=== PATIENT | female | born 1945 | race Caucasian/White ===

== ENCOUNTER 2017-08-12 14:13 | Inpatient (IN) | payer MEDICARE, SELFPAY ==
[2017-08-12] VITALS (8 sets, daily range): BP systolic 81–139; BP diastolic 50–89; PULSE 67–95; RESP 14–20; TEMP 36.8; O2SAT 97–99; BMI 22.6; BMI 21.6; BMI 21.7
--- NOTE | 2017-08-12 15:51 | RAD_ITS ---
STUDY: X-RAY - LUMBAR SPINE REASON FOR EXAM: Female, 71 years old. fell 3 days ago, pain in lower back and hips TECHNIQUE: 3 view(s) of the lumbar spine were obtained. COMPARISON: None FINDINGS: Normal lumbar lordosis. There is no substantial scoliosis. There is a normal alignment of the vertebrae. Bone demineralization is noted. There appears concavity associated with the superior endplates of L2 and L3 likely on the basis of osteoporotic central compression. No defined acute fracture however identified. Minimal marginal osteophytes are noted. There appears lower lumbar facet arthropathy. Normal disc space heights. There is no demonstrated fracture. Surgical clips are present in the right upper quadrant presumably from prior cholecystectomy. There appear anastomotic radha in the region of the gastroesophageal junction. RAD/Lumbar Spine 2 or 3 Views IMPRESSION: Osteoporosis. Suspect osteoporotic concavities of the L2 and L3 vertebral bodies. No acute defined fracture identified. Electronically Signed: Amanda José MD at 16:50 EDT , Service support ,
--- NOTE | 2017-08-12 15:52 | RAD_ITS ---
STUDY: X-RAY - LEFT SHOULDER REASON FOR EXAM: Female, 71 years old. fell 3 days ago, shoulder pain TECHNIQUE: 3 view(s) of the shoulder. COMPARISON: Prior comparison studies are not available for review at this time. FINDINGS: Bony demineralization is noted. There is a right shoulder arthroplasty with humeral diaphyseal component and humeral head component. There is radiolucency in the region of the glenoid as well as sclerosis. There is no sign of dislocation. There does appear heterotopic bone locally in this region. There is no evidence of scapular clavicular or subjacent rib fracture. The soft tissue structures are unremarkable. Normal visualized pulmonary apex. RAD/Shoulder min 2 Views IMPRESSION: Left shoulder arthroplasty. No acute abnormality identified. Electronically Signed: Amanda José MD at 16:47 EDT , Service support ,
--- NOTE | 2017-08-12 15:52 | RAD_ITS ---
STUDY: X-RAY - PELVIS REASON FOR EXAM: Female, 71 years old. fell 3 days ago, hip pain TECHNIQUE: One view of the pelvis was obtained. COMPARISON: None. FINDINGS: There is a non-specific bowel gas pattern. Normal visualized soft tissue structures. There is diffuse demineralization of the osseous structures. Normal bilateral iliac wings, sacroiliac joints and visualized sacrum. Normal visualized bilateral superior and inferior pubic rami. Normal pubic symphysis. Normal ischial tuberosities. Normal visualized right femoral head. Normal right acetabulum. Normal right hip joint. Normal visualized left femoral head. Normal left acetabulum. Normal left hip joint. RAD/Pelvis 1 or 2 Views IMPRESSION: No acute abnormality. Bony demineralization. Electronically Signed: Amanda José MD at 16:51 EDT , Service support ,
--- NOTE | 2017-08-12 17:07 | RAD_ITS ---
STUDY: X-RAY - SACRUM/COCCYX REASON FOR EXAM: Female, 71 years old. fall 3 days ago, pain in tail bone TECHNIQUE: 3 view(s) of the sacrum and coccyx were obtained. COMPARISON: None. FINDINGS: Normal bilateral sacroiliac joints. On the lateral view there appears that there is disruption of the anterior cortex of the proximal sacrum suggesting a subtle fracture in this area. I question the presence of fracture associated with the left sacrum superiorly on the other views. Normal sacrococcygeal junction with a normal angulation. Normal coccygeal segments. The presacral soft tissue structures are unremarkable. RAD/Sacrum-Coccyx min 2 Views IMPRESSION: No evidence of a coccygeal fracture. On the lateral view there appears that there is disruption of the anterior cortex of the proximal sacrum suggesting a subtle fracture in this area. I question the presence of fracture associated with the left sacrum superiorly on the other views. Electronically Signed: Amanda José MD at 18:26 EDT , Service support ,
--- NOTE | 2017-08-12 17:08 | ED.VISSUMM ---
- ER Visit Summary Date of Service: 08/12/17 Chief Complaint: Fall History of Present Illness: The patient is a 71 F who lives in [place] and sees Dr. Ruiz. She reports that she fell approximately July 23 when she was climbing on a couch and lost her balance. She reports that she has low back pain that is sharp and 10 out of 10 severity. She has bilateral hip pain that is 10 out of 10 severity. Left shoulder pain that is 6 out of 10 severity. All of these pains are worsened by movement or the active sitting down. They are unrelieved by Tylenol. Patient denies any blow to the head or loss of consciousness. She is not on any blood thinners. No neck or head pain. Patient reports that she has been nauseated, but has not vomited. She relates this to when the pain is severe. She reports she been having diarrhea 1-2 times a day for the past month. No blood in her stools or black tarry stools. She complains of generalized weakness. Physical Examination: Vitals: Stable. Afebrile. Neck: No vertebral tenderness. Full ROM without difficulty. Cleared by NEXUS criteria. Back: Mild tenderness palpation is diffuse over the lumbar spine. Moderate tenderness palpation over her coccyx.. General: A&O x 3. NAD. Cardiovascular exam: Regular rate and rhythm. 2 out of 6 systolic murmur. Respiratory exam: Chest nontender. No crepitus. Clear to auscultation bilaterally. No wheezes or stridor. Abdominal exam: Soft, nontender, nondistended, normal bowel sounds. No pain in RUQ or LUQ specifically. No peritoneal signs. Extremity: Mild tenderness palpation over her greater trochanters bilaterally. She has no pain with internal/external rotation of her hips. Mild tenderness palpation over her left shoulder. Good range of motion without any difficulty. Test Results: LS spine x-ray show osteoporosis, but no acute disease. Pelvis x-ray shows no acute disease. Left shoulder x-ray shows her to be status post replacement. The hardware is intact. There is no acute disease. Coccyx x-ray raises a question of a sacral fracture that is only seen on the lateral view. CBC is marked for platelets of 747, segmented neutrophils 81, and lymphocytes 13. Chem-7 marked potassium 2.3, chloride 108, calcium 8.0. EKG is sinus at 74 with T-wave inversions in leads V2 to V6 and low T waves throughout. Her QTC is 477. There is no edema EKG for comparison. Emergency Department Course and Treatment: Patient had an IV placed. She was given morphine and Zofran IV. She is resting comfortably. Patient was given K-Dur p.o. Treatment Plan: Patient is visiting from [place] and does not have a local primary care physician. She is already on potassium at home. I do not think that she is going to be able to replete her potassium and have this checked in a safe manner at home. She will will be discussed the hospitalist and admitted for further evaluation and treatment. Disposition: Admitted in improved condition. Impression: 1. Hypokalemia. 2. Low back pain. This note was generated with [employer] dictation software. It may contain incorrect words, spelling, and punctuation that were not noted in review of the chart prior to signing ED Disposition - Plan for ED Patient: Chief Complaint: Fall Referrals: [facility] Doctor,Out of [Primary Care Provider] -
--- NOTE | 2017-08-12 17:11 | ED.DCSUM_ITS ---
- ER Visit Summary Date of Service: 08/12/17 Chief Complaint: Fall History of Present Illness: The patient is a 71 F who lives in [place] and sees Dr. Ruiz. She reports that she fell approximately July 23 when she was climbing on a couch and lost her balance. She reports that she has low back pain that is sharp and 10 out of 10 severity. She has bilateral hip pain that is 10 out of 10 severity. Left shoulder pain that is 6 out of 10 severity. All of these pains are worsened by movement or the active sitting down. They are unrelieved by Tylenol. Patient denies any blow to the head or loss of consciousness. She is not on any blood thinners. No neck or head pain. Patient reports that she has been nauseated, but has not vomited. She relates this to when the pain is severe. She reports she been having diarrhea 1-2 times a day for the past month. No blood in her stools or black tarry stools. She complains of generalized weakness. Physical Examination: Vitals: Stable. Afebrile. Neck: No vertebral tenderness. Full ROM without difficulty. Cleared by NEXUS criteria. Back: Mild tenderness palpation is diffuse over the lumbar spine. Moderate tenderness palpation over her coccyx.. General: A&O x 3. NAD. Cardiovascular exam: Regular rate and rhythm. 2 out of 6 systolic murmur. Respiratory exam: Chest nontender. No crepitus. Clear to auscultation bilaterally. No wheezes or stridor. Abdominal exam: Soft, nontender, nondistended, normal bowel sounds. No pain in RUQ or LUQ specifically. No peritoneal signs. Extremity: Mild tenderness palpation over her greater trochanters bilaterally. She has no pain with internal/external rotation of her hips. Mild tenderness palpation over her left shoulder. Good range of motion without any difficulty. Test Results: LS spine x-ray show osteoporosis, but no acute disease. Pelvis x- ray shows no acute disease. Left shoulder x-ray shows her to be status post replacement. The hardware is intact. There is no acute disease. Coccyx x-ray raises a question of a sacral fracture that is only seen on the lateral view. CBC is marked for platelets of 747, segmented neutrophils 81, and lymphocytes 13. Chem-7 marked potassium 2.3, chloride 108, calcium 8.0. EKG is sinus at 74 with T-wave inversions in leads V2 to V6 and low T waves throughout. Her QTC is 477. There is no edema EKG for comparison. Emergency Department Course and Treatment: Patient had an IV placed. She was given morphine and Zofran IV. She is resting comfortably. Patient was given K- Dur p.o. Treatment Plan: Patient is visiting from [place] and does not have a local primary care physician. She is already on potassium at home. I do not think that she is going to be able to replete her potassium and have this checked in a safe manner at home. She will will be discussed the hospitalist and admitted for further evaluation and treatment. Disposition: Admitted in improved condition. Impression: 1. Hypokalemia. 2. Low back pain. This note was generated with [employer] dictation software. It may contain incorrect words, spelling, and punctuation that were not noted in review of the chart prior to signing ED Disposition - Plan for ED Patient: Chief Complaint: Fall Referrals: [facility] Doctor,Out of [Primary Care Provider] -
[2017-08-12 17:25] LABS: Absolute Lymphocyte Count 1.12 X10^3/ul (0.83-4.51); Absolute Neutrophil Count 7.3 X10^3/uL (2.0-7.7); Basophil# 0.02 X10^3/uL; Basophil% 0.2 % (0-1); Hematocrit 38.5 % (37-47); Hemoglobin 13.3 g/dl (12.0-15.0); Lymphocyte # 1.12 X10^3/ul (4.0); Lymphocyte % 12.5 % (19-41); Mean Corp Hgb Conc 34.5 g/gl (32-36); Mean Corpuscular Hgb 31.5 pg (27.0-32.0); Mean Corpuscular Volume 91.2 fL (81-99); Mean Platelet Vol. 9.8 fl (6.2-12.0); Monocyte% 5.6 % (0-10); Neutrophil # 7.29 X10^3/uL (2.7-7.7); Neutrophil % 81.4 % (47-70); Platelet Count 747 K/mm3 (150-450); RBC Distribution Width CV 17.5 % (11.6-14.6); RBC Distribution Width SD 53.4 fl (35.1-43.9); Red Blood Count 4.22 M/mm3 (4.2-5.4)
[2017-08-12 17:28] LABS: POSITIVE COUNT NO; POSITIVE DIFFERENTIAL NO; POSITIVE MORPHOLOGY NO
[2017-08-12] MEDS: Morphine 4 MG/ML Syringe IV (17:44)
[2017-08-12] MEDS: Ondansetron 4 MG/2 ML Vial IV (17:44)
[2017-08-12 17:49] LABS: Anion Gap 10 (5-15); BUN 18 mg/dL (7-18); Chloride 108 mmol/L (98-107); Creatinine, Serum 0.62 mg/dL (0.55-1.02); EST Glomerular Filtration Rate 100 mL/min (>60); Est Glom Filt Rate - Afr Amer 121 mL/min (>60); Estimated Creatinine Clearance 37.81 ml/min; Glucose 103 mg/dL (74-106); Potassium 2.3 mmol/L (3.5-5.1); Sodium Level 144 mmol/L (136-145)
--- NOTE | 2017-08-12 19:32 | EKG12_ITS ---
Test Reason : LOW POTASSIUM Blood Pressure : / mmHG Vent. Rate : 074 BPM Atrial Rate : 074 BPM P-R Int : 156 ms QRS Dur : 076 ms QT Int : 430 ms P-R-T Axes : 036 -17 187 degrees QTc Int : 477 ms Normal sinus rhythm ST & T wave abnormality, consider inferior ischemia ST & T wave abnormality, consider anterolateral ischemia Prolonged QT Abnormal ECG Confirmed by ALICE BELTRAN, NORMA ([id number]), digital editor MELVA ESPINOZA ([id number]) on 08/16/2017 2:56:43 PM Referred By: SOPHIA Confirmed By:NORMA JENKINS MD
--- NOTE | 2017-08-12 21:54 | PCM.HP.STD ---
Problem List (1) Hypokalemia Status: Acute (2) Falls Status: Acute (3) Epilepsy Status: Chronic (4) Bilateral leg edema Status: Chronic (5) Hypotension Status: Resolved (6) Thrombocytosis Status: Acute (7) Hypocalcemia Status: Acute (8) Sacral fracture Status: Acute (9) Hypothyroid Status: Chronic History of Present Illness Date of Admission: 08/12/17 Chief Complaint: Pain at coccyx after fall. The patient is a 71 year old F with a significant history of epilepsy, right shoulder pain status post surgery about 19 years ago who presented to the ED because of pain at her coccyx- sacral area after a fall 3 weeks ago. The patient states that she was standing on her sofa and trying to reposition a picture on the wall and she fell. She denies any syncope, nausea and vomiting, heart racing or seizure activity associated with a fall. The patient fell in her house at [place] where she lives. After the fall, she went to a hospital in [place]. She reports that x-ray at that time showed no abnormality at that time and she was not given any medication. She reports taking Tylenol which she thinks does not help but only upset her stomach. On her medication list is Tylenol with codeine. She is currently visiting her sister at [place]. She rates the pain at the coccyx sacral area as 9 out of 10. The pain is constant and it is throbbing. This pain prevents her from sleeping. At the ED her potassium was found to be 2.3 and she had T-wave inversions in leads of V1 to V6. Because of hypokalemia with EKG changes patient was admitted. [] Past Medical History Past Medical History (Chronic Problems): Chronic Problems Epilepsy (Chronic) Bilateral leg edema (Chronic) Hypothyroid (Chronic) Allergies No Known Allergies Allergy (Verified 08/12/17 14:15) Home Medications: Ambulatory Orders Medication Instructions Recorded Acetaminophen/Codeine #3 1 tablet PO Q4H PRN PRN 08/12/17 [Tylenol#3] Carvedilol [Coreg] 3.125 mg PO BID 08/12/17 Celecoxib [Celebrex] 200 mg PO DAILY 08/12/17 Donepezil HCl [Aricept] 10 mg PO QHS 08/12/17 Ergocalciferol [Vitamin D] 50,000 unit PO Q7D 08/12/17 Esomeprazole Magnesium [Nexium] 40 mg PO DAILY 08/12/17 Furosemide [Lasix] 20 mg PO DAILY 08/12/17 Levothyroxine [Synthroid] 75 mcg PO DAILY 08/12/17 Potassium Chloride [Klor-Con M20] 20 meq PO BID 08/12/17 Ropinirole HCl [Requip] 0.5 mg PO TID 08/12/17 Venlafaxine HCl [Venlafaxine HCl 75 mg PO DAILY 08/12/17 ER] Surgical History: - - L Shoulder surgery. Lives: With Family Smoking Status: Never smoker Tobacco Use: Non-smoker Alcohol: None Drugs: None - *Family History Maternal History Items: Heart Disease Paternal History Items: No pertinent history Sibling History Items: Cancer Review of Systems Constitutional: Denies: Chills, Fever, Weight Change HEENT: Reports: Difficulty Hearing - Uses bilateral hearing aids. At the time of assessment she had a hearing aid only in her left ears. Cardiovascular: Denies: Chest Pain, Palpitations Gastrointestinal: Denies: Abdominal Pain, Nausea, Vomiting Genitourinary: Denies: Dysuria Musculoskeletal: Reports: Shoulder Pain - Left - That she rates as 6 out of 10 and can go up to 9 out of 10 with activity. Poor gait requiring walker and assistance from family. Skin: Denies: Rash, Wounds Neurological: Reports: - Psychiatric: Denies: Anxiety, Depression, Homicidal Ideations, Suicidal Ideations Hematologic/ Lymphatic: Denies: Easy Bruising, Easy Bleeding VTE Information - Inpt Only VTE Present on Admission: No VTE Mechan Device Prophylaxis: None VTE Pharm Prophylaxis ordered?: Yes Patient Problems: Active and Suspected Problems Hypokalemia (Acute) Falls (Acute) Thrombocytosis (Acute) Hypocalcemia (Acute) Sacral fracture (Acute) - Physical Exam General: Alert, Oriented x3, Cooperative HEENT: Atraumatic, PERRLA, EOMI, Normocephalic Neck: Supple, No JVD, Negative Carotid Bruits Lungs: Diminished Cardiovascular: Regular rate, No murmurs Abdomen: Bowel Sounds Present, Soft, Non Tender Skin: No breakdown, - - A quarter size bruise on left lower ponce (reports sustained from falling.) Healed wound (report surgical) at Left shoulder. Musculoskeletal: Tenderness - Coccyx-sacral region Reduced range of motion of bilateral lower extremities. Strength of bilateral lower extremities intact. Strength of left shoulder 4/5. Strength of right shoulder 5/5. Equal handgrip bilateral, Neurological: - - Hard of hearing. Psych/Mental Status: Normal Affect, Appropriate Vital Signs Temp Pulse Resp BP Pulse Ox 98.3 F 82 14 120/76 97 08/12/17 14:13 08/12/17 20:29 08/12/17 20:29 08/12/17 20:29 08/12/17 20:29 Oxygen Delivery Method Room Air Weight: 54.431 kg Body Mass Index (BMI) 22.6 Laboratory Tests Past 24 Hrs 08/12/17 08/12/17 17:20 17:20 WBC 9.0 RBC 4.22 Hgb 13.3 Hct 38.5 MCV 91.2 MCH 31.5 MCHC 34.5 RDW 17.5 H RDW Differential 53.4 H Plt Count 747 H MPV 9.8 Immature Gran % (Auto) 0.300 Neut % (Auto) 81.4 H Lymph % (Auto) 12.5 L Dukes % (Auto) 5.6 Eos % (Auto) 0.0 Baso % (Auto) 0.2 Absolute Neuts (auto) 7.3 Absolute Lymphs (auto) 1.12 Total Counted Not Reportable Sodium 144 Potassium 2.3 L* Chloride 108 H Carbon Dioxide 26.0 Anion Gap 10 BUN 18 Creatinine 0.62 Estim Creat Clear Calc 37.81 Est GFR (MDRD) Af Amer 121 Est GFR (MDRD) Non-Af 100 BUN/Creatinine Ratio 29.0 H Glucose 103 Calcium 8.0 L Assessment/Plan All Active Problems Hypokalemia (Acute) Falls (Acute) Hypotension (Resolved) Thrombocytosis (Acute) Hypocalcemia (Acute) Sacral fracture (Acute) This is a 71 year old lady with a significant history of epilepsy who is visiting from [place] who reported to the ED because of pain in her coccyx- sacral area after a fall and was found to have severe hypokalemia with EKG abnormalities. 1. Severe Hypokalemia At Presentation patient's potassium was 2.3. Patient with EKG abnormalities of T-wave inversions and some QT prolongation. The patient is on potassium 20meq bid at home. And she is on Lasix 20mg daily . She reports that last time that she took her medications was a day before admission. Hypokalemia could be due to use of Lasix At Emergency department patient received 40 mEq of potassium. We will replenish with a further potassium chloride 40 mEq p.o. and 40 mEq IV. Will check magnesium. We will check urine potassium Sacral fracture Patient has pain in his sacral area. Radiographic evidence of a disruption of anterior cortex of the proximal sacrum suggesting a sacral fracture Morphine as needed, oxycodone as needed and schedule Tylenol ordered. We will continue home dose of celecoxib. Falls We will check orthostatic blood pressure. The patient on on telemetry monitoring to check for arrhythmia. We will check vitamin D level and Vitamin B12 Continue on home vitamin D. Physical therapy and occupational therapy consultation. Case management to help with disposition upon discharge. Dehydration BUN/creatinine is more than 20. There is no previous records to track progression. With her severe hypotension upon admission probably patient is dehydrated. She reports chronic bilateral leg edema but at the time of admission she did not have any edema and this could be due to dehydration. Further her potassium is high normal at 144. Will continue IV hydration for additional NSS 1L. Hypotension Resolved at the Emergency after fluid boluses We will hold home Coreg We will continue on a gentle hydration 50 mL/hr for 1L Thrombocytosis No old records to track progression Differential diagnoses include dehydration. We will repeat CBC in a.m. Hypocalcemia Her calcium on admission was 8.0. Will check CMP for albumin level to check a corrected calcium. Epilepsy The patient reported that her last seizure was about a year ago. There is no epileptic medication on a profile Patient will need close monitoring because of previous seizures. Patient to follow up with her primary care physician or neurologist after discharge. Hypothyroidism Continue home Synthroid. History of bilateral leg edema Patient denies any history of heart failure. She reports that she takes Lasix for bilateral leg edema suggesting a possible history of venous stasis. Home Lasix on hold at this time since she has no bilateral leg edema at this point and she looks dehydrated. DVT prophylaxis subcutaneous heparin. Code Visit Inpatient E&M: 55503 Init Hosp L2
[2017-08-12 23:01] LABS: Magnesium 2.1 mg/dL (1.6-2.6)
[2017-08-12] MEDS: 0.9% Normal Saline 1,000 ML 50 ML IV (23:26)
--- NOTE | 2017-08-12 23:59 | NURSING ---
Pt states has a home medication list in her purse but her sister took her purse when she left. Asked pt if she could have her sister bring it in sometime tomorrow.
[2017-08-13] VITALS (12 sets, daily range): BP systolic 103–145; BP diastolic 63–94; PULSE 69–98; RESP 16–18; TEMP 36.6–36.7; O2SAT 96–99
[2017-08-13] MEDS: Acetaminophen 500 MG Tablet PO ×4 (00:06→22:17)
[2017-08-13] MEDS: Heparin Injection (Vial) 5,000 UNIT/ML VIAL 5000 UNIT SC ×3 (00:07→22:15)
[2017-08-13] MEDS: Pramipexole Di-HCl 0.25 MG Tablet PO ×4 (00:07→22:15)
[2017-08-13] MEDS: Donepezil HCl 10 MG Tablet PO ×2 (00:08→22:15)
[2017-08-13] MEDS: 0.9% NaCl Peripheral Flush Adult/Peds IV ×3 (00:13→22:19)
[2017-08-13] MEDS: oxyCODONE 5 MG Tablet PO ×4 (01:59→22:22)
--- NOTE | 2017-08-13 05:55 | EKG12_ITS ---
Test Reason : AM EKG Blood Pressure : / mmHG Vent. Rate : 068 BPM Atrial Rate : 068 BPM P-R Int : 162 ms QRS Dur : 076 ms QT Int : 454 ms P-R-T Axes : 063 -12 -05 degrees QTc Int : 482 ms Normal sinus rhythm ST & T wave abnormality, consider anterior ischemia Abnormal ECG No previous ECGs available Confirmed by ALICE BELTRAN, NORMA ([id number]), scientific publications editor MELVA ESPINOZA ([id number] on 08/24/2017 3:03:02 PM Referred By: JUAN Confirmed By:NORMA JENKINS MD
[2017-08-13] MEDS: Levothyroxine 75 MCG Tablet PO (06:08)
[2017-08-13 06:31] LABS: Absolute Lymphocyte Count 1.47 X10^3/ul (0.83-4.51); Absolute Neutrophil Count 4.2 X10^3/uL (2.0-7.7); Basophil# 0.02 X10^3/uL; Basophil% 0.3 % (0-1); Hematocrit 30.5 % (37-47); Hemoglobin 10.3 g/dl (12.0-15.0); Lymphocyte # 1.47 X10^3/ul (4.0); Lymphocyte % 23.4 % (19-41); Mean Corp Hgb Conc 33.8 g/gl (32-36); Mean Corpuscular Hgb 31.6 pg (27.0-32.0); Mean Corpuscular Volume 93.6 fL (81-99); Mean Platelet Vol. 10.3 fl (6.2-12.0); Monocyte# 0.53 X10^3/uL; Monocyte% 8.4 % (0-10); Neutrophil # 4.23 X10^3/uL (2.7-7.7); Neutrophil % 67.3 % (47-70); Platelet Count 638 K/mm3 (150-450); RBC Distribution Width CV 17.4 % (11.6-14.6); RBC Distribution Width SD 54.2 fl (35.1-43.9); Red Blood Count 3.26 M/mm3 (4.2-5.4); White Blood Count 6.3 K/mm3 (4.4-11.0)
[2017-08-13 06:34] LABS: POSITIVE COUNT NO; POSITIVE DIFFERENTIAL NO; POSITIVE MORPHOLOGY NO
[2017-08-13 06:49] LABS: ALB/GLOB Ratio 0.8 RATIO (0.9-2.4); AST(SGOT) 169 U/L (15-37); Alanine Aminotransfer ALT/SGPT 294 U/L (13-56); Albumin, Serum 2.1 g/dL (3.2-5.0); Alkaline Phosphatase 295 U/L (45-117); Anion Gap 9 (5-15); BUN 14 mg/dL (7-18); BUN/Creat Ratio 36.4 RATIO (10-20); Calcium,Total 7.2 mg/dL (8.5-10.1); Chloride 114 mmol/L (98-107); Creatinine, Serum 0.38 mg/dL (0.55-1.02); EST Glomerular Filtration Rate 174 mL/min (>60); Est Glom Filt Rate - Afr Amer 210 mL/min (>60); Estimated Creatinine Clearance 39.63 ml/min; Globulin 2.7 g/dL (2.2-4.2); Glucose 80 mg/dL (74-106); Potassium 2.9 mmol/L (3.5-5.1); Protein, Total 4.8 g/dL (6.4-8.2); Sodium Level 145 mmol/L (136-145)
[2017-08-13] MEDS: Calcium (Elemental) 500 MG Tablet PO (08:59)
[2017-08-13] MEDS: Pantoprazole Sodium 40 MG Tablet PO (10:11)
[2017-08-13] MEDS: Venlafaxine XR 75 MG Capsule PO (10:11)
[2017-08-13] MEDS: Celecoxib 200 MG Capsule PO (10:11)
--- NOTE | 2017-08-13 11:01 | PCM.PN.HOSP ---
Patient Problems: Active and Suspected Problems Hypokalemia (Acute) Falls (Acute) Thrombocytosis (Acute) Hypocalcemia (Acute) Sacral fracture (Acute) Subjective: Unable to elicit subjective information because patient's hearing aids had run out of battery life. Her sister was going to bring her a new battery. Vitals/I&O's: Vital Signs Temp Pulse Resp BP Pulse Ox 98.1 F 85 18 119/63 97 08/13/17 09:08 08/13/17 09:08 08/13/17 09:08 08/13/17 09:08 08/13/17 09:08 Oxygen Delivery Method Room Air Weight: 53.7 kg Body Mass Index (BMI) 21.6 Orthostatic Vital Signs Start: 08/13/17 01:44 Freq: q24h Status: Active Protocol: Activity Type Activity Date Activity User E-Sign Co-Sign Detail Recorded Client Recorded Date Recorded By Document 08/13/17 01:44 KJA [id number] 08/13/17 01:52 KJA 08/13/17 01:44 Orthostatic Vitals Standing -Blood Pressure (90/60-120/80) 116/82 H -Extremity Use Right Arm -Pulse Rate (60-100) 98 Sitting -Blood Pressure (90/60-120/80) 145/94 H -Extremity Use Right Arm -Pulse Rate (60-100) 80 Lying -Blood Pressure (90/60-120/80) 128/77 H -Extremity Use Right Arm -Pulse Rate (60-100) 76 Intake and Output for Last 24 Hours 08/11/17 08/12/17 08/13/17 23:59 23:59 23:59 Intake Total 1116 / 1116 Output Total 250 / 250 Balance 866 / 866 General: Alert, Oriented x3, Cooperative HEENT: Atraumatic, PERRLA, EOMI, Normocephalic Neck: Supple, No JVD, Negative Carotid Bruits Lungs: Clear to auscultation, Normal air movement Cardiovascular: Regular rate, No murmurs Abdomen: Bowel Sounds Present, Soft, Non Tender Extremities: Tenderness - Sacral area Skin: - - Bruise at lower left ponce Neurological: - - Hard of hearing Psych/Mental Status: Normal Affect Laboratory Results 08/13/17 05:33: WBC 6.3, RBC 3.26 L, Hgb 10.3 L, Hct 30.5 L, MCV 93.6, MCH 31.6, MCHC 33.8, RDW 17.4 H, RDW Differential 54.2 H, Plt Count 638 H, MPV 10.3, Immature Gran % (Auto) 0.600, Neut % (Auto) 67.3, Lymph % (Auto) 23.4, Lares % (Auto) 8.4, Eos % (Auto) 0.0, Baso % (Auto) 0.3, Absolute Neuts (auto) 4.2, Absolute Lymphs (auto) 1.47, Total Counted Not Reportable 08/13/17 05:33: Sodium 145, Potassium 2.9 L, Chloride 114 H, Carbon Dioxide 22.0, Anion Gap 9, BUN 14, Creatinine 0.38 L, Estim Creat Clear Calc 39.63, Est GFR (MDRD) Af Amer 210, Est GFR (MDRD) Non-Af 174, BUN/Creatinine Ratio 36.4 H, Glucose 80, Calcium 7.2 L, Total Bilirubin 0.90, AST 169 H, ALT 294 H, Alkaline Phosphatase 295 H, Total Protein 4.8 L, Albumin 2.1 L, Globulin 2.7, Albumin/Globulin Ratio 0.8 L 08/13/17 05:33: Vitamin B12 Pending 08/13/17 05:33: Vit D 1,25-Dihydroxy Pending 08/13/17 06:20: Urine Potassium 28.0 Current Medications Acetaminophen (Tylenol) 500 mg PO Q8H [facility] Last Admin: 08/13/17 06:08 Dose: 500 mg Calcium Carbonate (Os-Og 500) 500 mg PO DAILY@0800 [facility] Last Admin: 08/13/17 08:59 Dose: 500 mg Celecoxib (Celebrex) 200 mg PO DAILY [facility] Last Admin: 08/13/17 10:11 Dose: 200 mg Donepezil HCl (Aricept) 10 mg PO QHS [facility] Last Admin: 08/13/17 00:08 Dose: 10 mg Ergocalciferol (Vitamin D) 50,000 unit PO Q7D [facility] Heparin Sodium (Porcine) (Heparin Na) 5,000 unit SC Q12 [facility] Last Admin: 08/13/17 10:11 Dose: 5,000 units Sodium Chloride () 1,000 mls @ 50 mls/hr IV .Q20H [facility] Stop: 08/13/17 18:58 Last Admin: 08/12/17 23:26 Dose: 50 mls/hr Potassium Chloride (Kcl 10meq/100ml) 10 meq in 100 mls @ 100 mls/hr IV BOLUS Q1H [facility] Stop: 08/13/17 11:29 Last Admin: 08/13/17 10:05 Dose: 100 mls/hr Levothyroxine Sodium (Synthroid) 75 mcg PO DAILY@0600 [facility] Last Admin: 08/13/17 06:08 Dose: 75 mcg Magnesium Hydroxide (Milk Of Magnesia) 30 ml PO DAILY PRN PRN PRN Reason: Constipation Morphine Sulfate () 1 mg IV Q4H PRN PRN PRN Reason: SEVERE PAIN (6-10/10) Nutritional Formula (Lactose Free) (Ensure Enlive) 120 ml PO 4X/DAY [facility] Oxycodone HCl (Oxyir) 5 mg PO Q4H PRN PRN PRN Reason: SEVERE PAIN (6-10/10) Last Admin: 08/13/17 08:58 Dose: 5 mg Pantoprazole Sodium (Protonix) 40 mg PO DAILY [facility] Last Admin: 08/13/17 10:11 Dose: 40 mg Pramipexole Dihydrochloride (Mirapex) 0.25 mg PO TID [facility] Last Admin: 08/13/17 06:08 Dose: 0.25 mg Sodium Chloride () 5 - 30 ml IV UD PRN PRN Reason: SALINE FLUSH Last Admin: 08/13/17 00:13 Dose: 10 ml Venlafaxine HCl (Effexor Xr) 75 mg PO DAILY [facility] Last Admin: 08/13/17 10:11 Dose: 75 mg Medical Necessity - Tobacco Use Smoking Status: Never smoker Tobacco Use: Non-smoker Assessment/Plan All Active Problems Hypokalemia (Acute) Falls (Acute) Hypotension (Resolved) Thrombocytosis (Acute) Hypocalcemia (Acute) Sacral fracture (Acute) This is a 71 year old lady with a significant history of epilepsy who is visiting from [place] who reported to the ED because of pain in her coccyx- sacral area after a fall and was found to have severe hypokalemia with EKG abnormalities. 1. Severe Hypokalemia At Presentation patient's potassium was 2.3. This morning her potassium level increased to 2.9 and her T-wave inversion appears to be of a decreased depth. Her magnesium level is normal. Will continue with p.o. and IV potassium replacements. Her urine potassium is unremarkable. Serial BMP Sacral fracture Patient has tenderness in her sacral area. Radiographic evidence of a disruption of anterior cortex of the proximal sacrum suggesting a sacral fracture Morphine as needed, oxycodone as needed and schedule Tylenol ordered. Continue home dose of celecoxib. Falls Orthostatic blood pressure is inconsistent.. No arrhythmia on tele vitamin D level pending Vitamin B12 is elevated Continue on home vitamin D. Physical therapy and occupational therapy is following. Pending recommendations Case management to help with disposition upon discharge. Dehydration Appears well hydrated. Will discontinue NSS infusion in ade face of high normal Sodium level Hypotension Resolved Will restart home Coreg Thrombocytosis No old records to track progression Remains elevated. Patient will need to follow up outpatient Hypocalcemia Corrected with her low level of albumin Epilepsy The patient reported that her last seizure was about a year ago. There is no epileptic medication on a profile Patient will need close monitoring because of previous seizures. Patient to follow up with her primary care physician or neurologist after discharge. Hypothyroidism Continue home Synthroid. History of bilateral leg edema Patient denies any history of heart failure. She reports that she takes Lasix for bilateral leg edema suggesting a possible history of venous stasis. Home Lasix on hold at this time since she has no bilateral leg edema at this point and she was hydrated during this admission. DVT prophylaxis subcutaneous heparin. Disposition: Patient will remain at the hospital today because of hypokalemia with uncertainty of her being able to appropriate correct her hypokalemia outpatient by acquiring Potassium pills and following up with relevant labs. She lives in [place]. Further, we await PT/OT recommendation for disposition after discharge Code Visit Inpatient E&M: 68467 Subs Hosp L2
[2017-08-13 12:43] LABS: Vitamin B12 1073 pg/mL (211-911)
--- NOTE | 2017-08-13 14:35 | CHAPLAIN ---
Type of Pastoral Visit _x__ Initial Visit ___ Follow-up Visit ___ On-call Visit ___ General Patient Visit ___ Spiritual Assessment ___ Family Conference ___ Bereavement ___ Rapid Response ___ Code Blue ___ Other (describe below) Pastoral Care Referral From _x__ Patient ___ Family ___ Nurse ___ Physician ___ Salesperson Flowers ___ Design Inserter ___ Other (describe below) Sacrament/Intervention _x__ Active listening ___ Anointing ___ Muslim ___ Bereavement ___ Communion ___ Patsy exploration ___ ___ Life review _x__ Prayer ___ Reconciliation ___ Sacrament of Sick _x__ Supportive presence ___ Wedding ___ Other (describe below) Pastoral Comments
[2017-08-13 16:24] LABS: Anion Gap 9 (5-15); BUN 15 mg/dL (7-18); Calcium,Total 7.9 mg/dL (8.5-10.1); Chloride 115 mmol/L (98-107); Creatinine, Serum 0.43 mg/dL (0.55-1.02); EST Glomerular Filtration Rate 153 mL/min (>60); Est Glom Filt Rate - Afr Amer 185 mL/min (>60); Estimated Creatinine Clearance 39.63 ml/min; Glucose 101 mg/dL (74-106); Potassium 4.5 mmol/L (3.5-5.1); Sodium Level 143 mmol/L (136-145)
--- NOTE | 2017-08-13 17:06 | CASEMGMT ---
SEE RN UMESH LINK: D/C PLAN: Undetermined. -PT/OT eval completed and recommend Detention Care upon discharge. SW referral made to [facility]. -Discussed Adv Directives with pt. Pt states is interested in talking with someone re: this. SW referral also made for Adv Directives. Pineda MONTOYA RN CM
[2017-08-13] MEDS: Carvedilol 3.125 MG TABLET PO (22:15)
[2017-08-14 02:59] VITALS: PULSE 70
[2017-08-14 04:30] VITALS: BP 125/77; PULSE 75; RESP 16; TEMP 36.7; O2SAT 99
[2017-08-14] MEDS: oxyCODONE 5 MG Tablet PO (06:33)
[2017-08-14] MEDS: Acetaminophen 500 MG Tablet PO (06:33)
[2017-08-14] MEDS: Pramipexole Di-HCl 0.25 MG Tablet PO ×2 (06:34→13:19)
[2017-08-14] MEDS: Levothyroxine 75 MCG Tablet PO (06:34)
[2017-08-14 07:22] VITALS: PULSE 69
[2017-08-14 08:17] VITALS: BP 130/76; PULSE 76; RESP 18; TEMP 36.4; O2SAT 93
[2017-08-14] MEDS: Celecoxib 200 MG Capsule PO (08:21)
[2017-08-14] MEDS: Venlafaxine XR 75 MG Capsule PO (08:21)
[2017-08-14] MEDS: Pantoprazole Sodium 40 MG Tablet PO (08:21)
[2017-08-14] MEDS: Calcium (Elemental) 500 MG Tablet PO (08:21)
[2017-08-14] MEDS: Carvedilol 3.125 MG TABLET PO (08:21)
[2017-08-14] MEDS: Heparin Injection (Vial) 5,000 UNIT/ML VIAL 5000 UNIT SC (08:21)
[2017-08-14 09:18] LABS: Anion Gap 9 (5-15); BUN 15 mg/dL (7-18); BUN/Creat Ratio 43.5 RATIO (10-20); Calcium,Total 7.6 mg/dL (8.5-10.1); Chloride 115 mmol/L (98-107); Creatinine, Serum 0.34 mg/dL (0.55-1.02); EST Glomerular Filtration Rate 197 mL/min (>60); Est Glom Filt Rate - Afr Amer 238 mL/min (>60); Estimated Creatinine Clearance 39.63 ml/min; Glucose 77 mg/dL (74-106); Potassium 3.8 mmol/L (3.5-5.1); Sodium Level 146 mmol/L (136-145)
--- NOTE | 2017-08-14 10:48 | CASEMGMT ---
Social Work Note Introduced self and role at [facility]. Pt is up visiting her sister from [place] Discuss that therapy is recommending SNF placement and pt is not in agreement. Educate to [facility] and pt is agreeable to have these setup at her sister's home. Referral made to [facility]. Also discuss advanced directives and pt wants to make her son her HCPOA. Completing paperwork with pt, but she does not have an address or phone number for her son on hand. Leave papers with pt and let her know to contact SW if she gets them prior to discharge and encourage her to complete them at home if she does not have that information prior to discharge. Pt made aware that SW is available if needs arise. Plan: Home with [facility]. Carie Anthony, MEDICAL BILLING ASSISTANT, RECREATION PROFESSOR
--- NOTE | 2017-08-14 11:25 | DCINST_ITS ---
- Discharge Diagnoses Current Active Problems: Current Active and Chronic Problems Hypokalemia (Acute) Falls (Acute) Epilepsy (Chronic) Bilateral leg edema (Chronic) Thrombocytosis (Acute) Hypocalcemia (Acute) Sacral fracture (Acute) Hypothyroid (Chronic) Reason(s) for Visit for Discharge Instructions: Hypokalemia You will use the following diet at home:: Regular Discharge Activity: - Weight Bearing Status: Weight bearing as tolerated Call your doctor if you observe: Uncontrolled pain Additional Instructions: Follow up with Home Care Allergies/Adverse Reactions: Allergies No Known Allergies Allergy (Verified 08/12/17 14:15) Medications to take at Discharge Acetaminophen/Codeine #3 [Tylenol #3 Tablet] 1 tablet PO Q4H PRN PRN 08/12/17 Carvedilol [Coreg (Beta Michelle)] 3.125 mg PO BID 08/12/17 Celecoxib [Celebrex] 200 mg PO DAILY 08/12/17 Donepezil HCl [Aricept] 10 mg PO QHS 08/12/17 Ergocalciferol [Vitamin D] 50,000 unit PO Q7D 08/12/17 Esomeprazole Magnesium [Nexium] 40 mg PO DAILY 08/12/17 Furosemide [Lasix] 20 mg PO DAILY 08/12/17 Levothyroxine [Synthroid] 75 mcg PO DAILY 08/12/17 Potassium Chloride [Klor-Con M20] 20 meq PO BID 08/12/17 Ropinirole HCl [Requip] 0.5 mg PO TID 08/12/17 Venlafaxine HCl [Venlafaxine HCl ER] 75 mg PO DAILY 08/12/17 Calcium (Elemental) [Os-Og 500] 500 mg PO DAILY@0800 tablet 08/14/17 Ensure Enlive 120 ml PO 4X/DAY liquid 08/14/17 Oxycodone [Oxyir] 5 mg PO Q4H PRN PRN #20 tab 08/14/17 The following prescriptions were given: Oxycodone [Oxyir] 5 mg PO Q4H PRN PRN #20 tab PRN Reason: Severe Pain (6-11/17) Primary Care Physician: Juarez Geiger,Out of [Primary Care Provider] - Please follow up with your Primary Care Physician in: 3-7 days Test Results: Test results from this visit will be discussed in further detail at your follow- up appointment, if applicable. Proposed Discharge Date: 08/14/17
--- NOTE | 2017-08-14 11:25 | PCM.DC.SUM ---
Discharge Date and Diagnosis Date of Admission: 08/12/17 Date of Discharge: 08/14/17 - Primary Discharge Diagnosis Active and Suspected Problems Hypokalemia (Acute) Falls (Acute) Thrombocytosis (Acute) Hypocalcemia (Acute) Sacral fracture (Acute) - Secondary Discharge Diagnosis Chronic Problems Epilepsy (Chronic) Bilateral leg edema (Chronic) Hypothyroid (Chronic) Hospital Course and Treatment Summary of Care Provided: The patient is a 71 year old F with a significant history of epilepsy, right shoulder pain status post surgery about 19 years ago who presented to the ED because of pain at her coccyx- sacral area after a fall 3 weeks ago. At the ED patient was found to have severe hyperkalemia and had EKG abnormalities. Severe Hypokalemia At Presentation patient's potassium was 2.3. Her potassium was replaced by p.o. and IV and her EKG abnormalities improved. Patient was kept on telemetry monitoring. On the day of admission potassium was in the normal range. She was instructed to eat potassium containing foods examples of which were given. Sacral fracture Patient had a tenderness at the sacral area and also had Radiographic evidence of a disruption of anterior cortex of the proximal sacrum suggesting a sacral fracture. Patient was medicated with narcotics and scheduled Tylenol. We continued her home celecoxib. Weightbearing as tolerated. Falls Orthostatic blood pressure was inconsistent inconsistent.. Patient had no arrhythmias on telemetry . Physical therapy and occupational therapy work with patient. PT/OT recommended intermediate for rehabilitation. However patient's preferred home with home health. Patient was subsequently discharged to home with home care. Dehydration The patient appeared dehydrated and was hydrated with IV normal saline infusion. Hypotension She was hypotensive initially at the ED and she required IV normal saline to boost her blood pressure. Her home Coreg was subsequently held initially. But as her blood pressure improved her home Coreg was restarted. Thrombocytosis She had a thrombocytosis which trended down. Patient will have to follow up with this outpatient. Hypocalcemia Corrected with her low level of albumin. However because of her thin frame she received calcium here and she was prescribed calcium for outpatient use. Epilepsy The patient reported that her last seizure was about a year ago. There was no epileptic medication on a profile Patient was close monitored because of previous seizures. She was placed on seizure precautions. Patient to follow up with her primary care physician or neurologist. Hypothyroidism Was Continued on home Synthroid. History of bilateral leg edema Patient denied any history of heart failure. She reported that she takes Lasix for bilateral leg edema suggesting a possible history of venous stasis. Her home lasix was held while in patient. On the day of admission patient was seen a brief physical is as follows. General: Alert, Oriented x3, Cooperative HEENT: Atraumatic, PERRLA, EOMI, Normocephalic Neck: Supple, No JVD, Negative Carotid Bruits Lungs: Clear to auscultation, Normal air movement Cardiovascular: Regular rate, No murmurs Abdomen: Bowel Sounds Present, Soft, Non Tender Extremities: Mild Tenderness - Sacral area Skin: - - Bruise at lower left ponce Neurological: - - Hard of hearing Psych/Mental Status: Normal Affect Patient was instructed to follow up with a primary care physician and home care for physical therapy needs. [] Discharge Activity: - Weight Bearing Status: Weight bearing as tolerated Call your doctor if you observe: Uncontrolled pain Home Medications: Medications to take at Discharge Acetaminophen/Codeine #3 [Tylenol #3 Tablet] 1 tablet PO Q4H PRN PRN 08/12/17 Carvedilol [Coreg (Beta Michelle)] 3.125 mg PO BID 08/12/17 Celecoxib [Celebrex] 200 mg PO DAILY 08/12/17 Donepezil HCl [Aricept] 10 mg PO QHS 08/12/17 Ergocalciferol [Vitamin D] 50,000 unit PO Q7D 08/12/17 Esomeprazole Magnesium [Nexium] 40 mg PO DAILY 08/12/17 Furosemide [Lasix] 20 mg PO DAILY 08/12/17 Levothyroxine [Synthroid] 75 mcg PO DAILY 08/12/17 Potassium Chloride [Klor-Con M20] 20 meq PO BID 08/12/17 Ropinirole HCl [Requip] 0.5 mg PO TID 08/12/17 Venlafaxine HCl [Venlafaxine HCl ER] 75 mg PO DAILY 08/12/17 Calcium (Elemental) [Os-Og 500] 500 mg PO DAILY@0800 tablet 08/14/17 Ensure Enlive 120 ml PO 4X/DAY liquid 08/14/17 Oxycodone [Oxyir] 5 mg PO Q4H PRN PRN #20 tab 08/14/17 Following Prescrptions Were Given to Patient: Oxycodone [Oxyir] 5 mg PO Q4H PRN PRN #20 tab PRN Reason: Severe Pain (-11/17) Primary Care Physician: Juarez Doctor,Out of [Primary Care Provider] - Please follow up with your Primary Care Physician in: 3-7 days Disposition: Home with Home Health Minutes spent on discharge:: 25 Patient Condition:: Good Medical Necessity - Tobacco Use Smoking Status: Never smoker Tobacco Use: Non-smoker Meaningful Use Info Meaningful Use Diagnoses (Choose all that apply): None applicable
[2017-08-14 13:21] VITALS: BP 107/71; PULSE 78; RESP 16; TEMP 36.6; O2SAT 96
--- NOTE | 2017-08-16 08:40 | CASEMGMT ---
Social Work Note Marlin, elementary school social worker, mentioned that she had placed pt on TCU list. Pt discharged home with HHC over the weekend. SW placed a call to Shala in TCU and left her a message informing her that pt went home with H[facility]. Shikha Pressley BROOMCORN PRESS FEEDER, PERCH MACHINE INSPECTOR
== END 2017-08-14 14:00 | disposition home health service (06) | DRG 641 ==
LOC: ED 17:30 → MS3 22:04
PROVIDERS: Admitting Provider Hospitalist; Emergency Provider Emergency Medicine; Visit Provider Hospitalist
DX: E87.6 Hypokalemia (principal); S32.10XA Unspecified fracture of sacrum, initial encounter for closed fracture; E83.51 Hypocalcemia; E03.9 Hypothyroidism, unspecified; G40.909 Epilepsy, unspecified, not intractable, without status epilepticus; S80.12XA Contusion of left lower leg, initial encounter; W08.XXXA Fall from other furniture, initial encounter; Y92.009 Unspecified place in unspecified non-institutional (private) residence as the place of occurrence of the external cause; E86.0 Dehydration; I95.9 Hypotension, unspecified; D47.3 Essential (hemorrhagic) thrombocythemia
CPT/HCPCS: 36415; 72100; 72170; 72220; 73030; 80048; 80053; 82607; 82652; 83735; 84133; 85025; 93005; 97162; 97166; 97530; 97802; 99283; J7030; J7040; A4216; J2405

== ENCOUNTER 2017-09-23 09:24 | Outpatient (RCR) | payer MEDICARE, SELFPAY | END 2017-10-08 23:59 | LOC: WC 09:24 | PROVIDERS: Visit Provider Internal Medicine | DX: Z09 Encounter for follow-up examination after completed treatment for conditions other than malignant neoplasm (principal) ==

== ENCOUNTER 2017-11-10 12:37 | Emergency (ER) | payer MEDICARE, SELFPAY ==
[2017-11-10 12:37] VITALS: BP 81/61; PULSE 75; RESP 16; TEMP 36.6; O2SAT 95; BMI 22.2
[2017-11-10 12:45] VITALS: PULSE 72; RESP 14; O2SAT 98
--- NOTE | 2017-11-10 12:48 | CT_ITS ---
STUDY: CT BRAIN WITHOUT CONTRAST REASON FOR EXAM: Female, 71 years old. CONFUSION, RODRIGUEZ. RECENT TREMORS / HX OF EPILEPSY RADIATION DOSAGE (If Supplied By Facility): CTDIvol = ( 44.99 ) mGy, DLP = ( 796.11 ) mGycm TECHNIQUE: Transaxial CT imaging of the brain was performed without administration of intravenous contrast material. Individualized dose optimization techniques were used for this CT. COMPARISON: None. FINDINGS: Normal soft tissue structures. Normal calvarium. There is mild cerebral atrophy with widening of the extra-axial spaces and ventricular dilatation. There are areas of decreased attenuation within the white matter tracts of the supratentorial brain, consistent with microvascular disease changes. Normal basal ganglia and thalami. Normal brainstem. Normal cerebellum. There is no intracranial hemorrhage. There are no findings of an acute ischemic infarction. Normal visualized paranasal sinuses. CT/Brain/Head without Contrast IMPRESSION: Chronic involutional changes of the brain. Electronically Signed: Aneta Da Silva MD at 13:34 EDT Tel , Service support ,
--- NOTE | 2017-11-10 12:48 | EKG12_ITS ---
Test Reason : GEN ILLNESS Blood Pressure : / mmHG Vent. Rate : 066 BPM Atrial Rate : 066 BPM P-R Int : 170 ms QRS Dur : 074 ms QT Int : 442 ms P-R-T Axes : 045 -29 -62 degrees QTc Int : 463 ms Normal sinus rhythm Inferior infarct , age undetermined ST & T wave abnormality, consider anterolateral ischemia Abnormal ECG Confirmed by ALICE BELTRAN, NORMA ([id number]), international editorial producer MELVA ESPINOZA ([id number]) on 11/15/2017 3:12:08 PM Referred By: SUSAN Confirmed By:NORMA JENKINS MD
--- NOTE | 2017-11-10 12:54 | ED.DCSUM_ITS ---
- ER Visit Summary Date of Service: 11/10/17 Chief Complaint: Weakness, fatigue, tremor History of Present Illness: The patient is a 71 F with medical history of mild dementia and seizure disorder resents to the emergency department for increasing weakness and fatigue. The patient had recently moved up here from [place]. She been staying with family. She had a fall in [place] prior to arriving. She ended up being rather severely hypokalemic and was admitted to the hospital. She was discharged home. She states that she just does not feel herself. Over the past 3 weeks, she had gradual increasing weakness. She describes it as diffuse. She also admits to some mild nausea and a headache. She does describe lightheadedness. She is also been having vivid dreams. She denies any seizures. She is on gabapentin for her seizure disorder and has had no recent changes in the dose. She denies any recent changes in her medications. She has not had fever or chills. She denies cough. Physical Examination: Vital signs reviewed General: Well-nourished, well-developed Head: Normocephalic, atraumatic Eyes: Pupils equal and reactive, extraocular muscles intact Neck, supple, no lymphadenopathy Heart: Regular rate and rhythm Respiratory: No distress, clear bilaterally Abdomen: Soft, nontender, nondistended, no peritoneal signs Back: Nontender Extremities: Nontender, no edema, no cords Skin: Normal color no rash Neuro: Alert and oriented, no focal or lateralizing deficits Test Results: [] Emergency Department Course and Treatment: [The patient has multiple complaints. Most of it resolves around her intermittent confusion. I do feel that this is more likely progression of her dementia. She states she cannot recall things that she has done. She has no delirium. There is no hallucinations or delusions. I did obtain a head CT which was unremarkable. CT of the neck shows chronic arthritis changes. EKG was unchanged from prior. Lab work is unremarkable except for a hypokalemia. I did order the patient oral replacement, but she refused. She states he has a hard time swallowing the pills. She is supposed to be on potassium replacement at home, but states she does not take it. I do feel that this is likely the cause of the patient's weakness. She is able to ambulate. She has normal reflexes. I am going to start her on the effervescent form of potassium liquid so she can swallow it. She was counseled that she needs to take this. The patient will be discharged home. Treatment Plan: [] Disposition: Discharge Impression: 1. Generalized weakness 2. Hypokalemia This note was generated with [employer] dictation software. It may contain incorrect words, spelling, and punctuation that were not noted in review of the chart prior to signing ED Disposition - Plan for ED Patient: Chief Complaint: General Illness Diagnosis: Hypokalemia Instructions: ED Potassium Deficiency Prescriptions: Potassium Cloride Effervescent [Potassium Chl 25 Meq Eff (For Liquid)] 25 meq PO TID #30 tablet.eff Referrals: [facility] Doctor,Out of [Primary Care Provider] -
[2017-11-10 13:16] LABS: Absolute Neutrophil Count 4.1 X10^3/uL (2.0-7.7); Basophil# 0.01 X10^3/uL; Basophil% 0.2 % (0-1); Hematocrit 40.6 % (37-47); Hemoglobin 13.6 g/dl (12.0-15.0); Mean Corp Hgb Conc 33.5 g/gl (32-36); Mean Corpuscular Hgb 32.6 pg (27.0-32.0); Mean Corpuscular Volume 97.4 fL (81-99); Mean Platelet Vol. 10.1 fl (6.2-12.0); Monocyte# 0.57 X10^3/uL; Monocyte% 9.4 % (0-10); Neutrophil # 4.08 X10^3/uL (2.7-7.7); Neutrophil % 67.1 % (47-70); Platelet Count 288 K/mm3 (150-450); RBC Distribution Width CV 14.9 % (11.6-14.6); RBC Distribution Width SD 52.1 fl (35.1-43.9); Red Blood Count 4.17 M/mm3 (4.2-5.4); White Blood Count 6.1 K/mm3 (4.4-11.0)
[2017-11-10 13:18] LABS: POSITIVE COUNT NO; POSITIVE DIFFERENTIAL NO; POSITIVE MORPHOLOGY NO
[2017-11-10 13:35] LABS: ALB/GLOB Ratio 0.8 RATIO (0.9-2.4); AST(SGOT) 20 U/L (15-37); Alanine Aminotransfer ALT/SGPT 11 U/L (13-56); Albumin, Serum 2.7 g/dL (3.2-5.0); Alkaline Phosphatase 74 U/L (45-117); Anion Gap 10 (5-15); BUN 17 mg/dL (7-18); BUN/Creat Ratio 18.7 RATIO (10-20); Calcium,Total 8.2 mg/dL (8.5-10.1); Chloride 96 mmol/L (98-107); Creatinine, Serum 0.91 mg/dL (0.55-1.02); EST Glomerular Filtration Rate 65 mL/min (>60); Est Glom Filt Rate - Afr Amer 78 mL/min (>60); Estimated Creatinine Clearance 39.55 ml/min; Globulin 3.2 g/dL (2.2-4.2); Glucose 111 mg/dL (74-106); Potassium 2.7 mmol/L (3.5-5.1); Protein, Total 5.9 g/dL (6.4-8.2); Sodium Level 137 mmol/L (136-145)
--- NOTE | 2017-11-10 14:07 | CT_ITS ---
STUDY: CT CERVICAL SPINE WITHOUT CONTRAST REASON FOR EXAM: Female, 71 years old. TREMORS, HX OF EPILEPSY RADIATION DOSAGE (If Supplied By Facility): CTDIvol = ( 15.67 ) mGy, DLP = ( 296.35 ) mGycm TECHNIQUE: High resolution transaxial imaging was performed without contrast material. Sagittal and coronal images were reconstructed. Individualized dose optimization techniques were used for this CT. COMPARISON: None FINDINGS: Normal craniovertebral junction. Normal anterior atlantoaxial articulation. Normal odontoid process. Normal cervical lordosis. Normal vertebral bodies and posterior osseous elements. C2-3: Normal endplates. Normal disc height and morphology. Normal central canal and intervertebral neuroforamina. C3-4: Endplate spondylosis. Central and paracentral disc bulge. Degenerative changes of the bilateral facet joints and uncovertebral joints. Mild narrowing of the central canal and the bilateral intervertebral neural foramina. C4-5: Endplate spondylosis. Central and paracentral disc bulge. Degenerative changes of the bilateral facet joints and uncovertebral joints. Mild narrowing of the central canal and the bilateral intervertebral neural foramina. C5-6: Endplate spondylosis. Central and paracentral disc bulge. Degenerative changes of the bilateral facet joints and uncovertebral joints. Mild narrowing of the central canal and the bilateral intervertebral neural foramina. C6-7: Endplate spondylosis. Central and paracentral disc bulge. Degenerative changes of the bilateral facet joints and uncovertebral joints. Mild narrowing of the central canal and the bilateral intervertebral neural foramina. C7-T1: Normal endplates. Normal disc height and morphology. Normal central canal and intervertebral neuroforamina. Normal visualized soft tissue structures. CT/Spine Cervical without Contras IMPRESSION: Multilevel degenerative changes, as described above. Electronically Signed: Aneta Da Silva MD at 14:43 EDT Tel , Service support ,
--- NOTE | 2017-11-10 14:29 | ED.RN ---
pt has been asked multiple time if she needs to urinate. unable to go. dr informed. Cesar Flores rn
[2017-11-10 14:40] VITALS: BP 90/60; PULSE 62; RESP 14; O2SAT 98
[2017-11-10] MEDS: 0.9% Normal Saline 1,000 ML 999 ML IV (14:45)
[2017-11-10 16:25] VITALS: BP 102/68; PULSE 67; RESP 14; O2SAT 97
== END 2017-11-10 16:33 | disposition home or self-care (01) ==
LOC: ED 13:09
PROVIDERS: Emergency Provider Emergency Medicine
DX: E87.6 Hypokalemia (principal); R53.1 Weakness; M54.2 Cervicalgia; R51 Headache; F03.90 Unspecified dementia, unspecified severity, without behavioral disturbance, psychotic disturbance, mood disturbance, and anxiety; G40.909 Epilepsy, unspecified, not intractable, without status epilepticus; Z79.899 Other long term (current) drug therapy
CPT/HCPCS: 70450; 72125; 80053; 84484; 85025; 93005; 96365; 96366; 99284; J7030; J7040; A4216

== ENCOUNTER 2017-11-13 13:07 | Inpatient (IN) | payer MEDICARE, SELFPAY ==
[2017-11-13 13:08] VITALS: BP 93/71; PULSE 67; RESP 16; TEMP 36.6; O2SAT 98; BMI 21.7
--- NOTE | 2017-11-13 13:27 | CT_ITS ---
STUDY: CT CERVICAL SPINE WITHOUT CONTRAST REASON FOR EXAM: Female, 71 years old. Mechanical fall, hit head. RADIATION DOSAGE (If Supplied By Facility): CTDIvol = ( 16.78 ) mGy, DLP = ( 319.40 ) mGycm TECHNIQUE: High resolution transaxial imaging was performed without contrast material. Sagittal and coronal images were reconstructed. Individualized dose optimization techniques were used for this CT. COMPARISON: CT cervical spine November 10, 2017. FINDINGS: Normal craniovertebral junction. There are degenerative changes of the anterior atlantoaxial articulation. Normal odontoid process. Normal cervical lordosis. No acute fracture of the vertebral bodies and posterior osseous elements. C2-3: Normal endplates. Normal disc height and morphology. Moderate degenerative narrowing of the left facet articulation. Normal central canal and intervertebral neuroforamina. C3-4: Bilateral posterolateral endplate spurring. Borderline disc height narrowing. Mild degenerative narrowing of the left facet articulation. Normal central canal early osseous encroachment on the right intervertebral neuroforamen. C4-5: Anterior endplate spurring and posterolateral endplate osteophytes, greater on the right. Moderate to moderately severe disc height narrowing with 3.5 mm wide-based left central disc protrusion. Early degenerative arthrosis of the left facet articulation. There is slight retrolisthesis of C4 on C5. Mild impingement on the anterior central canal, and mild osseous encroachment on the right intervertebral neuroforamen. C5-6: Anterior endplate spurring and posterolateral endplate osteophytes, greater on the right. Moderate disc height narrowing . Mild to moderate degenerative arthroses of the bilateral facet articulations. Normal central canal and intervertebral neuroforamina. C6-7: Anterior endplate spurring and posterolateral endplate osteophytes, greater on the right. Cystic degenerative changes noted in the posterior C6 endplate. Moderate to moderately severe disc height with wide-based 3 mm posterior disc bulge. Mild degenerative arthroses of the bilateral facet articulations. Mild impingement on the anterior central canal, and mild osseous encroachment on the right intervertebral neuroforamen. C7-T1: Normal endplates. Normal disc height and morphology. Severe degenerative narrowing and mild hypertrophic periarticular spurring of the bilateral facet articulations. There is 1-2 mm anterolisthesis of C7 on T1. Normal central canal and intervertebral neuroforamina. Normal visualized vertebral soft tissue structures. There is early atherosclerotic intimal calcification of the bilateral carotid artery bifurcations. CT/Spine Cervical without Contras IMPRESSION: 1. No acute fracture of the cervical spine. 2. Multilevel degenerative changes, as described above, unchanged from November 10, 2017. Electronically Signed: Medhat Grace MD at 15:35 EDT , Service support ,
--- NOTE | 2017-11-13 13:27 | RAD_ITS ---
STUDY: X-RAY - LEFT SHOULDER REASON FOR EXAM: Female, 71 years old. Fall, painful shoulder. TECHNIQUE: 2 view(s) of the shoulder. COMPARISON: 3 views of left shoulder on 4 films August 12, 2017. FINDINGS: There is moderate degenerative arthrosis of the glenohumeral articulation with narrowing of the joint space and inferior periarticular spurring of the glenoid. Normal acromioclavicular joint. Normal acromion. There is demineralization of the visualized osseous structures. The patient has undergone shoulder arthroplasty, with resection of the humeral head and placement of a metal prosthesis. Mild superior subluxation of the prosthesis relative to the glenoid of the scapula is unchanged. The soft tissue structures are unremarkable. There are stable old healed fracture foreign bodies of the anterior left fourth and fifth rib Normal visualized pulmonary apex. RAD/Shoulder min 2 Views IMPRESSION: 1. Prior left shoulder arthroplasty with humeral prosthesis. 2. Old healed fracture deformities of the anterior left fourth and fifth ribs. No demonstrated acute fracture. 3. Demineralization of the osseous structures and degenerative changes of the shoulder again noted. Electronically Signed: Medhat Grace MD at 16:08 EDT , Service support ,
--- NOTE | 2017-11-13 13:27 | RAD_ITS ---
STUDY: X-RAY - PELVIS AND LEFT HIP REASON FOR EXAM: Female, 71 years old. Fall, painful left hip. TECHNIQUE: Radiological exam, hip, unilateral, with pelvis when performed; 2 or 3 views. COMPARISON: None. FINDINGS: There is a non-specific bowel gas pattern. There are calcified phleboliths. Degenerative changes noted in the visualized lower lumbar spine. There is mild cortical irregularity of the lateral sacroiliac joints, consistent with degenerative osteoarthritic changes. Normal bilateral superior and inferior pubic rami. There are mild degenerative changes of the pubic symphysis with articular narrowing. Normal bilateral ischial tuberosities. Normal visualized femoral head. There is osteoarthritic spur formation of the acetabular rim. Normal hip joint. There is a nondisplaced oblique fracture through the femoral neck. RAD/HIP, UNI W/ Pelvis 2-3 Views IMPRESSION: 1. Nondisplaced oblique fracture of the left femoral neck. Excellent degenerative changes of the lower lumbar spine, bilateral sacroiliac joints, and pubic symphysis. Degenerative spurring of the roofs of the bilateral acetabula also noted. Electronically Signed: Medhat Grace MD at 16:05 EDT , Service support ,
--- NOTE | 2017-11-13 13:27 | CT_ITS ---
STUDY: CT BRAIN WITHOUT CONTRAST REASON FOR EXAM: Female, 71 years old. Mechanical fall, hit head. RADIATION DOSAGE (If Supplied By Facility): CTDIvol = ( 44.99 ) mGy, DLP = ( 779.24 ) mGycm TECHNIQUE: Transaxial CT imaging of the brain was performed without administration of intravenous contrast material. Individualized dose optimization techniques were used for this CT. COMPARISON: Noncontrast CT brain November 10, 2017. FINDINGS: Normal soft tissue structures. Normal calvarium. There is stable mild cerebral atrophy with widening of the extra-axial spaces and ventricular dilatation. There are stable areas of decreased attenuation within the white matter tracts of the supratentorial brain, consistent with microvascular disease changes. Normal basal ganglia and thalami. Normal brainstem. Normal cerebellum. There is no intracranial hemorrhage. There are no findings of an acute ischemic infarction. Normal visualized paranasal sinuses. CT/Brain/Head without Contrast IMPRESSION: Stable chronic involutional and microvascular ischemic changes of the brain. No acute intracranial injury. Electronically Signed: Medhat Grace MD at 15:21 EDT , Service support ,
--- NOTE | 2017-11-13 13:30 | ED.DCSUM_ITS ---
- ER Visit Summary Date of Service: 11/13/17 Chief Complaint: Fall History of Present Illness: The patient is a 71 F mechanical fall prior to arrival. Patient stating that sister's house, uses a walker, states was stepping over a baby gate when she caught her foot falling down on the left side. Pain in left hip and shoulder. Did hit her left side of head. No LOC. Denies headache or neck pain. History of left total shoulder in the past. Patient is from [place]. No anticoagulation medicines. Past med history: Mild dementia, seizure disorder Physical Examination: General: Alert and oriented ? person, place, month, could not tell me the year., no acute distress HEENT: Normocephalic, no swelling on left temporal region, skin intact.. Moist mucosa membranes Neck: supple, nontender. Cardiovascular: Regular rate and rhythm, no murmurs Respiratory: Normal breath sounds, symmetric, no distress Abdomen: Soft, nontender, nondistended Extremities: Left upper extremity: Tender palpation proximal left shoulder. No deformities. Pain with movement. No elbow or wrist tenderness. Left lower extremity: Positive logroll, mildly externally rotated. There is no shortening. No knee tenderness. Neurovascular intact distally. Neuro: no focal neurological deficits. Test Results: Hemoglobin 13.1. Platelets 304. Creatinine 0.70 potassium 3.9. INR 0.9. PTT 30.9. Type and screen pending. Left shoulder x-ray: No acute process left hip x-ray: Nondisplaced femoral neck fracture. CT head and neck: No acute process. Emergency Department Course and Treatment: Patient mechanical fall, she has mild dementia, she is baseline per family. Left lower extremity slightly externally rotated, is not shortened, positive logroll. Labs were drawn stable. Left shoulder x-ray shows prosthesis however no fracture dislocation. CT head and neck negative. Left hip x-ray reviewed by myself shows a nondisplaced femoral neck fracture. Discussing with family, she last ate at noon 3 and half hours ago. Discussed with orthopedist team, Dr. Olivares, updated for admission. Discussed with hospitalist, Dr. Avila for admission. EKG, chest x-ray, type and screen added. [place] catheter placed due to nonweightbearing. Treatment Plan: [] Disposition: Admission Impression: 1. Closed left femoral neck fracture 2. Left shoulder contusion 3. Mechanical fall 4. Close head injury This note was generated with [employer] dictation software. It may contain incorrect words, spelling, and punctuation that were not noted in review of the chart p rior to signing ED Disposition - Plan for ED Patient: Disposition: Acute Care Hospital [facility] Chief Complaint: Fall Diagnosis: Fracture of femoral neck, left, closed, Contusion of left shoulder, Mechanical fall, Closed head injury Referrals: [facility],Out of [NON-STAFF] -
[2017-11-13] MEDS: 0.9% Normal Saline 1,000 ML 150 ML IV (14:01)
[2017-11-13] MEDS: fentaNYL 100 MCG/2 ML Ampul 25 MCG IV (14:01)
[2017-11-13 14:03] VITALS: BP 100/77; O2SAT 98
[2017-11-13 14:38] LABS: Absolute Lymphocyte Count 1.17 X10^3/ul (0.83-4.51); Absolute Neutrophil Count 3.7 X10^3/uL (2.0-7.7); Basophil# 0.01 X10^3/uL; Basophil% 0.2 % (0-1); Eosinophil# 0.01 X10^3/uL; Eosinophils% 0.2 % (0-5); Hematocrit 37.9 % (37-47); Hemoglobin 13.1 g/dl (12.0-15.0); Lymphocyte # 1.17 X10^3/ul (4.0); Mean Corp Hgb Conc 34.6 g/gl (32-36); Mean Corpuscular Hgb 33.9 pg (27.0-32.0); Mean Corpuscular Volume 97.9 fL (81-99); Mean Platelet Vol. 10.2 fl (6.2-12.0); Monocyte% 7.5 % (0-10); Neutrophil # 3.67 X10^3/uL (2.7-7.7); Platelet Count 304 K/mm3 (150-450); RBC Distribution Width CV 14.7 % (11.6-14.6); RBC Distribution Width SD 51.4 fl (35.1-43.9); Red Blood Count 3.87 M/mm3 (4.2-5.4); White Blood Count 5.3 K/mm3 (4.4-11.0)
[2017-11-13 14:41] LABS: International Normalized Ratio 0.9; POSITIVE COUNT NO; POSITIVE DIFFERENTIAL NO; POSITIVE MORPHOLOGY NO; Prothrombin Time (Protime)PT. 12.1 SECONDS (11.7-14.9)
[2017-11-13 14:42] LABS: Partial Thromboplast Time 30.9 Seconds (24.1-36.2)
[2017-11-13 14:49] LABS: Anion Gap 8 (5-15); BUN 17 mg/dL (7-18); BUN/Creat Ratio 24.3 RATIO (10-20); Calcium,Total 8.6 mg/dL (8.5-10.1); Chloride 101 mmol/L (98-107); EST Glomerular Filtration Rate 87 mL/min (>60); Est Glom Filt Rate - Afr Amer 105 mL/min (>60); Estimated Creatinine Clearance 37.81 ml/min; Glucose 97 mg/dL (74-106); Potassium 3.9 mmol/L (3.5-5.1); Sodium Level 138 mmol/L (136-145)
--- NOTE | 2017-11-13 15:27 | EKG12_ITS ---
Test Reason : PRE-OP Blood Pressure : / mmHG Vent. Rate : 069 BPM Atrial Rate : 069 BPM P-R Int : 174 ms QRS Dur : 072 ms QT Int : 408 ms P-R-T Axes : 072 -08 013 degrees QTc Int : 437 ms Sinus rhythm with occasional Premature ventricular complexes Inferior infarct , age undetermined Abnormal ECG Confirmed by ALICE BELTRAN, NORMA ([id number]), film or videotape editor MELVA ESPINOZA ([id number]) on 11/15/2017 3:06:09 PM Referred By: RACHEL Confirmed By:NORMA JENKINS MD
--- NOTE | 2017-11-13 15:32 | RAD_ITS ---
STUDY: X-RAY CHEST REASON FOR EXAM: Female, 71 years old. Preop, hip fracture. TECHNIQUE: Single AP portable view of the chest. The patient is mildly rotated to the right. COMPARISON: None. FINDINGS: Huffman shaped density projecting in the right lung apex is likely a skinfold artifact, as are overlapping wedge shaped densities at the left base. Overall, this is a suboptimal respiratory effort, and minor subsegmental atelectasis may also be present in the left base There is no demonstrated pleural abnormality. Normal size heart. Normal mediastinum and benito. Normal visualized pulmonary arteries. There is atherosclerotic calcification of the aortic arch. There are multilevel degenerative changes of the visualized thoracic spine. The patient has undergone prior left shoulder arthroplasty. There is degenerative narrowing of the glenohumeral joint space, and a metal humeral prosthesis shows mild superior subluxation relative to the glenoid. Surgical clips in the right upper quadrant of the abdomen suggest prior cholecystectomy. RAD/Chest 1 View (Portable) IMPRESSION: 1. Moderate subsegmental atelectasis in the medial left lung base. No pneumonic infiltrate or CHF. 2. Prior left shoulder arthroplasty with humeral prosthesis. There are degenerative changes also at the left shoulder. 3. Prior cholecystectomy. Electronically Signed: Medhat Grace MD at 16:31 EDT , Service support ,
--- NOTE | 2017-11-13 15:34 | NURSING ---
DR BJ RAMOS
--- NOTE | 2017-11-13 15:47 | PCM.CONS.GEN ---
Reason for Consult Date of Consultation: 11/14/17 History of Present Illness: The patient is a 71 year old F who was trying to open up a baby gate and lost her balance and fell backwards. Patient was unable to get up. Brought to the hospital and underwent head CT and brain CT that were unremarkable. Hip x-ray showed a left femoral neck fracture. Denies pain in other joints, no headache nausea vomiting denies hitting her head when she fell. Denies numbness tingling or other constitutional symptoms. Family at bedside. Past Medical History Past Medical History (Chronic Problems): Chronic Problems Epilepsy (Chronic) Bilateral leg edema (Chronic) Hypothyroid (Chronic) Allergies No Known Allergies Allergy (Verified 11/13/17 13:08) Home Medications: Ambulatory Orders Medication Instructions Recorded Carvedilol [Coreg (Beta Michelle)] 3.125 mg PO BID 08/12/17 Celecoxib [Celebrex] 200 mg PO DAILY 08/12/17 Donepezil HCl [Aricept] 10 mg PO QHS 08/12/17 Ergocalciferol [Vitamin D] 50,000 unit PO Q7D 08/12/17 Esomeprazole Magnesium [Nexium] 40 mg PO DAILY 08/12/17 Furosemide [Lasix] 20 mg PO DAILY 08/12/17 Levothyroxine [Synthroid] 75 mcg PO DAILY 08/12/17 Potassium Chloride [Klor-Con M20] 20 meq PO BID 08/12/17 Ropinirole HCl [Requip] 0.5 mg PO TID 08/12/17 Venlafaxine HCl [Venlafaxine HCl 75 mg PO DAILY 08/12/17 ER] Calcium (Elemental) [Os-Og 500] 500 mg PO DAILY@0800 tablet 08/14/17 Ensure Enlive 120 ml PO 4X/DAY liquid 08/14/17 Acetaminophen [Tylenol] 500 mg PO Q8H PRN PRN 11/10/17 Gabapentin [Neurontin] 300 mg PO TIDCM 11/10/17 Potassium Cloride Effervescent 25 meq PO TID #30 tablet.eff 11/10/17 [Potassium Chl 25 Meq Eff (For Liquid)] Pravastatin [Pravachol] 40 mg PO QHS 11/10/17 Surgical History: - - L Shoulder surgery. Smoking Status: Never smoker - *Family History Maternal History Items: Heart Disease Paternal History Items: No pertinent history Sibling History Items: Cancer Review of Systems Constitutional: Denies: Chills, Fever, Weight Change HEENT: Denies: Head Aches, Sinus Congestion, Sinus Drainage Cardiovascular: Denies: Chest Pain, Palpitations Respiratory: Denies: Cough, Shortness of breath at rest, Sputum production Gastrointestinal: Denies: Abdominal Pain, Nausea, Vomiting Genitourinary: Denies: Dysuria Musculoskeletal: Reports: Joint Pain. Denies: Joint Tenderness Skin: Denies: Rash, Wounds Neurological: Denies: Numbness, Tingling, Focal weakness Psychiatric: Denies: Anxiety, Depression, Homicidal Ideations, Suicidal Ideations Hematologic/ Lymphatic: Denies: Easy Bruising, Easy Bleeding Patient Problems: Active and Suspected Problems Fracture of femoral neck, left, closed (Acute) Contusion of left shoulder (Acute) Closed head injury (Acute) - Physical Exam General: Alert, Oriented x3, Cooperative HEENT: Atraumatic, PERRLA, EOMI, Normocephalic Neck: Supple, No JVD, Negative Carotid Bruits Lungs: Clear to auscultation, Normal air movement Cardiovascular: Regular rate, No murmurs Abdomen: Bowel Sounds Present, Soft, Non Tender Extremities: No edema, Capillary Refill Less than 3 Seconds Skin: No rashes, No breakdown Musculoskeletal: Tenderness - Left hip pain, active range of motion motion of bilateral ankles intact, compartment soft, sensation grossly intact bilateral lower extremity, secondary survey negative Neurological: Cranial nerves II-XII grossly intact Psych/Mental Status: Normal Affect, Appropriate Vital Signs Temp Pulse Resp BP Pulse Ox 98 F 67 16 100/77 98 11/13/17 13:08 11/13/17 13:08 11/13/17 13:08 11/13/17 14:03 11/13/17 14:03 Oxygen Delivery Method Room Air Weight: 115 lb Body Mass Index (BMI) 21.7 Laboratory Tests Past 24 Hrs 11/13/17 11/13/17 11/13/17 14:20 14:20 14:20 WBC 5.3 RBC 3.87 L Hgb 13.1 Hct 37.9 MCV 97.9 MCH 33.9 H MCHC 34.6 RDW 14.7 H RDW Differential 51.4 H Plt Count 304 MPV 10.2 Immature Gran % (Auto) 1.100 H Neut % (Auto) 69.0 Lymph % (Auto) 22.0 Lipscomb % (Auto) 7.5 Eos % (Auto) 0.2 Baso % (Auto) 0.2 Absolute Neuts (auto) 3.7 Absolute Lymphs (auto) 1.17 Total Counted Not Reportable PT 12.1 INR 0.9 APTT 30.9 Sodium 138 Potassium 3.9 Chloride 101 Carbon Dioxide 29.0 Anion Gap 8 BUN 17 Creatinine 0.70 Estim Creat Clear Calc 37.81 Est GFR (MDRD) Af Amer 105 Est GFR (MDRD) Non-Af 87 BUN/Creatinine Ratio 24.3 H Glucose 97 Calcium 8.6 Assessment/Plan All Active Problems Hypokalemia (Acute) Falls (Acute) Hypotension (Resolved) Thrombocytosis (Acute) Hypocalcemia (Acute) Sacral fracture (Acute) Fracture of femoral neck, left, closed (Acute) Contusion of left shoulder (Acute) Closed head injury (Acute) Nondisplaced left femoral neck fracture Consent obtained from family and patient. Risks benefits and alternatives surgery discussed with patient. Risks including but not limited to blood loss, blood clot, infection, neurovascular injury, failure procedure, loss of life and loss of limb. Patient is aware would like proceed with left femoral neck closed versus open reduction internal fixation repair is indicated. Ancef on-call the OR Will start Lovenox postop Discussed with family distal planning This note was generated with [employer] software. It may contain incorrect words, spelling, and punctuation that were not noted in checking the note before signing.
--- NOTE | 2017-11-13 15:52 | NURSING ---
MED SURG LT HIP FX, SNOW LORENZO
--- NOTE | 2017-11-13 16:05 | NURSING ---
spoke with ER Charge Marleny - informed of confusion will be moving pt from room 314 to 324.. Ok for pt to come to floor at this time
--- NOTE | 2017-11-13 16:05 | PCM.HP.STD ---
Problem List (1) Fracture of femoral neck, left, closed Status: Acute Qualifiers: Encounter type: initial encounter Qualified Code(s): S72.002A - Fracture of unspecified part of neck of left femur, initial encounter for closed fracture History of Present Illness Date of Admission: 11/13/17 Chief Complaint: fall The patient is a 71 year old F who was trying to open up a baby gate and lost her balance and fell backwards. Patient was unable to get up. Brought to the hospital and underwent head CT and brain CT that were unremarkable. Hip x-ray showed a left femoral neck fracture. Patient was admitted back in August for a fall at that time and was had a sacral fracture. A residential facility was recommended but the patient declined at that time. Patient states that she is not any other falls since then. Patient stated that this morning, she did wake up with sensation of the room spinning and feeling dizzy. Feeling better now but still does feel dizzy. Patient states that she does not get dizziness often. [] Past Medical History Past Medical History (Chronic Problems): Chronic Problems Epilepsy (Chronic) Bilateral leg edema (Chronic) Hypothyroid (Chronic) Allergies No Known Allergies Allergy (Verified 11/13/17 13:08) Home Medications: Ambulatory Orders Medication Instructions Recorded Carvedilol [Coreg (Beta Michelle)] 3.125 mg PO BID 08/12/17 Celecoxib [Celebrex] 200 mg PO DAILY 08/12/17 Donepezil HCl [Aricept] 10 mg PO QHS 08/12/17 Ergocalciferol [Vitamin D] 50,000 unit PO Q7D 08/12/17 Esomeprazole Magnesium [Nexium] 40 mg PO DAILY 08/12/17 Furosemide [Lasix] 20 mg PO DAILY 08/12/17 Levothyroxine [Synthroid] 75 mcg PO DAILY 08/12/17 Potassium Chloride [Klor-Con M20] 20 meq PO BID 08/12/17 Ropinirole HCl [Requip] 0.5 mg PO TID 08/12/17 Venlafaxine HCl [Venlafaxine HCl 75 mg PO DAILY 08/12/17 ER] Calcium (Elemental) [Os-Og 500] 500 mg PO DAILY@0800 tablet 08/14/17 Ensure Enlive 120 ml PO 4X/DAY liquid 08/14/17 Acetaminophen [Tylenol] 500 mg PO Q8H PRN PRN 10/03/18 Gabapentin [Neurontin] 300 mg PO TIDCM 11/10/17 Potassium Cloride Effervescent 25 meq PO TID #30 tablet.eff 11/10/17 [Potassium Chl 25 Meq Eff (For Liquid)] Pravastatin [Pravachol] 40 mg PO QHS 11/10/17 Surgical History: - - L Shoulder surgery. Lives: With Family Smoking Status: Never smoker Tobacco Use: Non-smoker Alcohol: None Drugs: None - *Family History Maternal History Items: Heart Disease Paternal History Items: No pertinent history Sibling History Items: Cancer Review of Systems Constitutional: Denies: Anorexia, Chills, Fever Eyes: Denies: Blurred vision, Double vision HEENT: Denies: Head Aches, Sinus Congestion, Sinus Drainage Cardiovascular: Denies: Chest Pain, Chest Tightness Respiratory: Denies: Cough, Shortness of breath at rest, Sputum production Gastrointestinal: Denies: Abdominal Pain, Nausea, Vomiting Genitourinary: Reports: Dysuria. Denies: Hematuria Musculoskeletal: Reports: Back Pain, Leg Pain. Denies: Arm Pain Skin: Denies: Dryness, Jaundice Neurological: Reports: Balance problems. Denies: Slurred speech, Confusion Psychiatric: Denies: Anxiety, Depression Endocrine: Reports: Change in Body Habitus - Has lost 10-15 pounds over several year history Hematologic/ Lymphatic: Reports: Easy Bruising. Denies: Easy Bleeding, Hx of blood clot Comment: All review of systems are negative except as mentioned in the history of present illness and the other review of systems. VTE Information - Inpt Only VTE Present on Admission: No VTE Pharm Prophylaxis ordered?: Yes Patient Problems: Active and Suspected Problems Fracture of femoral neck, left, closed (Acute) Contusion of left shoulder (Acute) Closed head injury (Acute) - Physical Exam General: Alert, Cooperative, No apparent distress HEENT: Atraumatic, PERRLA, EOMI, Normocephalic, - - No scleral icterus Oral: Moist Mucosa, No Gingival or Mucosal Lesions/ Ulcerations Neck: No Nodes, Thyroid Normal Size and Texture Lungs: Clear to auscultation, Normal air movement, No rhonchi, No wheeze Cardiovascular: Regular rate, Regular Rhythm, Normal S1, Normal S2, No murmurs Abdomen: Bowel Sounds Present, Soft, Non Tender, Non-Distended, No Hepato-splenomegaly Extremities: No edema, No Calf Tenderness Skin: No rashes, No breakdown Musculoskeletal: Cachexia, Muscle Wasting Neurological: Cranial nerves II-XII grossly intact, Motor Exam 5/5 strength throughout - In upper extremities, Sensory exam intact to light touch and pain Psych/Mental Status: Normal Affect, Appropriate Vital Signs Temp Pulse Resp BP Pulse Ox 36.6 C 67 16 100/77 98 11/13/17 13:08 11/13/17 13:08 11/13/17 13:08 11/13/17 14:03 11/13/17 14:03 Oxygen Delivery Method Room Air Weight: 52.163 kg Body Mass Index (BMI) 21.7 Laboratory Tests Past 24 Hrs 11/13/17 11/13/17 11/13/17 14:20 14:20 14:20 WBC 5.3 RBC 3.87 L Hgb 13.1 Hct 37.9 MCV 97.9 MCH 33.9 H MCHC 34.6 RDW 14.7 H RDW Differential 51.4 H Plt Count 304 MPV 10.2 Immature Gran % (Auto) 1.100 H Neut % (Auto) 69.0 Lymph % (Auto) 22.0 Ralls % (Auto) 7.5 Eos % (Auto) 0.2 Baso % (Auto) 0.2 Absolute Neuts (auto) 3.7 Absolute Lymphs (auto) 1.17 Total Counted Not Reportable PT 12.1 INR 0.9 APTT 30.9 Sodium 138 Potassium 3.9 Chloride 101 Carbon Dioxide 29.0 Anion Gap 8 BUN 17 Creatinine 0.70 Estim Creat Clear Calc 37.81 Est GFR (MDRD) Af Amer 105 Est GFR (MDRD) Non-Af 87 BUN/Creatinine Ratio 24.3 H Glucose 97 Calcium 8.6 Clinical Impression(s) from Imaging Studies Brain CT 11/13/17 13:27 IMPRESSION: Stable chronic involutional and microvascular ischemic changes of the brain. No acute intracranial injury. Electronically Signed: Medhat Grace MD at 15:21 EDT , Service support , Cervical Spine CT 11/13/17 13:27 IMPRESSION: 1. No acute fracture of the cervical spine. 2. Multilevel degenerative changes, as described above, unchanged from November 10, 2017. Electronically Signed: Medhat Grace MD at 15:35 EDT , Service support , Hip/Pelvis X-Ray 11/13/17 13:27 IMPRESSION: 1. Nondisplaced oblique fracture of the left femoral neck. Excellent degenerative changes of the lower lumbar spine, bilateral sacroiliac joints, and pubic symphysis. Degenerative spurring of the roofs of the bilateral acetabula also noted. Electronically Signed: Medhat Grace MD at 16:05 EDT , Service support , Shoulder X-Ray 11/13/17 13:27 IMPRESSION: 1. Prior left shoulder arthroplasty with humeral prosthesis. 2. Old healed fracture deformities of the anterior left fourth and fifth ribs. No demonstrated acute fracture. 3. Demineralization of the osseous structures and degenerative changes of the shoulder again noted. Electronically Signed: Medhat Grace MD at 16:08 EDT , Service support , Assessment/Plan All Active Problems Hypokalemia (Acute) Falls (Acute) Hypotension (Resolved) Thrombocytosis (Acute) Hypocalcemia (Acute) Sacral fracture (Acute) Fracture of femoral neck, left, closed (Acute) Contusion of left shoulder (Acute) Closed head injury (Acute) 1. Left femoral neck fracture Patient overall has a poor performance status but nothing prohibitive to prohibit her from having surgery. Therefore, patient is medically cleared to proceed with surgery Patient will be on bedrest Check a 25-hydroxy vitamin D level Orthopedics on consultation IV fluids for now and will hold the patient's Lasix and potassium for now. 2. Cachexia Patient appears very gaunt Check a prealbumin 3. DVT prophylaxis SCDs for now. Chemical prophylaxis to be gone after surgery and will defer to discretion of orthopedics postoperatively. 4. Debility and falls PT and OT after surgery Discussed with patient and her family that she will require residential facility after discharge. Patient already had a poor performance status prior to her fall is patient was using a walker and would use a wheelchair when she would go to grocery store. Code Visit Inpatient E&M: 94300 Init Hosp L3
--- NOTE | 2017-11-13 16:09 | HP.PCM_ITS ---
Problem List (1) Fracture of femoral neck, left, closed Status: Acute Qualifiers: Encounter type: initial encounter Qualified Code(s): S72.002A - Fracture of unspecified part of neck of left femur, initial encounter for closed fracture History of Present Illness Date of Admission: 11/13/17 Chief Complaint: fall The patient is a 71 year old F who was trying to open up a baby gate and lost her balance and fell backwards. Patient was unable to get up. Brought to the hospital and underwent head CT and brain CT that were unremarkable. Hip x-ray showed a left femoral neck fracture. Patient was admitted back in August for a fall at that time and was had a sacral fracture. A correction facility was recommended but the patient declined at that time. Patient states that she is not any other falls since then. Patient stated that this morning, she did wake up with sensation of the room spinning and feeling dizzy. Feeling better now but still does feel dizzy. Patient states that she does not get dizziness often. [] Past Medical History Past Medical History (Chronic Problems): Chronic Problems Epilepsy (Chronic) Bilateral leg edema (Chronic) Hypothyroid (Chronic) Allergies No Known Allergies Allergy (Verified 11/13/17 13:08) Home Medications: Ambulatory Orders Medication Instructions Recorded Carvedilol [Coreg (Beta Michelle)] 3.125 mg PO BID 08/12/17 Celecoxib [Celebrex] 200 mg PO DAILY 08/12/17 Donepezil HCl [Aricept] 10 mg PO QHS 08/12/17 Ergocalciferol [Vitamin D] 50,000 unit PO Q7D 08/12/17 Esomeprazole Magnesium [Nexium] 40 mg PO DAILY 08/12/17 Furosemide [Lasix] 20 mg PO DAILY 08/12/17 Levothyroxine [Synthroid] 75 mcg PO DAILY 08/12/17 Potassium Chloride [Klor-Con M20] 20 meq PO BID 08/12/17 Ropinirole HCl [Requip] 0.5 mg PO TID 08/12/17 Venlafaxine HCl [Venlafaxine HCl 75 mg PO DAILY 08/12/17 ER] Calcium (Elemental) [Os-Og 500] 500 mg PO DAILY@0800 tablet 08/14/17 Ensure Enlive 120 ml PO 4X/DAY liquid 08/14/17 Acetaminophen [Tylenol] 500 mg PO Q8H PRN PRN 10/03/18 Gabapentin [Neurontin] 300 mg PO TIDCM 11/10/17 Potassium Cloride Effervescent 25 meq PO TID #30 tablet.eff 11/10/17 [Potassium Chl 25 Meq Eff (For Liquid)] Pravastatin [Pravachol] 40 mg PO QHS 11/10/17 Surgical History: - - L Shoulder surgery. Lives: With Family Smoking Status: Never smoker Tobacco Use: Non-smoker Alcohol: None Drugs: None - *Family History Maternal History Items: Heart Disease Paternal History Items: No pertinent history Sibling History Items: Cancer Review of Systems Constitutional: Denies: Anorexia, Chills, Fever Eyes: Denies: Blurred vision, Double vision HEENT: Denies: Head Aches, Sinus Congestion, Sinus Drainage Cardiovascular: Denies: Chest Pain, Chest Tightness Respiratory: Denies: Cough, Shortness of breath at rest, Sputum production Gastrointestinal: Denies: Abdominal Pain, Nausea, Vomiting Genitourinary: Reports: Dysuria. Denies: Hematuria Musculoskeletal: Reports: Back Pain, Leg Pain. Denies: Arm Pain Skin: Denies: Dryness, Jaundice Neurological: Reports: Balance problems. Denies: Slurred speech, Confusion Psychiatric: Denies: Anxiety, Depression Endocrine: Reports: Change in Body Habitus - Has lost 10-15 pounds over several year history Hematologic/ Lymphatic: Reports: Easy Bruising. Denies: Easy Bleeding, Hx of blood clot Comment: All review of systems are negative except as mentioned in the history of present illness and the other review of systems. VTE Information - Inpt Only VTE Present on Admission: No VTE Pharm Prophylaxis ordered?: Yes Patient Problems: Active and Suspected Problems Fracture of femoral neck, left, closed (Acute) Contusion of left shoulder (Acute) Closed head injury (Acute) - Physical Exam General: Alert, Cooperative, No apparent distress HEENT: Atraumatic, PERRLA, EOMI, Normocephalic, - - No scleral icterus Oral: Moist Mucosa, No Gingival or Mucosal Lesions/ Ulcerations Neck: No Nodes, Thyroid Normal Size and Texture Lungs: Clear to auscultation, Normal air movement, No rhonchi, No wheeze Cardiovascular: Regular rate, Regular Rhythm, Normal S1, Normal S2, No murmurs Abdomen: Bowel Sounds Present, Soft, Non Tender, Non-Distended, No Hepato- splenomegaly Extremities: No edema, No Calf Tenderness Skin: No rashes, No breakdown Musculoskeletal: Cachexia, Muscle Wasting Neurological: Cranial nerves II-XII grossly intact, Motor Exam 5/5 strength throughout - In upper extremities, Sensory exam intact to light touch and pain Psych/Mental Status: Normal Affect, Appropriate Vital Signs Temp Pulse Resp BP Pulse Ox 36.6 C 67 16 100/77 98 11/13/17 13:08 11/13/17 13:08 11/13/17 13:08 11/13/17 14:03 11/13/17 14:03 Oxygen Delivery Method Room Air Weight: 52.163 kg Body Mass Index (BMI) 21.7 Laboratory Tests Past 24 Hrs 11/13/17 11/13/17 11/13/17 14:20 14:20 14:20 WBC 5.3 RBC 3.87 L Hgb 13.1 Hct 37.9 MCV 97.9 MCH 33.9 H MCHC 34.6 RDW 14.7 H RDW Differential 51.4 H Plt Count 304 MPV 10.2 Immature Gran % (Auto) 1.100 H Neut % (Auto) 69.0 Lymph % (Auto) 22.0 [place] % (Auto) 7.5 Eos % (Auto) 0.2 Baso % (Auto) 0.2 Absolute Neuts (auto) 3.7 Absolute Lymphs (auto) 1.17 Total Counted Not Reportable PT 12.1 INR 0.9 APTT 30.9 Sodium 138 Potassium 3.9 Chloride 101 Carbon Dioxide 29.0 Anion Gap 8 BUN 17 Creatinine 0.70 Estim Creat Clear Calc 37.81 Est GFR (MDRD) Af Amer 105 Est GFR (MDRD) Non-Af 87 BUN/Creatinine Ratio 24.3 H Glucose 97 Calcium 8.6 Clinical Impression(s) from Imaging Studies Brain CT 11/13/17 13:27 IMPRESSION: Stable chronic involutional and microvascular ischemic changes of the brain. No acute intracranial injury. Electronically Signed: Medhat Grace MD at 15:21 EDT , Service support , Cervical Spine CT 11/13/17 13:27 IMPRESSION: 1. No acute fracture of the cervical spine. 2. Multilevel degenerative changes, as described above, unchanged from November 10, 2017. Electronically Signed: Medhat Grace MD at 15:35 EDT , Service support , Hip/Pelvis X-Ray 11/13/17 13:27 IMPRESSION: 1. Nondisplaced oblique fracture of the left femoral neck. Excellent degenerative changes of the lower lumbar spine, bilateral sacroiliac joints, and pubic symphysis. Degenerative spurring of the roofs of the bilateral acetabula also noted. Electronically Signed: Medhat Grace MD at 16:05 EDT , Service support , Shoulder X-Ray 11/13/17 13:27 IMPRESSION: 1. Prior left shoulder arthroplasty with humeral prosthesis. 2. Old healed fracture deformities of the anterior left fourth and fifth ribs. No demonstrated acute fracture. 3. Demineralization of the osseous structures and degenerative changes of the shoulder again noted. Electronically Signed: Medhat Grace MD at 16:08 EDT , Service support , Assessment/Plan All Active Problems Hypokalemia (Acute) Falls (Acute) Hypotension (Resolved) Thrombocytosis (Acute) Hypocalcemia (Acute) Sacral fracture (Acute) Fracture of femoral neck, left, closed (Acute) Contusion of left shoulder (Acute) Closed head injury (Acute) 1. Left femoral neck fracture * Patient overall has a poor performance status but nothing prohibitive to prohibit her from having surgery. Therefore, patient is medically cleared to proceed with surgery * Patient will be on bedrest * Check a 25-hydroxy vitamin D level * Orthopedics on consultation * IV fluids for now and will hold the patient's Lasix and potassium for now. 2. Cachexia * Patient appears very gaunt * Check a prealbumin 3. DVT prophylaxis * SCDs for now. * Chemical prophylaxis to be gone after surgery and will defer to discretion of orthopedics postoperatively. 4. Debility and falls * PT and OT after surgery * Discussed with patient and her family that she will require correction facility after discharge. * Patient already had a poor performance status prior to her fall is patient was using a walker and would use a wheelchair when she would go to grocery store. Code Visit Inpatient E&M: 25346 Init Hosp L3
[2017-11-13 17:05] VITALS: BMI 21.7
[2017-11-13 17:08] VITALS: BP 103/62; PULSE 76; RESP 18; TEMP 36.9; O2SAT 98
[2017-11-13 17:50] LABS: Prealbumin 14.6 mg/dL (20.0-40.0)
[2017-11-13 17:54] LABS: Bacteria 0 SEEN /hpf (None Seen); Mucous, Urine 0 SEEN /hpf (<or=2+); Red Blood Cells-Urine 0 SEEN /hpf (0-5); Squamous Epithelial Cells - UA 0 SEEN /hpf (5-10); White Blood Cells 0 SEEN /hpf (0-5)
[2017-11-13 18:03] LABS: Color, Urine Yellow (Yellow); Glucose, Dipstick Normal (Normal); Ketone-Dipstick Negative (Negative); Leukocyte Esterase-Dipstick Negative /ul (Negative); Nitrite-Dipstick Negative (Negative); Occult Blood-Urine Negative /ul (Negative); Protein-Dipstick Negative (Negative); Urine Bilirubin Dipstick Negative (Negative); Urine Clarity Clear (Clear); Urine Urobilinogen Normal (Normal)
[2017-11-13] MEDS: Morphine 2 MG/ML Syringe IV (19:01)
--- NOTE | 2017-11-13 19:57 | NURSING ---
Called pt's sister Annette Pierce per pts request to let her know the time of surgery. Annette states patient is fine to sign her own consent for surgery as long as she has her hearing aids in and isn't too drugged up. Sister plans to be here at 0630 prior to patients surgery. Pt made aware I did talk to Annette.
[2017-11-13 20:52] VITALS: BP 101/71; PULSE 78; RESP 18; TEMP 36.7; O2SAT 100
[2017-11-13] MEDS: 0.9% Normal Saline 1,000 ML 100 ML IV (20:54)
[2017-11-13] MEDS: Acetaminophen 325 MG Tablet 650 MG PO (20:57)
[2017-11-13] MEDS: oxyCODONE 5 MG Tablet PO (20:58)
[2017-11-13] MEDS: Pravastatin 40 MG Tablet PO (22:43)
[2017-11-13] MEDS: Pramipexole Di-HCl 0.25 MG Tablet PO (22:43)
[2017-11-13] MEDS: Carvedilol 3.125 MG TABLET PO (22:44)
[2017-11-13] MEDS: Donepezil HCl 10 MG Tablet PO (22:44)
[2017-11-14] VITALS (13 sets, daily range): BP systolic 81–112; BP diastolic 59–76; PULSE 68–88; RESP 16; TEMP 36.2–37.6; O2SAT 93–97; BMI 21.7
[2017-11-14] MEDS: Morphine 2 MG/ML Syringe IV ×2 (00:31→12:19)
[2017-11-14] MEDS: 0.9% Normal Saline 1,000 ML 100 ML IV ×3 (03:27→22:23)
--- NOTE | 2017-11-14 04:45 | NURSING ---
DR ANDERSON AWARE PTS BP 80'S/50'S, ORDER RECEIVED FOR NS BOLUS 500ML.
[2017-11-14 05:29] LABS: AST(SGOT) 16 U/L (15-37); Alanine Aminotransfer ALT/SGPT 14 U/L (13-56); Alkaline Phosphatase 57 U/L (45-117); Bilirubin, Direct 0.22 mg/dL (0.00-0.30); Globulin 2.4 g/dL (2.2-4.2); Protein, Total 4.4 g/dL (6.4-8.2)
--- NOTE | 2017-11-14 06:28 | NURSING ---
report to OR nurse
[2017-11-14] MEDS: Cefazolin 2 GM in 0.9% Normal Saline 100 ML IV (07:00)
--- NOTE | 2017-11-14 07:00 | RAD_ITS ---
STUDY: X-RAY - LEFT HIP REASON FOR EXAM: Female, 71 years old. Hip fracture, intraoperative. TECHNIQUE: Fluoroscopic assistance was provided Dr. Olivares. 2 intraoperative fluoroscopic spot films were obtained. FLUOROSCOPY TIME: 52.6 seconds COMPARISON: AP pelvis and 2 additional views of left hip November 13, 2017. FINDINGS: Images demonstrate ORIF of the left femoral neck fracture by 3 metal cancellous screws passing in an upward oblique fashion from the lateral intertrochanteric region along the axis of the femoral neck to the femoral head. RAD/Hip Min 2 Views (Portable) IMPRESSION: ORIF of left femoral neck fracture with 3 metal screws. Electronically Signed: Medhat Grace MD at 14:08 EDT , Service support ,
--- NOTE | 2017-11-14 07:33 | RAD_ITS ---
STUDY: X-RAY - PELVIS AND LEFT HIP REASON FOR EXAM: Female, 71 years old. Post op. TECHNIQUE: Radiological exam, hip, unilateral, with pelvis when performed; 2 or 3 views. COMPARISON: AP pelvis and 2 additional views of the left hip November 13, 2017. FINDINGS: There is a non-specific bowel gas pattern. Normal visualized soft tissue structures. There is stable mild cortical irregularity of the visualized bilateral sacroiliac joints, suggesting degenerative osteoarthritic changes. Normal visualized bilateral iliac wings and sacrum. Normal bilateral superior and inferior pubic rami. There are stable degenerative changes of the pubic symphysis. Normal bilateral ischial tuberosities. The previously noted fracture of the femoral neck is been stabilized with 3 metal cancellus screws passing in an upward oblique fashion from the lateral intertrochanteric region along the axis of the femoral neck to the femoral head. There is stable osteoarthritic spur formation of the acetabular rim. Normal hip joint. Metal skin radha are noted along the lateral soft tissues of the upper thigh. RAD/Hip Min 2 Views (Portable) IMPRESSION: Status post ORIF of left femoral neck fracture with 3 metal screws. Electronically Signed: Medhat Grace MD at 12:06 EDT , Service support ,
[2017-11-14 07:46] LABS: Hematocrit 33.7 % (37-47); Mean Corp Hgb Conc 32.6 g/gl (32-36); Mean Corpuscular Hgb 32.4 pg (27.0-32.0); Mean Corpuscular Volume 99.4 fL (81-99); Mean Platelet Vol. 10.3 fl (6.2-12.0); Platelet Count 232 K/mm3 (150-450); RBC Distribution Width CV 15.6 % (11.6-14.6); RBC Distribution Width SD 56.3 fl (35.1-43.9); Red Blood Count 3.39 M/mm3 (4.2-5.4); Scan Indicated on CBC? Y/N NO; White Blood Count 5.4 K/mm3 (4.4-11.0)
--- NOTE | 2017-11-14 08:22 | PCM.OPRPT ---
Report of Operation Date of Procedure: 11/14/17 Pre-Operative Diagnosis: left nondisplaced femoral neck fracture Post-Operative Diagnosis: same Surgery/Procedure Performed:: left femoral neck close reduction screw fixation supplemental nurse: Consuelo Hubbard Type of Anesthesia:: General Anesthesiologist: Yvonne Coello Estimated Blood Loss (mL): 50 ml Fluids Replaced: 400cc Description of Procedure: Preoperative note Patient is a 71-year-old female who fell onto her left hip immediate pain and inability to walk brought to the emergency room showed to have a nondisplaced left femoral neck fracture. Patient denies pain in other joints pain localized to the left hip joint. X-rays confirm a nondisplaced left femoral neck fracture. Wrist benefits alternatives surgery discussed with patient. Risks including but not limited to blood loss, blood clot, infection, neurovascular injury, failure procedure, loss of life and loss of limb. Patient is aware would like proceed with left close reduction versus open reduction screw fixation left hip. Operative note Patient seen and examined preoperative holding area. Left hip was marked. Patient brought to the operating room placed supine on the operating table sign, anesthesia, antibiotics were administered. The left hip was prepped and draped in usual sterile fashion in the fracture table. All bony problems well-padded and right hip was flexed and externally rotated to allow for 4 fluoroscopy. We then used fluoroscopy to ensure that we had a nondisplaced femoral neck even after position which we still did have. Timeout was performed. We then used our starting a starting guide just superior to the lesser trochanter. We drilled our first inferior hole we noted to be a little bit posterior we did drilled in an more anterior at the again the lower level of the lesser trochanter and then one superiorly that started anteriorly as well. We confirmed in both AP and lateral planes give placement of our guidewires we then broached the near cortex measured measured 80 for the most superior screw and then to 85 for the lower screws. We had good fixation of the fracture site. We then irrigated the incision with copious amounts of sterile saline. The incision was closed with Vicryl 3-0 Vicryl subcuticular and radha. Sterile dressings were applied. Patient was transferred to recovery room in stable condition there are no complications. Postoperative note Toe-touch weightbearing left hip Synthes 7.3 mm 1, 80 and 2, 85 partially-threaded screws Follow-up in 2 weeks Jorge Zuñiga disclaimer This note was generated with [employer] dictation software. It may contain incorrect words, spelling, and punctuation that were not noted in checking the note before signing. - Admit VTE Documentation VTE Present on Admission: Yes VTE Mechan Device Prophylaxis: SCD's VTE Pharm Prophylaxis ordered?: Yes
[2017-11-14] MEDS: Mupirocin Ointment 22gm Tube 1 APPLIC (08:27)
--- NOTE | 2017-11-14 08:28 | OP.PCM_ITS ---
Report of Operation Date of Procedure: 11/14/17 Pre-Operative Diagnosis: left nondisplaced femoral neck fracture Post-Operative Diagnosis: same Surgery/Procedure Performed:: left femoral neck close reduction screw fixation childcare attendant: Consuelo Hubbard Type of Anesthesia:: General Anesthesiologist: Yvonne Coello Estimated Blood Loss (mL): 50 ml Fluids Replaced: 400cc Description of Procedure: Preoperative note Patient is a 71-year-old female who fell onto her left hip immediate pain and inability to walk brought to the emergency room showed to have a nondisplaced left femoral neck fracture. Patient denies pain in other joints pain localized to the left hip joint. X-rays confirm a nondisplaced left femoral neck fracture. Wrist benefits alternatives surgery discussed with patient. Risks including but not limited to blood loss, blood clot, infection, neurovascular injury, failure procedure, loss of life and loss of limb. Patient is aware would like proceed with left close reduction versus open reduction screw fixation left hip. Operative note Patient seen and examined preoperative holding area. Left hip was marked. Patient brought to the operating room placed supine on the operating table sign, anesthesia, antibiotics were administered. The left hip was prepped and draped in usual sterile fashion in the fracture table. All bony problems well-padded and right hip was flexed and externally rotated to allow for 4 fluoroscopy. We then used fluoroscopy to ensure that we had a nondisplaced femoral neck even after position which we still did have. Timeout was performed. We then used our starting a starting guide just superior to the lesser trochanter. We drilled our first inferior hole we noted to be a little bit posterior we did drilled in an more anterior at the again the lower level of the lesser trochanter and then one superiorly that started anteriorly as well. We confirmed in both AP and lateral planes give placement of our guidewires we then broached the near cortex measured measured 80 for the most superior screw and then to 85 for the lower screws. We had good fixation of the fracture site. We then irrigated the incision with copious amounts of sterile saline. The incision was closed with Vicryl 3-0 Vicryl subcuticular and radha. Sterile dressings were applied. Patient was transferred to recovery room in stable condition there are no complications. Postoperative note Toe-touch weightbearing left hip Synthes 7.3 mm 1, 80 and 2, 85 partially-threaded screws Follow-up in 2 weeks Jorge Zuñiga disclaimer This note was generated with [employer] dictation software. It may contain incorrect words, spelling, and punctuation that were not noted in checking the note before signing. - Admit VTE Documentation VTE Present on Admission: Yes VTE Mechan Device Prophylaxis: SCD's VTE Pharm Prophylaxis ordered?: Yes
[2017-11-14] MEDS: Carvedilol 3.125 MG TABLET PO (09:27)
[2017-11-14] MEDS: Gabapentin 300 MG Capsule PO ×3 (09:28→17:37)
[2017-11-14] MEDS: Venlafaxine XR 75 MG Capsule PO (09:28)
[2017-11-14] MEDS: Pantoprazole Sodium 40 MG Tablet PO (09:29)
[2017-11-14] MEDS: oxyCODONE 5 MG Tablet PO (09:34)
[2017-11-14] MEDS: Ondansetron 4 MG/2 ML Vial IV (12:19)
--- NOTE | 2017-11-14 12:29 | PCM.PROGNOTE ---
<Elliot Albarran - Last Filed: 11/14/17 12:29> Patient Problems: Active and Suspected Problems Fracture of femoral neck, left, closed (Acute) Contusion of left shoulder (Acute) Closed head injury (Acute) Subjective: Pt seen and examined post op. 08/17 left hip pain. No numb/tingling. No SOB/cough. No nausea/vomiting. Pt cannot tell me what happened yesterday. - Physical Exam General: Alert, Oriented x3, Cooperative HEENT: Atraumatic, PERRLA, EOMI, Normocephalic Neck: Supple, No JVD, Negative Carotid Bruits Lungs: Clear to auscultation, Normal air movement Cardiovascular: Regular rate, No murmurs Abdomen: Bowel Sounds Present, Soft, Non Tender Extremities: No edema, Capillary Refill Less than 3 Seconds Skin: No rashes, No breakdown Musculoskeletal: No Tenderness to Palpation of Joints or Extremities, - - post op L hip. Neurological: Cranial nerves II-XII grossly intact Psych/Mental Status: Normal Affect, Appropriate Vital Signs Temp Pulse Resp BP Pulse Ox 97.8 F 75 16 104/65 94 11/14/17 11:25 11/14/17 11:25 11/14/17 11:25 11/14/17 11:25 11/14/17 11:25 Oxygen Delivery Method Room Air Weight: 115 lb Body Mass Index (BMI) 21.7 Intake and Output for Last 24 Hours 11/12/17 11/13/17 11/14/17 23:59 23:59 23:59 Intake Total 600 / 600 2309 / 2309 Output Total 450 / 450 1525 / 1525 Balance 150 / 150 784 / 784 Laboratory Tests Past 24 Hrs 11/13/17 11/13/17 11/13/17 14:20 14:20 14:20 WBC 5.3 RBC 3.87 L Hgb 13.1 Hct 37.9 MCV 97.9 MCH 33.9 H MCHC 34.6 RDW 14.7 H RDW Differential 51.4 H Plt Count 304 MPV 10.2 Immature Gran % (Auto) 1.100 H Neut % (Auto) 69.0 Lymph % (Auto) 22.0 [place] % (Auto) 7.5 Eos % (Auto) 0.2 Baso % (Auto) 0.2 Absolute Neuts (auto) 3.7 Absolute Lymphs (auto) 1.17 Total Counted Not Reportable PT 12.1 INR 0.9 APTT 30.9 Sodium 138 Potassium 3.9 Chloride 101 Carbon Dioxide 29.0 Anion Gap 8 BUN 17 Creatinine 0.70 Estim Creat Clear Calc 37.81 Est GFR (MDRD) Af Amer 105 Est GFR (MDRD) Non-Af 87 BUN/Creatinine Ratio 24.3 H Glucose 97 Calcium 8.6 Total Bilirubin Direct Bilirubin AST ALT Alkaline Phosphatase Total Protein Albumin Globulin Prealbumin Vitamin D 25-Hydroxy TSH Urine Color Urine Clarity Urine pH Ur Specific [place] Urine Protein Urine Glucose (UA) Urine Ketones Urine Occult Blood Urine Nitrite Urine Bilirubin Urine Urobilinogen Ur Leukocyte Esterase Urine RBC Urine WBC Ur Squamous Epith Cells Urine Bacteria Urine Mucus Blood Type Antibody Screen 11/13/17 11/13/17 11/13/17 14:20 17:05 17:45 WBC RBC Hgb Hct MCV MCH MCHC RDW RDW Differential Plt Count MPV Immature Gran % (Auto) Neut % (Auto) Lymph % (Auto) [place] % (Auto) Eos % (Auto) Baso % (Auto) Absolute Neuts (auto) Absolute Lymphs (auto) Total Counted PT INR APTT Sodium Potassium Chloride Carbon Dioxide Anion Gap BUN Creatinine Estim Creat Clear Calc Est GFR (MDRD) Af Amer Est GFR (MDRD) Non-Af BUN/Creatinine Ratio Glucose Calcium Total Bilirubin Direct Bilirubin AST ALT Alkaline Phosphatase Total Protein Albumin Globulin Prealbumin 14.6 L Vitamin D 25-Hydroxy TSH Urine Color Yellow Urine Clarity Clear Urine pH 8.0 Ur Specific [place] 1.010 Urine Protein Negative Urine Glucose (UA) Normal Urine Ketones Negative Urine Occult Blood Negative Urine Nitrite Negative Urine Bilirubin Negative Urine Urobilinogen Normal Ur Leukocyte Esterase Negative Urine RBC 0 SEEN Urine WBC 0 SEEN Ur Squamous Epith Cells 0 SEEN Urine Bacteria 0 SEEN Urine Mucus 0 SEEN Blood Type A POSITIVE Antibody Screen NEGATIVE 11/14/17 11/14/17 11/14/17 04:42 04:42 04:42 WBC 5.4 RBC 3.39 L Hgb 11.0 L Hct 33.7 L MCV 99.4 H MCH 32.4 H MCHC 32.6 RDW 15.6 H RDW Differential 56.3 H Plt Count 232 MPV 10.3 Immature Gran % (Auto) Neut % (Auto) Lymph % (Auto) [place] % (Auto) Eos % (Auto) Baso % (Auto) Absolute Neuts (auto) Absolute Lymphs (auto) Total Counted PT INR APTT Sodium Potassium Chloride Carbon Dioxide Anion Gap BUN Creatinine Estim Creat Clear Calc Est GFR (MDRD) Af Amer Est GFR (MDRD) Non-Af BUN/Creatinine Ratio Glucose Calcium Total Bilirubin 0.50 Direct Bilirubin 0.22 AST 16 ALT 14 Alkaline Phosphatase 57 Total Protein 4.4 L Albumin 2.0 L Globulin 2.4 Prealbumin Vitamin D 25-Hydroxy Pending TSH 2.50 Urine Color Urine Clarity Urine pH Ur Specific [place] Urine Protein Urine Glucose (UA) Urine Ketones Urine Occult Blood Urine Nitrite Urine Bilirubin Urine Urobilinogen Ur Leukocyte Esterase Urine RBC Urine WBC Ur Squamous Epith Cells Urine Bacteria Urine Mucus Blood Type Antibody Screen Medical Necessity - Tobacco Use Smoking Status: Never smoker Tobacco Use: Non-smoker Assessment/Plan All Active Problems Hypokalemia (Acute) Falls (Acute) Hypotension (Resolved) Thrombocytosis (Acute) Hypocalcemia (Acute) Sacral fracture (Acute) Fracture of femoral neck, left, closed (Acute) Contusion of left shoulder (Acute) Closed head injury (Acute) 1. L nondisplaced femoral neck fx 2/2 fall - 2/2 fell after loosing balance. Dr. Casas repaired this today POD#0. 7/10 pain. Otherwise appears to be doing well. PTOT. Vit D level pending. TSH normal. UA neg. Pt already on calcium and vit D. 2. Moderate protein malnutrition - dietary eval + supplements. Prealb low. 3. Debility - SNF placement. 4. Suspect dementia vs concussion - pt could not remember what happened yesterday. She is on namenda. CT brain neg. Does have chronic involutional and microvascular ischemic changes. 5. DDD - apparent on imaging of lumbar and C spine. Celebrex held. Continue neurontin 6. HLD - statin 7. Anx/Dep - continue home meds. 8. hypothyroid - synthroid - tsh normal. 9. Hx epilepsy - not on antiseizure meds. DVT ppx: per ortho DC planing: SNF This patient was seen by Elliot Albarran PA-C under the supervision of Doctor Noemi. <Chuck Franklin - Last Filed: 11/14/17 15:42> - Physical Exam Vital Signs Temp Pulse Resp BP Pulse Ox 98.0 F 68 16 102/68 93 11/14/17 13:27 11/14/17 13:27 11/14/17 13:27 11/14/17 13:27 11/14/17 13:27 Oxygen Delivery Method Room Air Weight: 115 lb Body Mass Index (BMI) 21.7 Intake and Output for Last 24 Hours 11/12/17 11/13/17 11/14/17 23:59 23:59 23:59 Intake Total 600 / 600 2309 / 2309 Output Total 450 / 450 1525 / 1525 Balance 150 / 150 784 / 784 Laboratory Tests Past 24 Hrs 11/13/17 11/13/17 11/13/17 14:20 17:05 17:45 WBC RBC Hgb Hct MCV MCH MCHC RDW RDW Differential Plt Count MPV Total Bilirubin Direct Bilirubin AST ALT Alkaline Phosphatase Total Protein Albumin Globulin Prealbumin 14.6 L Vitamin D 25-Hydroxy TSH Urine Color Yellow Urine Clarity Clear Urine pH 8.0 Ur Specific [place] 1.010 Urine Protein Negative Urine Glucose (UA) Normal Urine Ketones Negative Urine Occult Blood Negative Urine Nitrite Negative Urine Bilirubin Negative Urine Urobilinogen Normal Ur Leukocyte Esterase Negative Urine RBC 0 SEEN Urine WBC 0 SEEN Ur Squamous Epith Cells 0 SEEN Urine Bacteria 0 SEEN Urine Mucus 0 SEEN Blood Type A POSITIVE Antibody Screen NEGATIVE 11/14/17 11/14/17 11/14/17 04:42 04:42 04:42 WBC 5.4 RBC 3.39 L Hgb 11.0 L Hct 33.7 L MCV 99.4 H MCH 32.4 H MCHC 32.6 RDW 15.6 H RDW Differential 56.3 H Plt Count 232 MPV 10.3 Total Bilirubin 0.50 Direct Bilirubin 0.22 AST 16 ALT 14 Alkaline Phosphatase 57 Total Protein 4.4 L Albumin 2.0 L Globulin 2.4 Prealbumin Vitamin D 25-Hydroxy Pending TSH 2.50 Urine Color Urine Clarity Urine pH Ur Specific [place] Urine Protein Urine Glucose (UA) Urine Ketones Urine Occult Blood Urine Nitrite Urine Bilirubin Urine Urobilinogen Ur Leukocyte Esterase Urine RBC Urine WBC Ur Squamous Epith Cells Urine Bacteria Urine Mucus Blood Type Antibody Screen Code Visit Addendum: Dr. Franklin I personally examined the patient and reviewed the chart. I agree with the above. 71-year-old female status post fall sustaining a left nondisplaced femoral neck fracture. Is postop day 0 from repair. Pain is controlled. PT OT for evaluation and and probable SNF placement. Inpatient E&M: 86912 Subs Hosp L2
[2017-11-14] MEDS: Pramipexole Di-HCl 0.25 MG Tablet PO ×2 (14:56→22:10)
[2017-11-14] MEDS: Cefazolin 1 GM/50 ML BAG IV (14:56)
[2017-11-14] MEDS: Acetaminophen 325 MG Tablet 650 MG PO (20:31)
[2017-11-14] MEDS: Donepezil HCl 10 MG Tablet PO (22:10)
[2017-11-14] MEDS: Pravastatin 40 MG Tablet PO (22:11)
[2017-11-15] VITALS (16 sets, daily range): BP systolic 76–102; BP diastolic 50–71; PULSE 67–84; RESP 16–18; TEMP 36.6–36.9; O2SAT 94–97
[2017-11-15] MEDS: Cefazolin 1 GM/50 ML BAG IV (00:03)
--- NOTE | 2017-11-15 00:07 | NURSING ---
Charge nurse Ramona aware of pts BP and urine output of 75ml, miner patent, draining yellow urine. Bladder scanned for 0ml. Had just finished IV fluid bolus recently, taking po fluids well. Not tachycardic, resps wnl, lungs CTA, O2 sat normal, map >65.
--- NOTE | 2017-11-15 01:18 | NURSING ---
text Dr. Ho regarding pts hypotension and low urine output
[2017-11-15] MEDS: 0.9% Normal Saline 1,000 ML 999 ML IV ×2 (01:45→02:53)
--- NOTE | 2017-11-15 01:46 | NURSING ---
Dr Ho on floor, requested manual bps on both arms Rt 78/52, left 76/52, MD aware. Ordered 2000ml ns bolus now.
--- NOTE | 2017-11-15 02:02 | NURSING ---
Dr Ho in to see patient
--- NOTE | 2017-11-15 02:03 | PCM.PN.BLA ---
Progress Note Nurse reported that patient had SBP in the 80s. NSS 500ml was ordered. A repeat manual blood pressure in bilateral arms showed SBP in the higher 70s. Patient afebrile. 2L NSS was ordered. Upon seeing patient she denies any pain. She is alert and can hold a conversation. She reports running a low blood pressure outpatient. Physical examination showed decreased heart sounds with possible low grade murmur. Lungs diminished. Abdomen soft; non tender. Left hip mildly tender, not edematous. Right hip unremarkable. Blood cultures x 2; cbc; bmp and lactic acid was ordered. Nurse to repeat vitals after fluid administration and notify
[2017-11-15 03:01] LABS: Absolute Lymphocyte Count 0.81 X10^3/ul (0.83-4.51); Absolute Neutrophil Count 3.1 X10^3/uL (2.0-7.7); Basophil# 0.02 X10^3/uL; Basophil% 0.4 % (0-1); Eosinophil# 0.03 X10^3/uL; Eosinophils% 0.7 % (0-5); Hematocrit 27.8 % (37-47); Hemoglobin 9.5 g/dl (12.0-15.0); Lymphocyte # 0.81 X10^3/ul (4.0); Lymphocyte % 18.1 % (19-41); Mean Corp Hgb Conc 34.2 g/gl (32-36); Mean Corpuscular Hgb 34.2 pg (27.0-32.0); Mean Platelet Vol. 10.3 fl (6.2-12.0); Monocyte# 0.51 X10^3/uL; Monocyte% 11.4 % (0-10); Neutrophil % 69.2 % (47-70); Platelet Count 215 K/mm3 (150-450); RBC Distribution Width CV 14.9 % (11.6-14.6); RBC Distribution Width SD 52.5 fl (35.1-43.9); Red Blood Count 2.78 M/mm3 (4.2-5.4); White Blood Count 4.5 K/mm3 (4.4-11.0)
[2017-11-15 03:05] LABS: POSITIVE COUNT NO; POSITIVE DIFFERENTIAL NO; POSITIVE MORPHOLOGY NO
[2017-11-15] MEDS: Magnesium Hydroxide 30 ML UDC PO (03:09)
[2017-11-15] MEDS: Acetaminophen 325 MG Tablet 650 MG PO ×3 (03:09→20:10)
--- NOTE | 2017-11-15 03:28 | NURSING ---
spoke with Dr Ho. Aware of pts repeat vs after bolus. Wants BP checked hourly for rest of shift, call SBP less than 85. May use monitor but if SBP <90 confirm with manual.
[2017-11-15 03:29] LABS: Anion Gap 8 (5-15); BUN 10 mg/dL (7-18); BUN/Creat Ratio 26.2 RATIO (10-20); Calcium,Total 7.2 mg/dL (8.5-10.1); Chloride 110 mmol/L (98-107); Creatinine, Serum 0.38 mg/dL (0.55-1.02); EST Glomerular Filtration Rate 175 mL/min (>60); Est Glom Filt Rate - Afr Amer 212 mL/min (>60); Estimated Creatinine Clearance 37.81 ml/min; Glucose 90 mg/dL (74-106); Lactic Acid 0.7 mmol/L (0.4-2.0); Potassium 3.7 mmol/L (3.5-5.1); Sodium Level 140 mmol/L (136-145)
--- NOTE | 2017-11-15 05:32 | NURSING ---
VS obtained, BP 82/52 manual, hr 81, sat 94% RA, Resp 16, temp 98.1, will make Dr. Ho aware
--- NOTE | 2017-11-15 05:44 | NURSING ---
Addendum entered by Elvia Carrion 11/15/17 05:49: No new orders, continue to monitor Original Note: Dr Ho made aware of VS and output, reviewing labs.
--- NOTE | 2017-11-15 05:55 | NURSING ---
Ok to give mirapex this am with low bp per Dr. Ho
[2017-11-15] MEDS: Pramipexole Di-HCl 0.25 MG Tablet PO ×2 (05:59→14:50)
[2017-11-15] MEDS: Enoxaparin 40 MG/0.4 ML Syringe SC (05:59)
[2017-11-15] MEDS: Levothyroxine 75 MCG Tablet PO (06:02)
[2017-11-15 09:06] LABS: Vitamin D,25 Hydroxy 100.8 ng/mL (29.95-100.01)
[2017-11-15] MEDS: Venlafaxine XR 75 MG Capsule PO (09:17)
[2017-11-15] MEDS: Calcium (Elemental) 500 MG Tablet PO (09:17)
[2017-11-15] MEDS: Pantoprazole Sodium 40 MG Tablet PO (09:17)
[2017-11-15 10:04] LABS: Iron 37 ug/dL (50-170); Iron Binding Capacity,Total 240 ug/dL (250-450); PERCENT IRON SATURATION 15.4 % (15.0-55.0)
[2017-11-15] MEDS: Polyethylene Glycol 3350 17 GM PACKET 34 GM PO (10:39)
--- NOTE | 2017-11-15 10:47 | CASEMGMT ---
Social Work Assessment Referral Date: 11/15/2017 Date of Assessment: 11/15/2017 Reason for consult: Hip Fracture Informant: EMANUEL Personal Status: SW met with pt to complete initial assessment and to determine discharge plans. SW introduced self and role at [facility]. Pt is alert and orientated and answered questions appropriate. Per physician pt is severely demented though. Pt states that she lives with her sister Annette and nephew Tima in a mobile home with four steps to enter home. Pt states that her sister and nephew assisted her with ADLs including walking up steps to get into home. Pt states that she is originally from [place] and that she has lived with her sister for about four months now. DME include walker and wheelchair. However, pt states that the wheelchair belongs to her brother in law who is wheelchair bound. Substance Abuse Hx: Pt denied Mental Health Hx: Pt denied. EMANUEL explained to pt that typically after a hip fracture, a pt will need short term rehabilitation before returning home. Per PT, pt walked three ft min assist of 2 with wheeled walker. Pt states that she would like this worker to call her sister Annette to discuss discharge planning and SNF facilities. EMANUEL placed a call to Annette who states she is agreeable to SNF placement and would like a referral sent to [facility]. EMANUEL explained referral process and pre-certification from pt's insurance. Annette states understanding. EMANUEL placed a call to quality management Myra Srivastava who will fax referral to [facility]. Plan: [facility] pending acceptance and pre-cert Shikha Pressley ORTHODONTIC TECHNICIAN, MOTOCROSS RACER
--- NOTE | 2017-11-15 11:09 | CASEMGMT ---
Per EMANUEL Trivedi, referral needs sent to [facility]. Call placed to Taniya at [facility], informed her of referral being faxed and if they can accept patient to go ahead and start precert. Referral faxed, fax confirmation rec'd. Carie Srivastava LPN Clinical Support
[2017-11-15] MEDS: Gabapentin 100 MG Capsule 200 MG PO ×2 (11:35→17:44)
--- NOTE | 2017-11-15 13:31 | PCM.PROGNOTE ---
Patient Problems: Active and Suspected Problems Fracture of femoral neck, left, closed (Acute) Contusion of left shoulder (Acute) Closed head injury (Acute) Subjective: 7/10 hip pain. BP borderline. Runs low normally. No cough, sob, fever, chills, nausea, vomiting. Pt confused and asking when her surgery is. - Physical Exam General: Alert, Oriented x3, Cooperative HEENT: Atraumatic, PERRLA, EOMI, Normocephalic Neck: Supple, No JVD, Negative Carotid Bruits Lungs: Clear to auscultation, Normal air movement Cardiovascular: Regular rate, No murmurs Abdomen: Bowel Sounds Present, Soft, Non Tender Extremities: No edema, Capillary Refill Less than 3 Seconds Skin: No rashes, No breakdown Musculoskeletal: No Tenderness to Palpation of Joints or Extremities Neurological: Cranial nerves II-XII grossly intact Psych/Mental Status: Normal Affect, Appropriate, Alert and oriented to time, place, person, mood and affect Vital Signs Temp Pulse Resp BP Pulse Ox 98.1 F 83 18 85/61 L 96 11/15/17 11:31 11/15/17 11:31 11/15/17 11:31 11/15/17 11:31 11/15/17 11:31 Oxygen Delivery Method Room Air Weight: 115 lb Body Mass Index (BMI) 21.7 Intake and Output for Last 24 Hours 11/13/17 11/14/17 11/15/17 23:59 23:59 23:59 Intake Total 600 / 600 3842 / 3842 5153 / 5153 Output Total 450 / 450 2425 / 2425 705 / 705 Balance 150 / 150 1417 / 1417 4448 / 4448 Microbiology Past 72 Hours 11/13/17 17:45 Urine Culture - Preliminary Urine Catheter - [place] Culture exhibits no growth. Laboratory Tests Past 24 Hrs 11/14/17 11/15/17 11/15/17 04:42 02:40 02:40 WBC 4.5 RBC 2.78 L Hgb 9.5 L Hct 27.8 L MCV 100.0 H MCH 34.2 H MCHC 34.2 RDW 14.9 H RDW Differential 52.5 H Plt Count 215 MPV 10.3 Immature Gran % (Auto) 0.200 Neut % (Auto) 69.2 Lymph % (Auto) 18.1 L [place] % (Auto) 11.4 H Eos % (Auto) 0.7 Baso % (Auto) 0.4 Absolute Neuts (auto) 3.1 Absolute Lymphs (auto) 0.81 L Total Counted Not Reportable Sodium 140 Potassium 3.7 Chloride 110 H Carbon Dioxide 22.0 Anion Gap 8 BUN 10 Creatinine 0.38 L Estim Creat Clear Calc 37.81 Est GFR (MDRD) Af Amer 212 Est GFR (MDRD) Non-Af 175 BUN/Creatinine Ratio 26.2 H Glucose 90 Lactic Acid Calcium 7.2 L Iron TIBC Iron Saturation Vitamin D 25-Hydroxy 100.8 H Folate 11/15/17 11/15/17 02:40 02:40 WBC RBC Hgb Hct MCV MCH MCHC RDW RDW Differential Plt Count MPV Immature Gran % (Auto) Neut % (Auto) Lymph % (Auto) [place] % (Auto) Eos % (Auto) Baso % (Auto) Absolute Neuts (auto) Absolute Lymphs (auto) Total Counted Sodium Potassium Chloride Carbon Dioxide Anion Gap BUN Creatinine Estim Creat Clear Calc Est GFR (MDRD) Af Amer Est GFR (MDRD) Non-Af BUN/Creatinine Ratio Glucose Lactic Acid 0.7 Calcium Iron 37 L TIBC 240 L Iron Saturation 15.4 Vitamin D 25-Hydroxy Folate 4.90 Medical Necessity - Tobacco Use Smoking Status: Never smoker Tobacco Use: Non-smoker Assessment/Plan All Active Problems Hypokalemia (Acute) Falls (Acute) Hypotension (Resolved) Thrombocytosis (Acute) Hypocalcemia (Acute) Sacral fracture (Acute) Fracture of femoral neck, left, closed (Acute) Contusion of left shoulder (Acute) Closed head injury (Acute) 1. L nondisplaced femoral neck fx 2/2 fall - 2/2 fell after loosing balance. Dr. Casas repaired this today POD#1. 08/17 pain. Otherwise appears to be doing well. PTOT. Vit D level pending. TSH normal. UA neg. Pt already on calcium and vit D - vit d is elevated. -bp borderline. continue maintenance fluids. no further iv pain meds. 2. Moderate protein malnutrition - dietary eval + supplements. Prealb low. 3. Debility - SNF placement. 4. Dementia - namenda. CT brain neg for acute changes. Does have chronic involutional and microvascular ischemic changes. 5. DDD - apparent on imaging of lumbar and C spine. Celebrex held. Continue neurontin 6. HLD - statin 7. Anx/Dep - continue home meds. 8. hypothyroid - synthroid - tsh normal. 9. Hx epilepsy - not on antiseizure meds. 10. Anemia - partially post op and dilutional. on b12. folate normal. iron and TIBC low, iron sat normal. DVT ppx: per ortho DC planing: SNF This patient was seen by Elliot Albarran PA-C under the supervision of Doctor Irby.
--- NOTE | 2017-11-15 13:41 | CASEMGMT ---
Rec'd voicemail from Taniya at [facility], they are able to accept patient and have initiated pre-cert. Carie Srivastava LPN Clinical Support
[2017-11-15] MEDS: 0.9% Normal Saline 1,000 ML 100 ML IV (14:49)
--- NOTE | 2017-11-15 15:33 | PCM.PN.ORT ---
Patient Problems: Active and Suspected Problems Fracture of femoral neck, left, closed (Acute) Contusion of left shoulder (Acute) Closed head injury (Acute) Subjective: Patient is status post left hip fracture repair of non-displaced femoral neck fracture with closed reduction / internal screw fixation. Patient states that she is doing pretty good at this time. She admits to some mild pains on the left hip but overall pains are well controlled. She is able to move her foot/ ankle as well as the left knee without difficulites / pain. She denies any leg swelling, calf tenderness, or shortness of breath. - Physical Exam General: Alert - patient is seated in her reclining chair with legs resting down (left knee flexed), Oriented x3, Cooperative - Patatient answers questions and commands appropriately., No apparent distress - no signs of pain/discomfort, Well developed, Well nourished Lungs: Normal air movement Extremities: No edema, No Calf Tenderness Skin: No rashes, No breakdown, Incision - incision site on the lateral hip is dry without any surrounding erythema, inflammation, or discharge. Musculoskeletal: Tenderness - Mild tenderness to the lateral hip around incision site Vital Signs Temp Pulse Resp BP Pulse Ox 98.5 F 75 18 88/63 L 95 11/15/17 14:57 11/15/17 14:57 11/15/17 14:57 11/15/17 14:57 11/15/17 14:57 Oxygen Delivery Method Room Air Weight: 115 lb Body Mass Index (BMI) 21.7 Intake and Output for Last 24 Hours 11/13/17 11/14/17 11/15/17 23:59 23:59 23:59 Intake Total 600 / 600 3842 / 3842 5153 / 5153 Output Total 450 / 450 2425 / 2425 705 / 705 Balance 150 / 150 1417 / 1417 4448 / 4448 Microbiology Past 72 Hours 11/13/17 17:45 Urine Culture - Preliminary Urine Catheter - [place] Culture exhibits no growth. Laboratory Tests Past 24 Hrs 11/14/17 11/15/17 11/15/17 04:42 02:40 02:40 WBC 4.5 RBC 2.78 L Hgb 9.5 L Hct 27.8 L MCV 100.0 H MCH 34.2 H MCHC 34.2 RDW 14.9 H RDW Differential 52.5 H Plt Count 215 MPV 10.3 Immature Gran % (Auto) 0.200 Neut % (Auto) 69.2 Lymph % (Auto) 18.1 L [place] % (Auto) 11.4 H Eos % (Auto) 0.7 Baso % (Auto) 0.4 Absolute Neuts (auto) 3.1 Absolute Lymphs (auto) 0.81 L Total Counted Not Reportable Sodium 140 Potassium 3.7 Chloride 110 H Carbon Dioxide 22.0 Anion Gap 8 BUN 10 Creatinine 0.38 L Estim Creat Clear Calc 37.81 Est GFR (MDRD) Af Amer 212 Est GFR (MDRD) Non-Af 175 BUN/Creatinine Ratio 26.2 H Glucose 90 Lactic Acid Calcium 7.2 L Iron TIBC Iron Saturation Vitamin D 25-Hydroxy 100.8 H Folate 11/15/17 11/15/17 02:40 02:40 WBC RBC Hgb Hct MCV MCH MCHC RDW RDW Differential Plt Count MPV Immature Gran % (Auto) Neut % (Auto) Lymph % (Auto) [place] % (Auto) Eos % (Auto) Baso % (Auto) Absolute Neuts (auto) Absolute Lymphs (auto) Total Counted Sodium Potassium Chloride Carbon Dioxide Anion Gap BUN Creatinine Estim Creat Clear Calc Est GFR (MDRD) Af Amer Est GFR (MDRD) Non-Af BUN/Creatinine Ratio Glucose Lactic Acid 0.7 Calcium Iron 37 L TIBC 240 L Iron Saturation 15.4 Vitamin D 25-Hydroxy Folate 4.90 Medical Necessity - Tobacco Use Smoking Status: Never smoker Tobacco Use: Non-smoker Assessment/Plan All Active Problems Hypokalemia (Acute) Falls (Acute) Hypotension (Resolved) Thrombocytosis (Acute) Hypocalcemia (Acute) Sacral fracture (Acute) Fracture of femoral neck, left, closed (Acute) Contusion of left shoulder (Acute) Closed head injury (Acute) Patient is to continue with her current treatment post operatively. She is to continue to be toe-touch weight bearing with gait and ROM per physical therapy protocol. She is to continue to monitor for any calf pains or swelling and any shortness of breath. Continue to monitor for any signs of infection at the incision site such as redness, swelling, discharge, or worsening pains. Patient will f/u in the office in 2 week for further evaluation to include X-rays of the fracture site. Notify sooner of any change or any other injuries / problems.
[2017-11-15] MEDS: oxyCODONE 5 MG Tablet PO (18:06)
[2017-11-15] MEDS: 0.9% NaCl Peripheral Flush Adult/Peds IV (20:03)
[2017-11-15] MEDS: Pravastatin 40 MG Tablet PO (20:34)
[2017-11-15] MEDS: Donepezil HCl 10 MG Tablet PO (20:35)
[2017-11-16 02:10] VITALS: BP 92/62; PULSE 85; RESP 16; TEMP 37.1; O2SAT 96
[2017-11-16] MEDS: oxyCODONE 5 MG Tablet PO ×3 (02:36→15:04)
[2017-11-16 02:52] VITALS: PULSE 85; RESP 16; O2SAT 96
[2017-11-16] MEDS: Acetaminophen 325 MG Tablet 650 MG PO ×2 (05:47→15:03)
[2017-11-16] MEDS: Enoxaparin 40 MG/0.4 ML Syringe SC (05:48)
[2017-11-16] MEDS: Levothyroxine 75 MCG Tablet PO (05:48)
[2017-11-16] MEDS: Pantoprazole Sodium 40 MG Tablet PO (08:10)
[2017-11-16] MEDS: Gabapentin 100 MG Capsule 200 MG PO ×3 (08:10→16:03)
[2017-11-16] MEDS: Venlafaxine XR 75 MG Capsule PO (08:10)
[2017-11-16] MEDS: Calcium (Elemental) 500 MG Tablet PO (08:10)
[2017-11-16 08:14] VITALS: BP 89/60; PULSE 74; RESP 18; TEMP 36.8; O2SAT 94
--- NOTE | 2017-11-16 08:37 | CASEMGMT ---
Rec'd RAHUL Monahan at [facility], pre-cert obtained yesterday (11/15/17). Notified EMANUEL Zaman of same. Carie Srivastava LPN Clinical Support
--- NOTE | 2017-11-16 08:59 | CASEMGMT ---
Addendum entered by Shikha Pressley 11/16/17 11:30: Per Physician pt had EDG today and awaiting results of test. Green sheet on chart in the event pt is able to discharge today. Convalescent 700 completed in [facility]. Transport form on chart. Original Note: Social Work Note SW received voicemail from Taniya at [facility] stating she has received pre-cert for pt. SW updated physician. Plan: Discharge to [facility] when medically cleared Shikha Pressley CARDING DOUBLER, RESTORATION TECHNICIAN
--- NOTE | 2017-11-16 12:56 | EEG ---
- Electroencephalogram Date of service 11/16/2017 History EEG is being done in this 71 yr F to rule out seizures EEG Description: This is an 18 channel EEG with 10-20 lead placement system. Bipolar montages, Referential and Circumferential montages were reviewed. Photic stimulation and Hyperventilation were performed. The posterior dominant rhythm is 8 HZ synchronous, symmetric, reacting to eye opening and closing. Photo stimulation elicited normal driving response but no abnormal photoparoxysmal response, Hyperventilation did not elicit any abnormal photoparoxysmal response. Sleep was identified. There is no abnormal background slowing noted. There was no epileptiform discharges or electrographic seizures noted during this recording. EEG Interpretation This is a normal awake and asleep EEG. There is no epileptiform discharges or electrographic seizures noted during the record.
[2017-11-16 13:36] VITALS: BP 91/58; PULSE 80; RESP 18; TEMP 37.1; O2SAT 92
--- NOTE | 2017-11-16 13:36 | PCM.TXEXTCAR ---
- Diet 11/13/17 16:57 Diet: Regular Diet Food consistency:: Regular Liquid Consistency:: Regular/Thin Dietary Modifications:: Pureed Diet Diet Comments: NO Milk and NO Bread, snacks inbetween meals - Routine Orders/Code Status Suppository Type: Dulcolax 10mg Suppository Frequency: Daily PRN Routine Lab Work: CBC - 3 days Code Status: Full Code - Wound(s) left hip Wound Type: Surgical Incision Dressing Change: opsite - Therapies Weight Bearing: Toe-touch weight bearing Physical Therapy: Eval and Treat Occupational Therapy: Eval and Treat - Problem/Diagnosis (1) Fracture of femoral neck, left, closed Status: Acute Current Visit: Yes (2) Dementia Status: Chronic Current Visit: Yes (3) Anemia Status: Chronic Current Visit: Yes (4) HLD (hyperlipidemia) Status: Chronic Current Visit: Yes (5) Sacral fracture Status: Chronic Current Visit: No (6) Hypothyroid Status: Chronic Current Visit: No - Allergies/Procedures Done in Hospital Allergies/Adverse Reactions: Allergies No Known Allergies Allergy (Verified 11/13/17 13:08) Procedures: None - Type of Care/Length of Stay Estimated LOS: Convalescent Care Less Than 30 days Type of Care Needed: Skilled Rehab Potential: Fair Prognosis: Fair - Additional Orders/Day of Discharge Day of Discharge: 11/16/17 - Dietary and Speech Recommendations Dietitian Recommendations/Changes: Will offer 1/2 cup of ensure enlive at meals as well as ONS medpass for increased nutrition if consumed - Follow Up Care Primary Care Physician: Juarez Doctor,Out of [NON-STAFF] - Please follow up with your Primary Care Physician in: 1-2 weeks Please Follow Up With: Alaina Olivares DO When: 2 week
--- NOTE | 2017-11-16 14:12 | PCM.DC.SUM ---
Discharge Date and Diagnosis - Problem List Patient Problems: Active and Suspected Problems Fracture of femoral neck, left, closed (Acute) Contusion of left shoulder (Acute) Closed head injury (Acute) Date of Admission: 11/13/17 Date of Discharge: 11/16/17 - Primary Discharge Diagnosis Active and Suspected Problems Fracture of femoral neck, left, closed (Acute) Contusion of left shoulder (Acute) Closed head injury (Acute) Suspected dementia Moderate protein malnutrition Debility with falls Degenerative disc disease Hyperlipidemia Hypothyroidism History of epilepsy Post op anemia - Secondary Discharge Diagnosis Chronic Problems Epilepsy (Chronic) Bilateral leg edema (Chronic) Sacral fracture (Chronic) Hypothyroid (Chronic) Dementia (Chronic) Anemia (Chronic) HLD (hyperlipidemia) (Chronic) Hospital Course and Treatment Imaging Results: CT/Brain/Head without Contrast IMPRESSION: Stable chronic involutional and microvascular ischemic changes of the brain. No acute intracranial injury. CT/Spine Cervical without Contras IMPRESSION: 1. No acute fracture of the cervical spine. 2. Multilevel degenerative changes, as described above, unchanged from November 10, 2017. RAD/Shoulder min 2 Views IMPRESSION: 1. Prior left shoulder arthroplasty with humeral prosthesis. 2. Old healed fracture deformities of the anterior left fourth and fifth ribs. No demonstrated acute fracture. 3. Demineralization of the osseous structures and degenerative changes of the shoulder again noted. RAD/HIP, UNI W/ Pelvis 2-3 Views IMPRESSION: 1. Nondisplaced oblique fracture of the left femoral neck. Excellent degenerative changes of the lower lumbar spine, bilateral sacroiliac joints, and pubic symphysis. Degenerative spurring of the roofs of the bilateral acetabula also noted. RAD/Chest 1 View (Portable) IMPRESSION: 1. Moderate subsegmental atelectasis in the medial left lung base. No pneumonic infiltrate or CHF. 2. Prior left shoulder arthroplasty with humeral prosthesis. There are degenerative changes also at the left shoulder. 3. Prior cholecystectomy. RAD/Hip Min 2 Views (Portable) IMPRESSION: ORIF of left femoral neck fracture with 3 metal screws. RAD/Hip Min 2 Views (Portable) IMPRESSION: Status post ORIF of left femoral neck fracture with 3 metal screws. Consults: [facility] - ortho Operations: total hip replacement Procedures: Electroencephalogram Summary of Care Provided: Physical exam on day of discharge: General: Resting comfortably NAD Psych: A/Ox3 normal affect HEENT: GLADYSRLA AT NC Neck: Supple NT CV: RRR no m/t/r/g/h Resp: CTA Abd: [id number] Soft NT no guarding or rigidity Ext: DP2+= no edema Skin: W/D normal turgor Lymph/Heme: No active bleeding or adenopathy Neuro: CN2-12 intact Hospital course: The patient is a 71 year old F with a history of hypothyroidism, malnutrition, hyperlipidemia, suspected dementia, anxiety depression, epilepsy, who presented to the emergency room after falling at home and sustaining a left nondisplaced femoral neck fracture. She was admitted and taken to surgery by Dr. Mustafa with orthopedics. She tolerated the procedure well she was very forgetful while she was here and had fluctuant mental status. She did however do well postop and was able to ambulate with assistance and a walker. She did have a fluctuant blood pressure however stabilized after IV fluid administration. She normally runs on the low normal side. She had no symptoms with her mild decline in blood pressure. Her pain was controlled with as needed medications. She was given Lovenox for DVT prophylaxis. With her fluctuant mental status and questionable history of seizure and EEG was obtained which was negative. She needed further skilled therapy and was accepted at [facility]. She was transferred there in stable condition. She will need to follow-up with Ortho in 2 weeks. She will need to follow-up with her PCP in 1-2 weeks. She should continue daily subcu Lovenox for DVT prophylaxis for 3 weeks or unless otherwise directed by orthopedics. This patient was seen by Elliot Albarran PA-C under the supervision of Doctor Irby. [] Discharge Diet: Low fat/ Low Cholesterol, 2000 mg Sodium Diet, - - dietary supplements daily Discharge Activity: Return to Normal Activity Home Medications: Medications to take at Discharge Carvedilol [Coreg (Beta Michelle)] 3.125 mg PO BID 08/12/17 Donepezil HCl [Aricept] 10 mg PO QHS 08/12/17 Ergocalciferol [Vitamin D] 50,000 unit PO Q7D 08/12/17 Esomeprazole Magnesium [Nexium] 40 mg PO DAILY 08/12/17 Furosemide [Lasix] 20 mg PO DAILY 08/12/17 Levothyroxine [Synthroid] 75 mcg PO DAILY 08/12/17 Ropinirole HCl [Requip] 0.5 mg PO TID 08/12/17 Venlafaxine HCl [Venlafaxine HCl ER] 75 mg PO DAILY 08/12/17 Pravastatin [Pravachol] 40 mg PO QHS 11/10/17 Acetaminophen [Tylenol Tablet] 650 mg PO Q6H PRN PRN tablet 11/16/17 Enoxaparin [Lovenox] 40 mg SC DAILY@0600 syringe 11/16/17 Ensure Enlive 120 ml PO 4X/DAY liquid 11/16/17 Gabapentin [Neurontin] 100 mg PO QHS #14 capsule 11/16/17 Oxycodone [Oxyir] 5 mg PO Q4H PRN PRN 2 Days #12 tab 11/16/17 Following Prescrptions Were Given to Patient: Gabapentin [Neurontin] 100 mg PO QHS #14 capsule Oxycodone [Oxyir] 5 mg PO Q4H PRN PRN 2 Days #12 tab PRN Reason: Moderate Pain (pain scale 4-5) Primary Care Physician: Juarez Doctor,Out of [NON-STAFF] - Please follow up with your Primary Care Physician in: 1-2 weeks Please Follow Up With: Alaina Olivares DO When: 2 week Disposition: [facility] facility Minutes spent on discharge:: 35 Patient Condition:: Stable Medical Necessity - Tobacco Use Smoking Status: Never smoker Tobacco Use: Non-smoker Meaningful Use Info Meaningful Use Diagnoses (Choose all that apply): None applicable
--- NOTE | 2017-11-16 14:19 | DS.PCM_ITS ---
Discharge Date and Diagnosis - Problem List Patient Problems: Active and Suspected Problems Fracture of femoral neck, left, closed (Acute) Contusion of left shoulder (Acute) Closed head injury (Acute) Date of Admission: 11/13/17 Date of Discharge: 11/16/17 - Primary Discharge Diagnosis Active and Suspected Problems Fracture of femoral neck, left, closed (Acute) Contusion of left shoulder (Acute) Closed head injury (Acute) Suspected dementia Moderate protein malnutrition Debility with falls Degenerative disc disease Hyperlipidemia Hypothyroidism History of epilepsy Post op anemia - Secondary Discharge Diagnosis Chronic Problems Epilepsy (Chronic) Bilateral leg edema (Chronic) Sacral fracture (Chronic) Hypothyroid (Chronic) Dementia (Chronic) Anemia (Chronic) HLD (hyperlipidemia) (Chronic) Hospital Course and Treatment Imaging Results: CT/Brain/Head without Contrast IMPRESSION: Stable chronic involutional and microvascular ischemic changes of the brain. No acute intracranial injury. CT/Spine Cervical without Contras IMPRESSION: 1. No acute fracture of the cervical spine. 2. Multilevel degenerative changes, as described above, unchanged from November 10, 2017. RAD/Shoulder min 2 Views IMPRESSION: 1. Prior left shoulder arthroplasty with humeral prosthesis. 2. Old healed fracture deformities of the anterior left fourth and fifth ribs. No demonstrated acute fracture. 3. Demineralization of the osseous structures and degenerative changes of the shoulder again noted. RAD/HIP, UNI W/ Pelvis 2-3 Views IMPRESSION: 1. Nondisplaced oblique fracture of the left femoral neck. Excellent degenerative changes of the lower lumbar spine, bilateral sacroiliac joints, and pubic symphysis. Degenerative spurring of the roofs of the bilateral acetabula also noted. RAD/Chest 1 View (Portable) IMPRESSION: 1. Moderate subsegmental atelectasis in the medial left lung base. No pneumonic infiltrate or CHF. 2. Prior left shoulder arthroplasty with humeral prosthesis. There are degenerative changes also at the left shoulder. 3. Prior cholecystectomy. RAD/Hip Min 2 Views (Portable) IMPRESSION: ORIF of left femoral neck fracture with 3 metal screws. RAD/Hip Min 2 Views (Portable) IMPRESSION: Status post ORIF of left femoral neck fracture with 3 metal screws. Consults: [facility] - ortho Operations: total hip replacement Procedures: Electroencephalogram Summary of Care Provided: Physical exam on day of discharge: General: Resting comfortably NAD Psych: A/Ox3 normal affect HEENT: GLADYSRLA AT NC Neck: Supple NT CV: RRR no m/t/r/g/h Resp: CTA Abd: [id number] Soft NT no guarding or rigidity Ext: DP2+= no edema Skin: W/D normal turgor Lymph/Heme: No active bleeding or adenopathy Neuro: CN2-12 intact Hospital course: The patient is a 71 year old F with a history of hypothyroidism, malnutrition, hyperlipidemia, suspected dementia, anxiety depression, epilepsy, who presented to the emergency room after falling at home and sustaining a left nondisplaced femoral neck fracture. She was admitted and taken to surgery by Dr. Mustafa with orthopedics. She tolerated the procedure well she was very forgetful while she was here and had fluctuant mental status. She did however do well postop and was able to ambulate with assistance and a walker. She did have a fluctuant blood pressure however stabilized after IV fluid administration. She normally runs on the low normal side. She had no symptoms with her mild decline in blood pressure. Her pain was controlled with as needed medications. She was given Lovenox for DVT prophylaxis. With her fluctuant mental status and questionable history of seizure and EEG was obtained which was negative. She needed further skilled therapy and was accepted at [facility]. She was transferred there in stable condition. She will need to follow-up with Ortho in 2 weeks. She will need to follow-up with her PCP in 1-2 weeks. She should continue daily subcu Lovenox for DVT prophylaxis for 3 weeks or unless otherwise directed by orthopedics. This patient was seen by Elliot Albarran PA-C under the supervision of Doctor Irby. [] Discharge Diet: Low fat/ Low Cholesterol, 2000 mg Sodium Diet, - - dietary supplements daily Discharge Activity: Return to Normal Activity Home Medications: Medications to take at Discharge Carvedilol [Coreg (Beta Michelle)] 3.125 mg PO BID 08/12/17 Donepezil HCl [Aricept] 10 mg PO QHS 08/12/17 Ergocalciferol [Vitamin D] 50,000 unit PO Q7D 08/12/17 Esomeprazole Magnesium [Nexium] 40 mg PO DAILY 08/12/17 Furosemide [Lasix] 20 mg PO DAILY 08/12/17 Levothyroxine [Synthroid] 75 mcg PO DAILY 08/12/17 Ropinirole HCl [Requip] 0.5 mg PO TID 08/12/17 Venlafaxine HCl [Venlafaxine HCl ER] 75 mg PO DAILY 08/12/17 Pravastatin [Pravachol] 40 mg PO QHS 11/10/17 Acetaminophen [Tylenol Tablet] 650 mg PO Q6H PRN PRN tablet 11/16/17 Enoxaparin [Lovenox] 40 mg SC DAILY@0600 syringe 11/16/17 Ensure Enlive 120 ml PO 4X/DAY liquid 11/16/17 Gabapentin [Neurontin] 100 mg PO QHS #14 capsule 11/16/17 Oxycodone [Oxyir] 5 mg PO Q4H PRN PRN 2 Days #12 tab 11/16/17 Following Prescrptions Were Given to Patient: Gabapentin [Neurontin] 100 mg PO QHS #14 capsule Oxycodone [Oxyir] 5 mg PO Q4H PRN PRN 2 Days #12 tab PRN Reason: Moderate Pain (pain scale 4-5) Primary Care Physician: Juarez Doctor,Out of [NON-STAFF] - Please follow up with your Primary Care Physician in: 1-2 weeks Please Follow Up With: Alaina Olivares DO When: 2 week Disposition: Detention facility Minutes spent on discharge:: 35 Patient Condition:: Stable Medical Necessity - Tobacco Use Smoking Status: Never smoker Tobacco Use: Non-smoker Meaningful Use Info Meaningful Use Diagnoses (Choose all that apply): None applicable
--- NOTE | 2017-11-16 15:50 | NURSING ---
Call placed to [facility] and report given to Nurse whom will be taking over care for this patient
--- NOTE | 2017-11-16 15:52 | CASEMGMT ---
Social Work Note [place] No[place] faxed discharged paperwork to [facility] and set up transportation for pt. SW placed a call to pt's sister Annette and updated her that pt is discharging to [facility] today. Annette states understanding. Plan: Pt to discharge to [facility] today under skilled for rehabilitation Shikha Pressley ENVIRONMENTAL PROTECTION E[employer]OMIST, MAKEUP ARTIST
== END 2017-11-16 18:23 | disposition skilled nursing facility (03) | DRG 482 ==
LOC: ED 15:37 → MS3 16:02
PROVIDERS: Anesthesiology; Hospitalist; Orthopaedic Surgery; Physician Assistant; Emergency Provider Emergency Medicine; Visit Provider Internal Medicine
PROC: 0QH704Z Insertion of Internal Fixation Device into Left Upper Femur, Open Approach (ICD-10-PCS; principal; 2017-11-14 07:00)
DX: M80.052A Age-related osteoporosis with current pathological fracture, left femur, initial encounter for fracture (principal); F03.90 Unspecified dementia, unspecified severity, without behavioral disturbance, psychotic disturbance, mood disturbance, and anxiety; G40.909 Epilepsy, unspecified, not intractable, without status epilepticus; D64.9 Anemia, unspecified; S09.90XA Unspecified injury of head, initial encounter; S40.012A Contusion of left shoulder, initial encounter; Z23 Encounter for immunization; E87.6 Hypokalemia; R53.81 Other malaise; E03.9 Hypothyroidism, unspecified; E78.5 Hyperlipidemia, unspecified; W18.30XA Fall on same level, unspecified, initial encounter; Z68.21 Body mass index [BMI] 21.0-21.9, adult; Z79.899 Other long term (current) drug therapy
CPT/HCPCS: 36415; 70450; 71045; 72125; 73030; 73502; 76000; 80048; 80053; 80076; 81001; 82306; 82746; 83540; 83550; 83605; 84134; 84443; 84484; 85025; 85027; 85610; 85730; 86850; 86900; 87040; 87086; 93005; 96365; 96366; 97162; 97166; 97530; 99284; 99285; C1713; J7030; J7040; 90686; A4216; J2405

== ENCOUNTER → 2017-12-06 09:36 | Outpatient (CLI) | payer MEDICARE, SELFPAY ==
--- NOTE | 2017-12-06 09:38 | RAD_ITS ---
STUDY: X-RAY - PELVIS AND LEFT HIP REASON FOR EXAM: Postoperative follow-up. TECHNIQUE: Radiological exam, hip, unilateral, with pelvis when performed; 2 or 3 views. COMPARISON: Radiographs 11/14/2017. FINDINGS: There is mild vascular calcification. Normal bilateral iliac wings, sacroiliac joints and visualized sacrum. Normal bilateral superior and inferior pubic rami. Normal pubic symphysis. Normal bilateral ischial tuberosities. There are 3 orthopedic screws transfixing a femoral neck fracture without interval change. Normal acetabulum. Normal hip joint. RAD/HIP, UNI W/ Pelvis 2-3 Views IMPRESSION: No interval change of ORIF of left femoral neck fracture. Electronically Signed: Yo Brady MD at 10:26 EDT Tel , Service support ,
== END ==
PROVIDERS: Referring Provider Orthopaedic Surgery; Visit Provider Orthopaedic Surgery
DX: S72.002A Fracture of unspecified part of neck of left femur, initial encounter for closed fracture (principal)
CPT/HCPCS: 73502

== ENCOUNTER → 2018-01-18 13:47 | Outpatient (CLI) | payer MEDICARE, SELFPAY ==
--- NOTE | 2018-01-18 13:49 | RAD_ITS ---
STUDY: X-RAY - LEFT HIP REASON FOR EXAM: Female, 72 years old. Pain TECHNIQUE: 2 views of the hip. COMPARISON: None. FINDINGS: Mild low lumbar spondylosis. Prominent osteopenia. Mild SI joint degeneration. Ill-defined sclerosis involving the right and left proximal sacrum. These may represent old insufficiency fractures in the setting of severe osteopenia. Nonspecific. Iliac crests intact. Pubic rami intact. Mild degenerative features of the right hip. Mild degenerative features of the left hip articulation. There are 3 cannulated screws fixating old fracture, healed. There is no visible acute femoral neck, intertrochanteric or proximal shaft fracture. Periarticular soft tissues appear normal. RAD/HIP, UNI W/ Pelvis 2-3 Views IMPRESSION: No radiographic evidence of acute pelvic or left hip abnormality. Electronically Signed: Bautista Prabhakar MD at 16:41 EST Tel , Service support ,
--- OUTSIDE RECORDS SUMMARY | 2018-03-06 18:39 | XMS RPT_ITS ---
:1945 Author Organization OHIP Support Name Relationship Address Phone ANNETTE FERGUSON Unavailable [address] + [place] [address] R Unavailable Unavailable Unavailable PHYLLIS, ANNETTE Unavailable [address] + [place] [address] R Unavailable Unavailable Unavailable CODY FERGUSONA Unavailable [address] + [place] [address] R Unavailable Unavailable Unavailable CODY FERGUSONA Unavailable [address] + [place] [address] R Unavailable Unavailable Unavailable CODY FERGUSONA Unavailable [address] + [place] [address] R Unavailable Unavailable Unavailable PHYLLIS ANNETTE Unavailable [address] + [place] [address] R Unavailable Unavailable Unavailable CODY FERGUSONA Unavailable [address] + [place] [address] R Unavailable Unavailable Unavailable PHYLLIS, ANNETTE Unavailable [address] + [place] [address] R Unavailable Unavailable Unavailable PHYLLIS ANNETTE Unavailable [address] + [place] [address] R Unavailable Unavailable Unavailable PHYLLIS, ANNETTE Unavailable [address] + [place] [address] R Unavailable Unavailable Unavailable PHYLLISCODY YEPEZA Unavailable [address] + [place] [address] R Unavailable Unavailable Unavailable PHYLILS, ANNETTE Unavailable [address] + [place] [address] R Unavailable Unavailable Unavailable PHYLLIS, ANNETTE Unavailable [address] + [place] [address] R Unavailable Unavailable Unavailable PHYLLISCODY YEPEZA Unavailable [address] + [place] [address] R Unavailable Unavailable Unavailable ANNETTE FERGUSON Unavailable [address] + [place] [address] R Unavailable Unavailable Unavailable Care Team Providers Name Role Phone SOTERO MONTAGUE) Attending Unavailable SOTERO MONTAGUE) Referring Unavailable SOTERO MONTAGUE) Referring Unavailable SOTERO MONTAGUE) Attending Unavailable SOTERO MONTAGUE) Referring Unavailable SOTERO MONTAGUE) Referring Unavailable LILY LINDA (NURSING CLINICAL DIRECTOR) Attending Unavailable SOTERO MONTAGUE) Referring Unavailable SOTERO MONTAGUE) Attending Unavailable SOTERO MONTAGUE) Referring Unavailable LILY LINDA (NURSING CLINICAL DIRECTOR) Attending Unavailable SOTERO MONTAGUE) Referring Unavailable SOTERO MONTAGUE) Attending Unavailable SOTERO MONTAGUE) Referring Unavailable SOTERO MONTAGUE) Referring Unavailable SOTERO MONTAGUE) Referring Unavailable SOTERO MONTAGUE) Attending Unavailable RIOS SAWYER (SUPERVISOR POST WAVE) Attending Unavailable SOTERO MONTAGUE) Referring Unavailable Nisha Olivarese Attending Unavailable Primay Care Physicia, No Referring Unavailable Chicjuan Alaina Attending Unavailable Marshall Alaina Referring Unavailable Primay Care Physicia, No Primary Care Unavailable CAN GROSS Primary Care Unavailable Agyepong, Vic Admitting Unavailable Agyepong, Vic Attending Unavailable Arie Oneill Attending Unavailable Agyepong, Vic Referring Unavailable Isatu Apple Attending Unavailable CAN GROSS Primary Care Unavailable Isatu Apple Attending Unavailable CAN GROSS Primary Care Unavailable CAN GROSS Primary Care Unavailable Noé Martin Attending Unavailable Primay Care Physicia, No Primary Care Unavailable Jopperi, Demond Admitting Unavailable Marshall, Alaina Consulting Unavailable Alexandre Irby Attending Unavailable Jopperi, Demond Admitting Unavailable Jopperi, Demond Attending Unavailable Primay Care Physicia, No Primary Care Unavailable Jopperi, Demond Consulting Unavailable Jopperi, Demond Admitting Unavailable Primay Care Physicia, No Primary Care Unavailable Chicorelli, Alaina Consulting Unavailable Chuck Franklin F Attending Unavailable Chuck Franklin F Consulting Unavailable Jopperi, Demond Admitting Unavailable Primay Care Physicia, No Primary Care Unavailable Chicorelli, Alaina Consulting Unavailable Surekha, Alexandre Attending Unavailable Chuck Franklin Consulting Unavailable Jopperi, Demond Admitting Unavailable Primay Care Physicia, No Primary Care Unavailable Chicorelli, Alaina Consulting Unavailable Tereletsky, Alexandre Attending Unavailable Tereletsky, Alexandre Consulting Unavailable Chicorelli, Alaina Attending Unavailable Primay Care Physicia, No Referring Unavailable Chicorelli, Alaina Attending Unavailable Chicorelli, Alaina Referring Unavailable Primay Care Physicia, No Primary Care Unavailable Chicorelli, Alaina Attending Unavailable Tereletsky, Alexandre Referring Unavailable PROBLEMS PROBLEMS DATE TYPE CONDITION / CODE ATTENDING STATUS SOURCE Active Unspecified dementia THORGE, RIOS Active [facility] without behavioral (SUPERVISOR POST WAVE) Clinic Main disturbance / [place] F03.90(ICD-10) Repository Active Early satiety / THORPE, RIOS Active [facility] R68.81(ICD-10) (SUPERVISOR POST WAVE) Clinic Main [place] Repository Active Abnormal weight loss / THORPE, RIOS Active [facility] R63.4(ICD-10) (SUPERVISOR POST WAVE) Clinic Main [place] Repository Active Diarrhea, unspecified NA Active [facility] / R19.7(ICD-10) Clinic Main [place] Repository Active Melena / K92.1(ICD-10) NA Active [facility] [place] Repository Active Cough / R05(ICD-10) NA Active [facility] [place] Rep[facility] Active Other abnormalities of NA Active [facility] breathing / Clinic Main R06.89(ICD-10) [place] Repository Unknown S72.002A - Fracture of Alaina Olivares Active [place] Carla unspecified part of Community neck of left femur, Hospital initial encounter for Repository closed fracture / S72.002A(ICD-10) Active Hypo-osmolality and NA Active [facility] hyponatremia / Clinic Main E87.1(ICD-10) [place] Repository Active Other detention NA Active [facility] (current) drug therapy Clinic Main / Z79.899(ICD-10) [place] Repository Unknown Z00.00 - Encounter for Alexandre Irby Active [place] 8 general adult medical Community examination without Hospital abnormal findings / Repository Z00.00(ICD-10) Active Hemorrhage of anus and NA Active [facility] rectum / K62.5(ICD-10) Clinic Main [place] Repository Active Abnormal levels of NA Active [facility] other serum enzymes / Clinic Main R74.8(ICD-10) [place] Repository Active 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 / [place] D47.3(ICD-10) Repository Active Hypokalemia / NA Active [facility] E87.6(ICD-10) Clinic Main [place] Repository Active Hypocalcemia / NA Active [place] [address] E83.51(ICD-10) Clinic Main [place] Repository Active Dehydration / NA Active [place] [address] E86.0(ICD-10) Clinic Main [place] Repository Active Unknown / UNK(Unknown) CLARI Active [place] [facility] SOTERO [facility] [place]) [place] Repository Unknown R94.31 - Abnormal Mai, [place] Active [place] 8 electrocardiogram Community [ECG] [EKG] / Hospital R94.31(ICD-10) Repository Unknown E87.6 - Hypokalemia / Agyedeniseg Vic Active [place] 8 E87.6(ICD-10) [facility] Hospital Repository PROCEDURES PROCEDURES No Procedure Records FoundRESULTS RESULTS CBC AND DIFFERENTIAL Collected: 02/24/2018 Status: F Source: [place] 3:46 PM [facility] REPOSITORY TYPE CODE TESTS RESULT OUT OF REFERENCE UNITS RANGE LAB WBC 3.70-11.00 k/uL WBC 8.99 LAB RBC 3.90-5.20 m/uL Low RBC 3.78 LAB HGB 11.5-15.5 g/dL Hemoglobin 12.5 LAB HCT 36.0-46.0 % Hematocrit 38.9 LAB MCV 80.0-100.0 fL MCV High 102.9 LAB MCH 26.0-34.0 pG MCH 33.1 LAB MCHC 30.5-36.0 g/dL MCHC 32.1 LAB RDWCV 11.5-15.0 % RDW-CV High 19.4 LAB PLTCT 150-400 k/uL Platelet High Count 456 LAB MPV 9.0-12.7 fL MPV 9.7 LAB ANEUT % Neut% 75.2 LAB AANEUT 1.45-7.50 k/uL Abs Neut 6.75 LAB ALYMP % Lymph% 18.1 LAB AALYMP 1.00-4.00 k/uL Abs Lymph 1.63 LAB AMONO % [place]% 6.2 LAB AAMONO <0.87 k/uL Abs [place] 0.56 LAB AEOS % Eosin% 0.1 LAB AAEOS <0.46 k/uL Abs Eosin <0.03 LAB ABASO % Baso% 0.4 LAB AABASO <0.11 k/uL Abs Baso 0.04 LAB AUNRBC 0 /100 WBC NRBCs High 0.2 LAB ABNRBC <0.01 k/uL Absolute High nRBC 0.02 LAB DTYP DTYPE Auto Diff Performed By: #### CBCDIF, CMP, CRP, WSR #### [facility] [address] [place], [place] [address] COMP METABOLIC PANEL Collected: 02/24/2018 Status: F Source: [place] 3:[address] [facility] REPOSITORY TYPE CODE TESTS RESULT OUT OF REFERENCE UNITS RANGE LAB TP 6.3-8.0 g/dL Low Protein, Total 5.6 LAB ALB 3.9-4.9 g/dL Low Albumin 2.3 LAB CA 8.5-10.2 mg/dL Low Calcium, Total 8.4 LAB TBIL 0.2-1.3 mg/dL Bilirubin, Total 0.8 LAB ALKP 34-123 U/L Alkaline Phosphatase 114 LAB AST 13-35 U/L AST 25 LAB GLU 74-99 mg/dL Glucose 76 Result Comment: The [place] Diabetes Association (ADA) provides guidance for cutoff values for fasting glucose and random glucose. The ADA defines fasting as no caloric intake for at least 8 hours. Fas ting plasma glucose results between 100 to 125 mg/dL indicate increased risk for diabetes (prediabetes). Fasting plasma glucose results greater than or equal to 126 mg/dL meet the criteria for diagnosis of diabetes. In the absence of unequivocal hyperglycemia, results should be confirmed by repeat testing. In a patient with classic symptoms of hyperglycemia or hyperglycemic crisis, random plasma glucose results greater than or equal to 200 mg/dL meet the criteria for diagnosis of diabetes. Reference: Standards of Medical Care in Diabetes 2016, [place] [employer] Association. Diabetes Care. 2016.39(Suppl 1). LAB BUN 7-21 mg/dL BUN High 27 LAB CRET 0.58-0.96 mg/dL Low Creatinine 0.55 LAB NA 136-144 mmol/L Sodium 137 LAB K 3.7-5.1 mmol/L Potassium 4.3 LAB CL 97-105 mmol/L Chloride 101 LAB CO2 22-30 mmol/L Low CO2 21 LAB AGAP 9-18 mmol/L Anion Gap 15 LAB ALT 7-38 U/L ALT 8 LAB GFRAA eGFR- Amer. >60 LAB GFRNAA . eGFR-All Other Races >60 Result Comment: eGFR (Estimated GFR) Units of measure: mL/min/1.73 meters squared eGFR is derived from the reexpressed MDRD Study equation using the following parameters: serum creatinine, age, gender and race. The creatinine assay has been calibrated to be traceable to IDMS. An eGFR <60 mL/min/1.73m2 for >3 months is consistent with chronic kidney disease. Refer to KDOQI guidelines for clinical interpretation. In patients with unstable renal function, e.g. those with acute kidney injury, the eGFR may not accurately reflect actual GFR. Performed By: #### CBCDIF, CMP, CRP, WSR #### [facility] [address] [place] [address] C-REACTIVE PROTEIN Collected: 02/24/2018 Status: F Source: [place] 3:46 PM [facility] REPOSITORY TYPE CODE TESTS RESULT OUT OF REFERENCE UNITS RANGE LAB CRP <0.9 mg/dL High C-Reactive 1.2 Protein Performed By: #### CBCDIF, CMP, CRP, WSR #### [facility] [address] [place] [id number] SED RATE WESTERGREN Collected: 02/24/2018 Status: F Source: [place] 3:46 PM [facility] REPOSITORY TYPE CODE TESTS RESULT OUT OF REFERENCE UNITS RANGE LAB WSR 0-20 mm/hr Sed Rate Westergren 12 Performed By: #### CBCDIF, CMP, CRP, WSR #### [facility] [address] [place], [place] [address] HISTORY PHYSICAL Observed: 02/24/2018 Status: COMPLETED Source: [place] 2:[address] [facility] REPOSITORY HNO ID: [id number] Author: Rios Sawyer Service: (none) Author Type: Nurse Practitioner Type: HANDP Filed: 02/24/2018 7:35 PM Note Text: Winsome Meyers a 72 year old female who is a consultation requested by Dr. Sotero Montague for an opinion regarding unintentional weight loss. My final recommendations will be communicated back to the requesting physician by way of shared Medical record. The patient has not been seen previously. The patient denies a family history of colon cancer. The patient was seen by Dr. Montague on 02/16/18, leading to this consultation. That note has been reviewed and part as follows: Patient's weight is down another 2 lbs since last visit. Sister states that she has not been eating more than 1 Cup of food and drinking about 12 oz of sweet tea/water daily. Refuses diet supplement. Taking Remeron as prescribed and has not helped stimulate her appetite. Patient states she would like to gain weight, but just doesn't feel like eating and when she does eat she gets full easily. Denies abdominal pain or dysphagia. Discussed dementia as possible etiology. Taking Aricept as prescribed and sister does not think this is helping much with memory. Is often confused. No complaint of aggressive behavior. Disucssed if this is related to dementia, may be end stage and in that case tube feeds and TPN would not benefit patient. Discussed referral to geriatrics and GI. May require referral to palliative. Component Latest Ref Rng AND Units 10/07/2017 Occult Blood, Stool Negative Negative The patient was seen by Dr. Valdivia for surveillance upper endoscopy 08/13/16. The procedure report has been reviewed and findings as follows: Impression: ?? ? - Esophageal mucosal changes consistent with ? long-segment Guzman's esophagus, 4 cm 30-34 cm from ? incissors. Biopsied at 30, 32 and 34 cm. ? - Dinah-en-Y gastrojejunostomy with gastrojejunal ? anastomosis characterized by healthy appearing mucosa. ? - Normal examined jejunum. FINAL DIAGNOSIS 1. Esophagus at 34 cm, biopsy (A) - Guzman's esophagus, negative for dysplasia. 2. Esophagus at 32 cm, biopsy (B) - Guzman's esophagus, negative for dysplasia. 3. Esophagus at 30 cm, biopsy (C) - Guzman's esophagus with squamous overgrowth, negative for dysplasia.SALMA/jeanie 08/14/2016 She will be due for surveillance this year. The patient was seen by Dr. Santillan for screening cololnoscopy 05/02/15. The procedure report has been reviewed and findings as follows: Findings: ? ? ?The colon (entire examined portion) appeared normal. I was not able to ? ? ?advance beyond mid-transverse colon due to technical difficulties with ? ? ?very fixed colon. risk-benefit assessemt favored discontiuation and if ? ? ?visualiztion of proximal colon is indicated then I recommend imaging Impression: - No specimens collected. CT of abd 08/12/16: IMPRESSION: STATUS POST DINAH-EN-Y GASTRIC BYPASS WITH SMALL HIATAL HERNIA AND WALL THICKENING OF DISTAL ESOPHAGUS. ? NO BOWEL OBSTRUCTION. NO MASS IN THE ABDOMEN OR PELVIS. Presenting complaint:The patient presents today stating that she was doing pretty good until she fell and broke her hip. Now she doesn't seem to get hungry. Usually gets a craving for something about once a day. Her sister tells me that she is trying to get her to drink more water. She likes drinking Chase Brisk IceTea, but only drinks about a cup a day. She likes milk - I have suggested that she drink that too. It doesn't seem to bother her. The patient has peanut butter when she takes her potassium pills. Trying to eat mashed potatoes and meat each evening. She likes liver. Also likes brown beans and corn bread. She thinks ice cream is ok, but doesn't eat much. She thinks she would eat the 1/2 size ice cream cups they make. She likes butter pecan ice cream.... but do the nuts.... she could spit them out. Her sister tells me I'm allan if I get her to eat 1/2 an egg. She is aware that dementia can be playing a part in appetite and eating. Having a bowel movement about every other day. Has senna to use when needed. Her sister gives her the medications. REVIEW OF SYSTEMS: GENERAL: Unintentional weight loss RESPIRATORY: Negative for cough, hemoptysis, wheezing, COPD, dyspnea or shortness of breath. Some deconditioning. CARDIOVASCULAR: Negative for chest pain, leg swelling, hypertension, CHF or palpitations GI: The patient states that her appetite has been fair. She sometimes gets hungry. There has been no nausea, no vomiting. She denies dysphagia and denies odynophagia. There has not been indigestion or heartburn. There has not been regurgitation. Bowel habits have been regular. There has not been diarrhea. There has sometimes been constipation. The patient denies rectal bleeding. There has not been melena. No abdominal pain. DIRECTOR ORANGE: Negative for abnormal vaginal bleeding, abnormal vaginal discharge. MUSCULOSKELETAL: L hip fracture 11/2017. PSYCH:Depression - wants to get back to [place]. HEMATOLOGY/LYMPHOLOGY Negative for prolonged bleeding, bruising easily or swollen nodes ENDOCRINE: No thyroid or diabetes. NEURO: Seizures All other reviewed and negative other than HPI. 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 - Gastric bypass status for obesity 2002 done elsewhere - GERD (gastroesophageal reflux disease) - Hyperlipidemia - Hypothyroid - Malnutrition (HCC) - Marginal ulcer s/p perforation - Osteoarthritis - Preop exam for internal medicine - Seizures ([facility]) Last in 2016. - Weight loss PAST SURGICAL HISTORY Procedure Laterality Date - GASTRIC BYPASS,OBESE<100CM DINAH-EN-Y 2002 done elsewhere - LAPAROSCOPY, SURGICAL; JEJUNOSTOMY 03-28-09 Tanvi Rudolph - PAST SURGICAL HISTORY OF 2000 gastric surgery - PAST SURGICAL HISTORY OF Left shoulder replacement - revision gastrojejunostomy Tanvi Rudolph FAMILY HISTORY Problem Relation Age of Onset - Coronary Artery Disease Mother - Hypertension Mother - Ischemic Heart Disease Mother - GI Father PUD Current Outpatient Prescriptions: mirtazapine (REMERON) 30 mg tablet Take 1 tablet by mouth daily at bedtime. Disp: 30 tablet Rfl: 3 albuterol HFA (VENTOLIN HFA) 90 mcg/actuation inhaler Inhale 2 Puffs as instructed every 4 hours as needed. Disp: 1 Inhaler Rfl: 1 levothyroxine (SYNTHROID) 88 mcg tablet Take 1 tablet by mouth once daily. Disp: 30 tablet Rfl: 5 Cholecalciferol, Vitamin D3, 1,000 unit cap Take 2 capsules by mouth once daily. Disp: 60 capsule Rfl: 5 gabapentin (NEURONTIN) 100 mg capsule Take 1 capsule by mouth daily at bedtime. Per Tanvi Carreno Disp: Rfl: ondansetron orally disintegrating (ZOFRAN ODT) 4 mg disintegrating tablet 1 tablet in AM and every 6 hours as needed for nausea Disp: Rfl: esomeprazole (NEXIUM) 40 mg capsule Take 1 capsule by mouth once daily. Disp: Rfl: potassium chloride ER (KLOR-CON M20) 20 mEq tablet Take 20 mEq by mouth twice daily. Disp: Rfl: donepezil (ARICEPT) 10 mg tablet Take 10 mg by mouth daily at bedtime. Disp: Rfl: venlafaxine (EFFEXOR) 75 mg tablet Take 75 mg by mouth once daily. Disp: Rfl: carvedilol (COREG) 3.125 mg tablet Take 3.125 mg by mouth twice daily with meals. Disp: Rfl: pravastatin (PRAVACHOL) 40 mg tablet Take 40 mg by mouth once daily. Disp: Rfl: senna (SENOKOT) 8.6 mg tab Take 2 tablets by mouth daily at bedtime. Disp: 60 tablet Rfl: 0 CALCIUM CARBONATE-VITAMIN D2 500 MG-200 UNIT TAB Take one(1) tablet three times daily. Disp: Rfl: 0 No current facility-administered medications for this visit. SOCIAL HISTORY: Patient is . She has never smoked. She reports her alcohol use as never. She denies drug use. PHYSICAL EXAMINATION: Blood pressure (!) 79/65, pulse 97, weight 41.3 kg (91 lb). General Appearance: Alert, in no acute distress, thin, frail. Skin: Skin color normal. Transparent, slight tenting, no suspicious rashes or lesions. Head: Normocephalic, no masses, lesions, tenderness or abnormalities. Eyes: Anicteric sclera. Oropharynx: Dentures. Lips, mucosa, and tongue normal, oropharynx normal. Neck: Supple, no adenopathy; thyroid symmetric, normal size, no bruits. Lungs: lungs clear to auscultation. No wheezing, rhonchi, rales. Heart: RRR without murmur, gallop, or rubs. No ectopy. Abdomen: Abdomen soft, non-tender. Bowel sounds normal. No masses, organomegaly. Extremities: No deformities, edema. Peripheral Pulses: Normal. Impression: unintentional weight loss with prior Dinah-en-Y Plan: Gastric emptying study. Continue current medications. Recommended pleasure foods- ice cream, peanut butter, liver (she loves liver), potatoes. Further plan based on the results. Patient and sister agree. I have personally interviewed and examined this patient. I have reviewed the information that the MA entered for this encounter. I spent 30 minutes in the visit, with greater than 50% of the total [id number] time of the visit in counseling and coordination of care. Rios Sawyer RN APRN.EVAN [place] Observed: 02/24/2018 Status: COMPLETED Source: [place] 2:00 PM [facility] REPOSITORY Office Visit ([facility]) WINSOME MEYERS ([id number]) 1945 F Date Time Provider Department 02/24/18 2:00 PM RIOS SAWYER ([facility]) [facility] During your visit today, we recorded the following information about you: Pulse Blood pressure Weight 97/minute 79/65 41.3 kg Rios Sawyer RN APRN.EVAN 02/24/2018 7:35 PM Signed Winsome Meyers a 72 year old female who is a consultation requested by Dr. Sotero Montague for an opinion regarding unintentional weight loss. My final recommendations will be communicated back to the requesting physician by way of shared Medical record. The patient has not been seen previously. The patient denies a family history of colon cancer. The patient was seen by Dr. Montague on 02/16/18, leading to this consultation. That note has been reviewed and part as follows: Patient's weight is down another 2 lbs since last visit. Sister states that she has not been eating more than 1 Cup of food and drinking about 12 oz of sweet tea/water daily. Refuses diet supplement. Taking Remeron as prescribed and has not helped stimulate her appetite. Patient states she would like to gain weight, but just doesn't feel like eating and when she does eat she gets full easily. Denies abdominal pain or dysphagia. Discussed dementia as possible etiology. Taking Aricept as prescribed and sister does not think this is helping much with memory. Is often confused. No complaint of aggressive behavior. Disucssed if this is related to dementia, may be end stage and in that case tube feeds and TPN would not benefit patient. Discussed referral to geriatrics and GI. May require referral to palliative. Component Latest Ref Rng AND Units 10/07/2017 Occult Blood, Stool Negative Negative The patient was seen by Dr. Valdivia for surveillance upper endoscopy 08/13/16. The procedure report has been reviewed and findings as follows: Impression: ?? ? - Esophageal mucosal changes consistent with ? long-segment Guzman's esophagus, 4 cm 30-34 cm from ? incissors. Biopsied at 30, 32 and 34 cm. ? - Dinah-en-Y gastrojejunostomy with gastrojejunal ? anastomosis characterized by healthy appearing mucosa. ? - Normal examined jejunum. FINAL DIAGNOSIS 1. Esophagus at 34 cm, biopsy (A) - Guzman's esophagus, negative for dysplasia. 2. Esophagus at 32 cm, biopsy (B) - Guzman's esophagus, negative for dysplasia. 3. Esophagus at 30 cm, biopsy (C) - Guzman's esophagus with squamous overgrowth, negative for dysplasia.SALMA/jeanie 08/14/2016 She will be due for surveillance this year. The patient was seen by Dr. Santillan for screening cololnoscopy 05/02/15. The procedure report has been reviewed and findings as follows: Findings: ? ? ?The colon (entire examined portion) appeared normal. I was not able to ? ? ?advance beyond mid-transverse colon due to technical difficulties with ? ? ?very fixed colon. risk-benefit assessemt favored discontiuation and if ? ? ?visualiztion of proximal colon is indicated then I recommend imaging Impression: - No specimens collected. CT of abd 08/12/16: IMPRESSION: STATUS POST DINAH-EN-Y GASTRIC BYPASS WITH SMALL HIATAL HERNIA AND WALL THICKENING OF DISTAL ESOPHAGUS. ? NO BOWEL OBSTRUCTION. NO MASS IN THE ABDOMEN OR PELVIS. Presenting complaint:The patient presents today stating that she was doing pretty good until she fell and broke her hip. Now she doesn't seem to get hungry. Usually gets a craving for something about once a day. Her sister tells me that she is trying to get her to drink more water. She likes drinking Chase Brisk IceTea, but only drinks about a cup a day. She likes milk - I have suggested that she drink that too. It doesn't seem to bother her. The patient has peanut butter when she takes her potassium pills. Trying to eat mashed potatoes and meat each evening. She likes liver. Also likes brown beans and corn bread. She thinks ice cream is ok, but doesn't eat much. She thinks she would eat the 1/2 size ice cream cups they make. She likes butter pecan ice cream.... but do the nuts.... she could spit them out. Her sister tells me I'm allan if I get her to eat 1/2 an egg. She is aware that dementia can be playing a part in appetite and eating. Having a bowel movement about every other day. Has senna to use when needed. Her sister gives her the medications. REVIEW OF SYSTEMS: GENERAL: Unintentional weight loss RESPIRATORY: Negative for cough, hemoptysis, wheezing, COPD, dyspnea or shortness of breath. Some deconditioning. CARDIOVASCULAR: Negative for chest pain, leg swelling, hypertension, CHF or palpitations GI: The patient states that her appetite has been fair. She sometimes gets hungry. There has been no nausea, no vomiting. She denies dysphagia and denies odynophagia. There has not been indigestion or heartburn. There has not been regurgitation. Bowel habits have been regular. There has not been diarrhea. There has sometimes been constipation. The patient denies rectal bleeding. There has not been melena. No abdominal pain. DIRECTOR ORANGE: Negative for abnormal vaginal bleeding, abnormal vaginal discharge. MUSCULOSKELETAL: L hip fracture 11/2017. PSYCH:Depression - wants to get back to [place]. HEMATOLOGY/LYMPHOLOGY Negative for prolonged bleeding, bruising easily or swollen nodes ENDOCRINE: No thyroid or diabetes. NEURO: Seizures All other reviewed and negative other than HPI. 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 - Gastric bypass status for obesity 2002 done elsewhere - GERD (gastroesophageal reflux disease) - Hyperlipidemia - Hypothyroid - Malnutrition ([facility]) - Marginal ulcer s/p perforation - Osteoarthritis - Preop exam for internal medicine - Seizures ([facility]) Last in 2015. - Weight loss PAST SURGICAL HISTORY Procedure Laterality Date - GASTRIC BYPASS,OBESE<100CM DINAH-EN-Y 2002 done elsewhere - LAPAROSCOPY, SURGICAL; JEJUNOSTOMY 03-28-09 Tanvi Rudolph - PAST SURGICAL HISTORY OF 2000 gastric surgery - PAST SURGICAL HISTORY OF Left shoulder replacement - revision gastrojejunostomy Tanvi Rudolph FAMILY HISTORY Problem Relation Age of Onset - Coronary Artery Disease Mother - Hypertension Mother - Ischemic Heart Disease Mother - GI Father PUD Current Outpatient Prescriptions: mirtazapine (REMERON) 30 mg tablet Take 1 tablet by mouth daily at bedtime. Disp: 30 tablet Rfl: 3 albuterol HFA (VENTOLIN HFA) 90 mcg/actuation inhaler Inhale 2 Puffs as instructed every 4 hours as needed. Disp: 1 Inhaler Rfl: 1 levothyroxine (SYNTHROID) 88 mcg tablet Take 1 tablet by mouth once daily. Disp: 30 tablet Rfl: 5 Cholecalciferol, Vitamin D3, 1,000 unit cap Take 2 capsules by mouth once daily. Disp: 60 capsule Rfl: 5 gabapentin (NEURONTIN) 100 mg capsule Take 1 capsule by mouth daily at bedtime. Per Tanvi Carreno Disp: Rfl: ondansetron orally disintegrating (ZOFRAN ODT) 4 mg disintegrating tablet 1 tablet in AM and every 6 hours as needed for nausea Disp: Rfl: esomeprazole (NEXIUM) 40 mg capsule Take 1 capsule by mouth once daily. Disp: Rfl: potassium chloride ER (KLOR-CON M20) 20 mEq tablet Take 20 mEq by mouth twice daily. Disp: Rfl: donepezil (ARICEPT) 10 mg tablet Take 10 mg by mouth daily at bedtime. Disp: Rfl: venlafaxine (EFFEXOR) 75 mg tablet Take 75 mg by mouth once daily. Disp: Rfl: carvedilol (COREG) 3.125 mg tablet Take 3.125 mg by mouth twice daily with meals. Disp: Rfl: pravastatin (PRAVACHOL) 40 mg tablet Take 40 mg by mouth once daily. Disp: Rfl: senna (SENOKOT) 8.6 mg tab Take 2 tablets by mouth daily at bedtime. Disp: 60 tablet Rfl: 0 CALCIUM CARBONATE-VITAMIN D2 500 MG-200 UNIT TAB Take one(1) tablet three times daily. Disp: Rfl: 0 No current facility-administered medications for this visit. SOCIAL HISTORY: Patient is . She has never smoked. She reports her alcohol use as never. She denies drug use. PHYSICAL EXAMINATION: Blood pressure (!) 79/65, pulse 97, weight 41.3 kg (91 lb). General Appearance: Alert, in no acute distress, thin, frail. Skin: Skin color normal. Transparent, slight tenting, no suspicious rashes or lesions. Head: Normocephalic, no masses, lesions, tenderness or abnormalities. Eyes: Anicteric sclera. Oropharynx: Dentures. Lips, mucosa, and tongue normal, oropharynx normal. Neck: Supple, no adenopathy; thyroid symmetric, normal size, no bruits. Lungs: lungs clear to auscultation. No wheezing, rhonchi, rales. Heart: RRR without murmur, gallop, or rubs. No ectopy. Abdomen: Abdomen soft, non-tender. Bowel sounds normal. No masses, organomegaly. Extremities: No deformities, edema. Peripheral Pulses: Normal. Impression: unintentional weight loss with prior Dinah-en-Y Plan: Gastric emptying study. Continue current medications. Recommended pleasure foods- ice cream, peanut butter, liver (she loves liver), potatoes. Further plan based on the results. Patient and sister agree. I have personally interviewed and examined this patient. I have reviewed the information that the MA entered for this encounter. I spent 30 minutes in the visit, with greater than 50% of the total [id number] time of the visit in counseling and coordination of care. Rios Sawyer RN APRN.EVAN Sawyer RN APRN.EVAN 02/24/2018 3:09 PM Addendum Continue current medication. Consider the single serving cups of ice cream. Please follow the instructions for the test that looks at how long it takes food to leave your stomach. It will take a day or two after the test for us to get the results. Call [phone], and ask to speak to a nurse in GI, if you have any questions or concerns in the mean time. Referring Provider: SOTERO MONTAGUE) [[id number]] Allergies As of Date: 02/24/2018 Noted Allergy Reaction iodoform nu-gauze packing [Other] 11/09/2005 7 - Swelling 10 - Anaphylaxis Date Reviewed: 02/24/2018 Reviewed by: Soo Muñiz Ma - Fully Assessed Reason for Visit: Weight Loss [882] Primary Visit Diagnosis:Early satiety [R68.81] Other Visit Diagnoses:Weight loss, unintentional [R63.4] Dementia without behavioral disturbance, unspecified dementia type [F03.90] Order(s):[place] GASTRIC EMPTYING SOLID [[id number]] Order #: [id number] FUTURE Prescriptions as of 02/24/2018 Sig: MIRTAZAPINE 30 MG TABLET Take 1 tablet by mouth daily * ALBUTEROL SULFATE HFA 90 MCG/* Inhale 2 Puffs as instructed * LEVOTHYROXINE 88 MCG TABLET Take 1 tablet by mouth once d* CHOLECALCIFEROL (VITAMIN D3) * Take 2 capsules by mouth once* GABAPENTIN 100 MG CAPSULE Take 1 capsule by mouth daily* ONDANSETRON 4 MG DISINTEGRATI* 1 tablet in AM and every 6 ho* ESOMEPRAZOLE MAGNESIUM 40 MG * Take 1 capsule by mouth once * POTASSIUM CHLORIDE ER 20 MEQ * Take 20 mEq by mouth twice da* DONEPEZIL 10 MG TABLET Take 10 mg by mouth daily at * VENLAFAXINE 75 MG TABLET Take 75 mg by mouth once shelbie* CARVEDILOL 3.125 MG TABLET Take 3.125 mg by mouth twice * PRAVASTATIN 40 MG TABLET Take 40 mg by mouth once shelbie* SENNOSIDES 8.6 MG TABLET Take 2 tablets by mouth daily* * CALCIUM CARB-ERGOCALCIFEROL (* Take one(1) tablet three time* Problem List As Of Date 02/24/2018 Noted Resolved Morbid obesity (HCC) [E66.01] INVALID FOR*01/20/2018 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] INVALID FOR* CHRONIC DEPRESSIVE PERSON [F34.1] INVALID FOR* INSOMNIA NOS [G47.00] INVALID FOR* MIXED HYPERLIPIDEMIA [E78.2] INVALID FOR* Hypothyroidism [E03.9] INVALID FOR* ESOPHAGEAL REFLUX [K21.9] INVALID FOR* OSTEOPOROSIS NOS [M81.0] INVALID FOR* PARTIAL EPILEPSY NEC NOT INTRACT [G40.109] INVALID FOR* Preop Exam for Internal Medicine [Z01.818] Seizures [R56.9] Hypothyroid [E03.9] Severe protein-calorie malnutrition (HCC) [E43] Weight Loss [R63.4] Gastric Bypass Status for Obesity [Z98.84] Marginal Ulcer [K28.9] Dysphagia [R13.10] INVALID FOR* Depression [F32.9] Dementia [F03.90] CAD (coronary artery disease) [I25.10] More... Other instructions from your clinician: Continue current medication. Consider the single serving cups of ice cream. Please follow the instructions for the test that looks at how long it takes food to leave your stomach. It will take a day or two after the test for us to get the results. Call [phone], and ask to speak to a nurse in GI, if you have any questions or concerns in the mean time. Encounter Status:Closed by RIOS SAWYER CNP on 02/24/18 PROGRESS Observed: 02/16/2018 Status: COMPLETED Source: [place] 11:[address] [facility] REPOSITORY HNO ID: [id number] Author: Oksana (Blayne) Abiola Service: (none) Author Type: Registered Nurse Type: Progress Notes Filed: 02/16/2018 12:09 PM Note Text: PRIMARY CARE COORDINATION IN OFFICE VISIT WITH PCP Patient has been identified by name and date of . PCP Assessment/Plan: Reviewed PCP plan with patient using Te[employer] Back Reviewed plan for appt with Geriatrics, verbalized agreement with seeing Dr. Gaytan in [place] [facility] Plan of Care: Patient concerns: Sister, CG is very concerned about patient not eating or drinking. Sister worried that pt has some anorexia/body image issues. Pt has dementia, when asked by PCP if pt would rather lose or gain weight, pt stated gain weight. Patient goals: Patient will keep scheduled appt with Gerontologist, Dr. Gaytan P[facility] Interventions: Appt scheduled with Dr. Gaytan in [place] on Mar 10; 1:30 Nurse assessment and 2:00 MD Sister given printed appointment reminder Next Office Visit: Visit date not found Plan For Next Call: One month Oksana Culver RN February 16, 2018 PROGRESS Observed: 02/16/2018 Status: COMPLETED Source: [place] 11:[address] [facility] REPOSITORY O ID: [id number] Author: Sotero Honeycutt) Clari Service: (none) Author Type: Physician Type: Progress Notes Filed: 02/16/2018 8:49 PM Note Text: Chief Complaint Patient presents with: 4 week follow up HPI Winsome Meyers is a 72 year old female who presents here today for 4 week follow up on weight loss, constipation and falls. Accompanied today by sister Annette. Patient's weight is down another 2 lbs since last visit. Sister states that she has not been eating more than 1 Cup of food and drinking about 12 oz of sweet tea/water daily. Refuses diet supplement. Taking Remeron as prescribed and has not helped stimulate her appetite. Patient states she would like to gain weight, but just doesn't feel like eating and when she does eat she gets full easily. Denies abdominal pain or dysphagia. Discussed dementia as possible etiology. Taking Aricept as prescribed and sister does not think this is helping much with memory. Is often confused. No complaint of aggressive behavior. Disucssed if this is related to dementia, may be end stage and in that case tube feeds and TPN would not benefit patient. Discussed referral to geriatrics and GI. May require referral to palliative. Patient also mentioned feeling more depressed because she would like to return to [place] to fill out paperwork and take care of things. Sister states patient doesn't act depressed at home, but again discussed increasing remeron dosage. Denies insomnia, depressed mood, decreased concentration, decreased interest, feeling of guilt, suicidal ideation. Admits to decreased energy. Patient did not have stool studies after last OV. Diarrhea and constipation have both resolved on current regimen of Senokot. Past medical history, appointments, medications, allergies reviewed. 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 - Gastric bypass status for obesity 2002 done elsewhere - GERD (gastroesophageal reflux disease) - Hyperlipidemia - Hypothyroid - Malnutrition ([facility]) - Marginal ulcer s/p perforation - Osteoarthritis - Preop exam for internal medicine - Seizures ([facility]) Last in 2015. - Weight loss Previous Surgical History PAST SURGICAL HISTORY Procedure Laterality Date - GASTRIC BYPASS,OBESE<100CM DINAH-EN-Y 2002 done elsewhere - LAPAROSCOPY, SURGICAL; JEJUNOSTOMY 03-28-09 Tanvi Rudolph - PAST SURGICAL HISTORY OF 2000 gastric surgery - PAST SURGICAL HISTORY OF Left shoulder replacement - revision gastrojejunostomy Tanvi Rudolph Family History FAMILY HISTORY Problem Relation Age of Onset - Coronary Artery Disease Mother - Hypertension Mother - Ischemic Heart Disease Mother - GI Father PUD Patient Allergies ALLERGIES Allergen Reactions - Iodoform Nu-Gauze P* Swelling, Anaphylaxis Current Medications Current Outpatient Prescriptions on File Prior to Visit: mirtazapine (REMERON) 15 mg tablet Take 1 tablet by mouth daily at bedtime. albuterol HFA (VENTOLIN HFA) 90 mcg/actuation inhaler Inhale 2 Puffs as instructed every 4 hours as needed. levothyroxine (SYNTHROID) 88 mcg tablet Take 1 tablet by mouth once daily. Cholecalciferol, Vitamin D3, 1,000 unit cap Take 2 capsules by mouth once daily. gabapentin (NEURONTIN) 100 mg capsule Take 1 capsule by mouth daily at bedtime. Per Tanvi Carreno ondansetron orally disintegrating (ZOFRAN ODT) 4 mg disintegrating tablet 1 tablet in AM and every 6 hours as needed for nausea esomeprazole (NEXIUM) 40 mg capsule Take 1 capsule by mouth once daily. potassium chloride ER (KLOR-CON M20) 20 mEq tablet Take 20 mEq by mouth twice daily. donepezil (ARICEPT) 10 mg tablet Take 10 mg by mouth daily at bedtime. venlafaxine (EFFEXOR) 75 mg tablet Take 75 mg by mouth once daily. carvedilol (COREG) 3.125 mg tablet Take 3.125 mg by mouth twice daily with meals. pravastatin (PRAVACHOL) 40 mg tablet Take 40 mg by mouth once daily. senna (SENOKOT) 8.6 mg tab Take 2 tablets by mouth daily at bedtime. OMEPRAZOLE 20 mg ORAL capsule CALCIUM CARBONATE-VITAMIN D2 500 MG-200 UNIT TAB Take one(1) tablet three times daily. No current facility-administered medications on file prior to visit. Social History Social History Marital status: Spouse name: Years of education: Number of children: Social History Main Topics Smoking status: Never Smoker Smokeless tobacco: Never Used Alcohol use: No Drug use: No Review of Symptoms REVIEW OF SYSTEMS GENERAL: No weight loss, malaise or fevers RESPIRATORY: Negative for cough, hemoptysis, wheezing, COPD, dyspnea or shortness of breath CARDIOVASCULAR: Negative for chest pain, leg swelling, hypertension, CHF or palpitations GI: See HPI SKIN: Negative for lesions, rash, and itching EXAM: BP 94/62 Pulse 72 Resp 12 Wt 41.3 kg (91 lb) BMI 18.54 kg/m? General Appearance: Thin and AOx2 (place, name). Thought year was 1989 and current president [place]. Skin: Skin color, texture, turgor normal, no suspicious rashes or lesions. Lungs: lungs clear to auscultation. No wheezing, rhonchi, rales. Heart: RRR without murmur, gallop, or rubs. No ectopy. Abdomen: Abdomen soft, non-tender. Bowel sounds normal. No masses, organomegaly Extremities: No deformities, edema, skin discoloration, clubbing or cyanosis. Good capillary refill. . Health Maintenance List DTAP,TDAP,TD(1 - Tdap) due on 12/14/1962 MAMMOGRAM due on 1983 COLORECTAL CANCER SCREENING,SEE MODIFIER due on 12/14/1993 BONE DENSITY due on 12/14/2008 ADULT PREVNAR-13 due on 12/14/2008 STATIN MED ADHERENCE due on 03/11/2018 LDL CHOLESTEROL due on 01/13/2019 ANNUAL PCP TEAM CHRONIC DISEASE VISIT due on 01/20/2019 DIABETES SCREEN due on 01/13/2021 LIPID SCREEN due on 01/13/2023 INFLUENZA Completed PNEUMOVAX AGE 65 AND OVER WITH 5YR LOOKBACK Completed Data reviewed Component Latest Ref Rng AND Units 12/17/2017 01/13/2018 WBC 3.70 - 11.00 k/uL 8.45 RBC 3.90 - 5.20 m/uL 4.25 Hemoglobin 11.5 - 15.5 g/dL 13.8 Hematocrit 36.0 - 46.0 % 42.4 MCV 80.0 - 100.0 fL 99.8 MCH 26.0 - 34.0 pG 32.5 MCHC 30.5 - 36.0 g/dL 32.5 RDW-CV 11.5 - 15.0 % 14.2 Platelet Count 150 - 400 k/uL 359 MPV 9.0 - 12.7 fL 11.3 Neut% % 79.7 Abs Neut (ANC) 1.45 - 7.50 k/uL 6.74 Lymph% % 12.7 Abs Lymph 1.00 - 4.00 k/uL 1.07 [place]% % 7.2 Abs [place] <0.87 k/uL 0.61 Eosin% % 0.0 Abs Eosin <0.46 k/uL <0.03 Baso% % 0.4 Abs Baso <0.11 k/uL 0.03 Nucleated Reds 0 /100 WBC 0.2 (H) Absolute nRBC <0.01 k/uL 0.02 (H) Diff Type Auto Diff Protein, Total 6.3 - 8.0 g/dL 5.9 (L) Albumin 3.9 - 4.9 g/dL 3.2 (L) Calcium 8.5 - 10.2 mg/dL 8.8 8.9 Bilirubin, Total 0.2 - 1.3 mg/dL 0.5 Alkaline Phosphatase 34 - 123 U/L 105 AST 13 - 35 U/L 24 Glucose 74 - 99 mg/dL 71 (L) 75 BUN 7 - 21 mg/dL 7 21 Creatinine 0.58 - 0.96 mg/dL 0.64 0.41 (L) Sodium 136 - 144 mmol/L 134 (L) 141 Potassium 3.7 - 5.1 mmol/L 4.3 3.2 (L) Chloride 97 - 105 mmol/L 99 101 CO2 22 - 30 mmol/L 20 (L) 23 Anion Gap 9 - 18 mmol/L 15 17 ALT 7 - 38 U/L 9 eGFR- >60 >60 eGFR-All Other Races . >60 >60 Cholesterol, Total <200 mg/dL 158 Triglyceride <150 mg/dL 96 HDL Cholesterol >39 mg/dL 91 LDL Cholesterol <100 mg/dL 48 Non HDL Cholesterol <130 mg/dL 67 Fasting Time hrs 15 VLDL Cholesterol <30 mg/dL 19 TC:HDL Ratio <5.10 1.74 LDL:HDL Ratio <2.54 0.53 PTH, Intact 15 - 65 pg/mL 33 Vitamin D 25 Hydroxy 31.0 - 80.0 ng/mL 62.4 TSH 0.400 - 5.500 uU/mL 5.100 ASSESSMENT/PLAN: 1. Unintentional weight loss - ICD9: 783.21, ICD10: R63.4 (primary diagnosis) Patient down an additional 2 lbs. Will refer to geriatrics and GI. Increase Remeron. Again encouraged to eat whatever she would like throughout the day and to increase caloric intake. F/u PRN after referrals complete. - CONSULT TO GASTROENTEROLOGY - MIRTAZAPINE 30 MG TABLET - CONSULT TO GERIATRICS 2. Severe protein-calorie malnutrition (HCC) - ICD9: 262, ICD10: E43 2/2 decreased appetite. See #1 - CONSULT TO GASTROENTEROLOGY - CONSULT TO GERIATRICS 3. Decreased appetite - ICD9: 783.0, ICD10: R63.0 Suspect this is 2/2 advancing dementia. Refer to geriatrics for 2nd opinon. Discussed possible palliative option with sister. - CONSULT TO GERIATRICS 4. Dementia without behavioral disturbance, unspecified dementia type - ICD9: 294.20, ICD10: F03.90 Continue aricept. F/u with geriatrics. - CONSULT TO GERIATRICS 5. Constipation, unspecified constipation type - ICD9: 564.00, ICD10: K59.00 Improved on Senokot. 6. Early satiety - ICD9: 780.94, ICD10: R68.81 See above. Referral to GI to discuss EGD vs CT scan. - CONSULT TO GASTROENTEROLOGY Sotero Montague MD CNOV Observed: 02/16/2018 Status: COMPLETED Source: [place] 11:00 AM [facility] REPOSIT[facility] WINSOME MEYERS ([id number]) 1945 F Date Time Provider Department 02/16/18 11:00 AM SOTERO MONTAGUE) GLENISWS During your visit today, we recorded the following information about you: Pulse Respiration Blood pressure Weight 72/minute 12/minute 94/62 41.3 kg Sotero Montague MD 02/16/2018 8:49 PM Signed Chief Complaint Patient presents with: 4 week follow up HPI Winsome Meyers is a 72 year old female who presents here today for 4 week follow up on weight loss, constipation and falls. Accompanied today by sister Annette. Patient's weight is down another 2 lbs since last visit. Sister states that she has not been eating more than 1 Cup of food and drinking about 12 oz of sweet tea/water daily. Refuses diet supplement. Taking Remeron as prescribed and has not helped stimulate her appetite. Patient states she would like to gain weight, but just doesn't feel like eating and when she does eat she gets full easily. Denies abdominal pain or dysphagia. Discussed dementia as possible etiology. Taking Aricept as prescribed and sister does not think this is helping much with memory. Is often confused. No complaint of aggressive behavior. Disucssed if this is related to dementia, may be end stage and in that case tube feeds and TPN would not benefit patient. Discussed referral to geriatrics and GI. May require referral to palliative. Patient also mentioned feeling more depressed because she would like to return to [place] to fill out paperwork and take care of things. Sister states patient doesn't act depressed at home, but again discussed increasing remeron dosage. Denies insomnia, depressed mood, decreased concentration, decreased interest, feeling of guilt, suicidal ideation. Admits to decreased energy. Patient did not have stool studies after last OV. Diarrhea and constipation have both resolved on current regimen of Senokot. Past medical history, appointments, medications, allergies reviewed. 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 - Gastric bypass status for obesity 2002 done elsewhere - GERD (gastroesophageal reflux disease) - Hyperlipidemia - Hypothyroid - Malnutrition (HCC) - Marginal ulcer s/p perforation - Osteoarthritis - Preop exam for internal medicine - Seizures ([facility]) Last in 2016. - Weight loss Previous Surgical History PAST SURGICAL HISTORY Procedure Laterality Date - GASTRIC BYPASS,OBESE<100CM DINAH-EN-Y 2002 done elsewhere - LAPAROSCOPY, SURGICAL; JEJUNOSTOMY 03-28-09 Tanvi Rudolph - PAST SURGICAL HISTORY OF 2000 gastric surgery - PAST SURGICAL HISTORY OF Left shoulder replacement - revision gastrojejunostomy Tanvi Rudolph Family History FAMILY HISTORY Problem Relation Age of Onset - Coronary Artery Disease Mother - Hypertension Mother - Ischemic Heart Disease Mother - GI Father PUD Patient Allergies ALLERGIES Allergen Reactions - Iodoform Nu-Gauze P* Swelling, Anaphylaxis Current Medications Current Outpatient Prescriptions on File Prior to Visit: mirtazapine (REMERON) 15 mg tablet Take 1 tablet by mouth daily at bedtime. albuterol HFA (VENTOLIN HFA) 90 mcg/actuation inhaler Inhale 2 Puffs as instructed every 4 hours as needed. levothyroxine (SYNTHROID) 88 mcg tablet Take 1 tablet by mouth once daily. Cholecalciferol, Vitamin D3, 1,000 unit cap Take 2 capsules by mouth once daily. gabapentin (NEURONTIN) 100 mg capsule Take 1 capsule by mouth daily at bedtime. Per Tanvi Carreno ondansetron orally disintegrating (ZOFRAN ODT) 4 mg disintegrating tablet 1 tablet in AM and every 6 hours as needed for nausea esomeprazole (NEXIUM) 40 mg capsule Take 1 capsule by mouth once daily. potassium chloride ER (KLOR-CON M20) 20 mEq tablet Take 20 mEq by mouth twice daily. donepezil (ARICEPT) 10 mg tablet Take 10 mg by mouth daily at bedtime. venlafaxine (EFFEXOR) 75 mg tablet Take 75 mg by mouth once daily. carvedilol (COREG) 3.125 mg tablet Take 3.125 mg by mouth twice daily with meals. pravastatin (PRAVACHOL) 40 mg tablet Take 40 mg by mouth once daily. senna (SENOKOT) 8.6 mg tab Take 2 tablets by mouth daily at bedtime. OMEPRAZOLE 20 mg ORAL capsule CALCIUM CARBONATE-VITAMIN D2 500 MG-200 UNIT TAB Take one(1) tablet three times daily. No current facility-administered medications on file prior to visit. Social History Social History Marital status: Spouse name: Years of education: Number of children: Social History Main Topics Smoking status: Never Smoker Smokeless tobacco: Never Used Alcohol use: No Drug use: No Review of Symptoms REVIEW OF SYSTEMS GENERAL: No weight loss, malaise or fevers RESPIRATORY: Negative for cough, hemoptysis, wheezing, COPD, dyspnea or shortness of breath CARDIOVASCULAR: Negative for chest pain, leg swelling, hypertension, CHF or palpitations GI: See HPI SKIN: Negative for lesions, rash, and itching EXAM: BP 94/62 Pulse 72 Resp 12 Wt 41.3 kg (91 lb) BMI 18.54 kg/m? General Appearance: Thin and AOx2 (place, name). Thought year was 1989 and current president [place]. Skin: Skin color, texture, turgor normal, no suspicious rashes or lesions. Lungs: lungs clear to auscultation. No wheezing, rhonchi, rales. Heart: RRR without murmur, gallop, or rubs. No ectopy. Abdomen: Abdomen soft, non-tender. Bowel sounds normal. No masses, organomegaly Extremities: No deformities, edema, skin discoloration, clubbing or cyanosis. Good capillary refill. . Health Maintenance List DTAP,TDAP,TD(1 - Tdap) due on 12/14/1962 MAMMOGRAM due on 1983 COLORECTAL CANCER SCREENING,SEE MODIFIER due on 12/14/1993 BONE DENSITY due on 12/14/2008 ADULT PREVNAR-13 due on 12/14/2008 STATIN MED ADHERENCE due on 03/11/2018 LDL CHOLESTEROL due on 01/13/2019 ANNUAL PCP TEAM CHRONIC DISEASE VISIT due on 01/20/2019 DIABETES SCREEN due on 01/13/2021 LIPID SCREEN due on 01/13/2023 INFLUENZA Completed PNEUMOVAX AGE 65 AND OVER WITH 5YR LOOKBACK Completed Data reviewed Component Latest Ref Rng AND Units 12/17/2017 01/13/2018 WBC 3.70 - 11.00 k/uL 8.45 RBC 3.90 - 5.20 m/uL 4.25 Hemoglobin 11.5 - 15.5 g/dL 13.8 Hematocrit 36.0 - 46.0 % 42.4 MCV 80.0 - 100.0 fL 99.8 MCH 26.0 - 34.0 pG 32.5 MCHC 30.5 - 36.0 g/dL 32.5 RDW-CV 11.5 - 15.0 % 14.2 Platelet Count 150 - 400 k/uL 359 MPV 9.0 - 12.7 fL 11.3 Neut% % 79.7 Abs Neut (ANC) 1.45 - 7.50 k/uL 6.74 Lymph% % 12.7 Abs Lymph 1.00 - 4.00 k/uL 1.07 [place]% % 7.2 Abs [place] <0.87 k/uL 0.61 Eosin% % 0.0 Abs Eosin <0.46 k/uL <0.03 Baso% % 0.4 Abs Baso <0.11 k/uL 0.03 Nucleated Reds 0 /100 WBC 0.2 (H) Absolute nRBC <0.01 k/uL 0.02 (H) Diff Type Auto Diff Protein, Total 6.3 - 8.0 g/dL 5.9 (L) Albumin 3.9 - 4.9 g/dL 3.2 (L) Calcium 8.5 - 10.2 mg/dL 8.8 8.9 Bilirubin, Total 0.2 - 1.3 mg/dL 0.5 Alkaline Phosphatase 34 - 123 U/L 105 AST 13 - 35 U/L 24 Glucose 74 - 99 mg/dL 71 (L) 75 BUN 7 - 21 mg/dL 7 21 Creatinine 0.58 - 0.96 mg/dL 0.64 0.41 (L) Sodium 136 - 144 mmol/L 134 (L) 141 Potassium 3.7 - 5.1 mmol/L 4.3 3.2 (L) Chloride 97 - 105 mmol/L 99 101 CO2 22 - 30 mmol/L 20 (L) 23 Anion Gap 9 - 18 mmol/L 15 17 ALT 7 - 38 U/L 9 eGFR- >60 >60 eGFR-All Other Races . >60 >60 Cholesterol, Total <200 mg/dL 158 Triglyceride <150 mg/dL 96 HDL Cholesterol >39 mg/dL 91 LDL Cholesterol <100 mg/dL 48 Non HDL Cholesterol <130 mg/dL 67 Fasting Time hrs 15 VLDL Cholesterol <30 mg/dL 19 TC:HDL Ratio <5.10 1.74 LDL:HDL Ratio <2.54 0.53 PTH, Intact 15 - 65 pg/mL 33 Vitamin D 25 Hydroxy 31.0 - 80.0 ng/mL 62.4 TSH 0.400 - 5.500 uU/mL 5.100 ASSESSMENT/PLAN: 1. Unintentional weight loss - ICD9: 783.21, ICD10: R63.4 (primary diagnosis) Patient down an additional 2 lbs. Will refer to geriatrics and GI. Increase Remeron. Again encouraged to eat whatever she would like throughout the day and to increase caloric intake. F/u PRN after referrals complete. - CONSULT TO GASTROENTEROLOGY - MIRTAZAPINE 30 MG TABLET - CONSULT TO GERIATRICS 2. Severe protein-calorie malnutrition (HCC) - ICD9: 262, ICD10: E43 2/2 decreased appetite. See #1 - CONSULT TO GASTROENTEROLOGY - CONSULT TO GERIATRICS 3. Decreased appetite - ICD9: 783.0, ICD10: R63.0 Suspect this is 2/2 advancing dementia. Refer to geriatrics for 2nd opinon. Discussed possible palliative option with sister. - CONSULT TO GERIATRICS 4. Dementia without behavioral disturbance, unspecified dementia type - ICD9: 294.20, ICD10: F03.90 Continue aricept. F/u with geriatrics. - CONSULT TO GERIATRICS 5. Constipation, unspecified constipation type - ICD9: 564.00, ICD10: K59.00 Improved on Senokot. 6. Early satiety - ICD9: 780.94, ICD10: R68.81 See above. Referral to GI to discuss EGD vs CT scan. - CONSULT TO GASTROENTEROLOGY Sotero Montague MD Referring Provider: SELF [[id number]] Allergies As of Date: 02/16/2018 Noted Allergy Reaction iodoform nu-gauze packing [Other] 11/09/2005 7 - Swelling 10 - Anaphylaxis Date Reviewed: 02/16/2018 Reviewed by: Jesse Winston Ma - Fully Assessed Reason for Visit: 4 week follow up [Other] Primary Visit Diagnosis:Unintentional weight loss [R63.4] Other Visit Diagnoses:Severe protein-calorie malnutrition (HCC) [E43] Decreased appetite [R63.0] Dementia without behavioral disturbance, unspecified dementia type [F03.90] Constipation, unspecified constipation type [K59.00] Early satiety [R68.81] Order(s):CONSULT TO GASTROENTEROLOGY [9010] Order #: [id number]: 1 mirtazapine (REMERON) 30 mg tabletTake 1 tablet by mouth daily at bedtime.Disp: 30 tabletRfl: 3 CONSULT TO GERIATRICS [8324] Order #: [id number]: 1 Prescriptions as of 02/16/2018 Sig: MIRTAZAPINE 30 MG TABLET Take 1 tablet by mouth daily * ALBUTEROL SULFATE HFA 90 MCG/* Inhale 2 Puffs as instructed * LEVOTHYROXINE 88 MCG TABLET Take 1 tablet by mouth once d* CHOLECALCIFEROL (VITAMIN D3) * Take 2 capsules by mouth once* GABAPENTIN 100 MG CAPSULE Take 1 capsule by mouth daily* ONDANSETRON 4 MG DISINTEGRATI* 1 tablet in AM and every 6 ho* ESOMEPRAZOLE MAGNESIUM 40 MG * Take 1 capsule by mouth once * POTASSIUM CHLORIDE ER 20 MEQ * Take 20 mEq by mouth twice da* DONEPEZIL 10 MG TABLET Take 10 mg by mouth daily at * VENLAFAXINE 75 MG TABLET Take 75 mg by mouth once shelbie* CARVEDILOL 3.125 MG TABLET Take 3.125 mg by mouth twice * PRAVASTATIN 40 MG TABLET Take 40 mg by mouth once shelbie* SENNOSIDES 8.6 MG TABLET Take 2 tablets by mouth daily* * CALCIUM CARB-ERGOCALCIFEROL (* Take one(1) tablet three time* Problem List As Of Date 02/16/2018 Noted Resolved Morbid obesity (HCC) [E66.01] INVALID FOR*01/20/2018 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] INVALID FOR* CHRONIC DEPRESSIVE PERSON [F34.1] INVALID FOR* INSOMNIA NOS [G47.00] INVALID FOR* MIXED HYPERLIPIDEMIA [E78.2] INVALID FOR* Hypothyroidism [E03.9] INVALID FOR* ESOPHAGEAL REFLUX [K21.9] INVALID FOR* OSTEOPOROSIS NOS [M81.0] INVALID FOR* PARTIAL EPILEPSY NEC NOT INTRACT [G40.109] INVALID FOR* Preop Exam for Internal Medicine [Z01.818] Seizures [R56.9] Hypothyroid [E03.9] Severe protein-calorie malnutrition (HCC) [E43] Weight Loss [R63.4] Gastric Bypass Status for Obesity [Z98.84] Marginal Ulcer [K28.9] Dysphagia [R13.10] INVALID FOR* Depression [F32.9] Dementia [F03.90] CAD (coronary artery disease) [I25.10] More... Prescriptions ordered this encounter Disp Refills Start End MIRTAZAPINE 30 MG TABLET 30 t* 3 02/16/2018 Route: ORAL Sig: Take 1 tablet by mouth daily at bedtime. Medications Discontinued During This Encounter OMEPRAZOLE 20 mg ORAL capsule 05/28/2010 02/16/2018 Class: Med Update Sig: Disc: Reason for discontinue is not on file. mirtazapine (REMERON) 15 mg tablet 30 t* 5 01/24/2018 02/16/2018 Route: ORAL Sig: Take 1 tablet by mouth daily at bedtime. Disc: Reason for discontinue is not on file. Disposition: Return if symptoms worsen or fail to improve. Follow-up and Disposition History Recorded Encounter Status:Closed by SOTERO MONTAGUE MD on 02/16/18 GERTRUDE Observed: 02/16/2018 Status: COMPLETED Source: [place] 12:00 AM [facility] Patient Outreach (FAMPWS) WINSOME MEYERS ([id number]) 1945 F Date Time Provider Department 02/16/18 OKSANA CULVER (RN) FAMPWS During your visit today, we recorded the following information about you: Oksana Culver RN 02/16/2018 12:09 PM Signed PRIMARY CARE COORDINATION IN OFFICE VISIT WITH PCP Patient has been identified by name and date of . PCP Assessment/Plan: Reviewed PCP plan with patient using Teach Back Reviewed plan for appt with Geriatrics, verbalized agreement with seeing Dr. Lucila Castañeda [facility] Plan of Care: Patient concerns: Sister, CG is very concerned about patient not eating or drinking. Sister worried that pt has some anorexia/body image issues. Pt has dementia, when asked by PCP if pt would rather lose or gain weight, pt stated gain weight. Patient goals: Patient will keep scheduled appt with Gerontologist, Dr. Gaytan PCC Interventions: Appt scheduled with Dr. Factora in [place] on Mar 10; 1:30 Nurse assessment and 2:00 MD Sister given printed appointment reminder Next Office Visit: Visit date not found Plan For Next Call: One month Oksana Culver RN February 16, 2018 Allergies As of Date: 02/16/2018 Noted Allergy Reaction iodoform nu-gauze packing [Other] 11/09/2005 7 - Swelling 10 - Anaphylaxis Date Reviewed: 02/16/2018 Reviewed by: Jesse Winston Ma - Fully Assessed Reason for Visit: Lap Maker-In Office Visit [4194] Prescriptions as of 02/16/2018 Sig: MIRTAZAPINE 30 MG TABLET Take 1 tablet by mouth daily * ALBUTEROL SULFATE HFA 90 MCG/* Inhale 2 Puffs as instructed * LEVOTHYROXINE 88 MCG TABLET Take 1 tablet by mouth once d* CHOLECALCIFEROL (VITAMIN D3) * Take 2 capsules by mouth once* GABAPENTIN 100 MG CAPSULE Take 1 capsule by mouth daily* ONDANSETRON 4 MG DISINTEGRATI* 1 tablet in AM and every 6 ho* ESOMEPRAZOLE MAGNESIUM 40 MG * Take 1 capsule by mouth once * POTASSIUM CHLORIDE ER 20 MEQ * Take 20 mEq by mouth twice da* DONEPEZIL 10 MG TABLET Take 10 mg by mouth daily at * VENLAFAXINE 75 MG TABLET Take 75 mg by mouth once shelbie* CARVEDILOL 3.125 MG TABLET Take 3.125 mg by mouth twice * PRAVASTATIN 40 MG TABLET Take 40 mg by mouth once shelbie* SENNOSIDES 8.6 MG TABLET Take 2 tablets by mouth daily* * CALCIUM CARB-ERGOCALCIFEROL (* Take one(1) tablet three time* Problem List As Of Date 02/16/2018 Noted Resolved Morbid obesity (HCC) [E66.01] INVALID FOR*01/20/2018 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] INVALID FOR* CHRONIC DEPRESSIVE PERSON [F34.1] INVALID FOR* INSOMNIA NOS [G47.00] INVALID FOR* MIXED HYPERLIPIDEMIA [E78.2] INVALID FOR* Hypothyroidism [E03.9] INVALID FOR* ESOPHAGEAL REFLUX [K21.9] INVALID FOR* OSTEOPOROSIS NOS [M81.0] INVALID FOR* PARTIAL EPILEPSY NEC NOT INTRACT [G40.109] INVALID FOR* Preop Exam for Internal Medicine [Z01.818] Seizures [R56.9] Hypothyroid [E03.9] Severe protein-calorie malnutrition (HCC) [E43] Weight Loss [R63.4] Gastric Bypass Status for Obesity [Z98.84] Marginal Ulcer [K28.9] Dysphagia [R13.10] INVALID FOR* Depression [F32.9] Dementia [F03.90] CAD (coronary artery disease) [I25.10] More... Encounter Status:Closed by OKSANA CULVER on 02/16/18 PROGRESS Observed: 02/14/2018 Status: COMPLETED Source: [place] 3:25 PM [facility] RE[facility] HNO ID: [id number] Author: Sotero Honeycutt) Clari Service: (none) Author Type: Physician Type: Progress Notes Filed: 02/14/2018 3:25 PM Note Text: Reviewed. Patient has appointment in 2 days. Will discuss at that time. Continue regimen as prescribed. PROGRESS Observed: 02/14/2018 Status: COMPLETED Source: [place] 2:31 PM [facility] RE[facility] HNO ID: [id number] Author: Oksana Salas) Abiola Service: (none) Author Type: Registered Nurse Type: Progress Notes Filed: 02/14/2018 2:58 PM Note Text: PRIMARY CARE COORDINATION PRE-VISIT ASSESSMENT Provider Action/FYI: FYI Pt eating less than 1 Cup of food and drinking about 12 oz of sweet tea/water daily Refuses diet supplement Having normal BMs with Senokot Patient has been identified by name and date of . Next Office Visit: 02/16/2018 Last Office Visit Plan/Progress: 01/20/2018 Gaps in care: None Patient Concerns: Spoke to sister, Annette states pt is eating very little, less than 1 cup of food per day. She drinks about a cup of sweet tea and 1/2 cup of water daily. Sister states she lets pt eat and drink whatever she wants but pt won't eat or drink. Pt refuses to drink supplement No NANDV Pt having regular BMs. Giving patient Senokot 4 days in a row then skips a day or two to prevent diarrhea. Pt just wants to lie in bed all day long Will get up and sit with family with encouragement but won't talk to sister. Sister states she can't push patient to do something because she gets mean and hateful and says nobody's going to force me to do anything. Medication Review: Reviewed and updated all prescriptions and OTC medications in Epic Takes all medications as prescribed Occasionally doesn't get both doses of KCl in because of pt refusing Health Maintenance: DTAP,TDAP,TD(1 - Tdap) due on 12/14/1962 MAMMOGRAM due on 1983 COLORECTAL CANCER SCREENING,SEE MODIFIER due on 12/14/1993 BONE DENSITY due on 12/14/2008 ADULT PREVNAR-13 due on 12/14/2008 Interventions/PCC Plan of Care: Patient goals: CG continue to encourage pt to eat and drink Oksana Culver RN February 14, 2018 GERTRUDE Observed: 02/14/2018 Status: COMPLETED Source: [place] 12:00 AM [facility] RE[facility] Patient Outreach (FAMPWS) WINSOME MEYERS ([id number]) 1945 F Date Time Provider Department 02/14/18 OKSANA CULVER (RN) FAMPWS During your visit today, we recorded the following information about you: Oksaan Culver RN 02/14/2018 2:58 PM Signed PRIMARY CARE COORDINATION PRE-VISIT ASSESSMENT Provider Action/FYI: FYI Pt eating less than 1 Cup of food and drinking about 12 oz of sweet tea/water daily Refuses diet supplement Having normal BMs with Senokot Patient has been identified by name and date of . Next Office Visit: 02/16/2018 Last Office Visit Plan/Progress: 01/20/2018 Gaps in care: None Patient Concerns: Spoke to sister, Annette states pt is eating very little, less than 1 cup of food per day. She drinks about a cup of sweet tea and 1/2 cup of water daily. Sister states she lets pt eat and drink whatever she wants but pt won't eat or drink. Pt refuses to drink supplement No NANDV Pt having regular BMs. Giving patient Senokot 4 days in a row then skips a day or two to prevent diarrhea. Pt just wants to lie in bed all day long Will get up and sit with family with encouragement but won't talk to sister. Sister states she can't push patient to do something because she gets mean and hateful and says nobody's going to force me to do anything. Medication Review: Reviewed and updated all prescriptions and OTC medications in Epic Takes all medications as prescribed Occasionally doesn't get both doses of KCl in because of pt refusing Health Maintenance: DTAP,TDAP,TD(1 - Tdap) due on 12/14/1962 MAMMOGRAM due on 1983 COLORECTAL CANCER SCREENING,SEE MODIFIER due on 12/14/1993 BONE DENSITY due on 12/14/2008 ADULT PREVNAR-13 due on 12/14/2008 Interventions/PCC Plan of Care: Patient goals: CG continue to encourage pt to eat and drink Oksana Culver RN February 14, 2018 Sotero Montague MD 02/14/2018 3:25 PM Signed Reviewed. Patient has appointment in 2 days. Will discuss at that time. Continue regimen as prescribed. Allergies As of Date: 02/14/2018 Noted Allergy Reaction iodoform nu-gauze packing [Other] 11/09/2005 7 - Swelling 10 - Anaphylaxis Date Reviewed: 01/20/2018 Reviewed by: Jesse Winston Ma - Fully Assessed Reason for Visit: Lap Maker Chronic Care [5410] Prescriptions as of 02/14/2018 Sig: MIRTAZAPINE 15 MG TABLET Take 1 tablet by mouth daily * ALBUTEROL SULFATE HFA 90 MCG/* Inhale 2 Puffs as instructed * LEVOTHYROXINE 88 MCG TABLET Take 1 tablet by mouth once d* CHOLECALCIFEROL (VITAMIN D3) * Take 2 capsules by mouth once* GABAPENTIN 100 MG CAPSULE Take 1 capsule by mouth daily* ONDANSETRON 4 MG DISINTEGRATI* 1 tablet in AM and every 6 ho* ESOMEPRAZOLE MAGNESIUM 40 MG * Take 1 capsule by mouth once * POTASSIUM CHLORIDE ER 20 MEQ * Take 20 mEq by mouth twice da* DONEPEZIL 10 MG TABLET Take 10 mg by mouth daily at * VENLAFAXINE 75 MG TABLET Take 75 mg by mouth once shelbie* PRAVASTATIN 40 MG TABLET Take 40 mg by mouth once shelbie* SENNOSIDES 8.6 MG TABLET Take 2 tablets by mouth daily* CARVEDILOL 3.125 MG TABLET Take 3.125 mg by mouth twice * * OMEPRAZOLE 20 MG CAPSULE,BOAZ* * CALCIUM CARB-ERGOCALCIFEROL (* Take one(1) tablet three time* Problem List As Of Date 02/14/2018 Noted Resolved Morbid obesity (HCC) [E66.01] INVALID FOR*01/20/2018 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] INVALID FOR* CHRONIC DEPRESSIVE PERSON [F34.1] INVALID FOR* INSOMNIA NOS [G47.00] INVALID FOR* MIXED HYPERLIPIDEMIA [E78.2] INVALID FOR* Hypothyroidism [E03.9] INVALID FOR* ESOPHAGEAL REFLUX [K21.9] INVALID FOR* OSTEOPOROSIS NOS [M81.0] INVALID FOR* PARTIAL EPILEPSY NEC NOT INTRACT [G40.109] INVALID FOR* Preop Exam for Internal Medicine [Z01.818] Seizures [R56.9] Hypothyroid [E03.9] Severe protein-calorie malnutrition (HCC) [E43] Weight Loss [R63.4] Gastric Bypass Status for Obesity [Z98.84] Marginal Ulcer [K28.9] Dysphagia [R13.10] INVALID FOR* Depression [F32.9] Dementia [F03.90] CAD (coronary artery disease) [I25.10] More... Encounter Status:Closed by OKSANA CULVER on 02/14/18 PROGRESS Observed: 01/24/2018 Status: COMPLETED Source: [place] 5:14 PM [facility] REPOSIT[facility] HNO ID: [id number] Author: Oksana Salas) Abiola Service: (none) Author Type: Registered Nurse Type: Progress Notes Filed: 01/24/2018 5:15 PM Note Text: PRIMARY CARE COORDINATION QUICK NOTE Provider Action/FYI FYI Patient identified by name and date . TC to [facility] in [facility], informed script for Remeron was mistaking sent to their pharmacy and pt is staying in [place] at this time. They will cancel script PROGRESS Observed: 01/24/2018 Status: COMPLETED Source: [place] 3:06 PM [facility] REPOSIT[facility] HNO ID: [id number] Author: Oksana Salas) Abiola Service: (none) Author Type: Registered Nurse Type: Progress Notes Filed: 01/24/2018 3:11 PM Note Text: PRIMARY CARE COORDINATION QUICK NOTE Provider Action/FYI Prescription re-ordered and approved by PCP for [facility] in [place], discontinued script to [facility] Patient identified by name and date . TC to sister, Annette, read message from PCP below to sister. Instructed pt can eat or drink anything she wants, including sweet tea from [employer]. PCP would like pt to eat high calorie diet and drink Ensure but if she refuses let her eat or drink anything she wants. Stressed pt to take Remeron 1 tab at bedtime Remeron may make pt more tired and sleepy If pt has irritability, restlessness, agitation, fever, shaking or muscles stiff CG is to stop Remeron immediately and call PCP office. This happens rarely but can be serious. Sister wrote down all side effects to watch for and call PCP and verbalized understanding of all of above instructions. PROGRESS Observed: 01/24/2018 Status: COMPLETED Source: [place] 1:17 PM [facility] REPOSIT[facility] HNO ID: [id number] Author: Sotero Honeycutt) Clari Service: (none) Author Type: Physician Type: Progress Notes Filed: 01/24/2018 3:11 PM Note Text: Reviewed. Did not discourage patient from eating or drinking anything at last OV. Recommend high calorie diet as discussed with Boost or Ensure supplement. Will at on Remeron at night to help stimulate appetite and weight gain. This is an antidepressant and may interact with venlfaxine increasing sedation and making patient more tired. Should watch for signs of serotonin syndrome including: irritability/restlessness, agitation, elevated temp, shaking, muscle rigidity. Should stop remeron with any of these and contact our office immediately. This is very rare effect from these medications . PROGRESS Observed: 01/24/2018 Status: COMPLETED Source: [place] 11:58 AM [facility] REPOSIT[facility] HNO ID: [id number] Author: Oksana CeeRn) Abiola Service: (none) Author Type: Registered Nurse Type: Progress Notes Filed: 01/24/2018 12:49 PM Note Text: PRIMARY CARE COORDINATION FOLLOW-UP NOTE Provider Action/FYI Please note. Pt refusing to eat or drink Sister feels pt is being stubborn because she's always been like this and thinks pt is anorexic and enjoys the compliments about how small she is currently Pt likes sweet tea and tomato juice, but sister doesn't think PCP wants her to drink it. Please advise Patient identified by name and date of . YES Spoke to sisterAnnette Summary: TC to sister, states pt is refusing to eat or drink. States she likes tomato juice and drinks sm amt of that. Only drinks very sm amt of water with pills Pt refusing Ensure States pt likes sweet tea from [employer] but PCP said pt wasn't supposed to drink that much caffeine Sister had to force feed pt yesterday because she would only eat 3 tsp of food Noted diarrhea stool yesterday States pt is stubborn and she lies to people that she will follow medical orders then doesn't do anything Sister states pt has been like this since her bariatric surgery. States pt gets comments about how small she is and sister thinks pt likes being this small and getting complements on her low weight., like someone with anorexia. States pt was in hospital before with a feeding tube and pt states she can just get a feeding tube again then she won't have to eat. Sister told her the next time the feeding tube won't be in her stomach, it will go down her throat. Discussed with PCP and he suggests trying pt on a medication that is an appetite stimulant. Sister is agreeable with that idea. Informed PCC will discuss with PCP and will let sister know when pt is to come in for weight check since they don't have a scale at home. Paint Brush Maker plan for next outreach: Will follow up 2 weeks Signature Oksana Culver RN January 24, 2018 EVANTOUTREACH Observed: 01/24/2018 Status: COMPLETED Source: [place] 12:00 AM [facility] REPOSIT[facility] Patient Outreach (FAMPWS) WINSOME MEYERS ([id number]) 1945 F Date Time Provider Department 01/24/18 OKSANA CULVER (BLAYNE) PAPO During your visit today, we recorded the following information about you: Oksana Culver RN 01/24/2018 12:49 PM Signed PRIMARY CARE COORDINATION FOLLOW-UP NOTE Provider Action/FYI Please note. Pt refusing to eat or drink Sister feels pt is being stubborn because she's always been like this and thinks pt is anorexic and enjoys the compliments about how small she is currently Pt likes sweet tea and tomato juice, but sister doesn't think PCP wants her to drink it. Please advise Patient identified by name and date of . YES Spoke to sisterAnnette Summary: TC to sister, states pt is refusing to eat or drink. States she likes tomato juice and drinks sm amt of that. Only drinks very sm amt of water with pills Pt refusing Ensure States pt likes sweet tea from [employer] but PCP said pt wasn't supposed to drink that much caffeine Sister had to force feed pt yesterday because she would only eat 3 tsp of food Noted diarrhea stool yesterday States pt is stubborn and she lies to people that she will follow medical orders then doesn't do anything Sister states pt has been like this since her bariatric surgery. States pt gets comments about how small she is and sister thinks pt likes being this small and getting complements on her low weight., like someone with anorexia. States pt was in hospital before with a feeding tube and pt states she can just get a feeding tube again then she won't have to eat. Sister told her the next time the feeding tube won't be in her stomach, it will go down her throat. Discussed with PCP and he suggests trying pt on a medication that is an appetite stimulant. Sister is agreeable with that idea. Informed PCC will discuss with PCP and will let sister know when pt is to come in for weight check since they don't have a scale at home. Paint Brush Maker plan for next outreach: Will follow up 2 weeks Signature Oksana Culver RN January 24, 2018 Sotero Montague MD 01/24/2018 3:11 PM Signed Reviewed. Did not discourage patient from eating or drinking anything at last OV. Recommend high calorie diet as discussed with Boost or Ensure supplement. Will at on Remeron at night to help stimulate appetite and weight gain. This is an antidepressant and may interact with venlfaxine increasing sedation and making patient more tired. Should watch for signs of serotonin syndrome including: irritability/restlessness, agitation, elevated temp, shaking, muscle rigidity. Should stop remeron with any of these and contact our office immediately. This is very rare effect from these medications . Oksana Culver RN 01/24/2018 3:11 PM Signed PRIMARY CARE COORDINATION QUICK NOTE Provider Action/FYI Prescription re-ordered and approved by PCP for [facility] in [place], discontinued script to [facility] Patient identified by name and date . TC to sisterAnnette, read message from PCP below to sister. Instructed pt can eat or drink anything she wants, including sweet tea from [employer]. PCP would like pt to eat high calorie diet and drink Ensure but if she refuses let her eat or drink anything she wants. Stressed pt to take Remeron 1 tab at bedtime Remeron may make pt more tired and sleepy If pt has irritability, restlessness, agitation, fever, shaking or muscles stiff CG is to stop Remeron immediately and call PCP office. This happens rarely but can be serious. wrote down all side effects to watch for and call PCP and verbalized understanding of all of above instructions. Oksana Culver RN 01/24/2018 5:15 PM Signed PRIMARY CARE COORDINATION QUICK NOTE Provider Action/FYI FYI Patient identified by name and date . TC to [facility] in [facility], informed script for Remeron was mistaking sent to their pharmacy and pt is staying in [place] at this time. They will cancel script Allergies As of Date: 01/24/2018 Noted Allergy Reaction iodoform nu-gauze packing [Other] 11/09/2005 7 - Swelling 10 - Anaphylaxis Date Reviewed: 01/20/2018 Reviewed by: Jesse Winston Ma - Fully Assessed Reason for Visit: [facility] Follow Up [3730] Cmt: TCM F/U # Primary Visit Diagnosis:Unintentional weight loss [R63.4] Order(s):mirtazapine (REMERON) 15 mg tabletTake 1 tablet by mouth daily at bedtime.Disp: 30 tabletRfl: 5 Prescriptions as of 01/24/2018 Sig: ALBUTEROL SULFATE HFA 90 MCG/* Inhale 2 Puffs as instructed * BENZONATATE 100 MG CAPSULE Take 1 capsule by mouth three* * CALCIUM CARB-ERGOCALCIFEROL (* Take one(1) tablet three time* CARVEDILOL 3.125 MG TABLET Take 3.125 mg by mouth twice * CHOLECALCIFEROL (VITAMIN D3) * Take 2 capsules by mouth once* DONEPEZIL 10 MG TABLET Take 10 mg by mouth daily at * ESOMEPRAZOLE MAGNESIUM 40 MG * Take 1 capsule by mouth once * GABAPENTIN 100 MG CAPSULE Take 1 capsule by mouth daily* LEVOTHYROXINE 88 MCG TABLET Take 1 tablet by mouth once d* MIRTAZAPINE 15 MG TABLET Take 1 tablet by mouth daily * * OMEPRAZOLE 20 MG CAPSULE,BOAZ* ONDANSETRON 4 MG DISINTEGRATI* 1 tablet in AM and every 6 ho* POTASSIUM CHLORIDE ER 20 MEQ * Take 20 mEq by mouth twice da* PRAVASTATIN 40 MG TABLET Take 40 mg by mouth once shelbie* SENNOSIDES 8.6 MG TABLET Take 2 tablets by mouth daily* VENLAFAXINE 75 MG TABLET Take 75 mg by mouth once shelbie* Problem List As Of Date 01/24/2018 Noted Resolved Morbid obesity (HCC) [E66.01] INVALID FOR*01/20/2018 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] INVALID FOR* CHRONIC DEPRESSIVE PERSON [F34.1] INVALID FOR* INSOMNIA NOS [G47.00] INVALID FOR* MIXED HYPERLIPIDEMIA [E78.2] INVALID FOR* Hypothyroidism [E03.9] INVALID FOR* ESOPHAGEAL REFLUX [K21.9] INVALID FOR* OSTEOPOROSIS NOS [M81.0] INVALID FOR* PARTIAL EPILEPSY NEC NOT INTRACT [G40.109] INVALID FOR* Preop Exam for Internal Medicine [Z01.818] Seizures [R56.9] Hypothyroid [E03.9] Severe protein-calorie malnutrition (HCC) [E43] Weight Loss [R63.4] Gastric Bypass Status for Obesity [Z98.84] Marginal Ulcer [K28.9] Dysphagia [R13.10] INVALID FOR* Depression [F32.9] Dementia [F03.90] CAD (coronary artery disease) [I25.10] More... Prescriptions ordered this encounter Disp Refills Start End MIRTAZAPINE 15 MG TABLET 30 t* 5 01/24/2018 01/24/2018 Route: ORAL Sig: Take 1 tablet by mouth daily at bedtime. Disc: Duplicate Entry MIRTAZAPINE 15 MG TABLET 30 t* 5 01/24/2018 Route: ORAL Sig: Take 1 tablet by mouth daily at bedtime. Medications Discontinued During This Encounter mirtazapine (REMERON) 15 mg tablet 30 t* 5 01/24/2018 01/24/2018 Route: ORAL Sig: Take 1 tablet by mouth daily at bedtime. Disc: Duplicate Entry Encounter Status:Closed by OKSANA CULVER on 01/24/18 XR CHEST 2V FRONTAL/LAT Observed: 01/20/2018 Status: F Source: [place] 12:29 PM [facility] RE[facility] * * *Final Report* * * DATE OF EXAM: Jan 20 2018 12:29PM WOX [id number] - XR CHEST 2V FRONTAL/LAT / PROCEDURE REASON: multiple diagnoses * * * * Physician Interpretation * * * * EXAMINATION: CHEST RADIOGRAPH (2 VIEW FRONTAL and LATERAL) CLINICAL HISTORY: Productive cough Decreased breath sounds MQ: XC2_5 Comparison: CT chest 12/13/2016. RESULT: Lines, tubes, and devices: None. Lungs and pleura: Interval development of small left pleural effusion with associated atelectasis. No right lung consolidation. No pneumothorax. Cardiomediastinal silhouette: Normal cardiomediastinal silhouette. Other: Left shoulder arthroplasty, unchanged. Surgical clips right upper quadrant and suture material epigastric region. Partial fusion between the left fourth and fifth ribs, unchanged. Degenerative changes thoracic spine. IMPRESSION: Interval development of small left pleural effusion. Other chronic findings as detailed. [facility] Transcribe Date/Time: Jan 20 2018 12:34P Dictated by : MANAS SMILEY MD This examination was interpreted and the report reviewed and electronically signed by: MANAS SMILEY MD on Jan 20 2018 12:38PM EST [id number] PROGRESS Observed: 01/20/2018 Status: COMPLETED Source: [place] 12:15 PM [facility] REPOSIT[facility] HNO ID: [id number] Author: Aracelis Orosco Rt Service: (none) Author Type: (none) Type: Progress Notes Filed: 01/20/2018 12:28 PM Note Text: Radiology Service Progress Note PATIENT NAME: Winsome Meyers DATE OF SERVICE: January 20, 2018 TIME: 12:15 PM PATIENT IDENTITY VERIFICATION COMPLETED USING TWO (2) METHODS: Patient confirmed name verbally and Date of . PATIENT GENDER DATA: Female. status: : No status: NO. PATIENT RELEVANT IMPLANT DATA REVIEWED: Not Applicable RADIOLOGY DEPARTMENT: General X-ray: Exam(s) Completed: Chest X-Ray PERIPHERAL IV DATA: Not applicable SIGNED BY: Aracelis Orosco Rt January 20, 2018 12:15 PM PROGRESS Observed: 01/20/2018 Status: COMPLETED Source: [place] 11:12 AM [facility] REPOS[facility] HNO ID: [id number] Author: Sotero Honeycutt) Clari Service: (none) Author Type: Physician Type: Progress Notes Filed: 01/20/2018 3:28 PM Note Text: Chief Complaint Patient presents with: 4 week follow up HPI Winsome Meyers is a 72 year old female who presents here today for 4 week follow up of falls, weight loss and constipation. Accompanied today by sister. Complaining of recurrent cough which started back again about 2-3 days ago. Described as productive cough with SOB and wheezing with chest congestion. Treating with mucinex OTC which has not helped with symptoms. No exacerbating factors. Admits to tickling throat, chills, maxillary sinus pressure, decreased appetite, fatigue, diarrhea with mucous in her stools and possible bleeding. Denies fever, chest pain, nausea, vomiting, ear pain/fullness. Living with niece for the last week and has had sick contacts with niece who just came off of URI. Diarrhea started about 1 week ago with 2 episodes of loose/watery stools per day with mucous and possible blood. Denies abdominal pain. Not taking anything OTC for symptoms. Weight down an additional 2 lbs with recent illnesses. Not weighing at home as she does not have scale. PCC stated in previous note that she has been drinking 1 can of Ensure per day because it is too sweet. Eating 2 out of 3 meals per day at her niece's. Will finish all of her breakfast. Did not eat today, but had eggs, cheese and potatoes yesterday. Has not had any further falls since last OV. Using walker every day. Followed up with ortho and xray showed minimal movement of the screw. Bone not healed completely. Told to return in 3 months for repeat xray. Spoke with ortho about going back to [place] to visit and was given OK until next OV with them. Told needed to talk with our office. Would be staying with other sister Trina. Does not have PCP down there any longer. Remembers name of ER doctor from previous hospitalizations, advised that is not a good situation for her. Past medical history, appointments, medications, allergies reviewed. 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 - Gastric bypass status for obesity 2002 done elsewhere - GERD (gastroesophageal reflux disease) - Hyperlipidemia - Hypothyroid - Malnutrition ([facility]) - Marginal ulcer s/p perforation - Osteoarthritis - Preop exam for internal medicine - Seizures ([facility]) Last in 2015. - Weight loss Previous Surgical History PAST SURGICAL HISTORY Procedure Laterality Date - GASTRIC BYPASS,OBESE<100CM DINAH-EN-Y 2002 done elsewhere - LAPAROSCOPY, SURGICAL; JEJUNOSTOMY 03-28-09 Tanvi Rudolph - PAST SURGICAL HISTORY OF 2000 gastric surgery - PAST SURGICAL HISTORY OF Left shoulder replacement - revision gastrojejunostomy Tanvi Rudolph Family History FAMILY HISTORY Problem Relation Age of Onset - Coronary Artery Disease Mother - Hypertension Mother - Ischemic Heart Disease Mother - GI Father PUD Patient Allergies ALLERGIES Allergen Reactions - Iodoform Nu-Gauze P* Swelling, Anaphylaxis Current Medications Current Outpatient Prescriptions on File Prior to Visit: CALCIUM CARBONATE-VITAMIN D2 500 MG-200 UNIT TAB Take one(1) tablet three times daily. carvedilol (COREG) 3.125 mg tablet Take 3.125 mg by mouth twice daily with meals. Cholecalciferol, Vitamin D3, 1,000 unit cap Take 2 capsules by mouth once daily. donepezil (ARICEPT) 10 mg tablet Take 10 mg by mouth daily at bedtime. esomeprazole (NEXIUM) 40 mg capsule Take 1 capsule by mouth once daily. gabapentin (NEURONTIN) 100 mg capsule Take 1 capsule by mouth daily at bedtime. Per Tanvi Carreno levothyroxine (SYNTHROID) 88 mcg tablet Take 1 tablet by mouth once daily. OMEPRAZOLE 20 mg ORAL capsule ondansetron orally disintegrating (ZOFRAN ODT) 4 mg disintegrating tablet 1 tablet in AM and every 6 hours as needed for nausea potassium chloride ER (KLOR-CON M20) 20 mEq tablet Take 20 mEq by mouth twice daily. pravastatin (PRAVACHOL) 40 mg tablet Take 40 mg by mouth once daily. senna (SENOKOT) 8.6 mg tab Take 2 tablets by mouth daily at bedtime. venlafaxine (EFFEXOR) 75 mg tablet Take 75 mg by mouth once daily. No current facility-administered medications on file prior to visit. Social History Social History Marital status: Spouse name: Years of education: Number of children: Social History Main Topics Smoking status: Never Smoker Smokeless tobacco: Never Used Alcohol use: No Drug use: No Review of Symptoms REVIEW OF SYSTEMS See HPI EXAM: BP 104/64 Pulse (!) 56 Resp 22 Wt 41.3 kg (91 lb) BMI 18.54 kg/m? General Appearance: Well appearing, alert, in no acute distress, well-hydrated, well nourished.. Skin: Skin color, texture, turgor normal, no suspicious rashes or lesions. Head: Normocephalic, no masses, lesions, tenderness or abnormalities. Eyes: Anicteric sclera. Pupils are equally round and reactive to light. Extraocular movements are intact. . Ears: External ears normal, canals clear. Oropharynx: Lips, mucosa, and tongue normal, teeth and gums normal, oropharynx normal. Neck: Supple, no adenopathy; thyroid symmetric, normal size. Lungs: Decreased breath sounds bilaterally with poor inspiratory effort. No wheezing or rales noted. Rhonchi throughout. Heart: RRR without murmur, gallop, or rubs. No ectopy. Abdomen: Normal abdominal exam, Abdomen soft, non-tender. Bowel sounds normal. No masses, organomegaly. Extremities: No deformities, edema, skin discoloration, clubbing or cyanosis. Good capillary refill. . Health Maintenance List DTAP,TDAP,TD(1 - Tdap) due on 12/14/1962 MAMMOGRAM due on 1983 COLORECTAL CANCER SCREENING,SEE MODIFIER due on 12/14/1993 BONE DENSITY due on 12/14/2008 ADULT PREVNAR-13 due on 12/14/2008 STATIN MED ADHERENCE due on 02/08/2018 ANNUAL PCP TEAM CHRONIC DISEASE VISIT due on 01/07/2019 LDL CHOLESTEROL due on 01/13/2019 DIABETES SCREEN due on 01/13/2021 LIPID SCREEN due on 01/13/2023 INFLUENZA Completed PNEUMOVAX AGE 65 AND OVER WITH 5YR LOOKBACK Completed Data reviewed Component Latest Ref Rng AND Units 12/17/2017 01/13/2018 WBC 3.70 - 11.00 k/uL 8.45 RBC 3.90 - 5.20 m/uL 4.25 Hemoglobin 11.5 - 15.5 g/dL 13.8 Hematocrit 36.0 - 46.0 % 42.4 MCV 80.0 - 100.0 fL 99.8 MCH 26.0 - 34.0 pG 32.5 MCHC 30.5 - 36.0 g/dL 32.5 RDW-CV 11.5 - 15.0 % 14.2 Platelet Count 150 - 400 k/uL 359 MPV 9.0 - 12.7 fL 11.3 Neut% % 79.7 Abs Neut (ANC) 1.45 - 7.50 k/uL 6.74 Lymph% % 12.7 Abs Lymph 1.00 - 4.00 k/uL 1.07 [place]% % 7.2 Abs [place] <0.87 k/uL 0.61 Eosin% % 0.0 Abs Eosin <0.46 k/uL <0.03 Baso% % 0.4 Abs Baso <0.11 k/uL 0.03 Nucleated Reds 0 /100 WBC 0.2 (H) Absolute nRBC <0.01 k/uL 0.02 (H) Diff Type Auto Diff Protein, Total 6.3 - 8.0 g/dL 5.9 (L) Albumin 3.9 - 4.9 g/dL 3.2 (L) Calcium 8.5 - 10.2 mg/dL 8.8 8.9 Bilirubin, Total 0.2 - 1.3 mg/dL 0.5 Alkaline Phosphatase 34 - 123 U/L 105 AST 13 - 35 U/L 24 Glucose 74 - 99 mg/dL 71 (L) 75 BUN 7 - 21 mg/dL 7 21 Creatinine 0.58 - 0.96 mg/dL 0.64 0.41 (L) Sodium 136 - 144 mmol/L 134 (L) 141 Potassium 3.7 - 5.1 mmol/L 4.3 3.2 (L) Chloride 97 - 105 mmol/L 99 101 CO2 22 - 30 mmol/L 20 (L) 23 Anion Gap 9 - 18 mmol/L 15 17 ALT 7 - 38 U/L 9 eGFR- >60 >60 eGFR-All Other Races . >60 >60 Cholesterol, Total <200 mg/dL 158 Triglyceride <150 mg/dL 96 HDL Cholesterol >39 mg/dL 91 LDL Cholesterol <100 mg/dL 48 Non HDL Cholesterol <130 mg/dL 67 Fasting Time hrs 15 VLDL Cholesterol <30 mg/dL 19 TC:HDL Ratio <5.10 1.74 LDL:HDL Ratio <2.54 0.53 PTH, Intact 15 - 65 pg/mL 33 Vitamin D 25 Hydroxy 31.0 - 80.0 ng/mL 62.4 TSH 0.400 - 5.500 uU/mL 5.100 ASSESSMENT/PLAN: 1. Diarrhea, unspecified type - ICD9: 787.91, ICD10: R19.7 (primary diagnosis) Labs and stool studies as ordered. Push PO fluids, bland diet. Call with lightheadedness, vertigo. ER with syncope or near syncope. - C. DIFFICILE PCR - FECAL OCCULT BLOOD TEST - CBC + DIFF - FECAL LACTOFERRIN/LEUKOCYTES - STOOL CULTURE/EIA - SED RATE WESTERGREN - C-REACTIVE PROTEIN (CRP) - CBC + DIFF - COMP METABOLIC PANEL - SED RATE WESTERGREN - C-REACTIVE PROTEIN (CRP) 2. Productive cough - ICD9: 786.2, ICD10: R05 Stat CXR. Tessalon for cough and albuterol for intermittent wheezing. No abx at this time. - CBC + DIFF - XR CHEST 2V FRONTAL/LAT - BENZONATATE 100 MG CAPSULE - ALBUTEROL SULFATE HFA 90 MCG/ACTUATION AEROSOL INHALER - XR CHEST 2V FRONTAL/LAT 3. Decreased breath sounds - ICD9: 786.7, ICD10: R06.89 Poor inspiratory effort. Obtain CXR. - XR CHEST 2V FRONTAL/LAT - BENZONATATE 100 MG CAPSULE - ALBUTEROL SULFATE HFA 90 MCG/ACTUATION AEROSOL INHALER - XR CHEST 2V FRONTAL/LAT 4. Hematochezia - ICD9: 578.1, ICD10: K92.1 See #1. - CBC + DIFF - COMP METABOLIC PANEL - SED RATE WESTERGREN - C-REACTIVE PROTEIN (CRP) 5. Hypokalemia - ICD9: 276.8, ICD10: E87.6 Repeat CMP as previously recommended. Continue potassium supplementation as prescribed. . - COMP METABOLIC PANEL 6. Severe protein-calorie malnutrition (HCC) - ICD9: 262, ICD10: E43 3 meals per day, supplement with high protein shakes. Recheck in 4 weeks. 7. Weight loss - ICD9: 783.21, ICD10: R63.4 Possibly 2/2 diarrhea and URI symptoms. See #6. 8. Decreased appetite - ICD9: 783.0, ICD10: R63.0 See #6 9. Fall in home, subsequent encounter - ICD9: V58.89, E888.9, ICD10: W19.XXXD, Y92.009 No recent falls. Continue walker at home. Recheck in 4 weeks. F/u with ortho. 10. Closed fracture of neck of left femur with routine healing, subsequent encounter - ICD9: V54.13, ICD10: S72.002D See #9 11. Dementia without behavioral disturbance, unspecified dementia type - ICD9: 294.20, ICD10: F03.90 Continue aricept. Staying with sister, doing well. I spent 40 minutes in the visit, with more than 50% of the total [id number] time of the visit in counseling / coordination of care. Sotero Montague MD CNOV Observed: 01/20/2018 Status: COMPLETED Source: [place] 11:00 AM [facility] REPOSIT[facility] Office Visit (FAMPWS) WINSOME MEYERS ([id number]) 1945 F Date Time Provider Department 01/20/18 11:00 AM SOTERO MONTAGUE) FAMPWS During your visit today, we recorded the following information about you: Temperature Pulse Respiration Blood pressure 98.9 degrees 56/minute 22/minute 104/64 Weight 41.3 kg Sotero Montague MD 01/20/2018 3:28 PM Signed Chief Complaint Patient presents with: 4 week follow up HPI Winsome Meyers is a 72 year old female who presents here today for 4 week follow up of falls, weight loss and constipation. Accompanied today by sister. Complaining of recurrent cough which started back again about 2-3 days ago. Described as productive cough with SOB and wheezing with chest congestion. Treating with mucinex OTC which has not helped with symptoms. No exacerbating factors. Admits to tickling throat, chills, maxillary sinus pressure, decreased appetite, fatigue, diarrhea with mucous in her stools and possible bleeding. Denies fever, chest pain, nausea, vomiting, ear pain/fullness. Living with niece for the last week and has had sick contacts with niece who just came off of URI. Diarrhea started about 1 week ago with 2 episodes of loose/watery stools per day with mucous and possible blood. Denies abdominal pain. Not taking anything OTC for symptoms. Weight down an additional 2 lbs with recent illnesses. Not weighing at home as she does not have scale. PCC stated in previous note that she has been drinking 1 can of Ensure per day because it is too sweet. Eating 2 out of 3 meals per day at her niece's. Will finish all of her breakfast. Did not eat today, but had eggs, cheese and potatoes yesterday. Has not had any further falls since last OV. Using walker every day. Followed up with ortho and xray showed minimal movement of the screw. Bone not healed completely. Told to return in 3 months for repeat xray. Spoke with ortho about going back to [place] to visit and was given OK until next OV with them. Told needed to talk with our office. Would be staying with other sister Trina. Does not have PCP down there any longer. Remembers name of ER doctor from previous hospitalizations, advised that is not a good situation for her. Past medical history, appointments, medications, allergies reviewed. 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 - Gastric bypass status for obesity 2002 done elsewhere - GERD (gastroesophageal reflux disease) - Hyperlipidemia - Hypothyroid - Malnutrition ([facility]) - Marginal ulcer s/p perforation - Osteoarthritis - Preop exam for internal medicine - Seizures ([facility]) Last in 2016. - Weight loss Previous Surgical History PAST SURGICAL HISTORY Procedure Laterality Date - GASTRIC BYPASS,OBESE<100CM DINAH-EN-Y 2002 done elsewhere - LAPAROSCOPY, SURGICAL; JEJUNOSTOMY 2-18-10 P Ronni - PAST SURGICAL HISTORY OF 2000 gastric surgery - PAST SURGICAL HISTORY OF Left shoulder replacement - revision gastrojejunostomy Tanvi Rudolph Family History FAMILY HISTORY Problem Relation Age of Onset - Coronary Artery Disease Mother - Hypertension Mother - Ischemic Heart Disease Mother - GI Father PUD Patient Allergies ALLERGIES Allergen Reactions - Iodoform Nu-Gauze P* Swelling, Anaphylaxis Current Medications Current Outpatient Prescriptions on File Prior to Visit: CALCIUM CARBONATE-VITAMIN D2 500 MG-200 UNIT TAB Take one(1) tablet three times daily. carvedilol (COREG) 3.125 mg tablet Take 3.125 mg by mouth twice daily with meals. Cholecalciferol, Vitamin D3, 1,000 unit cap Take 2 capsules by mouth once daily. donepezil (ARICEPT) 10 mg tablet Take 10 mg by mouth daily at bedtime. esomeprazole (NEXIUM) 40 mg capsule Take 1 capsule by mouth once daily. gabapentin (NEURONTIN) 100 mg capsule Take 1 capsule by mouth daily at bedtime. Per Tanvi Carreno levothyroxine (SYNTHROID) 88 mcg tablet Take 1 tablet by mouth once daily. OMEPRAZOLE 20 mg ORAL capsule ondansetron orally disintegrating (ZOFRAN ODT) 4 mg disintegrating tablet 1 tablet in AM and every 6 hours as needed for nausea potassium chloride ER (KLOR-CON M20) 20 mEq tablet Take 20 mEq by mouth twice daily. pravastatin (PRAVACHOL) 40 mg tablet Take 40 mg by mouth once daily. senna (SENOKOT) 8.6 mg tab Take 2 tablets by mouth daily at bedtime. venlafaxine (EFFEXOR) 75 mg tablet Take 75 mg by mouth once daily. No current facility-administered medications on file prior to visit. Social History Social History Marital status: Spouse name: Years of education: Number of children: Social History Main Topics Smoking status: Never Smoker Smokeless tobacco: Never Used Alcohol use: No Drug use: No Review of Symptoms REVIEW OF SYSTEMS See HPI EXAM: BP 104/64 Pulse (!) 56 Resp 22 Wt 41.3 kg (91 lb) BMI 18.54 kg/m? General Appearance: Well appearing, alert, in no acute distress, well-hydrated, well nourished.. Skin: Skin color, texture, turgor normal, no suspicious rashes or lesions. Head: Normocephalic, no masses, lesions, tenderness or abnormalities. Eyes: Anicteric sclera. Pupils are equally round and reactive to light. Extraocular movements are intact. . Ears: External ears normal, canals clear. Oropharynx: Lips, mucosa, and tongue normal, teeth and gums normal, oropharynx normal. Neck: Supple, no adenopathy; thyroid symmetric, normal size. Lungs: Decreased breath sounds bilaterally with poor inspiratory effort. No wheezing or rales noted. Rhonchi throughout. Heart: RRR without murmur, gallop, or rubs. No ectopy. Abdomen: Normal abdominal exam, Abdomen soft, non-tender. Bowel sounds normal. No masses, organomegaly. Extremities: No deformities, edema, skin discoloration, clubbing or cyanosis. Good capillary refill. . Health Maintenance List DTAP,TDAP,TD(1 - Tdap) due on 12/14/1962 MAMMOGRAM due on 1983 COLORECTAL CANCER SCREENING,SEE MODIFIER due on 12/14/1993 BONE DENSITY due on 12/14/2008 ADULT PREVNAR-13 due on 12/14/2008 STATIN MED ADHERENCE due on 02/08/2018 ANNUAL PCP TEAM CHRONIC DISEASE VISIT due on 01/07/2019 LDL CHOLESTEROL due on 01/13/2019 DIABETES SCREEN due on 01/13/2021 LIPID SCREEN due on 01/13/2023 INFLUENZA Completed PNEUMOVAX AGE 65 AND OVER WITH 5YR LOOKBACK Completed Data reviewed Component Latest Ref Rng AND Units 12/17/2017 01/13/2018 WBC 3.70 - 11.00 k/uL 8.45 RBC 3.90 - 5.20 m/uL 4.25 Hemoglobin 11.5 - 15.5 g/dL 13.8 Hematocrit 36.0 - 46.0 % 42.4 MCV 80.0 - 100.0 fL 99.8 MCH 26.0 - 34.0 pG 32.5 MCHC 30.5 - 36.0 g/dL 32.5 RDW-CV 11.5 - 15.0 % 14.2 Platelet Count 150 - 400 k/uL 359 MPV 9.0 - 12.7 fL 11.3 Neut% % 79.7 Abs Neut (ANC) 1.45 - 7.50 k/uL 6.74 Lymph% % 12.7 Abs Lymph 1.00 - 4.00 k/uL 1.07 [place]% % 7.2 Abs [place] <0.87 k/uL 0.61 Eosin% % 0.0 Abs Eosin <0.46 k/uL <0.03 Baso% % 0.4 Abs Baso <0.11 k/uL 0.03 Nucleated Reds 0 /100 WBC 0.2 (H) Absolute nRBC <0.01 k/uL 0.02 (H) Diff Type Auto Diff Protein, Total 6.3 - 8.0 g/dL 5.9 (L) Albumin 3.9 - 4.9 g/dL 3.2 (L) Calcium 8.5 - 10.2 mg/dL 8.8 8.9 Bilirubin, Total 0.2 - 1.3 mg/dL 0.5 Alkaline Phosphatase 34 - 123 U/L 105 AST 13 - 35 U/L 24 Glucose 74 - 99 mg/dL 71 (L) 75 BUN 7 - 21 mg/dL 7 21 Creatinine 0.58 - 0.96 mg/dL 0.64 0.41 (L) Sodium 136 - 144 mmol/L 134 (L) 141 Potassium 3.7 - 5.1 mmol/L 4.3 3.2 (L) Chloride 97 - 105 mmol/L 99 101 CO2 22 - 30 mmol/L 20 (L) 23 Anion Gap 9 - 18 mmol/L 15 17 ALT 7 - 38 U/L 9 eGFR- >60 >60 eGFR-All Other Races . >60 >60 Cholesterol, Total <200 mg/dL 158 Triglyceride <150 mg/dL 96 HDL Cholesterol >39 mg/dL 91 LDL Cholesterol <100 mg/dL 48 Non HDL Cholesterol <130 mg/dL 67 Fasting Time hrs 15 VLDL Cholesterol <30 mg/dL 19 TC:HDL Ratio <5.10 1.74 LDL:HDL Ratio <2.54 0.53 PTH, Intact 15 - 65 pg/mL 33 Vitamin D 25 Hydroxy 31.0 - 80.0 ng/mL 62.4 TSH 0.400 - 5.500 uU/mL 5.100 ASSESSMENT/PLAN: 1. Diarrhea, unspecified type - ICD9: 787.91, ICD10: R19.7 (primary diagnosis) Labs and stool studies as ordered. Push PO fluids, bland diet. Call with lightheadedness, vertigo. ER with syncope or near syncope. - C. DIFFICILE PCR - FECAL OCCULT BLOOD TEST - CBC + DIFF - FECAL LACTOFERRIN/LEUKOCYTES - STOOL CULTURE/EIA - SED RATE WESTERGREN - C-REACTIVE PROTEIN (CRP) - CBC + DIFF - COMP METABOLIC PANEL - SED RATE WESTERGREN - C-REACTIVE PROTEIN (CRP) 2. Productive cough - ICD9: 786.2, ICD10: R05 Stat CXR. Tessalon for cough and albuterol for intermittent wheezing. No abx at this time. - CBC + DIFF - XR CHEST 2V FRONTAL/LAT - BENZONATATE 100 MG CAPSULE - ALBUTEROL SULFATE HFA 90 MCG/ACTUATION AEROSOL INHALER - XR CHEST 2V FRONTAL/LAT 3. Decreased breath sounds - ICD9: 786.7, ICD10: R06.89 Poor inspiratory effort. Obtain CXR. - XR CHEST 2V FRONTAL/LAT - BENZONATATE 100 MG CAPSULE - ALBUTEROL SULFATE HFA 90 MCG/ACTUATION AEROSOL INHALER - XR CHEST 2V FRONTAL/LAT 4. Hematochezia - ICD9: 578.1, ICD10: K92.1 See #1. - CBC + DIFF - COMP METABOLIC PANEL - SED RATE WESTERGREN - C-REACTIVE PROTEIN (CRP) 5. Hypokalemia - ICD9: 276.8, ICD10: E87.6 Repeat CMP as previously recommended. Continue potassium supplementation as prescribed. . - COMP METABOLIC PANEL 6. Severe protein-calorie malnutrition (HCC) - ICD9: 262, ICD10: E43 3 meals per day, supplement with high protein shakes. Recheck in 4 weeks. 7. Weight loss - ICD9: 783.21, ICD10: R63.4 Possibly 2/2 diarrhea and URI symptoms. See #6. 8. Decreased appetite - ICD9: 783.0, ICD10: R63.0 See #6 9. Fall in home, subsequent encounter - ICD9: V58.89, E888.9, ICD10: W19.XXXD, Y92.009 No recent falls. Continue walker at home. Recheck in 4 weeks. F/u with ortho. 10. Closed fracture of neck of left femur with routine healing, subsequent encounter - ICD9: V54.13, ICD10: S72.002D See #9 11. Dementia without behavioral disturbance, unspecified dementia type - ICD9: 294.20, ICD10: F03.90 Continue aricept. Staying with sister, doing well. I spent 40 minutes in the visit, with more than 50% of the total [id number] time of the visit in counseling / coordination of care. Sotero Montague MD Referring Provider: SOTERO MONTAGUE) [[id number]] Allergies As of Date: 01/20/2018 Noted Allergy Reaction iodoform nu-gauze packing [Other] 11/09/2005 7 - Swelling 10 - Anaphylaxis Date Reviewed: 01/20/2018 Reviewed by: Jesse Winston Ma - Fully Assessed Reason for Visit: 4 week follow up [Other] Primary Visit Diagnosis:Diarrhea, unspecified type [R19.7] Other Visit Diagnoses:Productive cough [R05] Decreased breath sounds [R06.89] Hematochezia [K92.1] Hypokalemia [E87.6] Severe protein-calorie malnutrition (HCC) [E43] Weight loss [R63.4] Decreased appetite [R63.0] Fall in home, subsequent encounter [W19.XXXD, Y92.009] Closed fracture of neck of left femur with routine healing, subsequent encounter [S72.002D] Dementia without behavioral disturbance, unspecified dementia type [F03.90] Order(s):C. DIFFICILE PCR [SQCDPCR] Order #: [id number] FECAL OCCULT BLOOD TEST [SQIFOBT] Order #: [id number] FUTURE FECAL LACTOFERRIN/LEUKOCYTES [SQFECWBC] Order #: [id number] STOOL CULTURE/EIA [SQSTOCUL] Order #: [id number] FUTURE benzonatate (TESSALON PERLE) 100 mg capsuleTake 1 capsule by mouth three times daily as needed for up to 10 days.Disp: 30 capsuleRfl: 0 albuterol HFA (VENTOLIN HFA) 90 mcg/actuation inhalerInhale 2 Puffs as instructed every 4 hours as needed.Disp: 1 InhalerRfl: 1 XR CHEST 2V FRONTAL/LAT [1092201] Order #: [id number] FUTURE CBC + DIFF [SQCBCDIF] Order #: [id number] FUTURE COMP METABOLIC PANEL [SQCMP] Order #: [id number] FUTURE SED RATE WESTERGREN [SQWSR] Order #: [id number] FUTURE C-REACTIVE PROTEIN (CRP) [SQCRP] Order #: [id number] FUTURE Prescriptions as of 01/20/2018 Sig: ALBUTEROL SULFATE HFA 90 MCG/* Inhale 2 Puffs as instructed * BENZONATATE 100 MG CAPSULE Take 1 capsule by mouth three* * CALCIUM CARB-ERGOCALCIFEROL (* Take one(1) tablet three time* CARVEDILOL 3.125 MG TABLET Take 3.125 mg by mouth twice * CHOLECALCIFEROL (VITAMIN D3) * Take 2 capsules by mouth once* DONEPEZIL 10 MG TABLET Take 10 mg by mouth daily at * ESOMEPRAZOLE MAGNESIUM 40 MG * Take 1 capsule by mouth once * GABAPENTIN 100 MG CAPSULE Take 1 capsule by mouth daily* LEVOTHYROXINE 88 MCG TABLET Take 1 tablet by mouth once d* * OMEPRAZOLE 20 MG CAPSULE,BOAZ* ONDANSETRON 4 MG DISINTEGRATI* 1 tablet in AM and every 6 ho* POTASSIUM CHLORIDE ER 20 MEQ * Take 20 mEq by mouth twice da* PRAVASTATIN 40 MG TABLET Take 40 mg by mouth once shelbie* SENNOSIDES 8.6 MG TABLET Take 2 tablets by mouth daily* VENLAFAXINE 75 MG TABLET Take 75 mg by mouth once shelbie* Problem List As Of Date 01/20/2018 Noted Resolved Morbid obesity (HCC) [E66.01] INVALID FOR*01/20/2018 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] INVALID FOR* CHRONIC DEPRESSIVE PERSON [F34.1] INVALID FOR* INSOMNIA NOS [G47.00] INVALID FOR* MIXED HYPERLIPIDEMIA [E78.2] INVALID FOR* Hypothyroidism [E03.9] INVALID FOR* ESOPHAGEAL REFLUX [K21.9] INVALID FOR* OSTEOPOROSIS NOS [M81.0] INVALID FOR* PARTIAL EPILEPSY NEC NOT INTRACT [G40.109] INVALID FOR* Preop Exam for Internal Medicine [Z01.818] Seizures [R56.9] Hypothyroid [E03.9] Severe protein-calorie malnutrition (HCC) [E43] Weight Loss [R63.4] Gastric Bypass Status for Obesity [Z98.84] Marginal Ulcer [K28.9] Dysphagia [R13.10] INVALID FOR* Depression [F32.9] Dementia [F03.90] CAD (coronary artery disease) [I25.10] More... Prescriptions ordered this encounter Disp Refills Start End BENZONATATE 100 MG CAPSULE 30 c* 0 01/20/2018 01/30/2018 Route: ORAL Sig: Take 1 capsule by mouth three times daily as needed for up to 10 days. ALBUTEROL SULFATE HFA 90 MCG/ACTUATI* 1 In* 1 01/20/2018 Route: INHALATION Sig: Inhale 2 Puffs as instructed every 4 hours as needed. Disposition: Return in about 4 weeks (around 02/17/2018). Follow-up and Disposition History Recorded Encounter Status:Closed by SOTERO MONTAGUE MD on 01/20/18 ORTHOPEDIC VISIT Observed: 01/18/2018 Status: F Source: [place] REPORT 3:35 PM [facility] REPOSITORY [facility] [address] [place] [address] OFFICE VISIT Date of Service: 01/18/18 MR#: [id number] Acct: [id number] Name: WINSOME MEYERS Rep #: [id number] : 1945 Provider: Alaina Olivares DO Age/Sex: 72/F Location: [facility] [place] Status: Signed Intake Intake Visit Reasons: LEFT HIP Chief Complaint: hypokalemia Is patient in pain?: Yes Allergies No Known Allergies Allergy (Verified 11/13/17 13:08) Medications Donepezil HCl [Aricept] 10 mg PO QHS 08/12/17 [History Confirmed 11/16/17] Ergocalciferol [Vitamin D] 50,000 unit PO Q7D 08/12/17 [History Confirmed 11/16/17] Esomeprazole Magnesium [Nexium] 40 mg PO DAILY 08/12/17 [History Confirmed 11/16/17] Levothyroxine [Synthroid] 75 mcg PO DAILY 08/12/17 [History Confirmed 11/16/17] Venlafaxine HCl [Venlafaxine HCl ER] 75 mg PO DAILY 08/12/17 [History Confirmed 11/16/17] Pravastatin [Pravachol] 40 mg PO QHS 11/10/17 [History Confirmed 11/16/17] Acetaminophen [Tylenol Tablet] 650 mg PO Q6H PRN PRN tab 11/16/17 [Rx] Calcium (Elemental) [Os-Og 500] 500 mg PO BIDCM #1 tab 11/16/17 [Rx] Enoxaparin [Lovenox] 40 mg SUBCUT DAILY@0600 syringe 11/16/17 [Rx] Ensure Enlive 120 ml PO 4X/DAY liquid 11/16/17 [Rx] Gabapentin [Neurontin] 100 mg PO QHS #14 cap 11/16/17 [Rx] acetaminophen 300 mg-codeine 60 mg tablet 1 tab PO Q6H #60 tab 12/14/17 [Rx Confirmed 12/14/17] PFSH Social History Smoking Status: Never smoker HPI LEFT HIP: Details: WINSOME MEYERS is a 72 year old F here today for f/u 11/14 left hip fracture repair. She is ambulating with a walker and complains of back pain and weakness. Denies numbness, tingling or other associated symptoms. Is having blood in urine and stool and being worked up for this. family member states that she is quite ill and is having multiple issues/ back concerns/etc. Ortho Exam Left Hip Date of Surgery: 11/14/17 Skin/Wound: Yes CDI Contralateral Normal: Yes Special Tests: pain with log roll Homans Sign: No HIP: groin and low back pain, neg heel strike Assessment AND Plan 1. Orthopedic aftercare Z47.89 Plan Check 1-year-old with a backing out of her screws however she has no pain in her groin with internal/external rotation of her hip nor with heel strike. Most of her pain is low back and radiates down to her buttock area. We discussed her seeing Dr. Salians for revision of her back however her family member that is in the room with her states that she is having multiple issues and complaints and is being worked up for some medical issues. Patient looks quite sick today not sure she is a great surgical candidate either way we will continue to monitor her see if she develops anything further avascular necrosis or if the fracture does not heal. If this does not heal and she is well enough she may be candidate for conversion to gennaro vs total. This was discussed with patient at the last visit and again today. They are aware again no groin pain she is up walking she has been released by physical therapy because she is doing quite well we will continue to monitor her. This note was generated with ROSTR dictation software. It may contain incorrect words, spelling, and punctuation that were not noted in checking the note before signing. X-rays were reviewed. There is not great healing noted, and her screws are well placed. Explained that she should get a second opinion based on her continued pain and her poor bone quality, she should see her PCP regarding her bleeding issues and/or Dr Samayoa for her back pain. Follow up in three months if she is still in the area or sooner if pain, swelling, numbness or associated symptoms, or concerns develop. All questions answered. Patient in agreement of plan. Plan Detail Other Orders Orders: Coding Level of Care Code Global Post Op Diagnoses Orthopedic aftercare Z47.89 01/18/18 1535 <Electronically signed by Alaina Olivares DO> Date Alaina Olivares DO Cosigner Signature: Date (if applicable) CC: HIP, UNI W/ PELVIS Observed: 01/18/2018 Status: F Source: [place] 2-3 VIEWS 1:49 PM [facility] REPOSITORY [facility] Imaging Services [address] [place] [id number] HIP, UNI W/ Pelvis 2-3 Views MR#: [id number] Acct: [id number] Name: WINSOME MEYERS Rep #: [id number] : 1945 F 72 From: Bautista Prabhakar MD PCP: Care Physician, No Primary Status: REG CLI Study: HIP, UNI W/ Pelvis 2-3 Views Date of Exam: 01/18/18 Exam# [id number] Ordering Dr: Alaina Olivares DO STUDY: X-RAY - LEFT HIP REASON FOR EXAM: Female, 72 years old. Pain TECHNIQUE: 2 views of the hip. COMPARISON: None. FINDINGS: Mild low lumbar spondylosis. Prominent osteopenia. Mild SI joint degeneration. Ill-defined sclerosis involving the right and left proximal sacrum. These may represent old insufficiency fractures in the setting of severe osteopenia. Nonspecific. Iliac crests intact. Pubic rami intact. Mild degenerative features of the right hip. Mild degenerative features of the left hip articulation. There are 3 cannulated screws fixating old fracture, healed. There is no visible acute femoral neck, intertrochanteric or proximal shaft fracture. Periarticular soft tissues appear normal. RAD/HIP, UNI W/ Pelvis 2-3 Views IMPRESSION: No radiographic evidence of acute pelvic or left hip abnormality. Electronically Signed: Bautista Prabhakar MD at 16:41 EST Tel , Service support , CC: No Primary Care Physician; Alaina Olivares DO Physician [facility]: Signed LIPID PANEL, BASIC Collected: 01/13/2018 Status: F Source: [place] 10:[address] [facility] REPOSITORY TYPE CODE TESTS RESULT OUT OF REFERENCE UNITS RANGE LAB CHOL <200 mg/dL Cholesterol 158 Result Comment: <200 mg/dL, Desirable 200-239 mg/dL, Borderline high >239 mg/dL, High LAB TRIGLY <150 mg/dL Triglyceride 96 Result Comment: <150 mg/dL, Normal 150-199 mg/dL, Borderline high 200-499 mg/dL, High >499 mg/dL, Very high LAB HDL >39 mg/dL HDL-Cholesterol 91 Result Comment: 40-59 mg/dL, Acceptable >59 mg/dL, High: Negative risk factor for coronary heart disease <40 mg/dL, Low: Positive risk factor for coronary heart disease LAB LDL <100 mg/dL LDL-Cholesterol 48 Result Comment: <100 mg/dL, Optimal 100-129 mg/dL, Near optimal/above optimal 130-159 mg/dL, Borderline high 160-189 mg/dL, High >189 mg/dL, Very high Secondary prevention optimal LDL Cholesterol levels are recommended to be < 70 mg/dL LAB NONHDL <130 mg/dL Non HDL Cholesterol 67 Result Comment: <130 mg/dL, Optimal 130-159 mg/dL, Near optimal/above optimal 160-189 mg/dL, Borderline high 190-219 mg/dL, High >219 mg/dL, Very high Secondary prevention optimal non HDL Cholesterol levels are recommended to be < 100 mg/dL LAB FT hrs Fasting Time 15 LAB VLDL <30 mg/dL VLDL Cholesterol 19 LAB TCHDL <5.10 TC:HDL Ratio 1.74 LAB LDLHDL <2.54 LDL:HDL Ratio 0.53 Result Comment: Reference: 1. National Cholesterol Education Program ATP III Guideline At-A-Glance Quick Desk Reference: National Heart, Lung, and Blood [place]. National Institutes of Health. 2001: NIH Publication No. 01-3305. 2. An International Atherosclerosis Society position paper: global recommendations for the management of dyslipidemia: executive summary, Atherosclerosis. 2014: 232(2):410-413. Performed By: #### LIPB #### [facility] [employer] [address] [place], [place] [address] BASIC METABOLIC PANL Collected: 01/13/2018 Status: F Source: [place] 10:[address] [facility] REPOSITORY TYPE CODE TESTS RESULT OUT OF REFERENCE UNITS RANGE LAB GLU 74-99 mg/dL Glucose 75 Result Comment: The [place] Diabetes Association (ADA) provides guidance for cutoff values for fasting glucose and random glucose. The ADA defines fasting as no caloric intake for at least 8 hours. Fas ting plasma glucose results between 100 to 125 mg/dL indicate increased risk for diabetes (prediabetes). Fasting plasma glucose results greater than or equal to 126 mg/dL meet the criteria for diagnosis of diabetes. In the absence of unequivocal hyperglycemia, results should be confirmed by repeat testing. In a patient with classic symptoms of hyperglycemia or hyperglycemic crisis, random plasma glucose results greater than or equal to 200 mg/dL meet the criteria for diagnosis of diabetes. Reference: Standards of Medical Care in Diabetes 2016, [place] Diabetes Association. Diabetes Care. 2016.39(Suppl 1). LAB BUN 7-21 mg/dL BUN 21 LAB CRET 0.58-0.96 mg/dL Creatinine Low 0.41 LAB NA 136-144 mmol/L Sodium 141 LAB K 3.7-5.1 mmol/L Potassium Low 3.2 LAB CL 97-105 mmol/L Chloride 101 LAB CO2 22-30 mmol/L CO2 23 LAB AGAP 9-18 mmol/L Anion Gap 17 LAB CA 8.5-10.2 mg/dL Calcium, Total 8.9 LAB GFRAA eGFR- Amer. >60 LAB GFRNAA . eGFR-All Other Races >60 Result Comment: eGFR (Estimated GFR) Units of measure: mL/min/1.73 meters squared eGFR is derived from the reexpressed MDRD Study equation using the following parameters: serum creatinine, age, gender and race. The creatinine assay has been calibrated to be traceable to IDMS. An eGFR <60 mL/min/1.73m2 for >3 months is consistent with chronic kidney disease. Refer to KDOQI guidelines for clinical interpretation. In patients with unstable renal function, e.g. those with acute kidney injury, the eGFR may not accurately reflect actual GFR. Performed By: #### BMP #### [facility] [address] [address] PROGRESS Observed: 01/12/2018 Status: COMPLETED Source: [place] 3:05 PM [facility] REPOSITORY HNO ID: [id number] Author: Sotero Honeycutt) Clari Service: (none) Author Type: Physician Type: Progress Notes Filed: 01/12/2018 3:05 PM Note Text: Sounds good. Thanks. PROGRESS Observed: 01/12/2018 Status: COMPLETED Source: [place] 2:35 PM [facility] REPOSITORY HNO ID: [id number] Author: Oksana Salas) Abiola Service: (none) Author Type: Registered Nurse Type: Progress Notes Filed: 01/12/2018 3:06 PM Note Text: PRIMARY CARE COORDINATION FOLLOW-UP NOTE Provider Action/FYI FYI Patient identified by name and date of . YES Spoke to Annette winter Summary: States URI symptoms are improved, no residual cough Sister bought Ensure Clear for patient. States it was too sweet so she adds water to it and pt completes 1 can daily. Giving bowel regime as ordered per PCP, after 2 days patient started having regular BMs No falls, ambulating with walker or cart in stores Paint Brush Maker plan for next outreach: Will follow up one week Signature Oksana Culver RN January 12, 2018 EVANTOJENIFFER Observed: 01/12/2018 Status: COMPLETED Source: [place] 12:00 AM [facility] REPOSITORY Patient Outreach (FAMPWS) WINSOME MEYERS ([id number]) 1945 F Date Time Provider Department 01/12/18 OKSANA CULVER (RN) GLENISWS During your visit today, we recorded the following information about you: Oksana Culver RN 01/12/2018 3:06 PM Signed PRIMARY CARE COORDINATION FOLLOW-UP NOTE Provider Action/FYI FYI Patient identified by name and date of . YES Spoke to sisterAnnette Summary: States URI symptoms are improved, no residual cough Sister bought Ensure Clear for patient. States it was too sweet so she adds water to it and pt completes 1 can daily. Giving bowel regime as ordered per PCP, after 2 days patient started having regular BMs No falls, ambulating with walker or cart in stores Paint Brush Maker plan for next outreach: Will follow up one week Signature Oksana Culver RN January 12, 2018 Sotero Montague MD 01/12/2018 3:05 PM Signed Sounds good. Thanks. Allergies As of Date: 01/12/2018 Noted Allergy Reaction iodoform nu-gauze packing [Other] 11/09/2005 7 - Swelling 10 - Anaphylaxis Date Reviewed: 01/07/2018 Reviewed by: Verna Purdy) RUPALI Garcia - Fully Assessed Reason for Visit: [facility] Follow Up [0110] Prescriptions as of 01/12/2018 Sig: LEVOTHYROXINE 88 MCG TABLET Take 1 tablet by mouth once d* CHOLECALCIFEROL (VITAMIN D3) * Take 2 capsules by mouth once* ACETAMINOPHEN 300 MG-CODEINE * Take 1 tablet by mouth every * GABAPENTIN 100 MG CAPSULE Take 1 capsule by mouth daily* ONDANSETRON 4 MG DISINTEGRATI* 1 tablet in AM and every 6 ho* ESOMEPRAZOLE MAGNESIUM 40 MG * Take 1 capsule by mouth once * POTASSIUM CHLORIDE ER 20 MEQ * Take 20 mEq by mouth twice da* DONEPEZIL 10 MG TABLET Take 10 mg by mouth daily at * VENLAFAXINE 75 MG TABLET Take 75 mg by mouth once shelbie* CARVEDILOL 3.125 MG TABLET Take 3.125 mg by mouth twice * PRAVASTATIN 40 MG TABLET Take 40 mg by mouth once shelbie* SENNOSIDES 8.6 MG TABLET Take 2 tablets by mouth daily* * OMEPRAZOLE 20 MG CAPSULE,BOAZ* * CALCIUM CARB-ERGOCALCIFEROL (* Take one(1) tablet three time* Problem List As Of Date 01/12/2018 Noted Resolved MORBID OBESITY [E66.01] INVALID FOR* 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] INVALID FOR* CHRONIC DEPRESSIVE PERSON [F34.1] INVALID FOR* INSOMNIA NOS [G47.00] INVALID FOR* MIXED HYPERLIPIDEMIA [E78.2] INVALID FOR* Hypothyroidism [E03.9] INVALID FOR* ESOPHAGEAL REFLUX [K21.9] INVALID FOR* OSTEOPOROSIS NOS [M81.0] INVALID FOR* PARTIAL EPILEPSY NEC NOT INTRACT [G40.109] INVALID FOR* Preop Exam for Internal Medicine [Z01.818] Seizures [R56.9] Hypothyroid [E03.9] Severe protein-calorie malnutrition (HCC) [E43] Weight Loss [R63.4] Gastric Bypass Status for Obesity [Z98.84] Marginal Ulcer [K28.9] Dysphagia [R13.10] INVALID FOR* Depression [F32.9] Dementia [F03.90] CAD (coronary artery disease) [I25.10] More... Encounter Status:Closed by OKSANA CULVER on 01/12/18 PROGRESS Observed: 01/07/2018 Status: COMPLETED Source: [place] 11:[address] [facility] REPOSITORY O ID: [id number] Author: Lily Linda Service: (none) Author Type: Nurse Practitioner Type: Progress Notes Filed: 01/10/2018 8:14 AM Note Text: 01/07/2018 Patient presents with: Cough: sore throat for a week , green mucous SUBJECTIVE: This is a 72 year old that is here today for sore throat, nasal congestion with clear rhinorrhea, cough with green production for about a week. She states that she has been living with ill grandchildren that were home from school d/t symptoms. None required antibiotics and are now doing well. Denies body aches, fever, chills- does switch from blanket to off occasionally. She states that she has a decreased appetite and nothing tastes right. She feels that she is drinking enough water- 2 bottles. She denies CP, edema, RODRIGUEZ, face pain, ear pain. + SOB with exertion that resolves in a short time. She is using zofran about twice a day to help her be able to eat. Denies and vomiting or diarrhea. 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 - Gastric bypass status for obesity 2002 done elsewhere - GERD (gastroesophageal reflux disease) - Hyperlipidemia - Hypothyroid - Malnutrition ([facility]) - Marginal ulcer s/p perforation - Osteoarthritis - Preop exam for internal medicine - Seizures ([facility]) Last in 2015. - Weight loss ALLERGIES Iodoform Nu-Gauze Packing [Other] MEDICATIONS Current Outpatient Prescriptions: levothyroxine (SYNTHROID) 88 mcg tablet Take 1 tablet by mouth once daily. Cholecalciferol, Vitamin D3, 1,000 unit cap Take 2 capsules by mouth once daily. acetaminophen-codeine (TYLENOL-CODEINE #4) 300-60 mg per tablet Take 1 tablet by mouth every 4 hours as needed for Pain for up to 30 days. Per ortho surgeon gabapentin (NEURONTIN) 100 mg capsule Take 1 capsule by mouth daily at bedtime. Per Tanvi Carreno ondansetron orally disintegrating (ZOFRAN ODT) 4 mg disintegrating tablet 1 tablet in AM and every 6 hours as needed for nausea esomeprazole (NEXIUM) 40 mg capsule Take 1 capsule by mouth once daily. potassium chloride ER (KLOR-CON M20) 20 mEq tablet Take 20 mEq by mouth twice daily. donepezil (ARICEPT) 10 mg tablet Take 10 mg by mouth daily at bedtime. venlafaxine (EFFEXOR) 75 mg tablet Take 75 mg by mouth once daily. carvedilol (COREG) 3.125 mg tablet Take 3.125 mg by mouth twice daily with meals. pravastatin (PRAVACHOL) 40 mg tablet Take 40 mg by mouth once daily. senna (SENOKOT) 8.6 mg tab Take 2 tablets by mouth daily at bedtime. OMEPRAZOLE 20 mg ORAL capsule CALCIUM CARBONATE-VITAMIN D2 500 MG-200 UNIT TAB Take one(1) tablet three times daily. No current facility-administered medications for this visit. Medications and allergies reviewed by this provider. SOCIAL HISTORY Social History Marital status: Spouse name: Years of education: Number of children: Social History Main Topics Smoking status: Never Smoker Smokeless tobacco: Never Used Alcohol use: No Drug use: No REVIEW OF SYSTEMS see HPI OBJECTIVE: BP 92/60 Pulse 96 Temp 37.2 ?C (98.9 ?F) Resp 16 Wt 42.2 kg (93 lb) SpO2 98% BMI 18.94 kg/m? . Vital signs reviewed by this provider. PHYSICAL EXAMINATION: General appearance: Well appearing, alert, in no acute distress, well-hydrated, well nourished. Skin: Skin color, texture, turgor normal, no suspicious rashes or lesions Head: Normocephalic, no masses, lesions, tenderness or abnormalities Eyes: Anicteric sclera. Pupils are equally round and reactive to light. Ears: External ears normal, canals clear, TMs normal Nose/Sinuses: Positive findings: mucosa erythematous and swollen Oropharynx: Lips, mucosa, and tongue normal, teeth and gums normal, oropharynx normal Neck: Supple, no adenopathy Lungs: lungs clear to auscultation. No wheezing, rhonchi, rales + cough Heart: RRR without murmur, gallop, or rubs. No ectopy Abdomen: Normal abdominal exam, Abdomen soft, non-tender. Bowel sounds normal. No masses, organomegaly Extremities: No deformities, edema, skin discoloration, clubbing or cyanosis. Good capillary refill. , Pulses: 2+ ASSESSMENT/PLAN: 1. URI, acute - ICD9: 465.9, ICD10: J06.9 (primary diagnosis) - Discussed viral etiology and rationale for treatment. - Symptomatic treatment with prn analgesia - Supportive care with fluids and rest - Follow up in 3-5 days if symptoms persist or sooner if worsening of symptoms. If feeling no better through the weekend, will consider antibiotic course. Discussed may not feel completely better, but if starting to feel well, will continue to monitor. UC if feeling worse over the weekend. - stressed the need to increase water and eat well supplemented with ensure as previously suggested for malnutrition. Discussed and educated on relationship related to being ill. 2. Severe protein-calorie malnutrition (HCC) - ICD9: 262, ICD10: E43 - stressed the need to have adequate caloric and protein intake with diet and supplement Lily Linda APRN.CNP CNOV Observed: 01/07/2018 Status: COMPLETED Source: [place] 11:00 AM [facility] REPOSITORY Office Visit (FAMPWS) WINSOME MYEERS ([id number]) 1945 F Date Time Provider Department 01/07/18 11:00 AM LILY LINDA (EVAN) FAMPWS During your visit today, we recorded the following information about you: Temperature Pulse Respiration Blood pressure 98.9 degrees 96/minute 16/minute 92/60 Weight 42.2 kg Lily Linda APRN.CNP 01/10/2018 8:14 AM Signed 01/07/2018 Patient presents with: Cough: sore throat for a week , green mucous SUBJECTIVE: This is a 72 year old that is here today for sore throat, nasal congestion with clear rhinorrhea, cough with green production for about a week. She states that she has been living with ill grandchildren that were home from school d/t symptoms. None required antibiotics and are now doing well. Denies body aches, fever, chills- does switch from blanket to off occasionally. She states that she has a decreased appetite and nothing tastes right. She feels that she is drinking enough water- 2 bottles. She denies CP, edema, RODRIGUEZ, face pain, ear pain. + SOB with exertion that resolves in a short time. She is using zofran about twice a day to help her be able to eat. Denies and vomiting or diarrhea. 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 - Gastric bypass status for obesity 2003 done elsewhere - GERD (gastroesophageal reflux disease) - Hyperlipidemia - Hypothyroid - Malnutrition ([facility]) - Marginal ulcer s/p perforation - Osteoarthritis - Preop exam for internal medicine - Seizures (HCC) Last in 2016. - Weight loss ALLERGIES Iodoform Nu-Gauze Packing [Other] MEDICATIONS Current Outpatient Prescriptions: levothyroxine (SYNTHROID) 88 mcg tablet Take 1 tablet by mouth once daily. Cholecalciferol, Vitamin D3, 1,000 unit cap Take 2 capsules by mouth once daily. acetaminophen-codeine (TYLENOL-CODEINE #4) 300-60 mg per tablet Take 1 tablet by mouth every 4 hours as needed for Pain for up to 30 days. Per ortho surgeon gabapentin (NEURONTIN) 100 mg capsule Take 1 capsule by mouth daily at bedtime. Per Tanvi Carreno ondansetron orally disintegrating (ZOFRAN ODT) 4 mg disintegrating tablet 1 tablet in AM and every 6 hours as needed for nausea esomeprazole (NEXIUM) 40 mg capsule Take 1 capsule by mouth once daily. potassium chloride ER (KLOR-CON M20) 20 mEq tablet Take 20 mEq by mouth twice daily. donepezil (ARICEPT) 10 mg tablet Take 10 mg by mouth daily at bedtime. venlafaxine (EFFEXOR) 75 mg tablet Take 75 mg by mouth once daily. carvedilol (COREG) 3.125 mg tablet Take 3.125 mg by mouth twice daily with meals. pravastatin (PRAVACHOL) 40 mg tablet Take 40 mg by mouth once daily. senna (SENOKOT) 8.6 mg tab Take 2 tablets by mouth daily at bedtime. OMEPRAZOLE 20 mg ORAL capsule CALCIUM CARBONATE-VITAMIN D2 500 MG-200 UNIT TAB Take one(1) tablet three times daily. No current facility-administered medications for this visit. Medications and allergies reviewed by this provider. SOCIAL HISTORY Social History Marital status: Spouse name: Years of education: Number of children: Social History Main Topics Smoking status: Never Smoker Smokeless tobacco: Never Used Alcohol use: No Drug use: No REVIEW OF SYSTEMS see HPI OBJECTIVE: BP 92/60 Pulse 96 Temp 37.2 ?C (98.9 ?F) Resp 16 Wt 42.2 kg (93 lb) SpO2 98% BMI 18.94 kg/m? . Vital signs reviewed by this provider. PHYSICAL EXAMINATION: General appearance: Well appearing, alert, in no acute distress, well-hydrated, well nourished. Skin: Skin color, texture, turgor normal, no suspicious rashes or lesions Head: Normocephalic, no masses, lesions, tenderness or abnormalities Eyes: Anicteric sclera. Pupils are equally round and reactive to light. Ears: External ears normal, canals clear, TMs normal Nose/Sinuses: Positive findings: mucosa erythematous and swollen Oropharynx: Lips, mucosa, and tongue normal, teeth and gums normal, oropharynx normal Neck: Supple, no adenopathy Lungs: lungs clear to auscultation. No wheezing, rhonchi, rales + cough Heart: RRR without murmur, gallop, or rubs. No ectopy Abdomen: Normal abdominal exam, Abdomen soft, non-tender. Bowel sounds normal. No masses, organomegaly Extremities: No deformities, edema, skin discoloration, clubbing or cyanosis. Good capillary refill. , Pulses: 2+ ASSESSMENT/PLAN: 1. URI, acute - ICD9: 465.9, ICD10: J06.9 (primary diagnosis) - Discussed viral etiology and rationale for treatment. - Symptomatic treatment with prn analgesia - Supportive care with fluids and rest - Follow up in 3-5 days if symptoms persist or sooner if worsening of symptoms. If feeling no better through the weekend, will consider antibiotic course. Discussed may not feel completely better, but if starting to feel well, will continue to monitor. UC if feeling worse over the weekend. - stressed the need to increase water and eat well supplemented with ensure as previously suggested for malnutrition. Discussed and educated on relationship related to being ill. 2. Severe protein-calorie malnutrition (HCC) - ICD9: 262, ICD10: E43 - stressed the need to have adequate caloric and protein intake with diet and supplement LETICIA Sterling APRN.CNP 01/07/2018 11:31 AM Signed Call or follow up on Wednesday if no better Referring Provider: SELF [200] Allergies As of Date: 01/07/2018 Noted Allergy Reaction iodoform nu-gauze packing [Other] 11/09/2005 7 - Swelling 10 - Anaphylaxis Date Reviewed: 01/07/2018 Reviewed by: Verna Purdy) RUPALI Garcia - Fully Assessed Reason for Visit: Cough [28] Cmt: sore throat for a week , green mucous Reason For Visit History Recorded Primary Visit Diagnosis:URI, acute [J06.9] Other Visit Diagnosis:Severe protein-calorie malnutrition (HCC) [E43] Prescriptions as of 01/07/2018 Sig: LEVOTHYROXINE 88 MCG TABLET Take 1 tablet by mouth once d* CHOLECALCIFEROL (VITAMIN D3) * Take 2 capsules by mouth once* ACETAMINOPHEN 300 MG-CODEINE * Take 1 tablet by mouth every * GABAPENTIN 100 MG CAPSULE Take 1 capsule by mouth daily* ONDANSETRON 4 MG DISINTEGRATI* 1 tablet in AM and every 6 ho* ESOMEPRAZOLE MAGNESIUM 40 MG * Take 1 capsule by mouth once * POTASSIUM CHLORIDE ER 20 MEQ * Take 20 mEq by mouth twice da* DONEPEZIL 10 MG TABLET Take 10 mg by mouth daily at * VENLAFAXINE 75 MG TABLET Take 75 mg by mouth once shelbie* CARVEDILOL 3.125 MG TABLET Take 3.125 mg by mouth twice * PRAVASTATIN 40 MG TABLET Take 40 mg by mouth once shelbie* SENNOSIDES 8.6 MG TABLET Take 2 tablets by mouth daily* * OMEPRAZOLE 20 MG CAPSULE,BOAZ* * CALCIUM CARB-ERGOCALCIFEROL (* Take one(1) tablet three time* Problem List As Of Date 01/07/2018 Noted Resolved MORBID OBESITY [E66.01] INVALID FOR* 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] INVALID FOR* CHRONIC DEPRESSIVE PERSON [F34.1] INVALID FOR* INSOMNIA NOS [G47.00] INVALID FOR* MIXED HYPERLIPIDEMIA [E78.2] INVALID FOR* Hypothyroidism [E03.9] INVALID FOR* ESOPHAGEAL REFLUX [K21.9] INVALID FOR* OSTEOPOROSIS NOS [M81.0] INVALID FOR* PARTIAL EPILEPSY NEC NOT INTRACT [G40.109] INVALID FOR* Preop Exam for Internal Medicine [Z01.818] Seizures [R56.9] Hypothyroid [E03.9] Severe protein-calorie malnutrition (HCC) [E43] Weight Loss [R63.4] Gastric Bypass Status for Obesity [Z98.84] Marginal Ulcer [K28.9] Dysphagia [R13.10] INVALID FOR* Depression [F32.9] Dementia [F03.90] CAD (coronary artery disease) [I25.10] More... Other instructions from your clinician: Call or follow up on Wednesday if no better Encounter Status:Closed by LILY LINDA on 01/10/18 CNPTOUTREACH Observed: 01/04/2018 Status: COMPLETED Source: [place] [address]:00 AM [facility] RE[facility] Patient Outreach (FAMPST) WINSOME MEYERS ([id number]) 1945 F Date Time Provider Department 01/04/18 SOTERO MONTAGUE) FAMPST During your visit today, we recorded the following information about you: Allergies As of Date: 01/04/2018 Noted Allergy Reaction iodoform nu-gauze packing [Other] 11/09/2005 7 - Swelling 10 - Anaphylaxis Date Reviewed: 12/23/2017 Reviewed by: Jesse Winston Ma - Fully Assessed Visit Diagnosis:Medication management [Z79.899] Order(s):LIPID PANEL BASIC [SQLIPB] Order #: [id number] FUTURE Prescriptions as of 01/04/2018 Sig: ACETAMINOPHEN 300 MG-CODEINE * Take 1 tablet by mouth every * * CALCIUM CARB-ERGOCALCIFEROL (* Take one(1) tablet three time* CARVEDILOL 3.125 MG TABLET Take 3.125 mg by mouth twice * CHOLECALCIFEROL (VITAMIN D3) * Take 2 capsules by mouth once* DONEPEZIL 10 MG TABLET Take 10 mg by mouth daily at * ESOMEPRAZOLE MAGNESIUM 40 MG * Take 1 capsule by mouth once * GABAPENTIN 100 MG CAPSULE Take 1 capsule by mouth daily* LEVOTHYROXINE 88 MCG TABLET Take 1 tablet by mouth once d* * OMEPRAZOLE 20 MG CAPSULE,BOAZ* ONDANSETRON 4 MG DISINTEGRATI* 1 tablet in AM and every 6 ho* POTASSIUM CHLORIDE ER 20 MEQ * Take 20 mEq by mouth twice da* PRAVASTATIN 40 MG TABLET Take 40 mg by mouth once shelbie* SENNOSIDES 8.6 MG TABLET Take 2 tablets by mouth daily* VENLAFAXINE 75 MG TABLET Take 75 mg by mouth once shelbie* Problem List As Of Date 01/04/2018 Noted Resolved MORBID OBESITY [E66.01] INVALID FOR* 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] INVALID FOR* CHRONIC DEPRESSIVE PERSON [F34.1] INVALID FOR* INSOMNIA NOS [G47.00] INVALID FOR* MIXED HYPERLIPIDEMIA [E78.2] INVALID FOR* Hypothyroidism [E03.9] INVALID FOR* ESOPHAGEAL REFLUX [K21.9] INVALID FOR* OSTEOPOROSIS NOS [M81.0] INVALID FOR* PARTIAL EPILEPSY NEC NOT INTRACT [G40.109] INVALID FOR* Preop Exam for Internal Medicine [Z01.818] Seizures [R56.9] Hypothyroid [E03.9] Severe protein-calorie malnutrition (HCC) [E43] Weight Loss [R63.4] Gastric Bypass Status for Obesity [Z98.84] Marginal Ulcer [K28.9] Dysphagia [R13.10] INVALID FOR* Depression [F32.9] Dementia [F03.90] CAD (coronary artery disease) [I25.10] More... Encounter Status:Closed by ideasoft, PRODUSER on 02/03/18 PROGRESS Observed: 12/24/2017 Status: COMPLETED Source: [place] 4:[address] [facility] REPOSITORY HNO ID: [id number] Author: Oksana Salas) Abiola Service: (none) Author Type: Registered Nurse Type: Progress Notes Filed: 12/24/2017 4:19 PM Note Text: PRIMARY CARE COORDINATION IN OFFICE VISIT WITH PCP Patient has been identified by name and date of . PCP Assessment/Plan: Reviewed PCP plan with patient using Teach Back Discussed different non-dairy foods/drinks to help with weight gain. Also discussed giving Senna 2 tabs daily as ordered, verbalized understanding and agreement PCC Plan of Care: Patient goals: CG will look for non-dairy Ensure and will give Senna daily as ordered. Next Office Visit: 01/20/2018 Plan For Next Call: One week Oksana Culver RN December 24, 2017 PROGRESS Observed: 12/23/2017 Status: COMPLETED Source: [place] 1:[address] [facility] REPOSITORY HNO ID: [id number] Author: Sotero Honeycutt) Clari Service: (none) Author Type: Physician Type: Progress Notes Filed: 12/23/2017 2:42 PM Note Text: Chief Complaint Patient presents with: F/U 3 Month HPI Winsome Meyers is a 72 year old female with PMH: fall at home s/p left femoral neck fracture, dementia, hypothyroidism, hyperlipidemia, who presents here today for 3 month follow up. Accompanied today by sister. PT coming out twice weekly and encouraging patient to be up and walking every hour. Using walker, but would like her to transition from the walker to the cane. Sister notes that the patient is asking for her Tylenol #4 every 4 hours, though she doesn't seem to be in much pain. Admits to constipation and has not filled the senna laxative. Last BM yesterday, hard without bleeding. Discussed importance of pushing PO fluids, regular diet and laxative with opiate medications. Has follow up appointment with ortho next month to recheck lose screw with xray. May require repeat surgery if continues to loosen. Patient down 11 lbs in the last 3 months. Sister states that she just hasn't been eating as much and refuses meals occasionally. Denies dysphagia, odynophagia, early satiety, nausea, vomiting. Encouraged to eat meals 3 times per day and may snack in between. May also supplement with Boost or Ensure. Dementia: patient taking Aricept nightly as prescribed without side effects. Denies aggressive behavior, mental status changes recently. Sister still comfortable with patient living with her and feels she is able to adequately care for her. Hypothyroidism: TSH above goal of 1-3, discussed increased dose of synthroid. May help with constipation. Sister concerned about stopping requip and Coreg, discontinued while in [facility]. Has not had RLS symptoms with gabapentin. BP low today, likely 2/2 decreased appetite and poor PO intake. Discussed restarting once BP improves and appetite returns, but with recent falls she is too high risk to restart now. Also holding her potassium for 2 weeks. Normal level on recent blood work. Discussed continuing to hold and will recheck potassium and sodium level in 1 week. Up to date on influenza vaccine, obtained on 11/14 while in [facility]. Past medical history, appointments, medications, allergies reviewed. 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 - Weight loss Previous Surgical History PAST SURGICAL HISTORY Procedure Laterality Date - GASTRIC BYPASS,OBESE<100CM DINAH-EN-Y 2002 done elsewhere - LAPAROSCOPY, SURGICAL; JEJUNOSTOMY 03-28-09 Tanvi Rudolph - PAST SURGICAL HISTORY OF 2000 gastric surgery - PAST SURGICAL HISTORY OF Left shoulder replacement - revision gastrojejunostomy Tanvi Rudolph Family History FAMILY HISTORY Problem Relation Age of Onset - Coronary Artery Disease Mother - Hypertension Mother - Ischemic Heart Disease Mother - GI Father PUD Patient Allergies ALLERGIES Allergen Reactions - Iodoform Nu-Gauze P* Swelling, Anaphylaxis Current Medications Current Outpatient Prescriptions on File Prior to Visit: acetaminophen-codeine (TYLENOL-CODEINE #4) 300-60 mg per tablet Take 1 tablet by mouth every 4 hours as needed for Pain for up to 30 days. Per ortho surgeon gabapentin (NEURONTIN) 100 mg capsule Take 1 capsule by mouth daily at bedtime. Per Tanvi Carreno ondansetron orally disintegrating (ZOFRAN ODT) 4 mg disintegrating tablet 1 tablet in AM and every 6 hours as needed for nausea esomeprazole (NEXIUM) 40 mg capsule Take 1 capsule by mouth once daily. levothyroxine (SYNTHROID) 75 mcg tablet Take 1 tablet by mouth once daily. potassium chloride ER (KLOR-CON M20) 20 mEq tablet Take 20 mEq by mouth twice daily. donepezil (ARICEPT) 10 mg tablet Take 10 mg by mouth daily at bedtime. venlafaxine (EFFEXOR) 75 mg tablet Take 75 mg by mouth once daily. carvedilol (COREG) 3.125 mg tablet Take 3.125 mg by mouth twice daily with meals. pravastatin (PRAVACHOL) 40 mg tablet Take 40 mg by mouth once daily. ergocalciferol, vitamin D2, (VITAMIN D) 50,000 unit capsule Take 50,000 Units by mouth once each week. oxyCODONE immediate release (PERCOLONE) 5 mg immediate release tablet Take 5 mg by mouth every 4 hours as needed. rOPINIRole (REQUIP) 0.5 mg tablet Take 0.5 mg by mouth three times daily. senna (SENOKOT) 8.6 mg tab Take 2 tablets by mouth daily at bedtime. OMEPRAZOLE 20 mg ORAL capsule CALCIUM CARBONATE-VITAMIN D2 500 MG-200 UNIT TAB Take one(1) tablet three times daily. No current facility-administered medications on file prior to visit. Social History Social History Marital status: Spouse name: Years of education: Number of children: Social History Main Topics Smoking status: Never Smoker Smokeless tobacco: Never Used Alcohol use: No Drug use: No Review of Symptoms REVIEW OF SYSTEMS GENERAL: No weight loss, malaise or fevers RESPIRATORY: Negative for cough, hemoptysis, wheezing, COPD, dyspnea or shortness of breath CARDIOVASCULAR: Negative for chest pain, leg swelling, hypertension, CHF or palpitations GI: See HPI SKIN: Negative for lesions, rash, and itching EXAM: BP 94/64 Pulse 76 Resp 12 Wt 43.5 kg (95 lb 12.8 oz) BMI 19.51 kg/m? General Appearance: Well appearing, alert, in no acute distress, well-hydrated, well nourished.. Skin: Skin color, texture, turgor normal, no suspicious rashes or lesions. Lungs: lungs clear to auscultation. No wheezing, rhonchi, rales. Heart: RRR without murmur, gallop, or rubs. No ectopy. Abdomen: Abdomen soft, non-tender. Bowel sounds hypoactive. . No masses, organomegaly. Extremities: No deformities, edema, skin discoloration, clubbing or cyanosis. Good capillary refill. . Health Maintenance List DTAP,TDAP,TD(1 - Tdap) due on 12/14/1962 MAMMOGRAM due on 1983 COLORECTAL CANCER SCREENING,SEE MODIFIER due on 12/14/1993 BONE DENSITY due on 12/14/2008 ADULT PREVNAR-13 due on 12/14/2008 PAP EVERY 3 YEARS (65-80 YEARS OLD) due on 12/14/2008 INFLUENZA(1) due on 10/09/2017 ANNUAL PCP TEAM CHRONIC DISEASE VISIT due on 12/10/2018 LIPID SCREEN due on 01/01/2019 DIABETES SCREEN due on 12/17/2020 PNEUMOVAX AGE 65 AND OVER WITH 5YR LOOKBACK Completed Data reviewed Component Latest Ref Rng AND Units 08/18/2017 08/27/2017 10/07/2017 12/17/2017 WBC 3.70 - 11.00 k/uL 7.69 5.15 8.45 RBC 3.90 - 5.20 m/uL 4.37 4.13 4.25 Hemoglobin 11.5 - 15.5 g/dL 13.5 12.9 13.8 Hematocrit 36.0 - 46.0 % 43.1 40.8 42.4 MCV 80.0 - 100.0 fL 98.6 98.8 99.8 MCH 26.0 - 34.0 pG 30.9 31.2 32.5 MCHC 30.5 - 36.0 g/dL 31.3 31.6 32.5 RDW-CV 11.5 - 15.0 % 18.0 (H) 16.1 (H) 14.2 Platelet Count 150 - 400 k/uL 479 (H) 362 359 MPV 9.0 - 12.7 fL 11.7 11.6 11.3 Neut% % 73.9 60.8 79.7 Abs Neut (ANC) 1.45 - 7.50 k/uL 5.69 3.13 6.74 Lymph% % 17.6 23.3 12.7 Abs Lymph 1.00 - 4.00 k/uL 1.35 1.20 1.07 [place]% % 8.2 15.1 7.2 Abs [place] <0.87 k/uL 0.63 0.78 0.61 Eosin% % 0.0 0.0 0.0 Abs Eosin <0.46 k/uL <0.03 <0.03 <0.03 Baso% % 0.3 0.8 0.4 Abs Baso <0.11 k/uL <0.03 0.04 0.03 Nucleated Reds 0 /100 WBC 0.1 (H) 0.0 0.2 (H) Absolute nRBC <0.01 k/uL 0.01 (H) <0.01 0.02 (H) Diff Type Auto Diff Auto Diff Auto Diff Protein, Total 6.3 - 8.0 g/dL 6.4 6.3 5.9 (L) Albumin 3.9 - 4.9 g/dL 3.5 (L) 3.4 (L) 3.2 (L) Calcium 8.5 - 10.2 mg/dL 8.9 9.4 8.8 Bilirubin, Total 0.2 - 1.3 mg/dL 0.7 0.5 0.5 Alkaline Phosphatase 34 - 123 U/L 337 (H) 254 (H) 105 AST 13 - 35 U/L 34 33 24 Glucose 74 - 99 mg/dL 103 (H) 110 (H) 71 (L) BUN 7 - 21 mg/dL 16 21 7 Creatinine 0.58 - 0.96 mg/dL 0.65 0.54 (L) 0.64 Sodium 136 - 144 mmol/L 140 136 134 (L) Potassium 3.7 - 5.1 mmol/L 4.0 4.4 4.3 Chloride 97 - 105 mmol/L 99 102 99 CO2 22 - 30 mmol/L 22 19 (L) 20 (L) Anion Gap 9 - 18 mmol/L 19 (H) 15 15 ALT 7 - 38 U/L 83 (H) 20 9 eGFR- >60 >60 >60 eGFR-All Other Races . >60 >60 >60 GGT 6 - 46 U/L 42 Occult Blood, Stool Negative Negative PTH, Intact 15 - 65 pg/mL 33 Vitamin D 25 Hydroxy 31.0 - 80.0 ng/mL 62.4 TSH 0.400 - 5.500 uU/mL 5.100 ASSESSMENT/PLAN: 1. Weight loss - ICD9: 783.21, ICD10: R63.4 (primary diagnosis) 2/2 decreased appetite, possibly related to constipation. Discussed use of laxative, 3 meals per day, supplement with boost or ensure high protein. Will recheck in 4 weeks. 2. Severe protein-calorie malnutrition (HCC) - ICD9: 262, ICD10: E43 See #1 3. Decreased appetite - ICD9: 783.0, ICD10: R63.0 See #1 4. Constipation, unspecified constipation type - ICD9: 564.00, ICD10: K59.00 Senna as previously prescribed, push PO fluids, increased fiber. Call if not improving in 1 weeks. 5. Acquired hypothyroidism - ICD9: 244.9, ICD10: E03.9 - Instructed patient on importance of taking on an empty stomach either first thing in the morning or at bedtime. - check TSH in 3 months - Increase Synthroid dose to 0.088 mg 6. Fall in home, subsequent encounter - ICD9: V58.89, E888.9, ICD10: W19.XXXD, Y92.009 Continue recommendations per PT. Use walker or cane as recommended. No recurrent falls since hospitalizations. 7. Closed fracture of neck of left femur with routine healing, subsequent encounter - ICD9: V54.13, ICD10: S72.002D F/u with ortho next month as recommended. 8. Dementia without behavioral disturbance, unspecified dementia type - ICD9: 294.20, ICD10: F03.90 Continue aricept. Sister still comfortable caring for patient. Discussed may need [facility] in the future for 24 hour care. 9. Hyponatremia - ICD9: 276.1, ICD10: E87.1 Unknown etiology. Recheck in 1 week. Regular diet as discussed. - BASIC METABOLIC PNL 10. Vitamin D deficiency - ICD9: 268.9, ICD10: E55.9 Has been on 50,000 units of vitamin D weekly for years. Will discontinue and switch to 2,000 units daily. Sotero Montague MD CNOV Observed: 12/23/2017 Status: COMPLETED Source: [place] 1:20 PM [facility] REPOSITORY Office Visit (FAMPWS) WINSOME MEYERS ([id number]) 1945 F Date Time Provider Department 12/23/17 1:20 PM SOTERO MONTAGUE) FAMPWS During your visit today, we recorded the following information about you: Pulse Respiration Blood pressure Weight 76/minute 12/minute 94/64 43.5 kg Sotero Montague MD 12/23/2017 2:42 PM Signed Chief Complaint Patient presents with: F/U 3 Month HPI Winsome Meyers is a 72 year old female with PMH: fall at home s/p left femoral neck fracture, dementia, hypothyroidism, hyperlipidemia, who presents here today for 3 month follow up. Accompanied today by sister. PT coming out twice weekly and encouraging patient to be up and walking every hour. Using walker, but would like her to transition from the walker to the cane. Sister notes that the patient is asking for her Tylenol #4 every 4 hours, though she doesn't seem to be in much pain. Admits to constipation and has not filled the senna laxative. Last BM yesterday, hard without bleeding. Discussed importance of pushing PO fluids, regular diet and laxative with opiate medications. Has follow up appointment with ortho next month to recheck lose screw with xray. May require repeat surgery if continues to loosen. Patient down 11 lbs in the last 3 months. Sister states that she just hasn't been eating as much and refuses meals occasionally. Denies dysphagia, odynophagia, early satiety, nausea, vomiting. Encouraged to eat meals 3 times per day and may snack in between. May also supplement with Boost or Ensure. Dementia: patient taking Aricept nightly as prescribed without side effects. Denies aggressive behavior, mental status changes recently. Sister still comfortable with patient living with her and feels she is able to adequately care for her. Hypothyroidism: TSH above goal of 1-3, discussed increased dose of synthroid. May help with constipation. Sister concerned about stopping requip and Coreg, discontinued while in [facility]. Has not had RLS symptoms with gabapentin. BP low today, likely 2/2 decreased appetite and poor PO intake. Discussed restarting once BP improves and appetite returns, but with recent falls she is too high risk to restart now. Also holding her potassium for 2 weeks. Normal level on recent blood work. Discussed continuing to hold and will recheck potassium and sodium level in 1 week. Up to date on influenza vaccine, obtained on 11/14 while in [facility]. Past medical history, appointments, medications, allergies reviewed. 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 - Weight loss Previous Surgical History PAST SURGICAL HISTORY Procedure Laterality Date - GASTRIC BYPASS,OBESE<100CM DINAH-EN-Y 2002 done elsewhere - LAPAROSCOPY, SURGICAL; JEJUNOSTOMY 03-28-09 Tanvi Rudolph - PAST SURGICAL HISTORY OF 2000 gastric surgery - PAST SURGICAL HISTORY OF Left shoulder replacement - revision gastrojejunostomy Tanvi Rudolph Family History FAMILY HISTORY Problem Relation Age of Onset - Coronary Artery Disease Mother - Hypertension Mother - Ischemic Heart Disease Mother - GI Father PUD Patient Allergies ALLERGIES Allergen Reactions - Iodoform Nu-Gauze P* Swelling, Anaphylaxis Current Medications Current Outpatient Prescriptions on File Prior to Visit: acetaminophen-codeine (TYLENOL-CODEINE #4) 300-60 mg per tablet Take 1 tablet by mouth every 4 hours as needed for Pain for up to 30 days. Per ortho surgeon gabapentin (NEURONTIN) 100 mg capsule Take 1 capsule by mouth daily at bedtime. Per Tanvi Carreno ondansetron orally disintegrating (ZOFRAN ODT) 4 mg disintegrating tablet 1 tablet in AM and every 6 hours as needed for nausea esomeprazole (NEXIUM) 40 mg capsule Take 1 capsule by mouth once daily. levothyroxine (SYNTHROID) 75 mcg tablet Take 1 tablet by mouth once daily. potassium chloride ER (KLOR-CON M20) 20 mEq tablet Take 20 mEq by mouth twice daily. donepezil (ARICEPT) 10 mg tablet Take 10 mg by mouth daily at bedtime. venlafaxine (EFFEXOR) 75 mg tablet Take 75 mg by mouth once daily. carvedilol (COREG) 3.125 mg tablet Take 3.125 mg by mouth twice daily with meals. pravastatin (PRAVACHOL) 40 mg tablet Take 40 mg by mouth once daily. ergocalciferol, vitamin D2, (VITAMIN D) 50,000 unit capsule Take 50,000 Units by mouth once each week. oxyCODONE immediate release (PERCOLONE) 5 mg immediate release tablet Take 5 mg by mouth every 4 hours as needed. rOPINIRole (REQUIP) 0.5 mg tablet Take 0.5 mg by mouth three times daily. senna (SENOKOT) 8.6 mg tab Take 2 tablets by mouth daily at bedtime. OMEPRAZOLE 20 mg ORAL capsule CALCIUM CARBONATE-VITAMIN D2 500 MG-200 UNIT TAB Take one(1) tablet three times daily. No current facility-administered medications on file prior to visit. Social History Social History Marital status: Spouse name: Years of education: Number of children: Social History Main Topics Smoking status: Never Smoker Smokeless tobacco: Never Used Alcohol use: No Drug use: No Review of Symptoms REVIEW OF SYSTEMS GENERAL: No weight loss, malaise or fevers RESPIRATORY: Negative for cough, hemoptysis, wheezing, COPD, dyspnea or shortness of breath CARDIOVASCULAR: Negative for chest pain, leg swelling, hypertension, CHF or palpitations GI: See HPI SKIN: Negative for lesions, rash, and itching EXAM: BP 94/64 Pulse 76 Resp 12 Wt 43.5 kg (95 lb 12.8 oz) BMI 19.51 kg/m? General Appearance: Well appearing, alert, in no acute distress, well-hydrated, well nourished.. Skin: Skin color, texture, turgor normal, no suspicious rashes or lesions. Lungs: lungs clear to auscultation. No wheezing, rhonchi, rales. Heart: RRR without murmur, gallop, or rubs. No ectopy. Abdomen: Abdomen soft, non-tender. Bowel sounds hypoactive. . No masses, organomegaly. Extremities: No deformities, edema, skin discoloration, clubbing or cyanosis. Good capillary refill. . Health Maintenance List DTAP,TDAP,TD(1 - Tdap) due on 12/14/1962 MAMMOGRAM due on 1983 COLORECTAL CANCER SCREENING,SEE MODIFIER due on 12/14/1993 BONE DENSITY due on 12/14/2008 ADULT PREVNAR-13 due on 12/14/2008 PAP EVERY 3 YEARS (65-80 YEARS OLD) due on 12/14/2008 INFLUENZA(1) due on 10/09/2017 ANNUAL PCP TEAM CHRONIC DISEASE VISIT due on 12/10/2018 LIPID SCREEN due on 01/01/2019 DIABETES SCREEN due on 12/17/2020 PNEUMOVAX AGE 65 AND OVER WITH 5YR LOOKBACK Completed Data reviewed Component Latest Ref Rng AND Units 08/18/2017 08/27/2017 10/07/2017 12/17/2017 WBC 3.70 - 11.00 k/uL 7.69 5.15 8.45 RBC 3.90 - 5.20 m/uL 4.37 4.13 4.25 Hemoglobin 11.5 - 15.5 g/dL 13.5 12.9 13.8 Hematocrit 36.0 - 46.0 % 43.1 40.8 42.4 MCV 80.0 - 100.0 fL 98.6 98.8 99.8 MCH 26.0 - 34.0 pG 30.9 31.2 32.5 MCHC 30.5 - 36.0 g/dL 31.3 31.6 32.5 RDW-CV 11.5 - 15.0 % 18.0 (H) 16.1 (H) 14.2 Platelet Count 150 - 400 k/uL 479 (H) 362 359 MPV 9.0 - 12.7 fL 11.7 11.6 11.3 Neut% % 73.9 60.8 79.7 Abs Neut (ANC) 1.45 - 7.50 k/uL 5.69 3.13 6.74 Lymph% % 17.6 23.3 12.7 Abs Lymph 1.00 - 4.00 k/uL 1.35 1.20 1.07 [place]% % 8.2 15.1 7.2 Abs [place] <0.87 k/uL 0.63 0.78 0.61 Eosin% % 0.0 0.0 0.0 Abs Eosin <0.46 k/uL <0.03 <0.03 <0.03 Baso% % 0.3 0.8 0.4 Abs Baso <0.11 k/uL <0.03 0.04 0.03 Nucleated Reds 0 /100 WBC 0.1 (H) 0.0 0.2 (H) Absolute nRBC <0.01 k/uL 0.01 (H) <0.01 0.02 (H) Diff Type Auto Diff Auto Diff Auto Diff Protein, Total 6.3 - 8.0 g/dL 6.4 6.3 5.9 (L) Albumin 3.9 - 4.9 g/dL 3.5 (L) 3.4 (L) 3.2 (L) Calcium 8.5 - 10.2 mg/dL 8.9 9.4 8.8 Bilirubin, Total 0.2 - 1.3 mg/dL 0.7 0.5 0.5 Alkaline Phosphatase 34 - 123 U/L 337 (H) 254 (H) 105 AST 13 - 35 U/L 34 33 24 Glucose 74 - 99 mg/dL 103 (H) 110 (H) 71 (L) BUN 7 - 21 mg/dL 16 21 7 Creatinine 0.58 - 0.96 mg/dL 0.65 0.54 (L) 0.64 Sodium 136 - 144 mmol/L 140 136 134 (L) Potassium 3.7 - 5.1 mmol/L 4.0 4.4 4.3 Chloride 97 - 105 mmol/L 99 102 99 CO2 22 - 30 mmol/L 22 19 (L) 20 (L) Anion Gap 9 - 18 mmol/L 19 (H) 15 15 ALT 7 - 38 U/L 83 (H) 20 9 eGFR- >60 >60 >60 eGFR-All Other Races . >60 >60 >60 GGT 6 - 46 U/L 42 Occult Blood, Stool Negative Negative PTH, Intact 15 - 65 pg/mL 33 Vitamin D 25 Hydroxy 31.0 - 80.0 ng/mL 62.4 TSH 0.400 - 5.500 uU/mL 5.100 ASSESSMENT/PLAN: 1. Weight loss - ICD9: 783.21, ICD10: R63.4 (primary diagnosis) 2/2 decreased appetite, possibly related to constipation. Discussed use of laxative, 3 meals per day, supplement with boost or ensure high protein. Will recheck in 4 weeks. 2. Severe protein-calorie malnutrition (HCC) - ICD9: 262, ICD10: E43 See #1 3. Decreased appetite - ICD9: 783.0, ICD10: R63.0 See #1 4. Constipation, unspecified constipation type - ICD9: 564.00, ICD10: K59.00 Senna as previously prescribed, push PO fluids, increased fiber. Call if not improving in 1 weeks. 5. Acquired hypothyroidism - ICD9: 244.9, ICD10: E03.9 - Instructed patient on importance of taking on an empty stomach either first thing in the morning or at bedtime. - check TSH in 3 months - Increase Synthroid dose to 0.088 mg 6. Fall in home, subsequent encounter - ICD9: V58.89, E888.9, ICD10: W19.XXXD, Y92.009 Continue recommendations per PT. Use walker or cane as recommended. No recurrent falls since hospitalizations. 7. Closed fracture of neck of left femur with routine healing, subsequent encounter - ICD9: V54.13, ICD10: S72.002D F/u with ortho next month as recommended. 8. Dementia without behavioral disturbance, unspecified dementia type - ICD9: 294.20, ICD10: F03.90 Continue aricept. Sister still comfortable caring for patient. Discussed may need mcc in the future for 24 hour care. 9. Hyponatremia - ICD9: 276.1, ICD10: E87.1 Unknown etiology. Recheck in 1 week. Regular diet as discussed. - BASIC METABOLIC PNL 10. Vitamin D deficiency - ICD9: 268.9, ICD10: E55.9 Has been on 50,000 units of vitamin D weekly for years. Will discontinue and switch to 2,000 units daily. Sotero Montague MD Referring Provider: SOTERO MONTAGUE () [[id number]] Allergies As of Date: 12/23/2017 Noted Allergy Reaction iodoform nu-gauze packing [Other] 11/09/2005 7 - Swelling 10 - Anaphylaxis Date Reviewed: 12/23/2017 Reviewed by: Jesse Winston Ma - Fully Assessed Reason for Visit: F/U 3 Month [443] Primary Visit Diagnosis:Weight loss [R63.4] Other Visit Diagnoses:Severe protein-calorie malnutrition (HCC) [E43] Decreased appetite [R63.0] Constipation, unspecified constipation type [K59.00] Acquired hypothyroidism [E03.9] Fall in home, subsequent encounter [W19.XXXD, Y92.009] Closed fracture of neck of left femur with routine healing, subsequent encounter [S72.002D] Dementia without behavioral disturbance, unspecified dementia type [F03.90] Hyponatremia [E87.1] Vitamin D deficiency [E55.9] Order(s):levothyroxine (SYNTHROID) 88 mcg tabletTake 1 tablet by mouth once daily.Disp: 30 tabletRfl: 5 Cholecalciferol, Vitamin D3, 1,000 unit capTake 2 capsules by mouth once daily.Disp: 60 capsuleRfl: 5 BASIC METABOLIC PNL [SQBMP] Order #: [id number] FUTURE TSH BLD [SQTSH] Order #: [id number] FUTURE Prescriptions as of 12/23/2017 Sig: LEVOTHYROXINE 88 MCG TABLET Take 1 tablet by mouth once d* GABAPENTIN 100 MG CAPSULE Take 1 capsule by mouth daily* ONDANSETRON 4 MG DISINTEGRATI* 1 tablet in AM and every 6 ho* DONEPEZIL 10 MG TABLET Take 10 mg by mouth daily at * VENLAFAXINE 75 MG TABLET Take 75 mg by mouth once shelbie* PRAVASTATIN 40 MG TABLET Take 40 mg by mouth once shelbie* SENNOSIDES 8.6 MG TABLET Take 2 tablets by mouth daily* * OMEPRAZOLE 20 MG CAPSULE,BOAZ* * CALCIUM CARB-ERGOCALCIFEROL (* Take one(1) tablet three time* CHOLECALCIFEROL (VITAMIN D3) * Take 2 capsules by mouth once* ACETAMINOPHEN 300 MG-CODEINE * Take 1 tablet by mouth every * Patient not taking: Reported on 12/23/2017 ESOMEPRAZOLE MAGNESIUM 40 MG * Take 1 capsule by mouth once * Patient not taking: Reported on 12/23/2017 POTASSIUM CHLORIDE ER 20 MEQ * Take 20 mEq by mouth twice da* CARVEDILOL 3.125 MG TABLET Take 3.125 mg by mouth twice * Problem List As Of Date 12/23/2017 Noted Resolved MORBID OBESITY [E66.01] INVALID FOR* 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] INVALID FOR* CHRONIC DEPRESSIVE PERSON [F34.1] INVALID FOR* INSOMNIA NOS [G47.00] INVALID FOR* MIXED HYPERLIPIDEMIA [E78.2] INVALID FOR* Hypothyroidism [E03.9] INVALID FOR* ESOPHAGEAL REFLUX [K21.9] INVALID FOR* OSTEOPOROSIS NOS [M81.0] INVALID FOR* PARTIAL EPILEPSY NEC NOT INTRACT [G40.109] INVALID FOR* Preop Exam for Internal Medicine [Z01.818] Seizures [R56.9] Hypothyroid [E03.9] Severe protein-calorie malnutrition (HCC) [E43] Weight Loss [R63.4] Gastric Bypass Status for Obesity [Z98.84] Marginal Ulcer [K28.9] Dysphagia [R13.10] INVALID FOR* Depression [F32.9] Dementia [F03.90] CAD (coronary artery disease) [I25.10] More... Prescriptions ordered this encounter Disp Refills Start End LEVOTHYROXINE 88 MCG TABLET 30 t* 5 12/23/2017 Route: ORAL Sig: Take 1 tablet by mouth once daily. CHOLECALCIFEROL (VITAMIN D3) 1,000 U* 60 c* 5 12/23/2017 Route: ORAL Sig: Take 2 capsules by mouth once daily. Medications Discontinued During This Encounter oxyCODONE immediate release (PERCOLO* 12/23/2017 Class: Historical Med Route: ORAL Sig: Take 5 mg by mouth every 4 hours as needed. Disc: Reason for discontinue is not on file. rOPINIRole (REQUIP) 0.5 mg tablet 12/23/2017 Class: Historical Med Route: ORAL Sig: Take 0.5 mg by mouth three times daily. Disc: Reason for discontinue is not on file. ergocalciferol, vitamin D2, (VITAMIN* 12/23/2017 Class: Historical Med Route: ORAL Sig: Take 50,000 Units by mouth once each week. Disc: Reason for discontinue is not on file. levothyroxine (SYNTHROID) 75 mcg tab* 09/16/2017 12/23/2017 Class: Med Update Route: ORAL Sig: Take 1 tablet by mouth once daily. Disc: Reason for discontinue is not on file. Disposition: Return in about 4 weeks (around 01/20/2018). Follow-up and Disposition History Recorded Encounter Status:Closed by SOTERO MONTAGUE MD on 12/23/17 CNPTOUTREACH Observed: 12/23/2017 Status: COMPLETED Source: [place] 12:00 AM [facility] REPOSITORY Patient Outreach (FAMPWS) WINSOME MEYERS ([id number]) 1945 F Date Time Provider Department 12/23/17 OKSANA CULVER) FAMPWS During your visit today, we recorded the following information about you: Oksana Culver RN 12/24/2017 4:19 PM Signed PRIMARY CARE COORDINATION IN OFFICE VISIT WITH PCP Patient has been identified by name and date of . PCP Assessment/Plan: Reviewed PCP plan with patient using Teach Back Discussed different non-dairy foods/drinks to help with weight gain. Also discussed giving Senna 2 tabs daily as ordered, verbalized understanding and agreement PCC Plan of Care: Patient goals: CG will look for non-dairy Ensure and will give Senna daily as ordered. Next Office Visit: 01/20/2018 Plan For Next Call: One week Oksana Culver RN December 24, 2017 Allergies As of Date: 12/23/2017 Noted Allergy Reaction iodoform nu-gauze packing [Other] 11/09/2005 7 - Swelling 10 - Anaphylaxis Date Reviewed: 12/23/2017 Reviewed by: Jesse Winston Ma - Fully Assessed Reason for Visit: Lap Maker-In Office Visit [8595] Prescriptions as of 12/23/2017 Sig: LEVOTHYROXINE 88 MCG TABLET Take 1 tablet by mouth once d* CHOLECALCIFEROL (VITAMIN D3) * Take 2 capsules by mouth once* ACETAMINOPHEN 300 MG-CODEINE * Take 1 tablet by mouth every * Patient not taking: Reported on 12/23/2017 GABAPENTIN 100 MG CAPSULE Take 1 capsule by mouth daily* ONDANSETRON 4 MG DISINTEGRATI* 1 tablet in AM and every 6 ho* ESOMEPRAZOLE MAGNESIUM 40 MG * Take 1 capsule by mouth once * Patient not taking: Reported on 12/23/2017 POTASSIUM CHLORIDE ER 20 MEQ * Take 20 mEq by mouth twice da* DONEPEZIL 10 MG TABLET Take 10 mg by mouth daily at * VENLAFAXINE 75 MG TABLET Take 75 mg by mouth once shelbie* CARVEDILOL 3.125 MG TABLET Take 3.125 mg by mouth twice * PRAVASTATIN 40 MG TABLET Take 40 mg by mouth once shelbie* SENNOSIDES 8.6 MG TABLET Take 2 tablets by mouth daily* * OMEPRAZOLE 20 MG CAPSULE,BOAZ* * CALCIUM CARB-ERGOCALCIFEROL (* Take one(1) tablet three time* Problem List As Of Date 12/23/2017 Noted Resolved MORBID OBESITY [E66.01] INVALID FOR* 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] INVALID FOR* CHRONIC DEPRESSIVE PERSON [F34.1] INVALID FOR* INSOMNIA NOS [G47.00] INVALID FOR* MIXED HYPERLIPIDEMIA [E78.2] INVALID FOR* Hypothyroidism [E03.9] INVALID FOR* ESOPHAGEAL REFLUX [K21.9] INVALID FOR* OSTEOPOROSIS NOS [M81.0] INVALID FOR* PARTIAL EPILEPSY NEC NOT INTRACT [G40.109] INVALID FOR* Preop Exam for Internal Medicine [Z01.818] Seizures [R56.9] Hypothyroid [E03.9] Severe protein-calorie malnutrition (HCC) [E43] Weight Loss [R63.4] Gastric Bypass Status for Obesity [Z98.84] Marginal Ulcer [K28.9] Dysphagia [R13.10] INVALID FOR* Depression [F32.9] Dementia [F03.90] CAD (coronary artery disease) [I25.10] More... Encounter Status:Closed by OKSANA CULVER on 11/16/18 CBC AND DIFFERENTIAL Collected: 12/17/2017 Status: F Source: [place] 3:39 PM [facility] REPOSITORY TYPE CODE TESTS RESULT OUT OF REFERENCE UNITS RANGE LAB WBC 3.70-11.00 k/uL WBC 8.45 LAB RBC 3.90-5.20 m/uL RBC 4.25 LAB HGB 11.5-15.5 g/dL Hemoglobin 13.8 LAB HCT 36.0-46.0 % Hematocrit 42.4 LAB MCV 80.0-100.0 fL MCV 99.8 LAB MCH 26.0-34.0 pG MCH 32.5 LAB MCHC 30.5-36.0 g/dL MCHC 32.5 LAB RDWCV 11.5-15.0 % RDW-CV 14.2 LAB PLTCT 150-400 k/uL Platelet Count 359 LAB MPV 9.0-12.7 fL MPV 11.3 LAB ANEUT % Neut% 79.7 LAB AANEUT 1.45-7.50 k/uL Abs Neut 6.74 LAB ALYMP % Lymph% 12.7 LAB AALYMP 1.00-4.00 k/uL Abs Lymph 1.07 LAB AMONO % [place]% 7.2 LAB AAMONO <0.87 k/uL Abs [place] 0.61 LAB AEOS % Eosin% 0.0 LAB AAEOS <0.46 k/uL Abs Eosin <0.03 LAB ABASO % Baso% 0.4 LAB AABASO <0.11 k/uL Abs Baso 0.03 LAB AUNRBC 0 /100 WBC NRBCs High 0.2 LAB ABNRBC <0.01 k/uL Absolute High nRBC 0.02 LAB DTYP DTYPE Auto Diff Performed By: #### CBCDIF, CMP, PTHI, VITD #### [facility] [address] [place] [id number] COMP METABOLIC PANEL Collected: 12/17/2017 Status: F Source: [place] 3:39 PM [facility] REPOSITORY TYPE CODE TESTS RESULT OUT OF REFERENCE UNITS RANGE LAB TP 6.3-8.0 g/dL Low Protein, Total 5.9 LAB ALB 3.9-4.9 g/dL Low Albumin 3.2 LAB CA 8.5-10.2 mg/dL Calcium, Total 8.8 LAB TBIL 0.2-1.3 mg/dL Bilirubin, Total 0.5 LAB ALKP 34-123 U/L Alkaline Phosphatase 105 LAB AST 13-35 U/L AST 24 LAB GLU 74-99 mg/dL Low Glucose 71 Result Comment: The [place] [employer] (ADA) provides guidance for cutoff values for fasting glucose and random glucose. The ADA defines fasting as no caloric intake for at least 8 hours. Fas ting plasma glucose results between 100 to 125 mg/dL indicate increased risk for diabetes (prediabetes). Fasting plasma glucose results greater than or equal to 126 mg/dL meet the criteria for diagnosis of diabetes. In the absence of unequivocal hyperglycemia, results should be confirmed by repeat testing. In a patient with classic symptoms of hyperglycemia or hyperglycemic crisis, random plasma glucose results greater than or equal to 200 mg/dL meet the criteria for diagnosis of diabetes. Reference: Standards of Medical Care in Diabetes 2016, [place] [employer]. Diabetes Care. 2016.39(Suppl 1). LAB BUN 7-21 mg/dL BUN 7 LAB CRET 0.58-0.96 mg/dL Creatinine 0.64 LAB NA 136-144 mmol/L Sodium Low 134 LAB K 3.7-5.1 mmol/L Potassium 4.3 LAB CL 97-105 mmol/L Chloride 99 LAB CO2 22-30 mmol/L CO2 Low 20 LAB AGAP 9-18 mmol/L Anion Gap 15 LAB ALT 7-38 U/L ALT 9 LAB GFRAA eGFR- Amer. >60 LAB GFRNAA . eGFR-All Other Races >60 Result Comment: eGFR (Estimated GFR) Units of measure: mL/min/1.73 meters squared eGFR is derived from the reexpressed MDRD Study equation using the following parameters: serum creatinine, age, gender and race. The creatinine assay has been calibrated to be traceable to IDMS. An eGFR <60 mL/min/1.73m2 for >3 months is consistent with chronic kidney disease. Refer to KDOQI guidelines for clinical interpretation. In patients with unstable renal function, e.g. those with acute kidney injury, the eGFR may not accurately reflect actual GFR. Performed By: #### CBCDIF, CMP, PTHI, VITD #### [facility] [address] [place] [address] PTH, INTACT Collected: 12/17/2017 Status: F Source: [place] 3:39 PM [facility] REPOSITORY TYPE CODE TESTS RESULT OUT OF REFERENCE UNITS RANGE LAB PTH 15-65 pg/mL PTH, Intact 33 Performed By: #### CBCDIF, CMP, PTHI, VITD #### [place] [address] VITAMIN D 25 HYDROXY Collected: 12/17/2017 Status: F Source: [place] 3:39 PM [facility] REPOSITORY TYPE CODE TESTS RESULT OUT OF REFERENCE UNITS RANGE LAB VITD 31.0-80.0 ng/mL Vitamin D 25 62.4 Hydroxy Result Comment: Classification of 25 OH Vitamin D status: Insufficiency/Moderate Deficiency: < or = 30 ng/mL Sufficiency/Optimal Levels: 31 to 80 ng/mL Toxicity: > 100 ng/mL Test performed by chemiluminescent immunoassay. Performed By: #### CBCDIF, CMP, PTHI, VITD #### [place] [address] TSH Collected: 12/17/2017 Status: F Source: [place] 3:39 PM [facility] REPOSITORY TYPE CODE TESTS RESULT OUT OF RANGE REFERENCE UNITS LAB TSH 0.400-5.500 uU/mL TSH 5.100 Performed By: #### TSH #### [place] [address] PROGRESS Observed: 12/16/2017 Status: COMPLETED Source: [place] 12:27 PM [facility] REPOSITORY HNO ID: [id number] Author: Lily Linda Service: (none) Author Type: Nurse Practitioner Type: Progress Notes Filed: 12/16/2017 12:33 PM Note Text: Orders filed. Lily Linda APRN.CNP PROGRESS Observed: 12/16/2017 Status: COMPLETED Source: [place] 11:51 AM [facility] REPOSITORY HNO ID: [id number] Author: Oksana CeeRn) Abiola Service: (none) Author Type: Registered Nurse Type: Progress Notes Filed: 12/16/2017 11:58 AM Note Text: PRIMARY CARE COORDINATION FOLLOW-UP NOTE Provider Action/FYI PLEASE FILE MEDICATION UPDATES Pain meds changed to Tylenol #4, instructed sister to get Senna and give 2 tablets daily since codeine can cause constipation RE-INSTRUCTED SISTER TO HOLD PT'S KLOR UNTIL LAB RESULTS COME BACK-noted patient has been taking Klor and has been taking it Appt with PCP on 12/23 Patient identified by name and date of . YES Spoke to Annette winter Summary: Pt has HH PT, sister states she is ambulating with walker and standby assist. Occasionally a little unsteady. Paint Brush Maker plan for next outreach: Will follow up one week at PCP appt Signature Oksana Culver RN December 16, 2017 PROGRESS Observed: 12/16/2017 Status: COMPLETED Source: [place] 11:[address] [facility] REPOSITORY HNO ID: [id number] Author: Oksana (Blayne) Abiola Service: (none) Author Type: Registered Nurse Type: Progress Notes Filed: 12/16/2017 11:44 AM Note Text: PRIMARY CARE COORDINATION INTAKE Provider Action/FYI: Patient staying with sister until she is able to go back to [facility]. Sister states she has a screw in her hip that has loosened so she may have to have surgery revision. May need THR Patient identified for Primary Care Coordination from: PCP Referral Active Goals - Current status as of 12/16/2017 at 11:43 AM None Health Maintenance Topics with due status: Overdue Topic Date Due DTAP,TDAP,TD 12/14/1962 MAMMOGRAM 1983 COLORECTAL CANCER SCREENING,SEE MODIFIER 12/14/1993 BONE DENSITY 12/14/2008 ADULT PREVNAR-13 12/14/2008 PAP EVERY 3 YEARS (65-80 YEARS OLD) 12/14/2008 INFLUENZA 10/09/2017 Care Coordination: General Care Coordination (since 09/17/2017) Patient has been identified by name and date of Y Determined High Risk due to High Risk chronic condition; Unplanned Hospitalization in the last 6 months; Polypharmacy ( > 7meds); High Risk medications (anticoagulants, insulin, narcotics, ect.); Physical limitations; Positive depression screening Chronic High Risk conditions Hyperlipidemia; Depression; Other (Enter Comment) (Seizures, Guzman's esophagus, Hypothyroid, Gastric Bipass) Assessment completed with Family Living arrangement Family members (Staying with sister until pt returns to [facility]) Support system Family What is the health status of your caregiver? Excellent Are there others that you care for? No Type of residence Private residence Home care services Yes Home care services PT/OT Have you had a safety assessment of your home? Yes Equipment used at home Walker; Wheelchair; Tub seat Do you have any assistive devices to help you communicate? Yes (Enter Comment) Communication Barriers Hearing impairment Have you been in any hospital and/or ED outside the [facility] in the Past 6 months? Yes (Enter Comment) I am convinced of the importance of my prescription medication Agree completely I worry that my prescription medication will do more harm than good to me Disagree completely I feel financially burdened by my out of pocket expenses for my prescription medication Disagree mostly Patient is categorized as Low Risk Experiencing side effects from current medications No Difficulty keeping appointments No Family aware of the patient's advance care planning wishes Yes Scientology or spiritual beliefs that impact treatment No Chronic pain No Advance Directives discussion was initiated with the pt. The following actions were taken HCPOA completed and scanned Social Determinants: Education (since 09/17/2017) Who is providing Assessment Info? Caregiver What is the highest level of school you have completed? 9th grade Health Literacy (since 09/17/2017) How often do you need to have someone help you when you read instructions, pamphlets, or other written material from your doctor or pharmacy? 3 How confident are you filling out medical forms by yourself? 3 How best do you like to receive information? Verbal Resource Strain (since 09/17/2017) In the last 12 months, did you ever eat less than you felt you should because there wasn?t enough money for food? No In the last 12 months, has your utility company shut off your service for not paying bills? No Are you worried that in the next 2 months, you may not have stable housing? No Do problems getting child, senior, or adult care make it difficult for you to work or study? No In the last 12 months, have you needed to see a doctor but could not because of cost? No Are you afraid you might be hurt in your apartment building or house? No If you answered ?yes? to any of the previous six questions, would you like to receive assistance with any of these needs? No Are any of your needs urgent? No Depression (since 09/17/2017) Over the past 2 weeks, how often have you felt little interest or pleasure in doing things? Not at all Over the past 2 weeks, how often have you felt down, depressed, or hopeless? Several days Diet (since 09/17/2017) Diet: Regular Physical Activity (since 09/17/2017) Physical Activity Unable to exercise Tobacco Use (since 09/17/2017) Tobacco Outreach Does not Use Tobacco Alcohol Use (since 09/17/2017) How often do you have a drink containing alcohol? Never Social Connection and Isolation (since 09/17/2017) Are you now , , , , never or living with a partner? In a typical week, how many times do you talk on the telephone with family, friends, or neighbors? 1 time per week (Occasionally) How often do you get together with friends or relatives? 2 times per week How often do you attend meeting for clubs, brook-based organizations, or other social groups? Never Intimate Partner Violence (since 09/17/2017) Has there ever been a time that you had safety concerns? No Stress (since 09/17/2017) Do you feel stress - tense, restless, nervous, or anxious, or unable to sleep at night because your mind is troubled all the time - these days? Not at all Food Insecurity (since 09/17/2017) Within the past 12 months, you worried that your food would run out before you got money to buy more. Never true Within the past 12 months, the food you bought just didn't last and you didn't have money to get more. Never true Transportation Needs (since 09/17/2017) In the past 12 months, has lack of transportation kept you from medical appointments or from getting medications? No In the past 12 months, has lack of transportation kept you from meetings, work, or getting things needed for daily living? No Transportation means: Regular Car Activities of Daily Living: Patients can perform the following activities without help: (since 09/17/2017) Dressing Yes Bathing No (with sister assist) Doing laundry No Climbing a flight of stairs No Walking briskly No Instrumental activities of daily living (since 09/17/2017) Do you drive a car? No Do you need help from others to take care of things inside the house, for example: laundry, house cleaning, preparing meals? Yes Did you have the help you needed? Yes Do you need help from others with errands outside the house, for example: shopping for groceries or clothes, going medical appointments? Yes Did you have the help you needed? Yes Fall Risk: Fall Risk (since 09/17/2017) One or more falls in the last year: Yes Any near falls in the last year? Yes Advised to use a cane or walker to get around safely: Yes Feels unsteady when walking: Yes Steadies self on furniture while walking at home: No (using walker) Worried about falling: Yes Needs to push with hands when rising from a chair: Yes Has trouble stepping up onto a curb: Yes Often has to zuluaga to the toilet: No Has lost some feeling in feet: No Takes medicine that makes him/her feel lightheaded or more tired than usual: Yes Takes medicine to sleep or improve mood: Yes Fall risk factors: Depression; Cognitive impairment; Psychoactive medications/medications with anticholinergic effects Oksana Culver RN CNPTOUTREACH Observed: 12/16/2017 Status: COMPLETED Source: [place] 12:00 AM [facility] Patient Outreach (FAMPWS) WINSOME MEYERS ([id number]) 1945 F Date Time Provider Department 12/16/17 OKSANA CULVER (BLAYNE) FAMPWS During your visit today, we recorded the following information about you: Oksana Culver RN 12/16/2017 11:44 AM Signed PRIMARY CARE COORDINATION INTAKE Provider Action/FYI: Patient staying with sister until she is able to go back to [facility]. Sister states she has a screw in her hip that has loosened so she may have to have surgery revision. May need THR Patient identified for Primary Care Coordination from: PCP Referral Active Goals - Current status as of 12/16/2017 at 11:43 AM None Health Maintenance Topics with due status: Overdue Topic Date Due DTAP,TDAP,TD 12/14/1962 MAMMOGRAM 1983 COLORECTAL CANCER SCREENING,SEE MODIFIER 12/14/1993 BONE DENSITY 12/14/2008 ADULT PREVNAR-13 12/14/2008 PAP EVERY 3 YEARS (65-80 YEARS OLD) 12/14/2008 INFLUENZA 10/09/2017 Care Coordination: General Care Coordination (since 09/17/2017) Patient has been identified by name and date of Y Determined High Risk due to High Risk chronic condition; Unplanned Hospitalization in the last 6 months; Polypharmacy ( > 7meds); High Risk medications (anticoagulants, insulin, narcotics, ect.); Physical limitations; Positive depression screening Chronic High Risk conditions Hyperlipidemia; Depression; Other (Enter Comment) (Seizures, Guzman's esophagus, Hypothyroid, Gastric Bipass) Assessment completed with Family Living arrangement Family members (Staying with sister until pt returns to [facility]) Support system Family What is the health status of your caregiver? Excellent Are there others that you care for? No Type of residence Private residence Home care services Yes Home care services PT/OT Have you had a safety assessment of your home? Yes Equipment used at home Walker; Wheelchair; Tub seat Do you have any assistive devices to help you communicate? Yes (Enter Comment) Communication Barriers Hearing impairment Have you been in any hospital and/or ED outside the [facility] in the Past 6 months? Yes (Enter Comment) I am convinced of the importance of my prescription medication Agree completely I worry that my prescription medication will do more harm than good to me Disagree completely I feel financially burdened by my out of pocket expenses for my prescription medication Disagree mostly Patient is categorized as Low Risk Experiencing side effects from current medications No Difficulty keeping appointments No Family aware of the patient's advance care planning wishes Yes Scientology or spiritual beliefs that impact treatment No Chronic pain No Advance Directives discussion was initiated with the pt. The following actions were taken HCPOA completed and scanned Social Determinants: Education (since 09/17/2017) Who is providing Assessment Info? Caregiver What is the highest level of school you have completed? 9th grade Health Literacy (since 09/17/2017) How often do you need to have someone help you when you read instructions, pamphlets, or other written material from your doctor or pharmacy? 3 How confident are you filling out medical forms by yourself? 3 How best do you like to receive information? Verbal Resource Strain (since 09/17/2017) In the last 12 months, did you ever eat less than you felt you should because there wasn?t enough money for food? No In the last 12 months, has your [employer] company shut off your service for not paying bills? No Are you worried that in the next 2 months, you may not have stable housing? No Do problems getting child, senior, or adult care make it difficult for you to work or study? No In the last 12 months, have you needed to see a doctor but could not because of cost? No Are you afraid you might be hurt in your apartment building or house? No If you answered ?yes? to any of the previous six questions, would you like to receive assistance with any of these needs? No Are any of your needs urgent? No Depression (since 09/17/2017) Over the past 2 weeks, how often have you felt little interest or pleasure in doing things? Not at all Over the past 2 weeks, how often have you felt down, depressed, or hopeless? Several days Diet (since 09/17/2017) Diet: Regular Physical Activity (since 09/17/2017) Physical Activity Unable to exercise Tobacco Use (since 09/17/2017) Tobacco Outreach Does not Use Tobacco Alcohol Use (since 09/17/2017) How often do you have a drink containing alcohol? Never Social Connection and Isolation (since 09/17/2017) Are you now , , , , never or living with a partner? In a typical week, how many times do you talk on the telephone with family, friends, or neighbors? 1 time per week (Occasionally) How often do you get together with friends or relatives? 2 times per week How often do you attend meeting for clubs, brook-based organizations, or other social groups? Never Intimate Partner Violence (since 09/17/2017) Has there ever been a time that you had safety concerns? No Stress (since 09/17/2017) Do you feel stress - tense, restless, nervous, or anxious, or unable to sleep at night because your mind is troubled all the time - these days? Not at all Food Insecurity (since 09/17/2017) Within the past 12 months, you worried that your food would run out before you got money to buy more. Never true Within the past 12 months, the food you bought just didn't last and you didn't have money to get more. Never true Transportation Needs (since 09/17/2017) In the past 12 months, has lack of transportation kept you from medical appointments or from getting medications? No In the past 12 months, has lack of transportation kept you from meetings, work, or getting things needed for daily living? No Transportation means: Regular Car Activities of Daily Living: Patients can perform the following activities without help: (since 09/17/2017) Dressing Yes Bathing No (with sister assist) Doing laundry No Climbing a flight of stairs No Walking briskly No Instrumental activities of daily living (since 09/17/2017) Do you drive a car? No Do you need help from others to take care of things inside the house, for example: laundry, house cleaning, preparing meals? Yes Did you have the help you needed? Yes Do you need help from others with errands outside the house, for example: shopping for groceries or clothes, going medical appointments? Yes Did you have the help you needed? Yes Fall Risk: Fall Risk (since 09/17/2017) One or more falls in the last year: Yes Any near falls in the last year? Yes Advised to use a cane or walker to get around safely: Yes Feels unsteady when walking: Yes Steadies self on furniture while walking at home: No (using walker) Worried about falling: Yes Needs to push with hands when rising from a chair: Yes Has trouble stepping up onto a curb: Yes Often has to zuluaga to the toilet: No Has lost some feeling in feet: No Takes medicine that makes him/her feel lightheaded or more tired than usual: Yes Takes medicine to sleep or improve mood: Yes Fall risk factors: Depression; Cognitive impairment; Psychoactive medications/medications with anticholinergic effects Oksana Culver, RN Oksana Culver RN 12/16/2017 11:58 AM Signed PRIMARY CARE COORDINATION FOLLOW-UP NOTE Provider Action/FYI PLEASE FILE MEDICATION UPDATES Pain meds changed to Tylenol #4, instructed sister to get Senna and give 2 tablets daily since codeine can cause constipation RE-INSTRUCTED SISTER TO HOLD PT'S KLOR UNTIL LAB RESULTS COME BACK-noted patient has been taking Klor and has been taking it Appt with PCP on 12/23 Patient identified by name and date of . YES Spoke to Annette winter Summary: Pt has HH PT, sister states she is ambulating with walker and standby assist. Occasionally a little unsteady. Paint Brush Maker plan for next outreach: Will follow up one week at PCP appt Signature Oksana Culver RN December 16, 2017 Lily Linda APRN.EVAN 12/16/2017 12:33 PM Signed Orders filed. Lily Linda APRN.EVAN Allergies As of Date: 12/16/2017 Noted Allergy Reaction iodoform nu-gauze packing [Other] 11/09/2005 7 - Swelling 10 - Anaphylaxis Date Reviewed: 12/10/2017 Reviewed by: Verna Purdy) RUPALI Garcia - Fully Assessed Reason for Visit: Lap Maker Chronic Care [3612] Primary Visit Diagnosis:Closed fracture of head of left femur, sequela [S72.052S] Order(s):acetaminophen-codeine (TYLENOL-CODEINE #4) 300-60 mg per tabletTake 1 tablet by mouth every 4 hours as needed for Pain for up to 30 days. Per ortho surgeonDisp: Rfl: gabapentin (NEURONTIN) 100 mg capsuleTake 1 capsule by mouth daily at bedtime. Per P NielsonDisp: Rfl: ondansetron orally disintegrating (ZOFRAN ODT) 4 mg disintegrating tablet1 tablet in AM and every 6 hours as needed for nauseaDisp: Rfl: esomeprazole (NEXIUM) 40 mg capsuleTake 1 capsule by mouth once daily.Disp: Rfl: Prescriptions as of 12/16/2017 Sig: LEVOTHYROXINE 75 MCG TABLET Take 1 tablet by mouth once d* POTASSIUM CHLORIDE ER 20 MEQ * Take 20 mEq by mouth twice da* DONEPEZIL 10 MG TABLET Take 10 mg by mouth daily at * VENLAFAXINE 75 MG TABLET Take 75 mg by mouth once shelbie* PRAVASTATIN 40 MG TABLET Take 40 mg by mouth once shelbie* ERGOCALCIFEROL (VITAMIN D2) 5* Take 50,000 Units by mouth on* ACETAMINOPHEN 300 MG-CODEINE * Take 1 tablet by mouth every * GABAPENTIN 100 MG CAPSULE Take 1 capsule by mouth daily* ONDANSETRON 4 MG DISINTEGRATI* 1 tablet in AM and every 6 ho* ESOMEPRAZOLE MAGNESIUM 40 MG * Take 1 capsule by mouth once * CARVEDILOL 3.125 MG TABLET Take 3.125 mg by mouth twice * OXYCODONE 5 MG TABLET,ORAL ON* Take 5 mg by mouth every 4 ho* ROPINIROLE 0.5 MG TABLET Take 0.5 mg by mouth three ti* SENNOSIDES 8.6 MG TABLET Take 2 tablets by mouth daily* * OMEPRAZOLE 20 MG CAPSULE,BOAZ* * CALCIUM CARB-ERGOCALCIFEROL (* Take one(1) tablet three time* Medication notes this encounter GABAPENTIN 100 MG CAPSULE >> Oksana Culver RN 12/16/2017 11:46 AM >> OKSANA CULVER Dec 16, 2017 11:46 AM Dosage change OMEPRAZOLE 20 MG CAPSULE,DELAYED RELEASE >> Oksana Culver RN 12/16/2017 11:25 AM >> OKSANA CULVER Dec 16, 2017 11:25 AM Medication change Problem List As Of Date 12/16/2017 Noted Resolved MORBID OBESITY [E66.01] INVALID FOR* 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] INVALID FOR* CHRONIC DEPRESSIVE PERSON [F34.1] INVALID FOR* INSOMNIA NOS [G47.00] INVALID FOR* MIXED HYPERLIPIDEMIA [E78.2] INVALID FOR* HYPOTHYROIDISM NOS [E03.9] INVALID FOR* ESOPHAGEAL REFLUX [K21.9] INVALID FOR* OSTEOPOROSIS NOS [M81.0] INVALID FOR* PARTIAL EPILEPSY NEC NOT INTRACT [G40.109] INVALID FOR* Preop Exam for Internal Medicine [Z01.818] Seizures [R56.9] Hypothyroid [E03.9] Severe protein-calorie malnutrition (HCC) [E43] Weight Loss [R63.4] Gastric Bypass Status for Obesity [Z98.84] Marginal Ulcer [K28.9] Dysphagia [R13.10] INVALID FOR* Prescriptions ordered this encounter Disp Refills Start End ACETAMINOPHEN 300 MG-CODEINE 60 MG T* 12/16/2017 01/15/2018 Class: Med Update Route: ORAL Sig: Take 1 tablet by mouth every 4 hours as needed for Pain for up to 30 days. Per ortho surgeon GABAPENTIN 100 MG CAPSULE 12/16/2017 12/16/2018 Class: Med Update Route: ORAL Sig: Take 1 capsule by mouth daily at bedtime. Per Tanvi Carreno ONDANSETRON 4 MG DISINTEGRATING TABL* 12/16/2017 Class: Med Update Si tablet in AM and every 6 hours as needed for nausea ESOMEPRAZOLE MAGNESIUM 40 MG CAPSULE* 12/16/2017 Class: Med Update Route: ORAL Sig: Take 1 capsule by mouth once daily. Medications Discontinued During This Encounter gabapentin (NEURONTIN) 100 mg capsule 180 * 1 08/16/2016 12/16/2017 Class: Print RX Route: ORAL Sig: Take 2 capsules by mouth three times daily. Disc: Reason for discontinue is not on file. Follow-up and Disposition History Recorded Encounter Status:Closed by ABIOLA, OKSANA on 12/16/17 PROGRESS Observed: 12/10/2017 Status: COMPLETED Source: [place] 12:31 PM [facility] RE[facility] HNO ID: [id number] Author: Lily (Evan) Alexei Service: (none) Author Type: Nurse Practitioner Type: Progress Notes Filed: 12/10/2017 1:35 PM Note Text: 12/10/2017 Patient presents with: Recheck: mcc discharge SUBJECTIVE: This is a 71 year old that is here today for follow up discharge from [facility]. She was there for 20 days following a hospital stay at [facility] for fracture of femoral neck on the left leg following a fall when she was trying to step over a baby gate. She was seen in [facility] ER 11/10 for weakness, fatigue, tremor , and confusion. Head CT was done that was unremarkable and CT neck showed chronic arthritis. EKG unchanged. Lab work showed hypokalemia- pt refused oral replacement pills, but liquid was ordered. She was seen in [facility] ER again 11/13 and this is when the fall occurred. When she fell, she reports hitting her head, left shoulder and left hip. NO LOC. She has a history of a left total shoulder replacement. EKG SR with PVC, CXR showed moderate subsegmental atelectasis, Left shoulder Xray showed no acute process, Ct head and neck no acute process, left hip xray showed nondisplaced femoral neck fracture. She was admitted for surgery with Dr. Olivares. Per the operative report, 3 screws were placed on 11/14 and she was toe-touch weight bearing, so she was sent to [facility] for rehab on 11/16. It was mentioned in the hospital summary that her BP fluctuated while there, but stabilized after IV fluids. She was treated for DVT prophylaxis with lovenox for 3 weeks ending 12/07. While there, she did have some post op anemia. K+ 3.7 at discharge. We do not currently have records from [facility]. She is here with her sister. Pt is poor historian d/t dementia and sister appears overwhelmed and unable to confirm medications she is taking, but is able to discuss plans moving forward in regards to this injury. She states that she was seen 12/06 by orthopedics and Xrays were done showing that a screw may be coming loose from surgery and they will plan to see her back in 6 weeks for another Xray to decide if another procedure is needed. PT and nursing will be coming to the house for evaluations on Wednesday. She was given a wheelchair and a walker. Pt states that she is overall doing well. Incision is healed. She is having some pain, but it is well controlled with medication. It is mostly when she is trying to walk more or repositioning when laying. Sister mentions that she had pressure ulcers in the past and they are using cream given by the [facility]. She is also only giving medications that were given to her from the [facility] and she is not sure what medications from home if any she should stop taking. She did not bring pill bottles. She states that Adalberto told her that all of the medications prescribed after discharge were completely new. She brings hand written list from [facility]. The only medications that are not listed there were coreg, requip, potassium. Neither the pt or the sister are aware of why she may have stopped. She states that she was told to hold lasix by dr Montague and they have not restarted. Not having any edema, CP, SOB, RODRIGUEZ, lightheadedness, dizziness, nausea, vomiting, diarrhea, constipation, urinary concerns. Mental status at baseline per sister. 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 - Weight loss ALLERGIES Iodoform Nu-Gauze Packing [Other] MEDICATIONS Current Outpatient Prescriptions: levothyroxine (SYNTHROID) 75 mcg tablet Take 1 tablet by mouth once daily. potassium chloride ER (KLOR-CON M20) 20 mEq tablet Take 20 mEq by mouth twice daily. donepezil (ARICEPT) 10 mg tablet Take 10 mg by mouth daily at bedtime. venlafaxine (EFFEXOR) 75 mg tablet Take 75 mg by mouth once daily. pravastatin (PRAVACHOL) 40 mg tablet Take 40 mg by mouth once daily. ergocalciferol, vitamin D2, (VITAMIN D) 50,000 unit capsule Take 50,000 Units by mouth once each week. oxyCODONE immediate release (PERCOLONE) 5 mg immediate release tablet Take 5 mg by mouth every 4 hours as needed. gabapentin (NEURONTIN) 100 mg capsule Take 2 capsules by mouth three times daily. senna (SENOKOT) 8.6 mg tab Take 2 tablets by mouth daily at bedtime. OMEPRAZOLE 20 mg ORAL capsule CALCIUM CARBONATE-VITAMIN D2 500 MG-200 UNIT TAB Take one(1) tablet three times daily. carvedilol (COREG) 3.125 mg tablet Take 3.125 mg by mouth twice daily with meals. rOPINIRole (REQUIP) 0.5 mg tablet Take 0.5 mg by mouth three times daily. No current facility-administered medications for this visit. Medications and allergies reviewed by this provider. SOCIAL HISTORY Social History Marital status: Spouse name: Years of education: Number of children: Social History Main Topics Smoking status: Never Smoker Smokeless tobacco: Never Used Alcohol use: No Drug use: No REVIEW OF SYSTEMS see HPI OBJECTIVE: BP 94/60 Pulse 61 Resp 16 SpO2 99% . Vital signs reviewed by this provider. PHYSICAL EXAMINATION: General appearance: Well appearing, alert, in no acute distress, well-hydrated, well nourished. Skin: Skin color, texture, turgor normal, no suspicious rashes or lesions, healed pressure ulcer sites on the right buttock looked at- no concerns. Surgical incision well healed- no concerns. Head: Normocephalic, no masses, lesions, tenderness or abnormalities Eyes: Anicteric sclera. Pupils are equally round and reactive to light. Neck: Supple, no adenopathy; thyroid symmetric, normal size, no bruits Back: no pain to palpation, good flexion and extension, slow moving and hunched posture Lungs: Lungs clear to auscultation. No wheezing, rhonchi, rales Heart: RRR without murmur, gallop, or rubs. No ectopy Extremities: No deformities, edema, skin discoloration, clubbing or cyanosis. Good capillary refill. , Pulses: 2+ Musculoskeletal: Spine range of motion normal. Muscular strength intact, Range of motion normal in hips, knees, shoulders, and spine, No joint swelling, deformity, or tenderness, slow moving, but good strength, only evaluated standing from a sitting position, pt did not bring walker ASSESSMENT/PLAN: 1. Closed fracture of head of left femur, sequela - ICD9: 905.3, ICD10: S72.052S (primary diagnosis) - incision well healed, good ROM and strength - continue to follow ortho recommendations - PT as planned - no changes needed at this time - discussed and encouraged home safety to prevent further falls - discussed and encouraged frequent position changes to prevent pressure ulcers 2. Hospital discharge follow-up - ICD9: V67.59, ICD10: Z09 - see above - follow up with PCP as planned in 2 weeks 3. Hypokalemia - ICD9: 276.8, ICD10: E87.6 - ok at hospital d/c. Was not listed on medication list from [facility] that the sister brought, unsure what level is now and if replacement is needed. Will obtain labs previously ordered today as well as CMP added. - COMP METABOLIC PANEL 4. Medication management - ICD9: V58.69, ICD10: Z79.899 - updated medication list removing things previously listed as not taking and compared with list from pt. - instructed pt to hold off on potassium supplement until lab results come back and requip and coreg until she is seen by PCP to clarify why she may have been stopped in the first place. - contacted Oksana Culver, Paint Brush Maker, for assistance in obtaining records from [facility] and assisting pt and sister with medication management and follow up care. She agrees to contact [facility] and the patient this afternoon Lily Linda APRN.NURSING CLINICAL DIRECTOR The majority of the visit was spent counseling and/or coordinating care for the patient. [id number] time was 45 minutes. FLAQUITO Observed: 12/10/2017 Status: COMPLETED Source: [place] 11:00 AM [facility] WINSOME MEYERS ([id number]) 1945 F Date Time Provider Department 12/10/17 11:00 AM LILY LINDA (EVAN) PAPO During your visit today, we recorded the following information about you: Pulse Respiration Blood pressure 61/minute 16/minute 94/60 Lily Linda APRN.CNP 12/10/2017 1:35 PM Signed 12/10/2017 Patient presents with: Recheck: mcc discharge SUBJECTIVE: This is a 71 year old that is here today for follow up discharge from [facility]. She was there for 20 days following a hospital stay at [facility] for fracture of femoral neck on the left leg following a fall when she was trying to step over a baby gate. She was seen in [facility] ER 11/10 for weakness, fatigue, tremor , and confusion. Head CT was done that was unremarkable and CT neck showed chronic arthritis. EKG unchanged. Lab work showed hypokalemia- pt refused oral replacement pills, but liquid was ordered. She was seen in [facility] ER again 11/13 and this is when the fall occurred. When she fell, she reports hitting her head, left shoulder and left hip. NO LOC. She has a history of a left total shoulder replacement. EKG SR with PVC, CXR showed moderate subsegmental atelectasis, Left shoulder Xray showed no acute process, Ct head and neck no acute process, left hip xray showed nondisplaced femoral neck fracture. She was admitted for surgery with Dr. Olivares. Per the operative report, 3 screws were placed on 11/14 and she was toe-touch weight bearing, so she was sent to [facility] for rehab on 11/16. It was mentioned in the hospital summary that her BP fluctuated while there, but stabilized after IV fluids. She was treated for DVT prophylaxis with lovenox for 3 weeks ending 12/07. While there, she did have some post op anemia. K+ 3.7 at discharge. We do not currently have records from [facility]. She is here with her sister. Pt is poor historian d/t dementia and sister appears overwhelmed and unable to confirm medications she is taking, but is able to discuss plans moving forward in regards to this injury. She states that she was seen 12/06 by orthopedics and Xrays were done showing that a screw may be coming loose from surgery and they will plan to see her back in 6 weeks for another Xray to decide if another procedure is needed. PT and nursing will be coming to the house for evaluations on Wednesday. She was given a wheelchair and a walker. Pt states that she is overall doing well. Incision is healed. She is having some pain, but it is well controlled with medication. It is mostly when she is trying to walk more or repositioning when laying. Sister mentions that she had pressure ulcers in the past and they are using cream given by the [facility]. She is also only giving medications that were given to her from the [facility] and she is not sure what medications from home if any she should stop taking. She did not bring pill bottles. She states that Adalberto told her that all of the medications prescribed after discharge were completely new. She brings hand written list from [facility]. The only medications that are not listed there were coreg, requip, potassium. Neither the pt or the sister are aware of why she may have stopped. She states that she was told to hold lasix by dr Montague and they have not restarted. Not having any edema, CP, SOB, RODRIGUEZ, lightheadedness, dizziness, nausea, vomiting, diarrhea, constipation, urinary concerns. Mental status at baseline per sister. 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 - Weight loss ALLERGIES Iodoform Nu-Gauze Packing [Other] MEDICATIONS Current Outpatient Prescriptions: levothyroxine (SYNTHROID) 75 mcg tablet Take 1 tablet by mouth once daily. potassium chloride ER (KLOR-CON M20) 20 mEq tablet Take 20 mEq by mouth twice daily. donepezil (ARICEPT) 10 mg tablet Take 10 mg by mouth daily at bedtime. venlafaxine (EFFEXOR) 75 mg tablet Take 75 mg by mouth once daily. pravastatin (PRAVACHOL) 40 mg tablet Take 40 mg by mouth once daily. ergocalciferol, vitamin D2, (VITAMIN D) 50,000 unit capsule Take 50,000 Units by mouth once each week. oxyCODONE immediate release (PERCOLONE) 5 mg immediate release tablet Take 5 mg by mouth every 4 hours as needed. gabapentin (NEURONTIN) 100 mg capsule Take 2 capsules by mouth three times daily. senna (SENOKOT) 8.6 mg tab Take 2 tablets by mouth daily at bedtime. OMEPRAZOLE 20 mg ORAL capsule CALCIUM CARBONATE-VITAMIN D2 500 MG-200 UNIT TAB Take one(1) tablet three times daily. carvedilol (COREG) 3.125 mg tablet Take 3.125 mg by mouth twice daily with meals. rOPINIRole (REQUIP) 0.5 mg tablet Take 0.5 mg by mouth three times daily. No current facility-administered medications for this visit. Medications and allergies reviewed by this provider. SOCIAL HISTORY Social History Marital status: Spouse name: Years of education: Number of children: Social History Main Topics Smoking status: Never Smoker Smokeless tobacco: Never Used Alcohol use: No Drug use: No REVIEW OF SYSTEMS see HPI OBJECTIVE: BP 94/60 Pulse 61 Resp 16 SpO2 99% . Vital signs reviewed by this provider. PHYSICAL EXAMINATION: General appearance: Well appearing, alert, in no acute distress, well-hydrated, well nourished. Skin: Skin color, texture, turgor normal, no suspicious rashes or lesions, healed pressure ulcer sites on the right buttock looked at- no concerns. Surgical incision well healed- no concerns. Head: Normocephalic, no masses, lesions, tenderness or abnormalities Eyes: Anicteric sclera. Pupils are equally round and reactive to light. Neck: Supple, no adenopathy; thyroid symmetric, normal size, no bruits Back: no pain to palpation, good flexion and extension, slow moving and hunched posture Lungs: Lungs clear to auscultation. No wheezing, rhonchi, rales Heart: RRR without murmur, gallop, or rubs. No ectopy Extremities: No deformities, edema, skin discoloration, clubbing or cyanosis. Good capillary refill. , Pulses: 2+ Musculoskeletal: Spine range of motion normal. Muscular strength intact, Range of motion normal in hips, knees, shoulders, and spine, No joint swelling, deformity, or tenderness, slow moving, but good strength, only evaluated standing from a sitting position, pt did not bring walker ASSESSMENT/PLAN: 1. Closed fracture of head of left femur, sequela - ICD9: 905.3, ICD10: S72.052S (primary diagnosis) - incision well healed, good ROM and strength - continue to follow ortho recommendations - PT as planned - no changes needed at this time - discussed and encouraged home safety to prevent further falls - discussed and encouraged frequent position changes to prevent pressure ulcers 2. Hospital discharge follow-up - ICD9: V67.59, ICD10: Z09 - see above - follow up with PCP as planned in 2 weeks 3. Hypokalemia - ICD9: 276.8, ICD10: E87.6 - ok at hospital d/c. Was not listed on medication list from [facility] that the sister brought, unsure what level is now and if replacement is needed. Will obtain labs previously ordered today as well as CMP added. - COMP METABOLIC PANEL 4. Medication management - ICD9: V58.69, ICD10: Z79.899 - updated medication list removing things previously listed as not taking and compared with list from pt. - instructed pt to hold off on potassium supplement until lab results come back and requip and coreg until she is seen by PCP to clarify why she may have been stopped in the first place. - contacted Oksana Culver, [employer], for assistance in obtaining records from [facility] and assisting pt and sister with medication management and follow up care. She agrees to contact [facility] and the patient this afternoon Lily Linda APRN.NURSING CLINICAL DIRECTOR The majority of the visit was spent counseling and/or coordinating care for the patient. Pfyh-mu-yaht time was 45 minutes. Referring Provider: SELF [200] Allergies As of Date: 12/10/2017 Noted Allergy Reaction iodoform nu-gauze packing [Other] 11/09/2005 7 - Swelling 10 - Anaphylaxis Date Reviewed: 12/10/2017 Reviewed by: Verna Purdy) RUPALI Garcia - Fully Assessed Reason for Visit: Recheck [92] Cmt: [facility] discharge Primary Visit Diagnosis:Closed fracture of head of left femur, sequela [S72.052S] Other Visit Diagnoses:Hospital discharge follow-up [Z09] Hypokalemia [E87.6] Medication management [Z79.899] Order(s):COMP METABOLIC PANEL [SQCMP] Order #: [id number] FUTURE Prescriptions as of 12/10/2017 Sig: LEVOTHYROXINE 75 MCG TABLET Take 1 tablet by mouth once d* POTASSIUM CHLORIDE ER 20 MEQ * Take 20 mEq by mouth twice da* DONEPEZIL 10 MG TABLET Take 10 mg by mouth daily at * VENLAFAXINE 75 MG TABLET Take 75 mg by mouth once shelbie* PRAVASTATIN 40 MG TABLET Take 40 mg by mouth once shelbie* ERGOCALCIFEROL (VITAMIN D2) 5* Take 50,000 Units by mouth on* OXYCODONE 5 MG TABLET,ORAL ON* Take 5 mg by mouth every 4 ho* GABAPENTIN 100 MG CAPSULE Take 2 capsules by mouth thre* SENNOSIDES 8.6 MG TABLET Take 2 tablets by mouth daily* * OMEPRAZOLE 20 MG CAPSULE,BOAZ* * CALCIUM CARB-ERGOCALCIFEROL (* Take one(1) tablet three time* CARVEDILOL 3.125 MG TABLET Take 3.125 mg by mouth twice * ROPINIROLE 0.5 MG TABLET Take 0.5 mg by mouth three ti* Problem List As Of Date 12/10/2017 Noted Resolved MORBID OBESITY [E66.01] INVALID FOR* 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] INVALID FOR* CHRONIC DEPRESSIVE PERSON [F34.1] INVALID FOR* INSOMNIA NOS [G47.00] INVALID FOR* MIXED HYPERLIPIDEMIA [E78.2] INVALID FOR* HYPOTHYROIDISM NOS [E03.9] INVALID FOR* ESOPHAGEAL REFLUX [K21.9] INVALID FOR* OSTEOPOROSIS NOS [M81.0] INVALID FOR* PARTIAL EPILEPSY NEC NOT INTRACT [G40.109] INVALID FOR* Preop Exam for Internal Medicine [Z01.818] Seizures [R56.9] Hypothyroid [E03.9] Severe protein-calorie malnutrition (HCC) [E43] Weight Loss [R63.4] Gastric Bypass Status for Obesity [Z98.84] Marginal Ulcer [K28.9] Dysphagia [R13.10] INVALID FOR* Medications Discontinued During This Encounter celecoxib (CELEBREX) 200 mg capsule 12/10/2017 Class: Historical Med Route: ORAL Sig: Take 200 mg by mouth once daily. Disc: Reason for discontinue is not on file. furosemide (LASIX) 20 mg tablet 12/10/2017 Class: Historical Med Route: ORAL Sig: Take 20 mg by mouth once daily. Disc: Reason for discontinue is not on file. CENTRUM SILVER TAB 0 03/16/1999 12/10/2017 Class: Historical Med Route: ORAL Sig: Take one(1) tablet two(2) times daily. Disc: Reason for discontinue is not on file. atorvastatin calcium(LIPITOR 10 MG T* 0 01/16/2009 12/10/2017 Class: Med Update Route: ORAL Sig: Take one(1) tablet daily. Disc: Reason for discontinue is not on file. TEMAZEPAM 30 MG CAP 0 03/13/2009 12/10/2017 Class: Historical Med Route: ORAL Sig: Take one(1) tablet daily. Disc: Reason for discontinue is not on file. polyethylene glycol 3350 (MIRALAX) 1* 1 Charlie* 2 08/16/2016 12/10/2017 Class: Print RX Route: ORAL Sig: Take 17 g by mouth once daily. Disc: Reason for discontinue is not on file. docusate sodium (COLACE) 100 mg caps* 60 c* 0 08/16/2016 12/10/2017 Class: Print RX Route: ORAL Sig: Take 1 capsule by mouth twice daily as needed. Patient not taking: Reported on 08/17/2017 Disc: Reason for discontinue is not on file. metoclopramide HCl (REGLAN) 10 mg ta* 45 t* 1 08/16/2016 12/10/2017 Class: Print RX Route: ORAL Sig: Take 0.5 tablets by mouth three times daily. 45-60 minutes before intended meal time Disc: Reason for discontinue is not on file. Ibuprofen 200 mg cap 12/10/2017 Class: Historical Med Route: ORAL Sig: Take by mouth. Disc: Reason for discontinue is not on file. Disposition: Return in about 2 weeks (around 12/24/2017) for follow up PCP . Follow-up and Disposition History Recorded Encounter Status:Closed by LILY LINDA on 12/10/17 ORTHOPEDIC VISIT Observed: 12/09/2017 Status: F Source: [place] REPORT 10:41 AM [facility] Orthopaedics AND Sports Medicine [address] [place] [id number] OFFICE VISIT Date of Service: 12/06/17 MR#: [id number] Acct: [id number] Name: WINSOME MEYERS Rep #: [id number] : 1945 Provider: Alaina Olivares DO Age/Sex: 71/F Location: [facility] Status: Signed Intake Intake Visit Reasons: LEFT HIP Accompanied by: Sister Is patient in pain?: Yes Allergies No Known Allergies Allergy (Verified 11/13/17 13:08) Medications Donepezil HCl [Aricept] 10 mg PO QHS 08/12/17 [History Confirmed 11/16/17] Ergocalciferol [Vitamin D] 50,000 unit PO Q7D 08/12/17 [History Confirmed 11/16/17] Esomeprazole Magnesium [Nexium] 40 mg PO DAILY 08/12/17 [History Confirmed 11/16/17] Levothyroxine [Synthroid] 75 mcg PO DAILY 08/12/17 [History Confirmed 11/16/17] Venlafaxine HCl [Venlafaxine HCl ER] 75 mg PO DAILY 08/12/17 [History Confirmed 11/16/17] Pravastatin [Pravachol] 40 mg PO QHS 11/10/17 [History Confirmed 11/16/17] Acetaminophen [Tylenol Tablet] 650 mg PO Q6H PRN PRN tab 11/16/17 [Rx] Calcium (Elemental) [Os-Og 500] 500 mg PO BIDCM #1 tab 11/16/17 [Rx] Enoxaparin [Lovenox] 40 mg SUBCUT DAILY@0600 syringe 11/16/17 [Rx] Ensure Enlive 120 ml PO 4X/DAY liquid 11/16/17 [Rx] Gabapentin [Neurontin] 100 mg PO QHS #14 cap 11/16/17 [Rx] PFSH Social History Smoking Status: Never smoker HPI LEFT HIP: Details: WINSOME MEYERS is a 71 year old F here today for f/u left hip fracture 11/24/17, she is using pain meds prn, she is walking with her walker in her care facility and she has someone with her at all times when ambulating. She complains of pain still localized to lateral hip. Denies numbness, tingling or other associated symptoms. She also complains of back pain and has marcus bandages on bilateral lower legs for swelling control. Ortho Exam Left Hip Date of Surgery: 11/24/17 Skin/Wound: Yes healing Contralateral Normal: Yes Impingement Test: 1 Homans Sign: No Assessment AND Plan 1. Closed fracture of neck of left femur, initial encounter S72.002A Plan no signs of avn today but will watch closely as may need revision to gennaro which was discussed with family in room. patient and family aware. will get repeat xrays in 6 weeks. All questions answered. Patient in agreement of plan. X-rays were reviewed. There is alignment and minimal backing out of one of the screws is noted. She has no pain with heel strike in the joint and no pain with IR/ER. Explained that if her groin pain worsens to come back sooner. Reviewed that if the screws continue to back out and her healing ceases we may need to remove the screws and do a gennaro. Gave a prescription for a wheelchair today as well as home PT. Follow up in 6wks for repeat xrays or sooner if pain, swelling, numbness or associated symptoms, or concerns develop. All questions answered. Patient in agreement of plan. Orders Orders: Coding Level of Care Code Global Post Op Diagnoses Closed fracture of neck of left femur, initial encounter S72.002A Encounter type: initial encounter 12/09/17 1041 <Electronically signed by Alaina Olivares DO> Date Alaina Villagomezignchelsey Signature: Date (if applicable) CC: FLAQUITO Observed: 12/09/2017 Status: COMPLETED Source: [place] 9:20 AM [facility] REPOSITORY Office Visit (ENDLKW) MEYERSWINSOME BUTTERFIELD ([id number]) 1945 F Date Time Provider Department 12/09/17 9:20 AM WILFRED BROWN During your visit today, we recorded the following information about you: Referring Provider: SOTERO MONTAGUE) [[id number]] Allergies As of Date: 12/09/2017 Noted Allergy Reaction iodoform nu-gauze packing [Other] 11/09/2005 7 - Swelling 10 - Anaphylaxis Date Reviewed: 09/16/2017 Reviewed by: Sotero Honeycutt) Clari - Fully Assessed Reason for Visit: No Show [1558] Cmt: No show Primary Visit Diagnosis:NO SHOW Prescriptions as of 12/09/2017 Sig: LEVOTHYROXINE 75 MCG TABLET Take 1 tablet by mouth once d* POTASSIUM CHLORIDE ER 20 MEQ * Take 20 mEq by mouth twice da* DONEPEZIL 10 MG TABLET Take 10 mg by mouth daily at * VENLAFAXINE 75 MG TABLET Take 75 mg by mouth once shelbie* CARVEDILOL 3.125 MG TABLET Take 3.125 mg by mouth twice * PRAVASTATIN 40 MG TABLET Take 40 mg by mouth once shelbie* ERGOCALCIFEROL (VITAMIN D2) 5* Take 50,000 Units by mouth on* OXYCODONE 5 MG TABLET,ORAL ON* Take 5 mg by mouth every 4 ho* ROPINIROLE 0.5 MG TABLET Take 0.5 mg by mouth three ti* X CELECOXIB 200 MG CAPSULE Take 200 mg by mouth once jonathan* X FUROSEMIDE 20 MG TABLET Take 20 mg by mouth once shelbie* X IBUPROFEN 200 MG CAPSULE Take by mouth. SENNOSIDES 8.6 MG TABLET Take 2 tablets by mouth daily* X GABAPENTIN 100 MG CAPSULE Take 2 capsules by mouth thre* X METOCLOPRAMIDE 10 MG TABLET Take 0.5 tablets by mouth thr* X DOCUSATE SODIUM 100 MG CAPSULE Take 1 capsule by mouth twice* Patient not taking: Reported on 08/17/2017 X POLYETHYLENE GLYCOL 3350 17 G* Take 17 g by mouth once daily. * OMEPRAZOLE 20 MG CAPSULE,BOAZ* X * TEMAZEPAM 30 MG CAPSULE Take one(1) tablet daily. X * LIPITOR 10 MG TABLET Take one(1) tablet daily. * CALCIUM CARB-ERGOCALCIFEROL (* Take one(1) tablet three time* X * CENTRUM SILVER TABLET Take one(1) tablet two(2) gabriel* Problem List As Of Date 12/09/2017 Noted Resolved MORBID OBESITY [E66.01] INVALID FOR* 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] INVALID FOR* CHRONIC DEPRESSIVE PERSON [F34.1] INVALID FOR* INSOMNIA NOS [G47.00] INVALID FOR* MIXED HYPERLIPIDEMIA [E78.2] INVALID FOR* HYPOTHYROIDISM NOS [E03.9] INVALID FOR* ESOPHAGEAL REFLUX [K21.9] INVALID FOR* OSTEOPOROSIS NOS [M81.0] INVALID FOR* PARTIAL EPILEPSY NEC NOT INTRACT [G40.109] INVALID FOR* Preop Exam for Internal Medicine [Z01.818] Seizures [R56.9] Hypothyroid [E03.9] Severe protein-calorie malnutrition (HCC) [E43] Weight Loss [R63.4] Gastric Bypass Status for Obesity [Z98.84] Marginal Ulcer [K28.9] Dysphagia [R13.10] INVALID FOR* Encounter Status:Closed by HARRIET LOYA on 12/20/17 CNPTOUTREACH Observed: 12/07/2017 Status: COMPLETED Source: [place] 12:00 AM [facility] REPOSITORY Patient Outreach (FAMPST) WINSOME MEYERS ([id number]) 1945 F Date Time Provider Department 12/07/17 SOTERO MONTAGUE) FAMPST During your visit today, we recorded the following information about you: Allergies As of Date: 12/07/2017 Noted Allergy Reaction iodoform nu-gauze packing [Other] 11/09/2005 7 - Swelling 10 - Anaphylaxis Date Reviewed: 09/16/2017 Reviewed by: Sotero Honeycutt) Clari - Fully Assessed Visit Diagnosis:Medication management [Z79.899] Order(s):TSH BLD [SQTS] Order #: [id number] FUTURE Prescriptions as of 12/07/2017 Sig: X LEVOTHYROXINE 75 MCG TABLET Take 1 tablet by mouth once d* POTASSIUM CHLORIDE ER 20 MEQ * Take 20 mEq by mouth twice da* DONEPEZIL 10 MG TABLET Take 10 mg by mouth daily at * VENLAFAXINE 75 MG TABLET Take 75 mg by mouth once shelbie* CARVEDILOL 3.125 MG TABLET Take 3.125 mg by mouth twice * PRAVASTATIN 40 MG TABLET Take 40 mg by mouth once shelbie* X CELECOXIB 200 MG CAPSULE Take 200 mg by mouth once jonathan* X FUROSEMIDE 20 MG TABLET Take 20 mg by mouth once shelbie* X ERGOCALCIFEROL (VITAMIN D2) 5* Take 50,000 Units by mouth on* X OXYCODONE 5 MG TABLET,ORAL ON* Take 5 mg by mouth every 4 ho* X ROPINIROLE 0.5 MG TABLET Take 0.5 mg by mouth three ti* X IBUPROFEN 200 MG CAPSULE Take by mouth. SENNOSIDES 8.6 MG TABLET Take 2 tablets by mouth daily* X GABAPENTIN 100 MG CAPSULE Take 2 capsules by mouth thre* X METOCLOPRAMIDE 10 MG TABLET Take 0.5 tablets by mouth thr* X DOCUSATE SODIUM 100 MG CAPSULE Take 1 capsule by mouth twice* Patient not taking: Reported on 08/17/2017 X POLYETHYLENE GLYCOL 3350 17 G* Take 17 g by mouth once daily. * OMEPRAZOLE 20 MG CAPSULE,BOAZ* X * TEMAZEPAM 30 MG CAPSULE Take one(1) tablet daily. X * LIPITOR 10 MG TABLET Take one(1) tablet daily. * CALCIUM CARB-ERGOCALCIFEROL (* Take one(1) tablet three time* X * CENTRUM SILVER TABLET Take one(1) tablet two(2) gabriel* Problem List As Of Date 12/07/2017 Noted Resolved MORBID OBESITY [E66.01] INVALID FOR* 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] INVALID FOR* CHRONIC DEPRESSIVE PERSON [F34.1] INVALID FOR* INSOMNIA NOS [G47.00] INVALID FOR* MIXED HYPERLIPIDEMIA [E78.2] INVALID FOR* HYPOTHYROIDISM NOS [E03.9] INVALID FOR* ESOPHAGEAL REFLUX [K21.9] INVALID FOR* OSTEOPOROSIS NOS [M81.0] INVALID FOR* PARTIAL EPILEPSY NEC NOT INTRACT [G40.109] INVALID FOR* Preop Exam for Internal Medicine [Z01.818] Seizures [R56.9] Hypothyroid [E03.9] Severe protein-calorie malnutrition (HCC) [E43] Weight Loss [R63.4] Gastric Bypass Status for Obesity [Z98.84] Marginal Ulcer [K28.9] Dysphagia [R13.10] INVALID FOR* Encounter Status:Closed by EPIC, PRODUSER on 01/07/18 HIP, UNI W/ PELVIS Observed: 12/06/2017 Status: F Source: [place] 2-3 VIEWS 9:38 AM [facility] REPOSITORY [facility] Imaging Services [address] [place] [address] HIP, UNI W/ Pelvis 2-3 Views MR#: [id number] Acct: [id number] Name: WINSOME MEYERS Rep #: [id number] : 1945 F 71 From: Yo Brady MD PCP: Care Physician, No Primary Status: REG CLI Study: HIP, UNI W/ Pelvis 2-3 Views Date of Exam: 12/06/17 Exam# [id number] Ordering Dr: Alaina Olivares DO STUDY: X-RAY - PELVIS AND LEFT HIP REASON FOR EXAM: Postoperative follow-up. TECHNIQUE: Radiological exam, hip, unilateral, with pelvis when performed; 2 or 3 views. COMPARISON: Radiographs 11/14/2017. FINDINGS: There is mild vascular calcification. Normal bilateral iliac wings, sacroiliac joints and visualized sacrum. Normal bilateral superior and inferior pubic rami. Normal pubic symphysis. Normal bilateral ischial tuberosities. There are 3 orthopedic screws transfixing a femoral neck fracture without interval change. Normal acetabulum. Normal hip joint. RAD/HIP, UNI W/ Pelvis 2-3 Views IMPRESSION: No interval change of ORIF of left femoral neck fracture. Electronically Signed: Yo Brady MD at 10:26 EDT Tel , Service support , CC: No Primary Care Physician; Alaina Olivares DO Physician [facility]: Signed ELECTROENCEPHALOGRAM Observed: 11/19/2017 Status: F Source: [place] 1:01 PM [facility] REPOSITORY [facility] Pulmonary Services/Neurology [address] [place] [address] MR#: [id number] Acct: [id number] Name: WINSOME MEYERS Rep #: [id number] : 1945 71 From: Corinna Haines MD Referring Dr: Alexandre Irby DO Status: DIS IN Ordering Dr: Date: Location: PR3 [id number] Sex: F C - Electroencephalogram Date of service 11/16/2017 History EEG is being done in this 71 yr F to rule out seizures EEG Description: This is an 18 channel EEG with 10-20 lead placement system. Bipolar montages, Referential and Circumferential montages were reviewed. Photic stimulation and Hyperventilation were performed. The posterior dominant rhythm is 8 HZ synchronous, symmetric, reacting to eye opening and closing. Photo stimulation elicited normal driving response but no abnormal photoparoxysmal response, Hyperventilation did not elicit any abnormal photoparoxysmal response. Sleep was identified. There is no abnormal background slowing noted. There was no epileptiform discharges or electrographic seizures noted during this recording. EEG Interpretation This is a normal awake and asleep EEG. There is no epileptiform discharges or electrographic seizures noted during the record. 11/19/17 1301 <Electronically signed by Corinna Haines MD> Date Corinna Haines MD CC: No Primary Care Physician; Shanna Haines MD; Alexandre Irby DO Date Dictated: 11/16/17 1256 Date Transcribed: 11/16/17 1256 Physician [facility]: RSR Signed CONSULTATION Observed: 11/16/2017 Status: F Source: [place] 5:17 PM [facility] REPOSITORY [facility] Medical Records Department [address] [place] [address] Consultation 11/13/17 1547 MR#: [id number] Acct: [id number] Name: WINSOME MEYERS Rep #: [id number] : 1945 71 From: Alaina Olivares DO PCP: Care Physician, No Primary Status: ADM IN Y Location: MS3 [id number] Reason for Consult Date of Consultation: 11/14/17 History of Present Illness: The patient is a 71 year old F who was trying to open up a baby gate and lost her balance and fell backwards. Patient was unable to get up. Brought to the hospital and underwent head CT and brain CT that were unremarkable. Hip x-ray showed a left femoral neck fracture. Denies pain in other joints, no headache nausea vomiting denies hitting her head when she fell. Denies numbness tingling or other constitutional symptoms. Family at bedside. Past Medical History Past Medical History (Chronic Problems): Chronic Problems Epilepsy (Chronic) Bilateral leg edema (Chronic) Hypothyroid (Chronic) Allergies No Known Allergies Allergy (Verified 11/13/17 13:08) Home Medications: Ambulatory Orders Medication Instructions Recorded Carvedilol [Coreg (Beta Michelle)] 3.125 mg PO BID 08/12/17 Celecoxib [Celebrex] 200 mg PO DAILY 08/12/17 Donepezil HCl [Aricept] 10 mg PO QHS 08/12/17 Surgical History: - - L Shoulder surgery. Smoking Status: Never smoker - *Family History Maternal History Items: Heart Disease Paternal History Items: No pertinent history Sibling History Items: Cancer Review of Systems Constitutional: Denies: Chills, Fever, Weight Change HEENT: Denies: Head Aches, Sinus Congestion, Sinus Drainage Cardiovascular: Denies: Chest Pain, Palpitations Respiratory: Denies: Cough, Shortness of breath at rest, Sputum production Gastrointestinal: Denies: Abdominal Pain, Nausea, Vomiting Genitourinary: Denies: Dysuria Musculoskeletal: Reports: Joint Pain. Denies: Joint Tenderness Skin: Denies: Rash, Wounds Neurological: Denies: Numbness, Tingling, Focal weakness Psychiatric: Denies: Anxiety, Depression, Homicidal Ideations, Suicidal Ideations Hematologic/ Lymphatic: Denies: Easy Bruising, Easy Bleeding Patient Problems: Active and Suspected Problems Fracture of femoral neck, left, closed (Acute) Contusion of left shoulder (Acute) Closed head injury (Acute) - Physical Exam General: Alert, Oriented x3, Cooperative HEENT: Atraumatic, PERRLA, EOMI, Normocephalic Neck: Supple, No JVD, Negative Carotid Bruits Lungs: Clear to auscultation, Normal air movement Cardiovascular: Regular rate, No murmurs Abdomen: Bowel Sounds Present, Soft, Non Tender Extremities: No edema, Capillary Refill Less than 3 Seconds Skin: No rashes, No breakdown Musculoskeletal: Tenderness - Left hip pain, active range of motion motion of bilateral ankles intact, compartment soft, sensation grossly intact bilateral lower extremity, secondary survey negative Neurological: Cranial nerves II-XII grossly intact Psych/Mental Status: Normal Affect, Appropriate Vital Signs Temp Pulse Resp BP Pulse Ox 98 F 67 16 100/77 98 11/13/17 13:08 11/13/17 13:08 11/13/17 13:08 11/13/17 14:03 11/13/17 14:03 Oxygen Delivery Method Room Air Weight: 115 lb Body Mass Index (BMI) 21.7 Laboratory Tests Past 24 Hrs Assessment/Plan All Active Problems Hypokalemia (Acute) Falls (Acute) Hypotension (Resolved) Thrombocytosis (Acute) Hypocalcemia (Acute) Sacral fracture (Acute) Fracture of femoral neck, left, closed (Acute) Contusion of left shoulder (Acute) Closed head injury (Acute) Nondisplaced left femoral neck fracture Consent obtained from family and patient. Risks benefits and alternatives surgery discussed with patient. Risks including but not limited to blood loss, blood clot, infection, neurovascular injury, failure procedure, loss of life and loss of limb. Patient is aware would like proceed with left femoral neck closed versus open reduction internal fixation repair is indicated. Ancef on-call the OR Will start Lovenox postop Discussed with family distal planning This note was generated with ROSTR dictation software. It may contain incorrect words, spelling, and punctuation that were not noted in checking the note before signing. 11/16/17 1717 <Electronically signed by Alaina Olivares DO> Date Alaina Olivares DO Cosigner Signature (if applicable): Date CC: No Primary Care Physician; Alaina Olivares DO Signed OPERATIVE REPORT Observed: 11/16/2017 Status: F Source: [place] 5:17 PM [facility] REPOSITORY [facility] Medical Records Department [address] [place] [address] Operative Report 11/14/17 0822 MR#: [id number] Acct: [id number] Name: WINSOME MEYERS Rep #: [id number] : 1945 71 From: Alaina Olivares DO PCP: Care Physician, No Primary Status: ADM IN Location: [place] [address] Report of Operation Date of Procedure: 11/14/17 Pre-Operative Diagnosis: left nondisplaced femoral neck fracture Post-Operative Diagnosis: same Surgery/Procedure Performed:: left femoral neck close reduction screw fixation production broacher: Consuelo Hubbard Type of Anesthesia:: General Anesthesiologist: Yvonne Coello Estimated Blood Loss (mL): 50 ml Fluids Replaced: 400cc Description of Procedure: Preoperative note Patient is a 71-year-old female who fell onto her left hip immediate pain and inability to walk brought to the emergency room showed to have a nondisplaced left femoral neck fracture. Patient denies pain in other joints pain localized to the left hip joint. X-rays confirm a nondisplaced left femoral neck fracture. Wrist benefits alternatives surgery discussed with patient. Risks including but not limited to blood loss, blood clot, infection, neurovascular injury, failure procedure, loss of life and loss of limb. Patient is aware would like proceed with left close reduction versus open reduction screw fixation left hip. Operative note Patient seen and examined preoperative holding area. Left hip was marked. Patient brought to the operating room placed supine on the operating table sign, anesthesia, antibiotics were administered. The left hip was prepped and draped in usual sterile fashion in the fracture table. All bony problems well-padded and right hip was flexed and externally rotated to allow for 4 fluoroscopy. We then used fluoroscopy to ensure that we had a nondisplaced femoral neck even after position which we still did have. Timeout was performed. We then used our starting a starting guide just superior to the lesser trochanter. We drilled our first inferior hole we noted to be a little bit posterior we did drilled in an more anterior at the again the lower level of the lesser trochanter and then one superiorly that started anteriorly as well. We confirmed in both AP and lateral planes give placement of our guidewires we then broached the near cortex measured measured 80 for the most superior screw and then to 85 for the lower screws. We had good fixation of the fracture site. We then irrigated the incision with copious amounts of sterile saline. The incision was closed with Vicryl 3-0 Vicryl subcuticular and radha. Sterile dressings were applied. Patient was transferred to recovery room in stable condition there are no complications. Postoperative note Toe-touch weightbearing left hip Synthes 7.3 mm 1, 80 and 2, 85 partially-threaded screws Follow-up in 2 weeks Jorge Zuñiga disclaimer This note was generated with ROSTR dictation software. It may contain incorrect words, spelling, and punctuation that were not noted in checking the note before signing. - Admit VTE Documentation VTE Present on Admission: Yes VTE Mechan Device Prophylaxis: SCD's VTE Pharm Prophylaxis ordered?: Yes 11/16/17 1717 <Electronically signed by Alaina Olivares DO> Date Alaina Olivares DO CC: No Primary Care Physician; Alaina Olivares DO Signed DISCHARGE SUMMARY Observed: 11/16/2017 Status: F Source: [place] 4:11 PM [facility] REPOSITORY [facility] Medical Records Department [address] [place] [address] Discharge Summary 11/16/17 1412 MR#: [id number] Acct: [id number] Name: WINSOME MEYERS Rep #: [id number] : 1945 71 From: Elliot RAI PCP: Care Physician, No Primary Status: ADM IN Y Location: [facility] [id number] ADDENDUM by Alexandre Irby DO on 11/16/17 at 1611 Code Visit Please correct #1 primary discharge diagnosis to read: #1 fracture of femoral neck, left, closed and acute secondary to osteoporosis Patient was seen and examined today independently of Elliot Albarran, her EEG which was performed this morning did not show any end of any evidence of epileptiform activity, I relayed this to the patient's sister and patient will be weaned off Neurontin at her group home facility. Patient has no complaints of any severe hip discomfort today, chest pain, or shortness of breath. Physical exam: On examination she appeared in good health and spirits. Vital signs as documented. Skin warm and dry and without overt rashes. Neck without JVD. Lungs clear. Heart exam notable for regular rhythm, normal sounds and absence of murmurs, rubs or gallops. Abdomen unremarkable and without evidence of organomegaly, masses, or abdominal aortic enlargement. Extremities nonedematous. Neuro: Cranial nerves II through XII are grossly intact, no focal motor deficits were noted, sensation intact to light touch and pinprick. Psych: Patient is alert, she is oriented as to time person and place, she does not appear to be agitated or anxious. Affect appears appropriate today. Patient will be discharged to a group home facility for inpatient care, I have reviewed Elliot Albarran's discharge summary including his medical plan of care and endorse it with the above correction. Inpatient E AND M: [id number] Disch Hosp 11/16/17 1611 <Electronically signed by Alexandre Irby DO> Date Alexandre Irby DO cc: No Primary Care Physician; FREDI Albarran; Alexandre Irby DO * Signed Discharge Date and Diagnosis - Problem List Patient Problems: Active and Suspected Problems Fracture of femoral neck, left, closed (Acute) Contusion of left shoulder (Acute) Closed head injury (Acute) Date of Admission: 11/13/17 Date of Discharge: 11/16/17 - Primary Discharge Diagnosis Active and Suspected Problems Fracture of femoral neck, left, closed (Acute) Contusion of left shoulder (Acute) Closed head injury (Acute) Suspected dementia Moderate protein malnutrition Debility with falls Degenerative disc disease Hyperlipidemia Hypothyroidism History of epilepsy Post op anemia - Secondary Discharge Diagnosis Chronic Problems Epilepsy (Chronic) Bilateral leg edema (Chronic) Sacral fracture (Chronic) Hypothyroid (Chronic) Dementia (Chronic) Anemia (Chronic) HLD (hyperlipidemia) (Chronic) Hospital Course and Treatment Imaging Results: CT/Brain/Head without Contrast IMPRESSION: Stable chronic involutional and microvascular ischemic changes of the brain. No acute intracranial injury. CT/Spine Cervical without Contras IMPRESSION: 1. No acute fracture of the cervical spine. 2. Multilevel degenerative changes, as described above, unchanged from November 10, 2017. RAD/Shoulder min 2 Views IMPRESSION: 1. Prior left shoulder arthroplasty with humeral prosthesis. 2. Old healed fracture deformities of the anterior left fourth and fifth ribs. No demonstrated acute fracture. 3. Demineralization of the osseous structures and degenerative changes of the shoulder again noted. RAD/HIP, UNI W/ Pelvis 2-3 Views IMPRESSION: 1. Nondisplaced oblique fracture of the left femoral neck. Excellent degenerative changes of the lower lumbar spine, bilateral sacroiliac joints, and pubic symphysis. Degenerative spurring of the roofs of the bilateral acetabula also noted. RAD/Chest 1 View (Portable) IMPRESSION: 1. Moderate subsegmental atelectasis in the medial left lung base. No pneumonic infiltrate or CHF. 2. Prior left shoulder arthroplasty with humeral prosthesis. There are degenerative changes also at the left shoulder. 3. Prior cholecystectomy. RAD/Hip Min 2 Views (Portable) IMPRESSION: ORIF of left femoral neck fracture with 3 metal screws. RAD/Hip Min 2 Views (Portable) IMPRESSION: Status post ORIF of left femoral neck fracture with 3 metal screws. Consults: [facility] - ortho Operations: total hip replacement Procedures: Electroencephalogram Summary of Care Provided: Physical exam on day of discharge: General: Resting comfortably NAD Psych: A/Ox3 normal affect HEENT: PEARRLA AT NC Neck: Supple NT CV: RRR no m/t/r/g/h Resp: CTA Abd: [id number] Soft NT no guarding or rigidity Ext: DP2+= no edema Skin: W/D normal turgor Lymph/Heme: No active bleeding or adenopathy Neuro: CN2-12 intact Hospital course: The patient is a 71 year old F with a history of hypothyroidism, malnutrition, hyperlipidemia, suspected dementia, anxiety depression, epilepsy, who presented to the emergency room after falling at home and sustaining a left nondisplaced femoral neck fracture. She was admitted and taken to surgery by Dr. Mustafa with orthopedics. She tolerated the procedure well she was very forgetful while she was here and had fluctuant mental status. She did however do well postop and was able to ambulate with assistance and a walker. She did have a fluctuant blood pressure however stabilized after IV fluid administration. She normally runs on the low normal side. She had no symptoms with her mild decline in blood pressure. Her pain was controlled with as needed medications. She was given Lovenox for DVT prophylaxis. With her fluctuant mental status and questionable history of seizure and EEG was obtained which was negative. She needed further skilled therapy and was accepted at [facility]. She was transferred there in stable condition. She will need to follow-up with Ortho in 2 weeks. She will need to follow-up with her PCP in 1-2 weeks. She should continue daily subcu Lovenox for DVT prophylaxis for 3 weeks or unless otherwise directed by orthopedics. This patient was seen by Elliot Albarran PA-C under the supervision of Doctor Irby. [] Discharge Diet: Low fat/ Low Cholesterol, 2000 mg Sodium Diet, - - dietary supplements daily Discharge Activity: Return to Normal Activity Home Medications: Medications to take at Discharge Carvedilol [Coreg (Beta Michelle)] 3.125 mg PO BID 08/12/17 Donepezil HCl [Aricept] 10 mg PO QHS 08/12/17 Ergocalciferol [Vitamin D] 50,000 unit PO Q7D 08/12/17 Esomeprazole Magnesium [Nexium] 40 mg PO DAILY 08/12/17 Furosemide [Lasix] 20 mg PO DAILY 08/12/17 Levothyroxine [Synthroid] 75 mcg PO DAILY 08/12/17 Ropinirole HCl [Requip] 0.5 mg PO TID 08/12/17 Venlafaxine HCl [Venlafaxine HCl ER] 75 mg PO DAILY 08/12/17 Pravastatin [Pravachol] 40 mg PO QHS 10/03/18 Acetaminophen [Tylenol Tablet] 650 mg PO Q6H PRN PRN tablet 11/16/17 Enoxaparin [Lovenox] 40 mg SC DAILY@0600 syringe 11/16/17 Ensure Enlive 120 ml PO 4X/DAY liquid 11/16/17 Gabapentin [Neurontin] 100 mg PO QHS #14 capsule 11/16/17 Oxycodone [Oxyir] 5 mg PO Q4H PRN PRN 2 Days #12 tab 11/16/17 Following Prescrptions Were Given to Patient: Gabapentin [Neurontin] 100 mg PO QHS #14 capsule Oxycodone [Oxyir] 5 mg PO Q4H PRN PRN 2 Days #12 tab PRN Reason: Moderate Pain (pain scale 4-5) Primary Care Physician: Juarez Geiger,Out of [NON-STAFF] - Please follow up with your Primary Care Physician in: 1-2 weeks Please Follow Up With: Alaina Olivares DO When: 2 week Disposition: Retirement facility Minutes spent on discharge:: 35 Patient Condition:: Stable Medical Necessity - Tobacco Use Smoking Status: Never smoker Tobacco Use: Non-smoker Meaningful Use Info Meaningful Use Diagnoses (Choose all that apply): None applicable 11/16/17 1419 <Electronically signed by Elliot Albarran PA> Date Elliot RAI 11/16/17 1514<Electronically signed by Alexandre Irby DO> Cosigner Signature (if applicable): Date Alexandre Irby DO CC: No Primary Care Physician; FREDI Albarran; Alexandre Irby DO Signed TRANSFER TO [facility] Observed: 11/16/2017 Status: F Source: [facility] 3:11 PM [facility] REPOSITORY [facility] Medical Records Department [address] [place] [address] Transfer to [facility] Care MR#: [id number] Acct: [id number] Name: WINSOME MEYERS Rep #: [id number] : 1945 71 From: Elliot RAI PCP: Care Physician, No Primary Status: ADM IN WINSOME MEYERS (Patient) (Health Ins. Claim No.) (Day of Discharge to Facility) Certification of patient admission REQUIRED AT TIME OF ADMISSION. I CERTIFY THAT [facility] SERVICES ARE REQUIRED TO BE GIVEN ON AN IN-PATIENT BASIS BECAUSE OF THE ABOVE NAMED PATIENT'S NEED FOR DETENTION CARE ON A CONTINUING BASIS FOR THE CONDITION(S) FOR WHICH HE/SHE WAS RECEIVING IN-PATIENT HOSPITAL SERVICES PRIOR TO HIS/HER TRANSFER TO THE [facility]. 11/16/17 1339 <Electronically signed by Elliot RAI> Date Elliot RAI - Diet 11/13/17 16:57 Diet: Regular Diet Food consistency:: Regular Liquid Consistency:: Regular/Thin Dietary Modifications:: Pureed Diet Diet Comments: NO Milk and NO Bread, snacks inbetween meals - Routine Orders/Code Status Suppository Type: Dulcolax 10mg Suppository Frequency: Daily PRN Routine Lab Work: CBC - 3 days Code Status: Full Code - Wound(s) left hip Wound Type: Surgical Incision Dressing Change: opsite - Therapies Weight Bearing: Toe-touch weight bearing Physical Therapy: Eval and Treat Occupational Therapy: Eval and Treat - Problem/Diagnosis (1) Fracture of femoral neck, left, closed Status: Acute Current Visit: Yes (2) Dementia Status: Chronic Current Visit: Yes (3) Anemia Status: Chronic Current Visit: Yes (4) HLD (hyperlipidemia) Status: Chronic Current Visit: Yes (5) Sacral fracture Status: Chronic Current Visit: No (6) Hypothyroid Status: Chronic Current Visit: No - Allergies/Procedures Done in Hospital Allergies/Adverse Reactions: Allergies No Known Allergies Allergy (Verified 11/13/17 13:08) Procedures: None - Type of Care/Length of Stay Estimated LOS: Convalescent Care Less Than 30 days Type of Care Needed: Skilled Rehab Potential: Fair Prognosis: Fair - Additional Orders/Day of Discharge Day of Discharge: 11/16/17 - Dietary and Speech Recommendations Dietitian Recommendations/Changes: Will offer 1/2 cup of ensure enlive at meals as well as ONS medpass for increased nutrition if consumed - Follow Up Care Primary Care Physician: Juarez Doctor,Out of [NON-STAFF] - Please follow up with your Primary Care Physician in: 1-2 weeks Please Follow Up With: Alaina Olivares DO When: 2 week 11/16/17 1339 <Electronically signed by Elliot RAI> Date Elliot RAI CC: No Primary Care Physician; Alaina Olivares DO Signed 12 LEAD ELECTROCARDIOGRAM Observed: 11/15/2017 Status: F Source: [place] 3:12 PM [facility] REPOSITORY [facility] Cardiovascular Services [address] [place] [id number] 12 Lead EKG 11/10/17 1305 MR#: [id number] Acct: [id number] Name: WINSOME MEYERS Rep #: [id number] : 1945 71 From: Arie Oneill MD Attending Dr: Status: DEP ER Ordering Dr: Noé Martin MD Date: 11/10/17 Location: ED Sex: F C Admitted: Test Reason : GEN ILLNESS Blood Pressure : / mmHG Vent. Rate : 066 BPM Atrial Rate : 066 BPM P-R Int : 170 ms QRS Dur : 074 ms QT Int : 442 ms P-R-T Axes : 045 -29 -62 degrees QTc Int : 463 ms Normal sinus rhythm Inferior infarct , age undetermined ST AND T wave abnormality, consider anterolateral ischemia Abnormal ECG Confirmed by ARIE ONEILL MD ([id number]), assignment editor MELVA ESPINOZA ([id number]) on 11/15/2017 3:12:08 PM Referred By: SUSAN Confirmed By:ARIE ONEILL MD 11/15/17 1512 Date Arie Oneill MD CC: Noé Martin MD; OUT OF TOWN DOCTOR; L[place]ON RAHMAN Signed 12 LEAD ELECTROCARDIOGRAM Observed: 11/15/2017 Status: F Source: [place] 3:06 PM [facility] REPOSITORY [facility] Cardiovascular Services [address] [place] [address] 12 Lead EKG 11/13/17 1605 MR#: [id number] Acct: [id number] Name: WINSOME MEYERS Rep #: [id number] : 1945 71 From: Arie Oneill MD Attending Dr: Alexandre Irby DO Status: ADM IN Ordering Dr: Abisai Dixon DO Date: 11/13/17 Location: [facility] Sex: F C Admitted: 11/13/17 Test Reason : PRE-OP Blood Pressure : / mmHG Vent. Rate : 069 BPM Atrial Rate : 069 BPM P-R Int : 174 ms QRS Dur : 072 ms QT Int : 408 ms P-R-T Axes : 072 -08 013 degrees QTc Int : 437 ms Sinus rhythm with occasional Premature ventricular complexes Inferior infarct , age undetermined Abnormal ECG Confirmed by ARIE ONEILL MD ([id number]), assignment editor MELVA ESPINOZA ([id number]) on 11/15/2017 3:06:09 PM Referred By: RACHEL Confirmed By:ARIE ONEILL MD 11/15/17 1506 Date Arie Oneill MD CC: No Primary Care Physician; lAexandre Irby DO; Abisai Dixon Signed CBC W/DIFF, AUTOMATED Collected: 11/15/2017 Status: F Source: [place] 2:40 AM [facility] REPOSITORY TYPE CODE TESTS RESULT OUT OF RANGE REFERENCE UNITS LAB L100.1000 4.4-11.0 K/mm3 Normal WBC 4.5 LAB L100.1200 4.2-5.4 M/mm3 Low RBC 2.78 LAB L100.1300 12.0-15.0 g/dl Low HGB 9.5 LAB L100.1400 37-47 % Low HCT 27.8 LAB L100.1500 81-99 fL High MCV 100.0 LAB L100.1600 27.0-32.0 pg High MCH 34.2 LAB L100.1700 32-36 g/gl Normal MCHC 34.2 LAB L100.1810 11.6-14.6 % High RDW CV 14.9 LAB L100.1820 35.1-43.9 fl High RDW SD 52.5 LAB L100.1900 150-450 K/mm3 Normal PLT 215 LAB L100.2000 6.2-12.0 fl Normal MPV 10.3 LAB L100.2100 47-70 % Normal NEUT% 69.2 LAB L100.2200 19-41 % Low LY% 18.1 LAB L100.2300 0-10 % High MONO% 11.4 LAB L100.2400 0-5 % Normal EO% 0.7 LAB L100.2500 0-1 % Normal BASO% 0.4 LAB L100.2550 0.0-0.9 % Normal IM GRAN % 0.200 Result Comment: IG% - Immature Granulocytes (promyelocytes, myelocytes and metamyelocytes) > 1% indicates that a LEFT SHIFT is Present. LAB L100.2620 2.0-7.7 X10 3/uL Normal Absolute Neut 3.1 LAB L100.2720 0.83-4.51 X10 3/ul Low Absolute Lymph 0.81 Performed By: #### L100.0100, L500.2500 #### [facility] [address] [facility] [place], [place], [id number] BASIC METABOLIC Collected: 11/15/2017 Status: F Source: [place] PROFILE (BMP) 2:40 AM [facility] REPOSITORY TYPE CODE TESTS RESULT OUT OF RANGE REFERENCE UNITS LAB L501.0100 74-106 mg/dL Normal GLU 90 Result Comment: Please note revised GLUCOSE reference range effective 2017. LAB L501.1000 7-18 mg/dL Normal BUN 10 LAB L501.1100 0.55-1.02 mg/dL Low CREAT,SERUM 0.38 Result Comment: The validity of the calculated GFR AND GFRAA in patients over 70 years has not been determined. Clinical correlation is essential. LAB L501.1110 >60 mL/min Normal EST GFR 175 Result Comment: Non- GFR Calc LAB L501.1115 >60 mL/min Normal EST GFR - AA 212 Result Comment: GFR Calc LAB L501.1255 ml/min Normal Estimated CRCL 37.81 LAB L501.1300 10-20 RATIO High BUN/CRE 26.2 LAB L501.2200 8.5-10 mg/dL Low .1 CA 7.2 LAB L501.5300 136-14 mmol/L Normal 5 NA 140 LAB L501.5600 3.5-5. mmol/L Normal 1 K 3.7 LAB L501.5900 98-107 mmol/L High CL 110 LAB L501.6100 21.0-3 mmol/L Normal 2.0 CO2 22.0 LAB L501.6200 5-15 Normal GAP 8 Performed By: #### L100.0100, L500.2500 #### [facility] [address] [facility] [place], [address] LACTIC ACID Collected: 11/15/2017 Status: F Source: [place] 2:40 AM [facility] REPOSITORY Order Comment: Yes/No query for Sepsis Lactate Rule Y TYPE CODE TESTS RESULT OUT OF RANGE REFERENCE UNITS LAB L503.6005 0.4-2.0 mmol/L Normal LACTIC ACID 0.7 Performed By: #### L503.6005, M200.1000 #### [facility] [address] [facility] [place], [address] Observed: 11/15/2017 Status: F Source: [place] CULTURE, BLOOD (WB) 2:40 AM [facility] REPOSITORY Has pt arrived? Y BC No growth in 5 days. Performed By: #### L503.6005, M200.1000 #### [facility] [address] [facility] [place], [address] IRON+IRON BINDING Collected: 11/15/2017 Status: F Source: [place] CAPACITY 2:40 AM [facility] REPOSITORY Order Comment: Comments: ok to add on Is Patient Taking Vitamins or Folic Acid Supplements? N TYPE CODE TESTS RESULT OUT OF RANGE REFERENCE UNITS LAB L503.6075 250-450 ug/dL Low TIBC 240 LAB L503.6150 50-170 ug/dL Low IRON 37 LAB L503.6250 15.0-55.0 % IRON Normal SATURATION 15.4 Performed By: #### L503.6030, L506.0250 #### [facility] [address] [place], [address] FOLATES, (FOLIC ACID) Collected: 11/15/2017 Status: F Source: [place] 2:40 AM [facility] REPOSITORY Order Comment: Comments: ok to add on Is Patient Taking Vitamins or Folic Acid Supplements? N TYPE CODE TESTS RESULT OUT OF RANGE REFERENCE UNITS LAB L506.0250 3.1-55.4 ng/mL Normal FOLATES 4.90 Performed By: #### L503.6030, L506.0250 #### [facility] [address] [place], [address] Observed: 11/15/2017 Status: F Source: [place] CULTURE, BLOOD (WB) 2:20 AM [facility] REPOSITORY Has pt arrived? Y BC No growth in 5 days. Performed By: #### M200.1000 #### [facility] [address] [place], [address] HIP MIN 2 VIEWS Observed: 11/14/2017 Status: F Source: [place] (PORTABLE) 7:34 AM [facility] REPOSITORY [facility] Imaging Services [address] [place] [address] Hip Min 2 Views (Portable) MR#: [id number] Acct: [id number] Name: WINSOEM MEYERS Rep #: [id number] : 1945 F 71 From: Brian Grace MD PCP: Care Physician, No Primary Status: ADM IN Study: Hip Min 2 Views (Portable) Date of Exam: 11/14/17 Exam# [id number] Ordering Dr: Alaina Olivares DO STUDY: X-RAY - PELVIS AND LEFT HIP REASON FOR EXAM: Female, 71 years old. Post op. TECHNIQUE: Radiological exam, hip, unilateral, with pelvis when performed; 2 or 3 views. COMPARISON: AP pelvis and 2 additional views of the left hip November 13, 2017. FINDINGS: There is a non-specific bowel gas pattern. Normal visualized soft tissue structures. There is stable mild cortical irregularity of the visualized bilateral sacroiliac joints, suggesting degenerative osteoarthritic changes. Normal visualized bilateral iliac wings and sacrum. Normal bilateral superior and inferior pubic rami. There are stable degenerative changes of the pubic symphysis. Normal bilateral ischial tuberosities. The previously noted fracture of the femoral neck is been stabilized with 3 metal cancellus screws passing in an upward oblique fashion from the lateral intertrochanteric region along the axis of the femoral neck to the femoral head. There is stable osteoarthritic spur formation of the acetabular rim. Normal hip joint. Metal skin radha are noted along the lateral soft tissues of the upper thigh. RAD/Hip Min 2 Views (Portable) IMPRESSION: Status post ORIF of left femoral neck fracture with 3 metal screws. Electronically Signed: Medhat Grace MD at 12:06 EDT , Service support , CC: No Primary Care Physician; Alaina Olivares DO Physician [facility]: Signed LIVER PROFILE Collected: 11/14/2017 Status: F Source: [place] 4:42 AM [facility] REPOSITORY TYPE CODE TESTS RESULT OUT OF RANGE REFERENCE UNITS LAB L501.1500 6.4-8.2 g/dL Low T PROT 4.4 LAB L501.1800 3.2-5.0 g/dL Low ALB 2.0 LAB L501.1950 2.2-4.2 g/dL Normal GLOB 2.4 LAB L501.4100 15-37 U/L Normal AST 16 LAB L501.4305 45-117 U/L Normal ALK P 57 LAB L501.4405 13-56 U/L Normal ALT 14 LAB L501.4600 0.20-1.00 mg/dL Normal T BILI 0.50 LAB L501.4700 0.00-0.30 mg/dL Normal D BILI 0.22 Performed By: #### L500.3400, L501.9520 #### [facility] [address] [place], [id number] THYROID STIM HORMONE Collected: 11/14/2017 Status: F Source: [place] (TSH) 4:42 AM [facility] REPOSITORY TYPE CODE TESTS RESULT OUT OF RANGE REFERENCE UNITS LAB L501.9520 0.358-3.74 uIU/mL Normal TSH 2.50 Performed By: #### L500.3400, L501.9520 #### [facility] [address] [place], [address] CBC-COMPLETE BLOOD CNT Collected: 11/14/2017 Status: F Source: [place] NO DIFF 4:42 AM [facility] REPOSITORY TYPE CODE TESTS RESULT OUT OF RANGE REFERENCE UNITS LAB L100.1000 4.4-11.0 K/mm3 Normal WBC 5.4 LAB L100.1200 4.2-5.4 M/mm3 Low RBC 3.39 LAB L100.1300 12.0-15.0 g/dl Low HGB 11.0 LAB L100.1400 37-47 % Low HCT 33.7 LAB L100.1500 81-99 fL High MCV 99.4 LAB L100.1600 27.0-32.0 pg High MCH 32.4 LAB L100.1700 32-36 g/gl Normal MCHC 32.6 LAB L100.1810 11.6-14.6 % High RDW CV 15.6 LAB L100.1820 35.1-43.9 fl High RDW SD 56.3 LAB L100.1900 150-450 K/mm3 Normal PLT 232 LAB L100.2000 6.2-12.0 fl Normal MPV 10.3 Performed By: #### L100.0500 #### [facility] [address] [place], [id number] VITAMIN D,25 HYDROXY Collected: 11/14/2017 Status: F Source: [place] 4:42 AM [facility] REPOSITORY TYPE CODE TESTS RESULT OUT OF REFERENCE UNITS RANGE LAB L506.1000 29.95-100.01 ng/mL High Vitamin D 100.8 25-OH Performed By: #### L506.1000 #### [facility] [address] [place], [address] HIP MIN 2 VIEWS Observed: 11/13/2017 Status: F Source: [place] (PORTABLE) 8:27 PM [facility] REPOSITORY [facility] Imaging Services [address] [place] [address] Hip Min 2 Views (Portable) MR#: [id number] Acct: [id number] Name: WINSOME MEYERS Rep #: [id number] : 1945 F 71 From: Brian Grace MD PCP: Care Physician, No Primary Status: ADM IN Study: Hip Min 2 Views (Portable) Date of Exam: 11/14/17 Exam# [id number] Ordering Dr: Alaina Olivares DO STUDY: X-RAY - LEFT HIP REASON FOR EXAM: Female, 71 years old. Hip fracture, intraoperative. TECHNIQUE: Fluoroscopic assistance was provided Dr. Olivares. 2 intraoperative fluoroscopic spot films were obtained. FLUOROSCOPY TIME: 52.6 seconds COMPARISON: AP pelvis and 2 additional views of left hip November 13, 2017. FINDINGS: Images demonstrate ORIF of the left femoral neck fracture by 3 metal cancellous screws passing in an upward oblique fashion from the lateral intertrochanteric region along the axis of the femoral neck to the femoral head. RAD/Hip Min 2 Views (Portable) IMPRESSION: ORIF of left femoral neck fracture with 3 metal screws. Electronically Signed: Medhat Grace MD at 14:08 EDT , Service support , CC: No Primary Care Physician; Alaina Olivares DO Physician [facility]: Signed URINALYSIS, COMPLETE Collected: 11/13/2017 Status: F Source: [place] 5:45 PM [facility] REPOSITORY Order Comment: How was Urine Obtained? CATHETER SPECIMEN TYPE CODE TESTS RESULT OUT OF RANGE REFERENCE UNITS LAB L400.3000 Yellow COLOR Normal Yellow LAB L400.3050 Clear Normal CLARITY Clear LAB L400.3200 Normal mg/dl Normal GLUCOSE, UR Normal LAB L400.3300 Negative mg/dL Normal BILIRUBIN URINE Negative LAB L400.3400 Negative mg/dl Normal KETONE UR Negative LAB L400.3465 1.002-1.030 Normal SP.GR. DIPSTX 1.010 LAB L400.3550 5.0 - 8.0 pH UR Normal 8.0 LAB L400.3600 Negative mg/dl PROT Normal DIPSTX Negative LAB L400.3700 Normal mg/dl Normal UROBILI Normal LAB L400.3750 Negative Normal NITRITE UR Negative LAB L400.3780 Negative /ul Normal OCCULT BLOOD-UR Negative LAB L400.3800 Negative /ul LEUK Normal ESTERASE Negative LAB L400.4050 0-5 /hpf WBC 0 Normal SEEN LAB L400.4100 0-5 /hpf 0 Normal RBC-UA SEEN LAB L400.4150 5-10 /hpf SQUAM 0 Normal EPI SEEN LAB L400.4300 None Seen /hpf 0 Normal BACTERIA SEEN LAB L400.4350 <or=2+ /hpf 0 Normal MUCUS, URINE SEEN Performed By: #### L400.0001 #### [facility] [address] [place] [address], [id number] Observed: 11/13/2017 Status: F Source: [place] CULTURE, URINE 5:45 PM [facility] REPOSITORY Urine Culture Culture exhibits no growth. Performed By: #### M100.0650 #### [facility] [address] [place], [place], [id number] TYPE AND SCREEN Collected: 11/13/2017 Status: F Source: [place] 5:05 PM [facility] REPOSITORY Order Comment: Reason for Type AND Screen/Red Cells: SURGERY TYPE CODE TESTS RESULT OUT OF RANGE REFERENCE UNITS LAB B10.0800 A Normal BLOOD TYPE GEL POSITIVE LAB B100.4000 Normal Antibody NEGATIVE Screen Performed By: #### B101.7450 #### [facility] [address] [facility] [place], [place], [id number] EMERGENCY DEPARTMENT Observed: 11/13/2017 Status: F Source: [place] SUMMARY 4:15 PM [facility] REPOSITORY [facility] Medical Records Department [address] [place] [address] Emergency Department Summary 11/13/17 1329 MR#: [id number] Acct: [id number] Name: WINSOME MEYERS Rep #: [id number] : 1945 71 From: Abisai Campbell PCP: Care Physician, No Primary Status: ADM IN ADDENDUM by Abisai Dixon on 11/13/17 at 1615 EKG was sinus rhythm. Chest x-ray no acute process. Received call back from orthopedist Dr. Hernandez, she will plan to take the patient to the OR tomorrow at 7 AM. She requested 2 g of IV Ancef on-call to the OR. This will be relayed to hospitalist by corporation secretary through text page. 11/13/17 1615 Date Abisai Dixon DO cc: No Primary Care Physician * Signed - ER Visit Summary Date of Service: 11/13/17 Chief Complaint: Fall History of Present Illness: The patient is a 71 F mechanical fall prior to arrival. Patient stating that sister's house, uses a walker, states was stepping over a baby gate when she caught her foot falling down on the left side. Pain in left hip and shoulder. Did hit her left side of head. No LOC. Denies headache or neck pain. History of left total shoulder in the past. Patient is from [place]. No anticoagulation medicines. Past med history: Mild dementia, seizure disorder Physical Examination: General: Alert and oriented person, place, month, could not tell me the year., no acute distress HEENT: Normocephalic, no swelling on left temporal region, skin intact.. Moist mucosa membranes Neck: supple, nontender. Cardiovascular: Regular rate and rhythm, no murmurs Respiratory: Normal breath sounds, symmetric, no distress Abdomen: Soft, nontender, nondistended Extremities: Left upper extremity: Tender palpation proximal left shoulder. No deformities. Pain with movement. No elbow or wrist tenderness. Left lower extremity: Positive logroll, mildly externally rotated. There is no shortening. No knee tenderness. Neurovascular intact distally. Neuro: no focal neurological deficits. Test Results: Hemoglobin 13.1. Platelets 304. Creatinine 0.70 potassium 3.9. INR 0.9. PTT 30.9. Type and screen pending. Left shoulder x-ray: No acute process left hip x-ray: Nondisplaced femoral neck fracture. CT head and neck: No acute process. Emergency Department Course and Treatment: Patient mechanical fall, she has mild dementia, she is baseline per family. Left lower extremity slightly externally rotated, is not shortened, positive logroll. Labs were drawn stable. Left shoulder x-ray shows prosthesis however no fracture dislocation. CT head and neck negative. Left hip x-ray reviewed by myself shows a nondisplaced femoral neck fracture. Discussing with family, she last ate at noon 3 and half hours ago. Discussed with orthopedist team, Dr. Olivares, updated for admission. Discussed with hospitalist, Dr. Avila for admission. EKG, chest x- ray, type and screen added. Galicia catheter placed due to nonweightbearing. Treatment Plan: [] Disposition: Admission Impression: 1. Closed left femoral neck fracture 2. Left shoulder contusion 3. Mechanical fall 4. Close head injury This note was generated with ROSTR dictation software. It may contain incorrect words, spelling, and punctuation that were not noted in review of the chart prior to signing ED Disposition - Plan for ED Patient: Disposition: Acute Care [facility] Chief Complaint: Fall Diagnosis: Fracture of femoral neck, left, closed, Contusion of left shoulder, Mechanical fall, Closed head injury Referrals: [facility] Doctor,Out of [NON-STAFF] - What to do if you have Problems For any increased pain, shortness of breath, bleeding, nausea or vomiting, chest pain, or any unexpected problems, contact your Primary Care Provider. Call [facility] ([phone]) or report to the closest Emergency Room. Call 911 if necessary. 11/13/17 1538 <Electronically signed by Abisai Campbell> Date Abisai Kinseyigner Signature (If Indicated): Date CC: No Primary Care Physician HISTORY AND PHYSICAL Observed: 11/13/2017 Status: F Source: [place] EXAM 4:12 PM [facility] REPOSITORY [facility] Medical Records Department [address] [place] [address] History and Physical 11/13/17 1605 MR#: [id number] Acct: [id number] Name: WINSOME MEYERS Rep #: [id number] : 1945 71 From: Demond Avila DO PCP: Care Physician, No Primary Status: ADM IN Y Location: [facility] [id number] Problem List (1) Fracture of femoral neck, left, closed Status: Acute Qualifiers: Encounter type: initial encounter Qualified Code(s): S72.002A - Fracture of unspecified part of neck of left femur, initial encounter for closed fracture History of Present Illness Date of Admission: 11/13/17 Chief Complaint: fall The patient is a 71 year old F who was trying to open up a baby gate and lost her balance and fell backwards. Patient was unable to get up. Brought to the hospital and underwent head CT and brain CT that were unremarkable. Hip x-ray showed a left femoral neck fracture. Patient was admitted back in August for a fall at that time and was had a sacral fracture. A group home facility was recommended but the patient declined at that time. Patient states that she is not any other falls since then. Patient stated that this morning, she did wake up with sensation of the room spinning and feeling dizzy. Feeling better now but still does feel dizzy. Patient states that she does not get dizziness often. [] Past Medical History Past Medical History (Chronic Problems): Chronic Problems Epilepsy (Chronic) Bilateral leg edema (Chronic) Hypothyroid (Chronic) Allergies No Known Allergies Allergy (Verified 11/13/17 13:08) Home Medications: Ambulatory Orders Medication Instructions Recorded Carvedilol [Coreg (Beta Michelle)] 3.125 mg PO BID 08/12/17 Celecoxib [Celebrex] 200 mg PO DAILY 08/12/17 Donepezil HCl [Aricept] 10 mg PO QHS 08/12/17 Surgical History: - - L Shoulder surgery. Lives: With Family Smoking Status: Never smoker Tobacco Use: Non-smoker Alcohol: None Drugs: None - *Family History Maternal History Items: Heart Disease Paternal History Items: No pertinent history Sibling History Items: Cancer Review of Systems Constitutional: Denies: Anorexia, Chills, Fever Eyes: Denies: Blurred vision, Double vision HEENT: Denies: Head Aches, Sinus Congestion, Sinus Drainage Cardiovascular: Denies: Chest Pain, Chest Tightness Respiratory: Denies: Cough, Shortness of breath at rest, Sputum production Gastrointestinal: Denies: Abdominal Pain, Nausea, Vomiting Genitourinary: Reports: Dysuria. Denies: Hematuria Musculoskeletal: Reports: Back Pain, Leg Pain. Denies: Arm Pain Skin: Denies: Dryness, Jaundice Neurological: Reports: Balance problems. Denies: Slurred speech, Confusion Psychiatric: Denies: Anxiety, Depression Endocrine: Reports: Change in Body Habitus - Has lost 10-15 pounds over several year history Hematologic/ Lymphatic: Reports: Easy Bruising. Denies: Easy Bleeding, Hx of blood clot Comment: All review of systems are negative except as mentioned in the history of present illness and the other review of systems. VTE Information - Inpt Only VTE Present on Admission: No VTE Pharm Prophylaxis ordered?: Yes Patient Problems: Active and Suspected Problems Fracture of femoral neck, left, closed (Acute) Contusion of left shoulder (Acute) Closed head injury (Acute) - Physical Exam General: Alert, Cooperative, No apparent distress HEENT: Atraumatic, PERRLA, EOMI, Normocephalic, - - No scleral icterus Oral: Moist Mucosa, No Gingival or Mucosal Lesions/ Ulcerations Neck: No Nodes, Thyroid Normal Size and Texture Lungs: Clear to auscultation, Normal air movement, No rhonchi, No wheeze Cardiovascular: Regular rate, Regular Rhythm, Normal S1, Normal S2, No murmurs Abdomen: Bowel Sounds Present, Soft, Non Tender, Non-Distended, No Hepato-splenomegaly Extremities: No edema, No Calf Tenderness Skin: No rashes, No breakdown Musculoskeletal: Cachexia, Muscle Wasting Neurological: Cranial nerves II-XII grossly intact, Motor Exam 5/5 strength throughout - In upper extremities, Sensory exam intact to light touch and pain Psych/Mental Status: Normal Affect, Appropriate Vital Signs Temp Pulse Resp BP Pulse Ox 36.6 C 67 16 100/77 98 11/13/17 13:08 11/13/17 13:08 11/13/17 13:08 11/13/17 14:03 11/13/17 14:03 Oxygen Delivery Method Room Air Weight: 52.163 kg Body Mass Index (BMI) 21.7 Laboratory Tests Past 24 Hrs Clinical Impression(s) from Imaging Studies Brain CT 11/13/17 13:27 IMPRESSION: Stable chronic involutional and microvascular ischemic changes of the brain. No acute intracranial injury. Electronically Signed: Medhat Grace MD at 15:21 EDT , Service support , Cervical Spine CT 11/13/17 13:27 IMPRESSION: 1. No acute fracture of the cervical spine. 2. Multilevel degenerative changes, as described above, unchanged from November 10, 2017. Electronically Signed: Medhat Grace MD at 15:35 EDT , Service support , Hip/Pelvis X-Ray 11/13/17 13:27 IMPRESSION: 1. Nondisplaced oblique fracture of the left femoral neck. Excellent degenerative changes of the lower lumbar spine, bilateral sacroiliac joints, and pubic symphysis. Degenerative spurring of the roofs of the bilateral acetabula also noted. Electronically Signed: Medhat Grace MD at 16:05 EDT , Service support , Shoulder X-Ray 11/13/17 13:27 IMPRESSION: 1. Prior left shoulder arthroplasty with humeral prosthesis. 2. Old healed fracture deformities of the anterior left fourth and fifth ribs. No demonstrated acute fracture. 3. Demineralization of the osseous structures and degenerative changes of the shoulder again noted. Electronically Signed: Medhat Grace MD at 16:08 EDT , Service support , Assessment/Plan All Active Problems Hypokalemia (Acute) Falls (Acute) Hypotension (Resolved) Thrombocytosis (Acute) Hypocalcemia (Acute) Sacral fracture (Acute) Fracture of femoral neck, left, closed (Acute) Contusion of left shoulder (Acute) Closed head injury (Acute) 1. Left femoral neck fracture * Patient overall has a poor performance status but nothing prohibitive to prohibit her from having surgery. Therefore, patient is medically cleared to proceed with surgery * Patient will be on bedrest * Check a 25-hydroxy vitamin D level * Orthopedics on consultation * IV fluids for now and will hold the patient's Lasix and potassium for now. 2. Cachexia * Patient appears very gaunt * Check a prealbumin 3. DVT prophylaxis * SCDs for now. * Chemical prophylaxis to be gone after surgery and will defer to discretion of orthopedics postoperatively. 4. Debility and falls * PT and OT after surgery * Discussed with patient and her family that she will require group home facility after discharge. * Patient already had a poor performance status prior to her fall is patient was using a walker and would use a wheelchair when she would go to grocery store. Code Visit Inpatient E AND M: [id number] Init Hosp L3 11/13/17 1612 <Electronically signed by Demond Avila DO> Date Demond Avila DO Cosigner Signature: Date (if applicable) CC: No Primary Care Physician; Demond Avila DO Signed CHEST 1 VIEW Observed: 11/13/2017 Status: F Source: [place] (PORTABLE) 3:28 PM [facility] REPOSITORY [facility] Imaging Services [address] [place] [address] Chest 1 View (Portable) MR#: [id number] Acct: [id number] Name: WINSOME MEYERS Rep #: [id number] : 1945 F 71 From: Brian Grace MD PCP: Care Physician, No Primary Status: ADM IN Study: Chest 1 View (Portable) Date of Exam: 11/13/17 Exam# [id number] Ordering Dr: Abisai Dixon DO STUDY: X-RAY CHEST REASON FOR EXAM: Female, 71 years old. Preop, hip fracture. TECHNIQUE: Single AP portable view of the chest. The patient is mildly rotated to the right. COMPARISON: None. FINDINGS: Rancocas shaped density projecting in the right lung apex is likely a skinfold artifact, as are overlapping wedge shaped densities at the left base. Overall, this is a suboptimal respiratory effort, and minor subsegmental atelectasis may also be present in the left base There is no demonstrated pleural abnormality. Normal size heart. Normal mediastinum and benito. Normal visualized pulmonary arteries. There is atherosclerotic calcification of the aortic arch. There are multilevel degenerative changes of the visualized thoracic spine. The patient has undergone prior left shoulder arthroplasty. There is degenerative narrowing of the glenohumeral joint space, and a metal humeral prosthesis shows mild superior subluxation relative to the glenoid. Surgical clips in the right upper quadrant of the abdomen suggest prior cholecystectomy. RAD/Chest 1 View (Portable) IMPRESSION: 1. Moderate subsegmental atelectasis in the medial left lung base. No pneumonic infiltrate or CHF. 2. Prior left shoulder arthroplasty with humeral prosthesis. There are degenerative changes also at the left shoulder. 3. Prior cholecystectomy. Electronically Signed: Medhat Grace MD at 16:31 EDT , Service support , CC: No Primary Care Physician; Abisai Dixon Physician [facility]: Signed CBC W/DIFF, AUTOMATED Collected: 11/13/2017 Status: F Source: [place] 2:20 PM [facility] REPOSITORY TYPE CODE TESTS RESULT OUT OF RANGE REFERENCE UNITS LAB L100.1000 4.4-11.0 K/mm3 Normal WBC 5.3 LAB L100.1200 4.2-5.4 M/mm3 Low RBC 3.87 LAB L100.1300 12.0-15.0 g/dl Normal HGB 13.1 LAB L100.1400 37-47 % Normal HCT 37.9 LAB L100.1500 81-99 fL Normal MCV 97.9 LAB L100.1600 27.0-32.0 pg High MCH 33.9 LAB L100.1700 32-36 g/gl Normal MCHC 34.6 LAB L100.1810 11.6-14.6 % High RDW CV 14.7 LAB L100.1820 35.1-43.9 fl High RDW SD 51.4 LAB L100.1900 150-450 K/mm3 Normal PLT 304 LAB L100.2000 6.2-12.0 fl Normal MPV 10.2 LAB L100.2100 47-70 % Normal NEUT% 69.0 LAB L100.2200 19-41 % Normal LY% 22.0 LAB L100.2300 0-10 % Normal MONO% 7.5 LAB L100.2400 0-5 % Normal EO% 0.2 LAB L100.2500 0-1 % Normal BASO% 0.2 LAB L100.2550 0.0-0.9 % High IM GRAN % 1.100 Result Comment: IG% - Immature Granulocytes (promyelocytes, myelocytes and metamyelocytes) > 1% indicates that a LEFT SHIFT is Present. LAB L100.2620 2.0-7.7 X10 3/uL Normal Absolute Neut 3.7 LAB L100.2720 0.83-4.51 X10 3/ul Normal Absolute Lymph 1.17 Performed By: #### L100.0100 #### [facility] [address] [facility] [place], [address] PROTHROMBIN TIME W/INR Collected: 11/13/2017 Status: F Source: [place] 2:20 PM [facility] REPOSITORY TYPE CODE TESTS RESULT OUT OF RANGE REFERENCE UNITS LAB L300.4150 11.7-14.9 SECONDS Normal PROTIME 12.1 LAB L300.4200 Normal INR 0.9 Performed By: #### L300.3900, L300.4310 #### [facility] [address] [place], [address] PARTIAL THROMBOPLAST Collected: 11/13/2017 Status: F Source: [place] TIME 2:20 PM [facility] REPOSITORY TYPE CODE TESTS RESULT OUT OF RANGE REFERENCE UNITS LAB L300.4310 24.1-36.2 Seconds Normal PTT 30.9 Performed By: #### L300.3900, L300.4310 #### [facility] [address] [place], [address] BASIC METABOLIC Collected: 11/13/2017 Status: F Source: [place] PROFILE (BMP) 2:20 PM [facility] REPOSITORY TYPE CODE TESTS RESULT OUT OF RANGE REFERENCE UNITS LAB L501.0100 74-106 mg/dL Normal GLU 97 Result Comment: Please note revised GLUCOSE reference range effective 2017. LAB L501.1000 7-18 mg/dL Normal BUN 17 LAB L501.1100 0.55-1.02 mg/dL Normal CREAT,SERUM 0.70 Result Comment: The validity of the calculated GFR AND GFRAA in patients over 70 years has not been determined. Clinical correlation is essential. LAB L501.1110 >60 mL/min Normal EST GFR 87 Result Comment: Non- GFR Calc LAB L501.1115 >60 mL/min Normal EST GFR - AA 105 Result Comment: GFR Calc LAB L501.1255 ml/min Normal Estimated CRCL 37.81 LAB L501.1300 10-20 RATIO High BUN/CRE 24.3 LAB L501.2200 8.5-10 mg/dL Normal .1 CA 8.6 LAB L501.5300 136-14 mmol/L Normal 5 NA 138 LAB L501.5600 3.5-5. mmol/L Normal 1 K 3.9 LAB L501.5900 98-107 mmol/L Normal CL 101 LAB L501.6100 21.0-3 mmol/L Normal 2.0 CO2 29.0 LAB L501.6200 5-15 Normal GAP 8 Performed By: #### L500.2500 #### [facility] [address] [place], [address] PREALBUMIN Collected: 11/13/2017 Status: F Source: [place] 2:20 PM [facility] REPOSITORY TYPE CODE TESTS RESULT OUT OF REFERENCE UNITS RANGE LAB L506.0500 20.0-40.0 mg/dL Low PREALBUMIN 14.6 Performed By: #### L506.0500 #### [facility] [address] [place], [address] BRAIN/HEAD WITHOUT Observed: 11/13/2017 Status: F Source: [place] CONTRAST 1:28 PM [facility] REPOSITORY [facility] Imaging Services [address] [place] [address] Brain/Head without Contrast MR#: [id number] Acct: [id number] Name: WINSOME MEYERS Rep #: [id number] : 1945 F 71 From: Brian Grace MD PCP: Care Physician, No Primary Status: REG ER Study: Brain/Head without Contrast Date of Exam: 11/13/17 Exam# [id number] Ordering Dr: Abisai Dixon DO STUDY: CT BRAIN WITHOUT CONTRAST REASON FOR EXAM: Female, 71 years old. Mechanical fall, hit head. RADIATION DOSAGE (If Supplied By Facility): CTDIvol = ( 44.99 ) mGy, DLP = ( 779.24 ) mGycm TECHNIQUE: Transaxial CT imaging of the brain was performed without administration of intravenous contrast material. Individualized dose optimization techniques were used for this CT. COMPARISON: Noncontrast CT brain November 10, 2017. FINDINGS: Normal soft tissue structures. Normal calvarium. There is stable mild cerebral atrophy with widening of the extra-axial spaces and ventricular dilatation. There are stable areas of decreased attenuation within the white matter tracts of the supratentorial brain, consistent with microvascular disease changes. Normal basal ganglia and thalami. Normal brainstem. Normal cerebellum. There is no intracranial hemorrhage. There are no findings of an acute ischemic infarction. Normal visualized paranasal sinuses. CT/Brain/Head without Contrast IMPRESSION: Stable chronic involutional and microvascular ischemic changes of the brain. No acute intracranial injury. Electronically Signed: Medhat Grace MD at 15:21 EDT , Service support , CC: No Primary Care Physician; Abisai Dixon Physician Locums Urgent Care: Signed SPINE CERVICAL Observed: 11/13/2017 Status: F Source: [place] WITHOUT CONTRAS 1:28 PM [facility] REPOSITORY [facility] Imaging Services [address] [place] [address] Spine Cervical without Contras MR#: [id number] Acct: [id number] Name: WINSOME MEYERS Rep #: [id number] : 1945 F 71 From: Brian Grace MD PCP: Care Physician, No Primary Status: REG ER Study: Spine Cervical without Contras Date of Exam: 11/13/17 Exam# [id number] Ordering Dr: Abisai Dixon DO STUDY: CT CERVICAL SPINE WITHOUT CONTRAST REASON FOR EXAM: Female, 71 years old. Mechanical fall, hit head. RADIATION DOSAGE (If Supplied By Facility): CTDIvol = ( 16.78 ) mGy, DLP = ( 319.40 ) mGycm TECHNIQUE: High resolution transaxial imaging was performed without contrast material. Sagittal and coronal images were reconstructed. Individualized dose optimization techniques were used for this CT. COMPARISON: CT cervical spine November 10, 2017. FINDINGS: Normal craniovertebral junction. There are degenerative changes of the anterior atlantoaxial articulation. Normal odontoid process. Normal cervical lordosis. No acute fracture of the vertebral bodies and posterior osseous elements. C2-3: Normal endplates. Normal disc height and morphology. Moderate degenerative narrowing of the left facet articulation. Normal central canal and intervertebral neuroforamina. C3-4: Bilateral posterolateral endplate spurring. Borderline disc height narrowing. Mild degenerative narrowing of the left facet articulation. Normal central canal early osseous encroachment on the right intervertebral neuroforamen. C4-5: Anterior endplate spurring and posterolateral endplate osteophytes, greater on the right. Moderate to moderately severe disc height narrowing with 3.5 mm wide-based left central disc protrusion. Early degenerative arthrosis of the left facet articulation. There is slight retrolisthesis of C4 on C5. Mild impingement on the anterior central canal, and mild osseous encroachment on the right intervertebral neuroforamen. C5-6: Anterior endplate spurring and posterolateral endplate osteophytes, greater on the right. Moderate disc height narrowing . Mild to moderate degenerative arthroses of the bilateral facet articulations. Normal central canal and intervertebral neuroforamina. C6-7: Anterior endplate spurring and posterolateral endplate osteophytes, greater on the right. Cystic degenerative changes noted in the posterior C6 endplate. Moderate to moderately severe disc height with wide-based 3 mm posterior disc bulge. Mild degenerative arthroses of the bilateral facet articulations. Mild impingement on the anterior central canal, and mild osseous encroachment on the right intervertebral neuroforamen. C7-T1: Normal endplates. Normal disc height and morphology. Severe degenerative narrowing and mild hypertrophic periarticular spurring of the bilateral facet articulations. There is 1-2 mm anterolisthesis of C7 on T1. Normal central canal and intervertebral neuroforamina. Normal visualized vertebral soft tissue structures. There is early atherosclerotic intimal calcification of the bilateral carotid artery bifurcations. CT/Spine Cervical without Contras IMPRESSION: 1. No acute fracture of the cervical spine. 2. Multilevel degenerative changes, as described above, unchanged from November 10, 2017. Electronically Signed: Medhat Grace MD at 15:35 EDT , Service support , CC: No Primary Care Physician; Abisai Dixon Physician Locums Urgent Care: Signed HIP, UNI W/ PELVIS Observed: 11/13/2017 Status: F Source: [place] 2-3 VIEWS 1:28 PM [facility] REPOSITORY [facility] Imaging Services [facility] [place] [address] HIP, UNI W/ Pelvis 2-3 Views MR#: [id number] Acct: [id number] Name: WINSOME MEYERS Rep #: [id number] : 1945 F 71 From: Brian Grace MD PCP: Care Physician, No Primary Status: ADM IN Study: HIP, UNI W/ Pelvis 2-3 Views Date of Exam: 11/13/17 Exam# [id number] Ordering Dr: Abisai Dixon DO STUDY: X-RAY - PELVIS AND LEFT HIP REASON FOR EXAM: Female, 71 years old. Fall, painful left hip. TECHNIQUE: Radiological exam, hip, unilateral, with pelvis when performed; 2 or 3 views. COMPARISON: None. FINDINGS: There is a non-specific bowel gas pattern. There are calcified phleboliths. Degenerative changes noted in the visualized lower lumbar spine. There is mild cortical irregularity of the lateral sacroiliac joints, consistent with degenerative osteoarthritic changes. Normal bilateral superior and inferior pubic rami. There are mild degenerative changes of the pubic symphysis with articular narrowing. Normal bilateral ischial tuberosities. Normal visualized femoral head. There is osteoarthritic spur formation of the acetabular rim. Normal hip joint. There is a nondisplaced oblique fracture through the femoral neck. RAD/HIP, UNI W/ Pelvis 2-3 Views IMPRESSION: 1. Nondisplaced oblique fracture of the left femoral neck. Excellent degenerative changes of the lower lumbar spine, bilateral sacroiliac joints, and pubic symphysis. Degenerative spurring of the roofs of the bilateral acetabula also noted. Electronically Signed: Medhat Grace MD at 16:05 EDT , Service support , CC: No Primary Care Physician; Abisai Dixon Physician Locums Urgent [facility]: Signed SHOULDER MIN 2 VIEWS Observed: 11/13/2017 Status: F Source: [place] 1:28 PM [facility] REPOSITORY [facility] Imaging Services [address] [place] [address] Shoulder min 2 Views MR#: [id number] Acct: [id number] Name: WINSOME MEYERS Rep #: [id number] : 1945 F 71 From: Brian Grace MD PCP: Care Physician, No Primary Status: ADM IN Study: Shoulder min 2 Views Date of Exam: 11/13/17 Exam# [id number] Ordering Dr: Abisai Dixon DO STUDY: X-RAY - LEFT SHOULDER REASON FOR EXAM: Female, 71 years old. Fall, painful shoulder. TECHNIQUE: 2 view(s) of the shoulder. COMPARISON: 3 views of left shoulder on 4 films August 12, 2017. FINDINGS: There is moderate degenerative arthrosis of the glenohumeral articulation with narrowing of the joint space and inferior periarticular spurring of the glenoid. Normal acromioclavicular joint. Normal acromion. There is demineralization of the visualized osseous structures. The patient has undergone shoulder arthroplasty, with resection of the humeral head and placement of a metal prosthesis. Mild superior subluxation of the prosthesis relative to the glenoid of the scapula is unchanged. The soft tissue structures are unremarkable. There are stable old healed fracture foreign bodies of the anterior left fourth and fifth rib Normal visualized pulmonary apex. RAD/Shoulder min 2 Views IMPRESSION: 1. Prior left shoulder arthroplasty with humeral prosthesis. 2. Old healed fracture deformities of the anterior left fourth and fifth ribs. No demonstrated acute fracture. 3. Demineralization of the osseous structures and degenerative changes of the shoulder again noted. Electronically Signed: Medhat Grace MD at 16:08 EDT , Service support , CC: No Primary Care Physician; Abisai Dixon Physician Locums Urgent Care: Signed EMERGENCY DEPARTMENT Observed: 11/10/2017 Status: F Source: [place] SUMMARY 3:16 PM [facility] REPOSITORY [facility] Medical Records Department [address] [place] [address] Emergency Department Summary 11/10/17 1252 MR#: [id number] Acct: [id number] Name: WINSOME MEYERS Rep #: [id number] : 1945 71 From: Noé Martin MD PCP: OUT OF TOWN DOCTOR Status: REG ER - ER Visit Summary Date of Service: 11/10/17 Chief Complaint: Weakness, fatigue, tremor History of Present Illness: The patient is a 71 F with medical history of mild dementia and seizure disorder resents to the emergency department for increasing weakness and fatigue. The patient had recently moved up here from [place]. She been staying with family. She had a fall in [place] prior to arriving. She ended up being rather severely hypokalemic and was admitted to the hospital. She was discharged home. She states that she just does not feel herself. Over the past 3 weeks, she had gradual increasing weakness. She describes it as diffuse. She also admits to some mild nausea and a headache. She does describe lightheadedness. She is also been having vivid dreams. She denies any seizures. She is on gabapentin for her seizure disorder and has had no recent changes in the dose. She denies any recent changes in her medications. She has not had fever or chills. She denies cough. Physical Examination: Vital signs reviewed General: Well-nourished, well-developed Head: Normocephalic, atraumatic Eyes: Pupils equal and reactive, extraocular muscles intact Neck, supple, no lymphadenopathy Heart: Regular rate and rhythm Respiratory: No distress, clear bilaterally Abdomen: Soft, nontender, nondistended, no peritoneal signs Back: Nontender Extremities: Nontender, no edema, no cords Skin: Normal color no rash Neuro: Alert and oriented, no focal or lateralizing deficits Test Results: [] Emergency Department Course and Treatment: [The patient has multiple complaints. Most of it resolves around her intermittent confusion. I do feel that this is more likely progression of her dementia. She states she cannot recall things that she has done. She has no delirium. There is no hallucinations or delusions. I did obtain a head CT which was unremarkable. CT of the neck shows chronic arthritis changes. EKG was unchanged from prior. Lab work is unremarkable except for a hypokalemia. I did order the patient oral replacement, but she refused. She states he has a hard time swallowing the pills. She is supposed to be on potassium replacement at home, but states she does not take it. I do feel that this is likely the cause of the patient's weakness. She is able to ambulate. She has normal reflexes. I am going to start her on the effervescent form of potassium liquid so she can swallow it. She was counseled that she needs to take this. The patient will be discharged home. Treatment Plan: [] Disposition: Discharge Impression: 1. Generalized weakness 2. Hypokalemia This note was generated with ROSTR dictation software. It may contain incorrect words, spelling, and punctuation that were not noted in review of the chart prior to signing ED Disposition - Plan for ED Patient: Chief Complaint: General Illness Diagnosis: Hypokalemia Instructions: ED Potassium Deficiency Prescriptions: Potassium Cloride Effervescent [Potassium Chl 25 Meq Eff (For Liquid)] 25 meq PO TID #30 tablet.eff Referrals: [facility] Doctor,Out of [Primary Care Provider] - What to do if you have Problems For any increased pain, shortness of breath, bleeding, nausea or vomiting, chest pain, or any unexpected problems, contact your Primary Care Provider. Call [facility] ([phone]) or report to the closest Emergency Room. Call 911 if necessary. 11/10/17 1516 <Electronically signed by Noé Martin MD> Date Noé Martin MD Cosigner Signature (If Indicated): Date CC: OUT OF TOWN DOCTOR; [place] RAHMAN SPINE CERVICAL Observed: 11/10/2017 Status: F Source: [place] WITHOUT CONTRAS 2:07 PM [facility] REPOSITORY [facility] Imaging Services [address] [place] [address] Spine Cervical without Contras MR#: [id number] Acct: [id number] Name: WINSOME MEYERS Rep #: [id number] : 1945 F 71 From: Aneta Da Silva MD PCP: OUT OF TOWN DOCTOR Status: REG ER Study: Spine Cervical without Contras Date of Exam: 11/10/17 Exam# [id number] Ordering Dr: Noé Martin MD STUDY: CT CERVICAL SPINE WITHOUT CONTRAST REASON FOR EXAM: Female, 71 years old. TREMORS, HX OF EPILEPSY RADIATION DOSAGE (If Supplied By Facility): CTDIvol = ( 15.67 ) mGy, DLP = ( 296.35 ) mGycm TECHNIQUE: High resolution transaxial imaging was performed without contrast material. Sagittal and coronal images were reconstructed. Individualized dose optimization techniques were used for this CT. COMPARISON: None FINDINGS: Normal craniovertebral junction. Normal anterior atlantoaxial articulation. Normal odontoid process. Normal cervical lordosis. Normal vertebral bodies and posterior osseous elements. C2-3: Normal endplates. Normal disc height and morphology. Normal central canal and intervertebral neuroforamina. C3-4: Endplate spondylosis. Central and paracentral disc bulge. Degenerative changes of the bilateral facet joints and uncovertebral joints. Mild narrowing of the central canal and the bilateral intervertebral neural foramina. C4-5: Endplate spondylosis. Central and paracentral disc bulge. Degenerative changes of the bilateral facet joints and uncovertebral joints. Mild narrowing of the central canal and the bilateral intervertebral neural foramina. C5-6: Endplate spondylosis. Central and paracentral disc bulge. Degenerative changes of the bilateral facet joints and uncovertebral joints. Mild narrowing of the central canal and the bilateral intervertebral neural foramina. C6-7: Endplate spondylosis. Central and paracentral disc bulge. Degenerative changes of the bilateral facet joints and uncovertebral joints. Mild narrowing of the central canal and the bilateral intervertebral neural foramina. C7-T1: Normal endplates. Normal disc height and morphology. Normal central canal and intervertebral neuroforamina. Normal visualized soft tissue structures. CT/Spine Cervical without Contras IMPRESSION: Multilevel degenerative changes, as described above. Electronically Signed: Aneta Da Silva MD at 14:43 EDT Tel , Service support , CC: Noé Martin MD; OUT OF TOWN DOCTOR Physician Locums Urgent Care: Signed CBC W/DIFF, AUTOMATED Collected: 11/10/2017 Status: F Source: [place] 1:07 PM [facility] REPOSITORY TYPE CODE TESTS RESULT OUT OF RANGE REFERENCE UNITS LAB L100.1000 4.4-11.0 K/mm3 Normal WBC 6.1 LAB L100.1200 4.2-5.4 M/mm3 Low RBC 4.17 LAB L100.1300 12.0-15.0 g/dl Normal HGB 13.6 LAB L100.1400 37-47 % Normal HCT 40.6 LAB L100.1500 81-99 fL Normal MCV 97.4 LAB L100.1600 27.0-32.0 pg High MCH 32.6 LAB L100.1700 32-36 g/gl Normal MCHC 33.5 LAB L100.1810 11.6-14.6 % High RDW CV 14.9 LAB L100.1820 35.1-43.9 fl High RDW SD 52.1 LAB L100.1900 150-450 K/mm3 Normal PLT 288 LAB L100.2000 6.2-12.0 fl Normal MPV 10.1 LAB L100.2100 47-70 % Normal NEUT% 67.1 LAB L100.2200 19-41 % Normal LY% 23.0 LAB L100.2300 0-10 % Normal MONO% 9.4 LAB L100.2400 0-5 % Normal EO% 0.0 LAB L100.2500 0-1 % Normal BASO% 0.2 LAB L100.2550 0.0-0.9 % Normal IM GRAN % 0.300 Result Comment: IG% - Immature Granulocytes (promyelocytes, myelocytes and metamyelocytes) > 1% indicates that a LEFT SHIFT is Present. LAB L100.2620 2.0-7.7 X10 3/uL Normal Absolute Neut 4.1 LAB L100.2720 0.83-4.51 X10 3/ul Normal Absolute Lymph 1.40 Performed By: #### L100.0100 #### [facility] [address] [place], [address] COMPREHENSIVE METABOLIC Collected: 11/10/2017 Status: F Source: [place] [facility] 1:07 PM [facility] REPOSITORY TYPE CODE TESTS RESULT OUT OF RANGE REFERENCE UNITS LAB L501.0100 74-106 mg/dL High GLU 111 Result Comment: Fasting Glucose result from 100 to 125 mg/dL suggests IMPAIRED HOMEOSTASIS per A.D.A. criteria. Please note revised GLUCOSE reference range effective 2017. LAB L501.1000 7-18 mg/dL Normal BUN 17 LAB L501.1100 0.55-1.02 mg/dL Normal CREAT,SERUM 0.91 Result Comment: The validity of the calculated GFR AND GFRAA in patients over 70 years has not been determined. Clinical correlation is essential. LAB L501.1110 >60 mL/min Normal EST GFR 65 Result Comment: Non- GFR Calc LAB L501.1115 >60 mL/min Normal EST GFR - AA 78 Result Comment: GFR Calc LAB L501.1255 ml/min Normal Estimated CRCL 39.55 LAB L501.1300 10-20 RATIO Normal BUN/CRE 18.7 LAB L501.1500 6.4-8. g/dL Low 2 T PROT 5.9 LAB L501.1800 3.2-5. g/dL Low 0 ALB 2.7 LAB L501.1950 2.2-4. g/dL Normal 2 GLOB 3.2 LAB L501.2000 0.9-2. RATIO Low 4 A/G 0.8 LAB L501.2200 8.5-10 mg/dL Low .1 CA 8.2 LAB L501.4100 15-37 U/L Normal AST 20 LAB L501.4305 45-117 U/L Normal ALK P 74 LAB L501.4405 13-56 U/L Low ALT 11 LAB L501.4600 0.20-1 mg/dL Normal .00 T BILI 0.80 LAB L501.5300 136-14 mmol/L Normal 5 NA 137 LAB L501.5600 3.5-5. mmol/L Low 1 K alert 2.7 Result Comment: Critical Result(s) Called at: 13:35:35 11/10/2017 by: Sharmaine Barron to [place] LAB L501.5900 98-107 mmol/L Low CL 96 LAB L501.6100 21.0-32.0 mmol/L Normal CO2 31.0 LAB L501.6200 5-15 Normal GAP 10 Performed By: #### L500.4050, L501.4010 #### [facility] [address] [place], [address] TROPONIN-I Collected: 11/10/2017 Status: F Source: [place] 1:07 PM [facility] REPOSITORY TYPE CODE TESTS RESULT OUT OF RANGE REFERENCE UNITS LAB L501.4010 <0.045 ng/mL Normal 0.038 TROPONIN-I Result Comment: TROPONIN-I EXPECTED VALUES <0.045 Negative 0.045 - 0.590 Consistent with Cardiac Damage > OR = 0.600 Critical Value Not every elevated troponin is indicative of MD. These values should be used with clinical judgement in examining the patient's clinical picture for diagnosis. To establish a diagnosis of MD versus myocardial injury, there must be a demonstrated rise and/or fall in the troponin values, in addition to ischemic symptoms, EKG changes, new regional wall motion abnormality, and/or angiographical evidence. PLEASE NOTE: REFERENCE RANGES EDITED 17 Performed By: #### L500.4050, L501.4010 #### [facility] [address] [place], [address] BRAIN/HEAD WITHOUT Observed: 11/10/2017 Status: F Source: [place] CONTRAST 12:49 PM [facility] REPOSITORY [facility] Imaging Services [address] [place] [address] Brain/Head without Contrast MR#: [id number] Acct: [id number] Name: WINSOME MEYERS Rep #: [id number] : 1945 F 71 From: Aneta Da Silva MD PCP: OUT OF TOWN DOCTOR Status: REG ER Study: Brain/Head without Contrast Date of Exam: 11/10/17 Exam# [id number] Ordering Dr: Noé Martin MD STUDY: CT BRAIN WITHOUT CONTRAST REASON FOR EXAM: Female, 71 years old. CONFUSION, RODRIGUEZ. RECENT TREMORS / HX OF EPILEPSY RADIATION DOSAGE (If Supplied By Facility): CTDIvol = ( 44.99 ) mGy, DLP = ( 796.11 ) mGycm TECHNIQUE: Transaxial CT imaging of the brain was performed without administration of intravenous contrast material. Individualized dose optimization techniques were used for this CT. COMPARISON: None. FINDINGS: Normal soft tissue structures. Normal calvarium. There is mild cerebral atrophy with widening of the extra- axial spaces and ventricular dilatation. There are areas of decreased attenuation within the white matter tracts of the supratentorial brain, consistent with microvascular disease changes. Normal basal ganglia and thalami. Normal brainstem. Normal cerebellum. There is no intracranial hemorrhage. There are no findings of an acute ischemic infarction. Normal visualized paranasal sinuses. CT/Brain/Head without Contrast IMPRESSION: Chronic involutional changes of the brain. Electronically Signed: Aneta Da Silva MD at 13:34 EDT Tel , Service support , CC: Noé Martin MD; OUT OF TOWN DOCTOR Physician Locums Urgent Care: Signed FECAL OCCULT BLD Collected: 10/07/2017 Status: F Source: [facility] 7:[address] [facility] REPOSITORY TYPE CODE TESTS RESULT OUT OF REFERENCE UNITS RANGE LAB IFO Negative Immuno Negative FOB Result Comment: This test was developed and its performance characteristics determined by [facility]'s [facility] [place] ([facility]). It has not been cleared or approved by the FDA. [facility] is regulated under CLIA as qualified to perform high-complexity testing. This test is used for clinical purposes. It should not be regarded as investigational or for research. Performed By: #### IFOBT #### [facility] [address] [place], [place] [address] PROGRESS Observed: 09/16/2017 Status: COMPLETED Source: [place] 11:[address] [facility] REPOSITORY HNO ID: [id number] Author: Sotero Honeycutt) Clari Service: (none) Author Type: Physician Type: Progress Notes Filed: 09/17/2017 9:16 PM Note Text: Chief Complaint Patient presents with: Establish Care: 2-3 week follow up HPI Winsome Meyers is a 71 year old female who presents here today for Above Complaints. Accompanied today by sister Annette whom she is living with currently. History given by patient who is poor historian with history of memory impairment/dementia on Aricept. Records from PCP in [place] not available today. Patient had repeat fall after last OV without injury, head trauma, or LOC. Was using walker and fell straight down onto buttock on carpeted floor. Did not require evaluation afterwards. Home health has not been set up since last OV. Sister notes that patient has pressure ulcer on right buttock which is slowly healing. Not treating at home. Denies fever/chills, purulent drainage, erythema, streaking. c/o occasional rectal bleeding with constipation. Has multiple stool softeners and laxatives which typically work for symptoms. Denies hemorrhoids, lightheadedness, SOB. Reviewed recent blood work and discussed elevated alk phos with normal GGT and LFTs. Past medical history, appointments, medications, allergies reviewed and updated. 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 - Gastric bypass status for obesity 2002 done elsewhere - Hypothyroid - Malnutrition (HCC) - Marginal ulcer s/p perforation - Preop exam for internal medicine - Seizures (HCC) - Weight loss Previous Surgical History PAST SURGICAL HISTORY Procedure Laterality Date - GASTRIC BYPASS,OBESE<100CM DINAH-EN-Y 2002 done elsewhere - LAPAROSCOPY, SURGICAL; JEJUNOSTOMY 03-28-09 P Ronni - revision gastrojejunostomy Tanvi Rudolph Family History FAMILY HISTORY Problem Relation Age of Onset - Coronary Artery Disease Mother - Hypertension Mother - Ischemic Heart Disease Mother - GI Father PUD Patient Allergies ALLERGIES Allergen Reactions - Iodoform Nu-Gauze P* Swelling, Anaphylaxis Current Medications Current Outpatient Prescriptions on File Prior to Visit: potassium chloride ER (KLOR-CON M20) 20 mEq tablet Take 20 mEq by mouth twice daily. donepezil (ARICEPT) 10 mg tablet Take 10 mg by mouth daily at bedtime. celecoxib (CELEBREX) 200 mg capsule Take 200 mg by mouth once daily. venlafaxine (EFFEXOR) 75 mg tablet Take 75 mg by mouth once daily. furosemide (LASIX) 20 mg tablet Take 20 mg by mouth once daily. esomeprazole (NEXIUM IV) 40 mg injection Inject 40 mg intravenously DAILY (6 AM). carvedilol (COREG) 3.125 mg tablet Take 3.125 mg by mouth twice daily with meals. pravastatin (PRAVACHOL) 40 mg tablet Take 40 mg by mouth once daily. ergocalciferol, vitamin D2, (VITAMIN D) 50,000 unit capsule Take 50,000 Units by mouth once each week. oxyCODONE immediate release (PERCOLONE) 5 mg immediate release tablet Take 5 mg by mouth every 4 hours as needed. rOPINIRole (REQUIP) 0.5 mg tablet Take 0.5 mg by mouth three times daily. Ibuprofen 200 mg cap Take by mouth. diazePAM (VALIUM) 5 mg tablet Take 1 tablet by mouth every 12 hours as needed for Anxiety (as needed only). (Patient not taking: Reported on 08/17/2017 ) gabapentin (NEURONTIN) 100 mg capsule Take 2 capsules by mouth three times daily. (Patient not taking: Reported on 08/17/2017 ) metoclopramide HCl (REGLAN) 10 mg tablet Take 0.5 tablets by mouth three times daily. 45-60 minutes before intended meal time (Patient not taking: Reported on 08/17/2017 ) docusate sodium (COLACE) 100 mg capsule Take 1 capsule by mouth twice daily as needed. (Patient not taking: Reported on 08/17/2017 ) levothyroxine (SYNTHROID) 125 mcg tablet Take 1 tablet by mouth once daily. (Patient taking differently: Take 75 mcg by mouth once daily. ) polyethylene glycol 3350 (MIRALAX) 17 gram/dose powder Take 17 g by mouth once daily. senna (SENOKOT) 8.6 mg tab Take 2 tablets by mouth daily at bedtime. OMEPRAZOLE 20 mg ORAL capsule TEMAZEPAM 30 MG CAP Take one(1) tablet daily. atorvastatin calcium(LIPITOR 10 MG TAB) Take one(1) tablet daily. CALCIUM CARBONATE-VITAMIN D2 500 MG-200 UNIT TAB Take one(1) tablet three times daily. CENTRUM SILVER TAB Take one(1) tablet two(2) times daily. No current facility-administered medications on file prior to visit. Social History Social History Marital status: Spouse name: Years of education: Number of children: Social History Main Topics Smoking status: Never Smoker Review of Symptoms REVIEW OF SYSTEMS GENERAL: No weight loss, malaise or fevers RESPIRATORY: Negative for cough, hemoptysis, wheezing, COPD, dyspnea or shortness of breath CARDIOVASCULAR: Negative for chest pain, leg swelling, hypertension, CHF or palpitations GI: No nausea, vomiting, or diarrhea SKIN: Negative for lesions, rash, and itching EXAM: BP 98/64 Pulse 80 Temp 36.9 ?C (98.4 ?F) (Tympanic) Resp 12 Ht 149.2 cm (4' 10.75) Wt 48.1 kg (106 lb) SpO2 98% BMI 21.59 kg/m? General Appearance: Well appearing, alert, in no acute distress, well-hydrated, well nourished.. Skin: 0.5 cm stage 2 pressure ulcer on right buttock without erythema or discharge. Lungs: Lungs clear to auscultation. No wheezing, rhonchi, rales. Heart: RRR without murmur, gallop, or rubs. No ectopy. Abdomen: Normal abdominal exam, Abdomen soft, non-tender. Bowel sounds normal. No masses, organomegaly. Extremities: No deformities, edema, skin discoloration, clubbing or cyanosis. Good capillary refill. . Health Maintenance List DTAP,TDAP,TD(1 - Tdap) due on 12/14/1962 MAMMOGRAM due on 1983 COLORECTAL CANCER SCREENING,SEE MODIFIER due on 12/14/1993 BONE DENSITY due on 12/14/2008 ADULT PREVNAR-13 due on 12/14/2008 INFLUENZA(1) due on 10/09/2017 LIPID SCREEN due on 01/01/2019 DIABETES SCREEN due on 08/27/2020 PNEUMOVAX AGE 65 AND OVER WITH 5YR LOOKBACK Completed Data reviewed Component Latest Ref Rng AND Units 08/15/2016 08/16/2016 08/18/2017 08/27/2017 Ketones, Urine Negative Trace (A) Specific [place], Ur 1.005 - 1.030 1.018 Hemoglobin/Blood,Ur Negative Negative pH, Urine 4.5 - 8.0 6.0 Protein, Urine Negative mg/dL 30 (A) Urobilinogen Normal Elevated (A) Nitrites Negative Negative Leukest Negative Trace (A) Comments SEE COMMENT Urine Daren Comment SEE COMMENT WBC, Urine 0 - 5 /HPF 11-25 (A) RBC, Urine 0 - 3 /HPF 3-5 (A) Epithelial Cells /HPF SEE COMMENT Crystal 0 /HPF SEE COMMENT (A) Protein, Total 6.3 - 8.0 g/dL 4.5 (L) 4.5 (L) 6.4 6.3 Albumin 3.9 - 4.9 g/dL 2.6 (L) 2.6 (L) 3.5 (L) 3.4 (L) Calcium 8.5 - 10.2 mg/dL 8.4 (L) 8.1 (L) 8.9 9.4 Bilirubin, Total 0.2 - 1.3 mg/dL 0.2 0.2 0.7 0.5 Alkaline Phosphatase 32 - 117 U/L 47 47 337 (H) 254 (H) AST 13 - 35 U/L 15 16 34 33 Glucose 74 - 99 mg/dL 79 85 103 (H) 110 (H) BUN 7 - 21 mg/dL 3 (L) 8 16 21 Creatinine 0.58 - 0.96 mg/dL 0.55 (L) 0.58 0.65 0.54 (L) Sodium 136 - 144 mmol/L 142 144 140 136 Potassium 3.7 - 5.1 mmol/L 4.7 4.1 4.0 4.4 Chloride 97 - 105 mmol/L 106 (H) 105 99 102 CO2 22 - 30 mmol/L 25 27 22 19 (L) Anion Gap 9 - 18 mmol/L 11 12 19 (H) 15 ALT 7 - 38 U/L 7 9 83 (H) 20 eGFR- >60 >60 >60 >60 eGFR-All Other Races . >60 >60 >60 >60 PT Sec 8.4 - 13.0 sec 11.1 11.0 PT INR 0.8 - 1.2 1.0 1.0 Specimen Request Best Practice Alert: To ensure optimal transport conditions and accurate culture . . . Culture 10,000 - <50,000 CFU/ml . . . APTT 23.0 - 32.4 sec 28.1 27.4 GGT 6 - 46 U/L 42 ASSESSMENT/PLAN: 1. Elevated alkaline phosphatase level - ICD9: 790.5, ICD10: R74.8 (primary diagnosis) Check PTH, vitamin D and will refer to endocrinology for further evaluation. Doubt liver etiology with normal LFTs and GGT. - PTH INTACT BLD - VITAMIN D 25 HYDROXY - CONSULT TO ENDOCRINOLOGY 2. Pressure injury of right buttock, stage 2 - ICD9: 707.05, 707.22, ICD10: L89.312 Discussed wound care at home. - CONSULT TO SKIN CARE TEAM 3. BRBPR (bright red blood per rectum) - ICD9: 569.3, ICD10: K62.5 Obtain FOBT. Push PO fluids, increase fiber. Rule out anemia. - FECAL OCCULT BLOOD TEST - CBC + DIFF 4. Gastroesophageal reflux disease, esophagitis presence not specified - ICD9: 530.81, ICD10: K21.9 - Continue treatment with Prilosec 20 mg QD 5. Mixed hyperlipidemia - ICD9: 272.2, ICD10: E78.2 - to be determined upon return of lab results - Continue current medication. - Encouraged following a low fat, low cholesterol diet. - Discussed the benefits of regular aerobic exercise and weight loss. 6. Seizures (HCC) - ICD9: 780.39, ICD10: R56.9 None since 2016. Will monitor. I spent 40 minutes in the visit, with more than 50% of the total ougt-ie-zewe time of the visit in counseling / coordination of care. Sotero Montague MD CNOV Observed: 09/16/2017 Status: COMPLETED Source: [place] 11:00 AM [facility] Office Visit (FAMPWS) WINSOME MEYERS ([id number]) 1945 F Date Time Provider Department 09/16/17 11:00 AM SOTERO MONTAGUE) FAMPWS During your visit today, we recorded the following information about you: Temperature Pulse Respiration Blood pressure 98.4 degrees 80/minute 12/minute 98/64 Weight Height 48.1 kg 1.492 m Sotero Montague MD 09/17/2017 9:16 PM Signed Chief Complaint Patient presents with: Establish Care: 2-3 week follow up HPI Winsome Meyers is a 71 year old female who presents here today for Above Complaints. Accompanied today by sister Annette whom she is living with currently. History given by patient who is poor historian with history of memory impairment/dementia on Aricept. Records from PCP in [place] not available today. Patient had repeat fall after last OV without injury, head trauma, or LOC. Was using walker and fell straight down onto buttock on carpeted floor. Did not require evaluation afterwards. Home health has not been set up since last OV. Sister notes that patient has pressure ulcer on right buttock which is slowly healing. Not treating at home. Denies fever/chills, purulent drainage, erythema, streaking. c/o occasional rectal bleeding with constipation. Has multiple stool softeners and laxatives which typically work for symptoms. Denies hemorrhoids, lightheadedness, SOB. Reviewed recent blood work and discussed elevated alk phos with normal GGT and LFTs. Past medical history, appointments, medications, allergies reviewed and updated. 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 - Gastric bypass status for obesity 2002 done elsewhere - Hypothyroid - Malnutrition (HCC) - Marginal ulcer s/p perforation - Preop exam for internal medicine - Seizures (HCC) - Weight loss Previous Surgical History PAST SURGICAL HISTORY Procedure Laterality Date - GASTRIC BYPASS,OBESE<100CM DINAH-EN-Y 2002 done elsewhere - LAPAROSCOPY, SURGICAL; JEJUNOSTOMY 03-28-09 P Ronni - revision gastrojejunostomy Tanvi Rudolph Family History FAMILY HISTORY Problem Relation Age of Onset - Coronary Artery Disease Mother - Hypertension Mother - Ischemic Heart Disease Mother - GI Father PUD Patient Allergies ALLERGIES Allergen Reactions - Iodoform Nu-Gauze P* Swelling, Anaphylaxis Current Medications Current Outpatient Prescriptions on File Prior to Visit: potassium chloride ER (KLOR-CON M20) 20 mEq tablet Take 20 mEq by mouth twice daily. donepezil (ARICEPT) 10 mg tablet Take 10 mg by mouth daily at bedtime. celecoxib (CELEBREX) 200 mg capsule Take 200 mg by mouth once daily. venlafaxine (EFFEXOR) 75 mg tablet Take 75 mg by mouth once daily. furosemide (LASIX) 20 mg tablet Take 20 mg by mouth once daily. esomeprazole (NEXIUM IV) 40 mg injection Inject 40 mg intravenously DAILY (6 AM). carvedilol (COREG) 3.125 mg tablet Take 3.125 mg by mouth twice daily with meals. pravastatin (PRAVACHOL) 40 mg tablet Take 40 mg by mouth once daily. ergocalciferol, vitamin D2, (VITAMIN D) 50,000 unit capsule Take 50,000 Units by mouth once each week. oxyCODONE immediate release (PERCOLONE) 5 mg immediate release tablet Take 5 mg by mouth every 4 hours as needed. rOPINIRole (REQUIP) 0.5 mg tablet Take 0.5 mg by mouth three times daily. Ibuprofen 200 mg cap Take by mouth. diazePAM (VALIUM) 5 mg tablet Take 1 tablet by mouth every 12 hours as needed for Anxiety (as needed only). (Patient not taking: Reported on 08/17/2017 ) gabapentin (NEURONTIN) 100 mg capsule Take 2 capsules by mouth three times daily. (Patient not taking: Reported on 08/17/2017 ) metoclopramide HCl (REGLAN) 10 mg tablet Take 0.5 tablets by mouth three times daily. 45-60 minutes before intended meal time (Patient not taking: Reported on 08/17/2017 ) docusate sodium (COLACE) 100 mg capsule Take 1 capsule by mouth twice daily as needed. (Patient not taking: Reported on 08/17/2017 ) levothyroxine (SYNTHROID) 125 mcg tablet Take 1 tablet by mouth once daily. (Patient taking differently: Take 75 mcg by mouth once daily. ) polyethylene glycol 3350 (MIRALAX) 17 gram/dose powder Take 17 g by mouth once daily. senna (SENOKOT) 8.6 mg tab Take 2 tablets by mouth daily at bedtime. OMEPRAZOLE 20 mg ORAL capsule TEMAZEPAM 30 MG CAP Take one(1) tablet daily. atorvastatin calcium(LIPITOR 10 MG TAB) Take one(1) tablet daily. CALCIUM CARBONATE-VITAMIN D2 500 MG-200 UNIT TAB Take one(1) tablet three times daily. CENTRUM SILVER TAB Take one(1) tablet two(2) times daily. No current facility-administered medications on file prior to visit. Social History Social History Marital status: Spouse name: Years of education: Number of children: Social History Main Topics Smoking status: Never Smoker Review of Symptoms REVIEW OF SYSTEMS GENERAL: No weight loss, malaise or fevers RESPIRATORY: Negative for cough, hemoptysis, wheezing, COPD, dyspnea or shortness of breath CARDIOVASCULAR: Negative for chest pain, leg swelling, hypertension, CHF or palpitations GI: No nausea, vomiting, or diarrhea SKIN: Negative for lesions, rash, and itching EXAM: BP 98/64 Pulse 80 Temp 36.9 ?C (98.4 ?F) (Tympanic) Resp 12 Ht 149.2 cm (4' 10.75) Wt 48.1 kg (106 lb) SpO2 98% BMI 21.59 kg/m? General Appearance: Well appearing, alert, in no acute distress, well-hydrated, well nourished.. Skin: 0.5 cm stage 2 pressure ulcer on right buttock without erythema or discharge. Lungs: Lungs clear to auscultation. No wheezing, rhonchi, rales. Heart: RRR without murmur, gallop, or rubs. No ectopy. Abdomen: Normal abdominal exam, Abdomen soft, non-tender. Bowel sounds normal. No masses, organomegaly. Extremities: No deformities, edema, skin discoloration, clubbing or cyanosis. Good capillary refill. . Health Maintenance List DTAP,TDAP,TD(1 - Tdap) due on 12/14/1962 MAMMOGRAM due on 1983 COLORECTAL CANCER SCREENING,SEE MODIFIER due on 12/14/1993 BONE DENSITY due on 12/14/2008 ADULT PREVNAR-13 due on 12/14/2008 INFLUENZA(1) due on 10/09/2017 LIPID SCREEN due on 01/01/2019 DIABETES SCREEN due on 08/27/2020 PNEUMOVAX AGE 65 AND OVER WITH 5YR LOOKBACK Completed Data reviewed Component Latest Ref Rng AND Units 08/15/2016 08/16/2016 08/18/2017 08/27/2017 Ketones, Urine Negative Trace (A) Specific [place], Ur 1.005 - 1.030 1.018 Hemoglobin/Blood,Ur Negative Negative pH, Urine 4.5 - 8.0 6.0 Protein, Urine Negative mg/dL 30 (A) Urobilinogen Normal Elevated (A) Nitrites Negative Negative Leukest Negative Trace (A) Comments SEE COMMENT Urine Daren Comment SEE COMMENT WBC, Urine 0 - 5 /HPF 11-25 (A) RBC, Urine 0 - 3 /HPF 3-5 (A) Epithelial Cells /HPF SEE COMMENT Crystal 0 /HPF SEE COMMENT (A) Protein, Total 6.3 - 8.0 g/dL 4.5 (L) 4.5 (L) 6.4 6.3 Albumin 3.9 - 4.9 g/dL 2.6 (L) 2.6 (L) 3.5 (L) 3.4 (L) Calcium 8.5 - 10.2 mg/dL 8.4 (L) 8.1 (L) 8.9 9.4 Bilirubin, Total 0.2 - 1.3 mg/dL 0.2 0.2 0.7 0.5 Alkaline Phosphatase 32 - 117 U/L 47 47 337 (H) 254 (H) AST 13 - 35 U/L 15 16 34 33 Glucose 74 - 99 mg/dL 79 85 103 (H) 110 (H) BUN 7 - 21 mg/dL 3 (L) 8 16 21 Creatinine 0.58 - 0.96 mg/dL 0.55 (L) 0.58 0.65 0.54 (L) Sodium 136 - 144 mmol/L 142 144 140 136 Potassium 3.7 - 5.1 mmol/L 4.7 4.1 4.0 4.4 Chloride 97 - 105 mmol/L 106 (H) 105 99 102 CO2 22 - 30 mmol/L 25 27 22 19 (L) Anion Gap 9 - 18 mmol/L 11 12 19 (H) 15 ALT 7 - 38 U/L 7 9 83 (H) 20 eGFR- >60 >60 >60 >60 eGFR-All Other Races . >60 >60 >60 >60 PT Sec 8.4 - 13.0 sec 11.1 11.0 PT INR 0.8 - 1.2 1.0 1.0 Specimen Request Best Practice Alert: To ensure optimal transport conditions and accurate culture . . . Culture 10,000 - <50,000 CFU/ml . . . APTT 23.0 - 32.4 sec 28.1 27.4 GGT 6 - 46 U/L 42 ASSESSMENT/PLAN: 1. Elevated alkaline phosphatase level - ICD9: 790.5, ICD10: R74.8 (primary diagnosis) Check PTH, vitamin D and will refer to endocrinology for further evaluation. Doubt liver etiology with normal LFTs and GGT. - PTH INTACT BLD - VITAMIN D 25 HYDROXY - CONSULT TO ENDOCRINOLOGY 2. Pressure injury of right buttock, stage 2 - ICD9: 707.05, 707.22, ICD10: L89.312 Discussed wound care at home. - CONSULT TO SKIN CARE TEAM 3. BRBPR (bright red blood per rectum) - ICD9: 569.3, ICD10: K62.5 Obtain FOBT. Push PO fluids, increase fiber. Rule out anemia. - FECAL OCCULT BLOOD TEST - CBC + DIFF 4. Gastroesophageal reflux disease, esophagitis presence not specified - ICD9: 530.81, ICD10: K21.9 - Continue treatment with Prilosec 20 mg QD 5. Mixed hyperlipidemia - ICD9: 272.2, ICD10: E78.2 - to be determined upon return of lab results - Continue current medication. - Encouraged following a low fat, low cholesterol diet. - Discussed the benefits of regular aerobic exercise and weight loss. 6. Seizures (HCC) - ICD9: 780.39, ICD10: R56.9 None since 2016. Will monitor. I spent 40 minutes in the visit, with more than 50% of the total dczy-li-ntva time of the visit in counseling / coordination of care. Sotero Montague MD Referring Provider: SOTERO MONTAGUE) [[id number]] Allergies As of Date: 09/16/2017 Noted Allergy Reaction iodoform nu-gauze packing [Other] 11/09/2005 7 - Swelling 10 - Anaphylaxis Date Reviewed: 09/16/2017 Reviewed by: Sotero Honeycutt) Clari - Fully Assessed Reason for Visit: Establish Care [42] Cmt: 2-3 week follow up Primary Visit Diagnosis:Elevated alkaline phosphatase level [R74.8] Other Visit Diagnoses:Pressure injury of right buttock, stage 2 [L89.312] BRBPR (bright red blood per rectum) [K62.5] Gastroesophageal reflux disease, esophagitis presence not specified [K21.9] Mixed hyperlipidemia [E78.2] Seizures (HCC) [R56.9] Order(s):PTH INTACT BLD [SQPTHI] Order #: [id number] FUTURE VITAMIN D 25 HYDROXY [SQVITD] Order #: [id number] FUTURE CONSULT TO ENDOCRINOLOGY [9007] Order #: [id number]: 1 levothyroxine (SYNTHROID) 75 mcg tabletTake 1 tablet by mouth once daily.Disp: Rfl: CONSULT TO SKIN CARE TEAM [3916597] Order #: [id number]: 1 FECAL OCCULT BLOOD TEST [SQIFOBT] Order #: [id number] FUTURE CBC + DIFF [SQCBCDIF] Order #: [id number] FUTURE Prescriptions as of 09/16/2017 Sig: METOCLOPRAMIDE 10 MG TABLET Take 0.5 tablets by mouth thr* LEVOTHYROXINE 75 MCG TABLET Take 1 tablet by mouth once d* POTASSIUM CHLORIDE ER 20 MEQ * Take 20 mEq by mouth twice da* DONEPEZIL 10 MG TABLET Take 10 mg by mouth daily at * CELECOXIB 200 MG CAPSULE Take 200 mg by mouth once jonathan* VENLAFAXINE 75 MG TABLET Take 75 mg by mouth once shelbie* FUROSEMIDE 20 MG TABLET Take 20 mg by mouth once shelbie* CARVEDILOL 3.125 MG TABLET Take 3.125 mg by mouth twice * PRAVASTATIN 40 MG TABLET Take 40 mg by mouth once shelbie* ERGOCALCIFEROL (VITAMIN D2) 5* Take 50,000 Units by mouth on* OXYCODONE 5 MG TABLET,ORAL ON* Take 5 mg by mouth every 4 ho* ROPINIROLE 0.5 MG TABLET Take 0.5 mg by mouth three ti* IBUPROFEN 200 MG CAPSULE Take by mouth. GABAPENTIN 100 MG CAPSULE Take 2 capsules by mouth thre* Patient not taking: Reported on 08/17/2017 DOCUSATE SODIUM 100 MG CAPSULE Take 1 capsule by mouth twice* Patient not taking: Reported on 08/17/2017 POLYETHYLENE GLYCOL 3350 17 G* Take 17 g by mouth once daily. SENNOSIDES 8.6 MG TABLET Take 2 tablets by mouth daily* * OMEPRAZOLE 20 MG CAPSULE,BOAZ* * TEMAZEPAM 30 MG CAPSULE Take one(1) tablet daily. * LIPITOR 10 MG TABLET Take one(1) tablet daily. * CALCIUM CARB-ERGOCALCIFEROL (* Take one(1) tablet three time* * CENTRUM SILVER TABLET Take one(1) tablet two(2) gabriel* Problem List As Of Date 09/16/2017 Noted Resolved MORBID OBESITY [E66.01] INVALID FOR* 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] INVALID FOR* CHRONIC DEPRESSIVE PERSON [F34.1] INVALID FOR* INSOMNIA NOS [G47.00] INVALID FOR* MIXED HYPERLIPIDEMIA [E78.2] INVALID FOR* HYPOTHYROIDISM NOS [E03.9] INVALID FOR* ESOPHAGEAL REFLUX [K21.9] INVALID FOR* OSTEOPOROSIS NOS [M81.0] INVALID FOR* PARTIAL EPILEPSY NEC NOT INTRACT [G40.109] INVALID FOR* Preop Exam for Internal Medicine [Z01.818] Seizures [R56.9] Hypothyroid [E03.9] Severe protein-calorie malnutrition (HCC) [E43] Weight Loss [R63.4] Gastric Bypass Status for Obesity [Z98.84] Marginal Ulcer [K28.9] Dysphagia [R13.10] INVALID FOR* Prescriptions ordered this encounter Disp Refills Start End LEVOTHYROXINE 75 MCG TABLET 09/16/2017 Class: Med Update Route: ORAL Sig: Take 1 tablet by mouth once daily. Medications Discontinued During This Encounter diazePAM (VALIUM) 5 mg tablet 24 t* 0 08/16/2016 09/16/2017 Class: Print RX Route: ORAL Sig: Take 1 tablet by mouth every 12 hours as needed for Anxiety (as needed only). Patient not taking: Reported on 08/17/2017 Disc: Reason for discontinue is not on file. esomeprazole (NEXIUM IV) 40 mg injec* 09/16/2017 Class: Historical Med Route: INTRAVENOUS Sig: Inject 40 mg intravenously DAILY (6 AM). Disc: Reason for discontinue is not on file. levothyroxine (SYNTHROID) 125 mcg ta* 30 t* 1 08/16/2016 09/16/2017 Class: Print RX Route: ORAL Sig: Take 1 tablet by mouth once daily. Patient taking differently: Take 75 mcg by mouth once daily. Disc: Reason for discontinue is not on file. Disposition: Return in about 3 months (around 12/17/2017). Follow-up and Disposition History Recorded Encounter Status:Closed by SOTERO MONTAGUE MD on 09/17/17 CBC AND DIFFERENTIAL Collected: 08/27/2017 Status: F Source: [place] 1:50 PM [facility] REPOSITORY TYPE CODE TESTS RESULT OUT OF REFERENCE UNITS RANGE LAB WBC 3.70-11.00 k/uL WBC 5.15 LAB RBC 3.90-5.20 m/uL RBC 4.13 LAB HGB 11.5-15.5 g/dL Hemoglobin 12.9 LAB HCT 36.0-46.0 % Hematocrit 40.8 LAB MCV 80.0-100.0 fL MCV 98.8 LAB MCH 26.0-34.0 pG MCH 31.2 LAB MCHC 30.5-36.0 g/dL MCHC 31.6 LAB RDWCV 11.5-15.0 % RDW-CV High 16.1 LAB PLTCT 150-400 k/uL Platelet Count 362 LAB MPV 9.0-12.7 fL MPV 11.6 LAB ANEUT % Neut% 60.8 LAB AANEUT 1.45-7.50 k/uL Abs Neut 3.13 LAB ALYMP % Lymph% 23.3 LAB AALYMP 1.00-4.00 k/uL Abs Lymph 1.20 LAB AMONO % [place]% 15.1 LAB AAMONO <0.87 k/uL Abs [place] 0.78 LAB AEOS % Eosin% 0.0 LAB AAEOS <0.46 k/uL Abs Eosin <0.03 LAB ABASO % Baso% 0.8 LAB AABASO <0.11 k/uL Abs Baso 0.04 LAB AUNRBC 0 /100 WBC NRBCs 0.0 LAB ABNRBC <0.01 k/uL Absolute nRBC <0.01 LAB DTYP DTYPE Auto Diff Performed By: #### CBCDIF, CMP, GGT #### [facility] [address] [place] [id number] COMP METABOLIC PANEL Collected: 08/27/2017 Status: F Source: [place] 1:[address] [facility] REPOSITORY TYPE CODE TESTS RESULT OUT OF REFERENCE UNITS RANGE LAB TP 6.3-8.0 g/dL Protein, Total 6.3 LAB ALB 3.9-4.9 g/dL Low Albumin 3.4 LAB CA 8.5-10.2 mg/dL Calcium, Total 9.4 LAB TBIL 0.2-1.3 mg/dL Bilirubin, Total 0.5 LAB ALKP 32-117 U/L Alkaline High Phosphatase 254 LAB AST 13-35 U/L AST 33 LAB GLU 74-99 mg/dL Glucose High 110 Result Comment: The [place] [employer] (ADA) provides guidance for cutoff values for fasting glucose and random glucose. The ADA defines fasting as no caloric intake for at least 8 hours. Fas ting plasma glucose results between 100 to 125 mg/dL indicate increased risk for diabetes (prediabetes). Fasting plasma glucose results greater than or equal to 126 mg/dL meet the criteria for diagnosis of diabetes. In the absence of unequivocal hyperglycemia, results should be confirmed by repeat testing. In a patient with classic symptoms of hyperglycemia or hyperglycemic crisis, random plasma glucose results greater than or equal to 200 mg/dL meet the criteria for diagnosis of diabetes. Reference: Standards of Medical Care in Diabetes 2016, [place] [employer]. Diabetes Care. 2016.39(Suppl 1). LAB BUN 7-21 mg/dL BUN 21 LAB CRET 0.58-0.96 mg/dL Creatinine Low 0.54 LAB NA 136-144 mmol/L Sodium 136 LAB K 3.7-5.1 mmol/L Potassium 4.4 LAB CL 97-105 mmol/L Chloride 102 LAB CO2 22-30 mmol/L CO2 Low 19 LAB AGAP 9-18 mmol/L Anion Gap 15 LAB ALT 7-38 U/L ALT 20 LAB GFRAA eGFR- Amer. >60 LAB GFRNAA . eGFR-All Other Races >60 Result Comment: eGFR (Estimated GFR) Units of measure: mL/min/1.73 meters squared eGFR is derived from the reexpressed MDRD Study equation using the following parameters: serum creatinine, age, gender and race. The creatinine assay has been calibrated to be traceable to IDMS. An eGFR <60 mL/min/1.73m2 for >3 months is consistent with chronic kidney disease. Refer to KDOQI guidelines for clinical interpretation. In patients with unstable renal function, e.g. those with acute kidney injury, the eGFR may not accurately reflect actual GFR. Performed By: #### CBCDIF, CMP, GGT #### [facility] [address] [place], [place] [address] GGT Collected: 08/27/2017 Status: F Source: [place] 1:50 PM [facility] REPOSITORY TYPE CODE TESTS RESULT OUT OF RANGE REFERENCE UNITS LAB GGT 6-46 U/L GGT 42 Performed By: #### CBCDIF, CMP, GGT #### [facility] [address] [place], [place] [address] 12 LEAD ELECTROCARDIOGRAM Observed: 08/24/2017 Status: F Source: [place] 3:03 PM [facility] REPOSITORY [facility] Cardiovascular Services [address] [place] [address] 12 Lead EKG 08/13/17 0455 MR#: [id number] Acct: [id number] Name: WINSOME MEYERS Rep #: [id number] : 1945 71 From: Arie Oneill MD Attending Dr: Vic Jha MD Status: DIS IN Ordering Dr: Vic Jha MD Date: 08/13/17 Location: [facility] Sex: F C Admitted: 08/12/17 Test Reason : AM EKG Blood Pressure : / mmHG Vent. Rate : 068 BPM Atrial Rate : 068 BPM P-R Int : 162 ms QRS Dur : 076 ms QT Int : 454 ms P-R-T Axes : 063 -12 -05 degrees QTc Int : 482 ms Normal sinus rhythm ST AND T wave abnormality, consider anterior ischemia Abnormal ECG No previous ECGs available Confirmed by ARIE ONEILL MD ([id number]), assignment editor MELVA ESPINOZA ([id number]) on 08/24/2017 3:03:02 PM Referred By: JUAN Confirmed By:ARIE ONEILL MD 08/24/17 1503 Date Arie Oneill MD CC: Vic Jha MD; OUT OF TOWN DOCTOR Signed CNPN Observed: 08/20/2017 Status: COMPLETED Source: [place] 12:00 AM [facility] REPOSITORY Telephone (FAMPWS) WINSOME MEYERS ([id number]) 1945 F Date Time Provider Department 08/20/17 SOTERO MONTAGUE) [facility] During your visit today, we recorded the following information about you: Sotero Montague MD 08/20/2017 11:05 AM Signed Urine culture shows contaminate without signs of infection. Would not repeat if patient not having UTI symptoms. Labs signficant for elevated alk phos with mild elevation in LFTs and elevated platetlets. May be related to dehyrdation, liver disfunction, bony abnormality. Recommend pushing PO fluids, repeat blood work in 1 week. Jessica Delgado Ma 08/20/2017 11:17 AM Signed Left message for patient to call office back regarding lab work. Accidentally closed phone note Jessica Delgado Ma Annette Bui Reese SOFTWARE TEST AUTOMATION ENGINEER 08/20/2017 12:12 PM Signed Pts daughter Annette calls gave information provided. Voices understanding. States messages should come to her other sister lives in [place].Did update in demographics to reflect this. Allergies As of Date: 08/20/2017 Noted Allergy Reaction iodoform nu-gauze packing [Other] 11/09/2005 7 - Swelling 10 - Anaphylaxis Date Reviewed: 08/17/2017 Reviewed by: Jesse Winston Ma - Fully Assessed Reason for Visit: Results [95] Cmt: Urine/lab Reason For Visit History Recorded Primary Visit Diagnosis:Elevated alkaline phosphatase level [R74.8] Other Visit Diagnosis:Thrombocytosis (HCC) [D47.3] Order(s):CBC + DIFF [SQCBCDIF] Order #: [id number] FUTURE COMP METABOLIC PANEL [SQCMP] Order #: [id number] FUTURE GGT BLD [SQGGT] Order #: [id number] FUTURE Prescriptions as of 08/20/2017 Sig: POTASSIUM CHLORIDE ER 20 MEQ * Take 20 mEq by mouth twice da* DONEPEZIL 10 MG TABLET Take 10 mg by mouth daily at * CELECOXIB 200 MG CAPSULE Take 200 mg by mouth once jonathan* VENLAFAXINE 75 MG TABLET Take 75 mg by mouth once shelbie* FUROSEMIDE 20 MG TABLET Take 20 mg by mouth once shelbie* ESOMEPRAZOLE SODIUM 40 MG INT* Inject 40 mg intravenously DA* CARVEDILOL 3.125 MG TABLET Take 3.125 mg by mouth twice * PRAVASTATIN 40 MG TABLET Take 40 mg by mouth once shelbie* ERGOCALCIFEROL (VITAMIN D2) 5* Take 50,000 Units by mouth on* OXYCODONE 5 MG TABLET,ORAL ON* Take 5 mg by mouth every 4 ho* ROPINIROLE 0.5 MG TABLET Take 0.5 mg by mouth three ti* IBUPROFEN 200 MG CAPSULE Take by mouth. DIAZEPAM 5 MG TABLET Take 1 tablet by mouth every * Patient not taking: Reported on 08/17/2017 GABAPENTIN 100 MG CAPSULE Take 2 capsules by mouth thre* Patient not taking: Reported on 08/17/2017 METOCLOPRAMIDE 10 MG TABLET Take 0.5 tablets by mouth thr* Patient not taking: Reported on 08/17/2017 DOCUSATE SODIUM 100 MG CAPSULE Take 1 capsule by mouth twice* Patient not taking: Reported on 08/17/2017 LEVOTHYROXINE 125 MCG TABLET Take 1 tablet by mouth once d* Patient taking differently: Take 75 mcg by mouth once jonathan* POLYETHYLENE GLYCOL 3350 17 G* Take 17 g by mouth once daily. SENNOSIDES 8.6 MG TABLET Take 2 tablets by mouth daily* * OMEPRAZOLE 20 MG CAPSULE,BOAZ* * TEMAZEPAM 30 MG CAPSULE Take one(1) tablet daily. * LIPITOR 10 MG TABLET Take one(1) tablet daily. * CALCIUM CARB-ERGOCALCIFEROL (* Take one(1) tablet three time* * CENTRUM SILVER TABLET Take one(1) tablet two(2) gabriel* Problem List As Of Date 08/20/2017 Noted Resolved MORBID OBESITY [E66.01] INVALID FOR* 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] INVALID FOR* CHRONIC DEPRESSIVE PERSON [F34.1] INVALID FOR* INSOMNIA NOS [G47.00] INVALID FOR* MIXED HYPERLIPIDEMIA [E78.2] INVALID FOR* HYPOTHYROIDISM NOS [E03.9] INVALID FOR* ESOPHAGEAL REFLUX [K21.9] INVALID FOR* OSTEOPOROSIS NOS [M81.0] INVALID FOR* PARTIAL EPILEPSY NEC NOT INTRACT [G40.109] INVALID FOR* Preop Exam for Internal Medicine [Z01.818] Seizures [R56.9] Hypothyroid [E03.9] Severe protein-calorie malnutrition (HCC) [E43] Weight Loss [R63.4] Gastric Bypass Status for Obesity [Z98.84] Marginal Ulcer [K28.9] Dysphagia [R13.10] INVALID FOR* Encounter Status:Closed by JESSICA DELGADO MA on 08/20/17 URINALYSIS WITH Collected: 08/18/2017 Status: F Source: [place] [facility]CROSCOP[facility] 4:58 PM [facility] REPOSITORY TYPE CODE TESTS RESULT OUT OF RANGE REFERENCE UNITS LAB UCOL Yellow Color Abnormal Jennifer Alert LAB [facility] Clear Clarity Abnormal Cloudy Alert LAB UGLUC Negative mg/dL Glucose, Urine Negative LAB UBIL Negative Bilirubin, Urine Negative LAB UKET Negative Ketones, Abnormal Urine Trace Alert LAB USPG 1.005-1.030 Specific [place], Ur 1.018 LAB UHGB Negative Hemoglobin/Blood, Negative Ur LAB UPH 4.5-8.0 pH 6.0 LAB UPROT Negative mg/dL Protein, Abnormal Urine 30 Alert LAB UUROB Normal Abnormal Urobilinogen Elevated Alert LAB UNITR Negative Nitrites Negative LAB ULKEST Negative Leukest Abnormal Trace Alert LAB UCOM Comments SEE COMMENT Result Comment: N/A LAB UMCOM Urine SEE Daren Comment COMMENT Result Comment: N/A LAB UWBC 0-5 /HPF Abnormal WBC Alert 11-25 LAB URBC 0-3 /HPF Abnormal RBC Alert 3-5 LAB UEPI /HPF Epithelial Cells SEE COMMENT Result Comment: Few Squamous Epithelial Cells Few Non-Squamous Epithelial Cells LAB UCRYS 0 /HPF Abnormal Alert Crystals SEE COMMENT Result Comment: Moderate Calcium Oxalate Crystal Performed By: #### UAWMIC #### [facility] [address] [place], [place] [address] Observed: 08/18/2017 Status: F Source: [place] URINE CULTURE 4:57 PM [facility] REPOSITORY Sp. Request/Comment: - Best Practice Alert: To ensure optimal transport conditions and accurate culture results transfer urine specimens to gonzales top C and S preservative tube. Culture Result - 10,000 - <50,000 CFU/ml Three or more organisms, no one type predominant, suggesting contamination during collection. Recollect if clinically indicated. Performed By: #### URCUL #### [facility] [address] [place], [place] [address] CBC AND DIFFERENTIAL Collected: 08/18/2017 Status: F Source: [place] 4:43 PM [facility] REPOSITORY TYPE CODE TESTS RESULT OUT OF REFERENCE UNITS RANGE LAB WBC 3.70-11.00 k/uL WBC 7.69 LAB RBC 3.90-5.20 m/uL RBC 4.37 LAB HGB 11.5-15.5 g/dL Hemoglobin 13.5 LAB HCT 36.0-46.0 % Hematocrit 43.1 LAB MCV 80.0-100.0 fL MCV 98.6 LAB MCH 26.0-34.0 pG MCH 30.9 LAB MCHC 30.5-36.0 g/dL MCHC 31.3 LAB RDWCV 11.5-15.0 % RDW-CV High 18.0 LAB PLTCT 150-400 k/uL Platelet High Count 479 LAB MPV 9.0-12.7 fL MPV 11.7 LAB ANEUT % Neut% 73.9 LAB AANEUT 1.45-7.50 k/uL Abs Neut 5.69 LAB ALYMP % Lymph% 17.6 LAB AALYMP 1.00-4.00 k/uL Abs Lymph 1.35 LAB AMONO % [place]% 8.2 LAB AAMONO <0.87 k/uL Abs [place] 0.63 LAB AEOS % Eosin% 0.0 LAB AAEOS <0.46 k/uL Abs Eosin <0.03 LAB ABASO % Baso% 0.3 LAB AABASO <0.11 k/uL Abs Baso <0.03 LAB AUNRBC 0 /100 WBC NRBCs High 0.1 LAB ABNRBC <0.01 k/uL Absolute High nRBC 0.01 LAB DTYP DTYPE Auto Diff Performed By: #### CBCDIF, CMP #### [facility] [address] [place], [place] [address] COMP METABOLIC PANEL Collected: 08/18/2017 Status: F Source: [place] 4:43 PM [facility] REPOSITORY TYPE CODE TESTS RESULT OUT OF REFERENCE UNITS RANGE LAB TP 6.3-8.0 g/dL Protein, Total 6.4 LAB ALB 3.9-4.9 g/dL Low Albumin 3.5 LAB CA 8.5-10.2 mg/dL Calcium, Total 8.9 LAB TBIL 0.2-1.3 mg/dL Bilirubin, Total 0.7 LAB ALKP 32-117 U/L Alkaline High Phosphatase 337 LAB AST 13-35 U/L AST 34 LAB GLU 74-99 mg/dL Glucose High 103 Result Comment: The [place] [employer] (ADA) provides guidance for cutoff values for fasting glucose and random glucose. The ADA defines fasting as no caloric intake for at least 8 hours. Fas ting plasma glucose results between 100 to 125 mg/dL indicate increased risk for diabetes (prediabetes). Fasting plasma glucose results greater than or equal to 126 mg/dL meet the criteria for diagnosis of diabetes. In the absence of unequivocal hyperglycemia, results should be confirmed by repeat testing. In a patient with classic symptoms of hyperglycemia or hyperglycemic crisis, random plasma glucose results greater than or equal to 200 mg/dL meet the criteria for diagnosis of diabetes. Reference: Standards of Medical Care in Diabetes 2016, [place] [employer]. Diabetes Care. 2016.39(Suppl 1). LAB BUN 7-21 mg/dL BUN 16 LAB CRET 0.58-0.96 mg/dL Creatinine 0.65 LAB NA 136-144 mmol/L Sodium 140 LAB K 3.7-5.1 mmol/L Potassium 4.0 LAB CL 97-105 mmol/L Chloride 99 LAB CO2 22-30 mmol/L CO2 22 LAB AGAP 9-18 mmol/L Anion Gap High 19 LAB ALT 7-38 U/L ALT High 83 LAB GFRAA eGFR- Amer. >60 LAB GFRNAA . eGFR-All Other Races >60 Result Comment: eGFR (Estimated GFR) Units of measure: mL/min/1.73 meters squared eGFR is derived from the reexpressed MDRD Study equation using the following parameters: serum creatinine, age, gender and race. The creatinine assay has been calibrated to be traceable to IDMS. An eGFR <60 mL/min/1.73m2 for >3 months is consistent with chronic kidney disease. Refer to KDOQI guidelines for clinical interpretation. In patients with unstable renal function, e.g. those with acute kidney injury, the eGFR may not accurately reflect actual GFR. Performed By: #### CBCDIF, CMP #### [facility] [address] [place], [place] [address] PROGRESS Observed: 08/17/2017 Status: COMPLETED Source: [place] 5:[address] [facility] REPOSITORY HNO ID: [id number] Author: Sotero Honeycutt) Clari Service: (none) Author Type: Physician Type: Progress Notes Filed: 08/18/2017 7:50 AM Note Text: Chief Complaint Patient presents with: Hospital Follow Up: [facility] HPI Winsome Meyers is a 71 year old female who presents here today for new limited Hospital Discharge Follow up. Patient is a resident of [place], lives alone, and is visiting [place]. Accompanied today by sister Annette. Patient was admitted to [facility] from 08/12 to 08/14 for complaint of lower back pain, bilateral hip pain, and left shoulder pain after fall on 07/23. Workup included xrays of lower back, hips, and should and blood work. Significant for possible coccyx fracture, history of left shoulder replacement, severe hypokalemia with potassium of 2.3 and EKG changes, signs of dehydration and hypotension, thrombocytosis, and hypocalcemia. Treated with IV fluids, calcium, potassium PO and IV. Discharged Home with oxycodone 5 mg PRN, potassium chloride 20 meq BID, Os- Og 500. Advised to follow up with PCP. Patient has been staying with sister since discharge. Patient states that she is going to be staying in [place] indefinitely due to this recent fall and injury. Taking medications as prescribed without side effects. Has been urinating more with lasix since discharge. Denies dysuria, hematuria. Sister making sure patient is eating 3 meals per day and trying to keep her hydrated. Still has pain overlying tailbone. Using oxycodone sparingly and has about 10 pills out of the 20 prescribed. Treating with tylenol intermittently for mild pain. Has ring cushion at home which she is using and is helping with pain. Told to follow up with home PT, needs referral order today. Has not had any further falls since discharge. Has walker at home which sister makes sure she is using. Past medical history, appointments, medications, allergies reviewed. 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 - Gastric bypass status for obesity 2002 done elsewhere - Hypothyroid - Malnutrition (HCC) - Marginal ulcer s/p perforation - Preop exam for internal medicine - Seizures (HCC) - Weight loss Previous Surgical History PAST SURGICAL HISTORY Procedure Laterality Date - GASTRIC BYPASS,OBESE<100CM DINAH-EN-Y 2002 done elsewhere - LAPAROSCOPY, SURGICAL; JEJUNOSTOMY 03-28-10 P Ronni - revision gastrojejunostomy Tanvi Rudolph Family History FAMILY HISTORY Problem Relation Age of Onset - Coronary Artery Disease Mother - Hypertension Mother - Ischemic Heart Disease Mother - GI Father PUD Patient Allergies ALLERGIES Allergen Reactions - Iodoform Nu-Gauze P* Swelling, Anaphylaxis Current Medications Current Outpatient Prescriptions on File Prior to Visit: levothyroxine (SYNTHROID) 125 mcg tablet Take 1 tablet by mouth once daily. (Patient taking differently: Take 75 mcg by mouth once daily. ) polyethylene glycol 3350 (MIRALAX) 17 gram/dose powder Take 17 g by mouth once daily. TEMAZEPAM 30 MG CAP Take one(1) tablet daily. diazePAM (VALIUM) 5 mg tablet Take 1 tablet by mouth every 12 hours as needed for Anxiety (as needed only). (Patient not taking: Reported on 08/17/2017 ) gabapentin (NEURONTIN) 100 mg capsule Take 2 capsules by mouth three times daily. (Patient not taking: Reported on 08/17/2017 ) metoclopramide HCl (REGLAN) 10 mg tablet Take 0.5 tablets by mouth three times daily. 45-60 minutes before intended meal time (Patient not taking: Reported on 08/17/2017 ) docusate sodium (COLACE) 100 mg capsule Take 1 capsule by mouth twice daily as needed. (Patient not taking: Reported on 08/17/2017 ) senna (SENOKOT) 8.6 mg tab Take 2 tablets by mouth daily at bedtime. OMEPRAZOLE 20 mg ORAL capsule atorvastatin calcium(LIPITOR 10 MG TAB) Take one(1) tablet daily. CALCIUM CARBONATE-VITAMIN D2 500 MG-200 UNIT TAB Take one(1) tablet three times daily. CENTRUM SILVER TAB Take one(1) tablet two(2) times daily. No current facility-administered medications on file prior to visit. Social History Social History Marital status: Spouse name: Years of education: Number of children: Social History Main Topics Smoking status: Never Smoker Review of Symptoms REVIEW OF SYSTEMS GENERAL: No weight loss, malaise or fevers RESPIRATORY: Negative for cough, hemoptysis, wheezing, COPD, dyspnea or shortness of breath CARDIOVASCULAR: Negative for chest pain, leg swelling, hypertension, CHF or palpitations GI: No nausea, vomiting, or diarrhea SKIN: Negative for lesions, rash, and itching EXAM: BP 98/76 Pulse 88 Temp 36.7 ?C (98 ?F) (Temporal Artery) Resp 16 SpO2 97% General Appearance: Well appearing, alert, in no acute distress, well nourished. In wheelchair. Skin: Skin color, texture, turgor normal, no suspicious rashes or lesions. Lungs: Lungs clear to auscultation. No wheezing, rhonchi, rales. Heart: RRR without murmur, gallop, or rubs. No ectopy. Abdomen: Normal abdominal exam, Abdomen soft, non-tender. Bowel sounds normal. No masses, organomegaly. Extremities: No deformities, edema, skin discoloration, clubbing or cyanosis. Good capillary refill. . Musculoskeletal: TTP over coccyx. Health Maintenance List DTAP,TDAP,TD(1 - Tdap) due on 12/14/1962 MAMMOGRAM due on 1983 COLORECTAL CANCER SCREENING,SEE MODIFIER due on 12/14/1993 ZOSTER VACCINE (SHINGRIX)(1 of 2) due on 12/14/1993 BONE DENSITY due on 12/14/2008 ADULT PREVNAR-13 due on 12/14/2008 INFLUENZA(1) due on 10/09/2017 LIPID SCREEN due on 01/01/2019 DIABETES SCREEN due on 08/17/2019 PNEUMOVAX AGE 65 AND OVER WITH 5YR LOOKBACK Completed ASSESSMENT/PLAN: 1. Fall in home, subsequent encounter - ICD9: V58.89, E888.9, ICD10: W19.XXXD, Y92.009 (primary diagnosis) Patient without recurrent fall since discharge. Will refer to home health for PT. Recommended use of walker when ambulating. Will follow up in 2-3 weeks at establish visit. - [facility] 2. Closed fracture of coccyx with routine healing, subsequent encounter - ICD9: V54.17, ICD10: S32.2XXD TTP today. Continue oxycodone for severe pain and tylenol for mild pain. Advised ice and ring cushion at home. - [facility] 3. Hypokalemia - ICD9: 276.8, ICD10: E87.6 Continue potassium supplementation. Repeat CMP. - COMP METABOLIC PANEL 4. Hypocalcemia - ICD9: 275.41, ICD10: E83.51 Continue calcium supplementation. Repeat CMP - COMP METABOLIC PANEL 5. Dehydration - ICD9: 276.51, ICD10: E86.0 Hold lasix, check UA and culture, push PO fluids. Will consider holding potassium depending on CMP results. - URINALYSIS WITH MICROSCOPIC - URINE CULTURE 6. Thrombocytosis (HCC) - ICD9: 238.71, ICD10: D47.3 Likely related to dehydration. Will have patient push PO fluids and repeat CBC. - CBC + DIFF 7. Hospital discharge follow-up - ICD9: V67.59, ICD10: Z09 Patient improving. Living with sister at this time. Will have her continue current regimen and follow up in 2-3 weeks for establish visit. I spent 30 minutes in the visit, with more than 50% of the total [id number] time of the visit in counseling / coordination of care. Sotero Montague MD CNOV Observed: 08/17/2017 Status: COMPLETED Source: [place] 4:40 PM [facility] REPOSITORY Office Visit (FAMPWS) WINSOME MEYERS ([id number]) 1945 F Date Time Provider Department 08/17/17 4:40 PM SOTERO MONTAGUE () FAMPWS During your visit today, we recorded the following information about you: Temperature Pulse Respiration Blood pressure 98 degrees 88/minute 16/minute 98/76 Sotero Montague MD 08/18/2017 7:50 AM Signed Chief Complaint Patient presents with: Hospital Follow Up: [facility] HPI Winsome A Meyers is a 71 year old female who presents here today for new limited Hospital Discharge Follow up. Patient is a resident of [place], lives alone, and is visiting [place]. Accompanied today by sister Annette. Patient was admitted to [facility] from 08/12 to 08/14 for complaint of lower back pain, bilateral hip pain, and left shoulder pain after fall on 07/23. Workup included xrays of lower back, hips, and should and blood work. Significant for possible coccyx fracture, history of left shoulder replacement, severe hypokalemia with potassium of 2.3 and EKG changes, signs of dehydration and hypotension, thrombocytosis, and hypocalcemia. Treated with IV fluids, calcium, potassium PO and IV. Discharged Home with oxycodone 5 mg PRN, potassium chloride 20 meq BID, Os-Og 500. Advised to follow up with PCP. Patient has been staying with sister since discharge. Patient states that she is going to be staying in [place] indefinitely due to this recent fall and injury. Taking medications as prescribed without side effects. Has been urinating more with lasix since discharge. Denies dysuria, hematuria. Sister making sure patient is eating 3 meals per day and trying to keep her hydrated. Still has pain overlying tailbone. Using oxycodone sparingly and has about 10 pills out of the 20 prescribed. Treating with tylenol intermittently for mild pain. Has ring cushion at home which she is using and is helping with pain. Told to follow up with home PT, needs referral order today. Has not had any further falls since discharge. Has walker at home which sister makes sure she is using. Past medical history, appointments, medications, allergies reviewed. 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 - Gastric bypass status for obesity 2002 done elsewhere - Hypothyroid - Malnutrition (HCC) - Marginal ulcer s/p perforation - Preop exam for internal medicine - Seizures (HCC) - Weight loss Previous Surgical History PAST SURGICAL HISTORY Procedure Laterality Date - GASTRIC BYPASS,OBESE<100CM DINAH-EN-Y 2002 done elsewhere - LAPAROSCOPY, SURGICAL; JEJUNOSTOMY 03-28-09 P Ronni - revision gastrojejunostomy Tanvi Rudolph Family History FAMILY HISTORY Problem Relation Age of Onset - Coronary Artery Disease Mother - Hypertension Mother - Ischemic Heart Disease Mother - GI Father PUD Patient Allergies ALLERGIES Allergen Reactions - Iodoform Nu-Gauze P* Swelling, Anaphylaxis Current Medications Current Outpatient Prescriptions on File Prior to Visit: levothyroxine (SYNTHROID) 125 mcg tablet Take 1 tablet by mouth once daily. (Patient taking differently: Take 75 mcg by mouth once daily. ) polyethylene glycol 3350 (MIRALAX) 17 gram/dose powder Take 17 g by mouth once daily. TEMAZEPAM 30 MG CAP Take one(1) tablet daily. diazePAM (VALIUM) 5 mg tablet Take 1 tablet by mouth every 12 hours as needed for Anxiety (as needed only). (Patient not taking: Reported on 08/17/2017 ) gabapentin (NEURONTIN) 100 mg capsule Take 2 capsules by mouth three times daily. (Patient not taking: Reported on 08/17/2017 ) metoclopramide HCl (REGLAN) 10 mg tablet Take 0.5 tablets by mouth three times daily. 45-60 minutes before intended meal time (Patient not taking: Reported on 08/17/2017 ) docusate sodium (COLACE) 100 mg capsule Take 1 capsule by mouth twice daily as needed. (Patient not taking: Reported on 08/17/2017 ) senna (SENOKOT) 8.6 mg tab Take 2 tablets by mouth daily at bedtime. OMEPRAZOLE 20 mg ORAL capsule atorvastatin calcium(LIPITOR 10 MG TAB) Take one(1) tablet daily. CALCIUM CARBONATE-VITAMIN D2 500 MG-200 UNIT TAB Take one(1) tablet three times daily. CENTRUM SILVER TAB Take one(1) tablet two(2) times daily. No current facility-administered medications on file prior to visit. Social History Social History Marital status: Spouse name: Years of education: Number of children: Social History Main Topics Smoking status: Never Smoker Review of Symptoms REVIEW OF SYSTEMS GENERAL: No weight loss, malaise or fevers RESPIRATORY: Negative for cough, hemoptysis, wheezing, COPD, dyspnea or shortness of breath CARDIOVASCULAR: Negative for chest pain, leg swelling, hypertension, CHF or palpitations GI: No nausea, vomiting, or diarrhea SKIN: Negative for lesions, rash, and itching EXAM: BP 98/76 Pulse 88 Temp 36.7 ?C (98 ?F) (Temporal Artery) Resp 16 SpO2 97% General Appearance: Well appearing, alert, in no acute distress, well nourished. In wheelchair. Skin: Skin color, texture, turgor normal, no suspicious rashes or lesions. Lungs: Lungs clear to auscultation. No wheezing, rhonchi, rales. Heart: RRR without murmur, gallop, or rubs. No ectopy. Abdomen: Normal abdominal exam, Abdomen soft, non-tender. Bowel sounds normal. No masses, organomegaly. Extremities: No deformities, edema, skin discoloration, clubbing or cyanosis. Good capillary refill. . Musculoskeletal: TTP over coccyx. Health Maintenance List DTAP,TDAP,TD(1 - Tdap) due on 12/14/1962 MAMMOGRAM due on 1983 COLORECTAL CANCER SCREENING,SEE MODIFIER due on 12/14/1993 ZOSTER VACCINE (SHINGRIX)(1 of 2) due on 12/14/1993 BONE DENSITY due on 12/14/2008 ADULT PREVNAR-13 due on 12/14/2008 INFLUENZA(1) due on 10/09/2017 LIPID SCREEN due on 01/01/2019 DIABETES SCREEN due on 08/17/2019 PNEUMOVAX AGE 65 AND OVER WITH 5YR LOOKBACK Completed ASSESSMENT/PLAN: 1. Fall in home, subsequent encounter - ICD9: V58.89, E888.9, ICD10: W19.XXXD, Y92.009 (primary diagnosis) Patient without recurrent fall since discharge. Will refer to home health for PT. Recommended use of walker when ambulating. Will follow up in 2-3 weeks at establish visit. - [facility] 2. Closed fracture of coccyx with routine healing, subsequent encounter - ICD9: V54.17, ICD10: S32.2XXD TTP today. Continue oxycodone for severe pain and tylenol for mild pain. Advised ice and ring cushion at home. - [facility] 3. Hypokalemia - ICD9: 276.8, ICD10: E87.6 Continue potassium supplementation. Repeat CMP. - COMP METABOLIC PANEL 4. Hypocalcemia - ICD9: 275.41, ICD10: E83.51 Continue calcium supplementation. Repeat CMP - COMP METABOLIC PANEL 5. Dehydration - ICD9: 276.51, ICD10: E86.0 Hold lasix, check UA and culture, push PO fluids. Will consider holding potassium depending on CMP results. - URINALYSIS WITH MICROSCOPIC - URINE CULTURE 6. Thrombocytosis (HCC) - ICD9: 238.71, ICD10: D47.3 Likely related to dehydration. Will have patient push PO fluids and repeat CBC. - CBC + DIFF 7. Hospital discharge follow-up - ICD9: V67.59, ICD10: Z09 Patient improving. Living with sister at this time. Will have her continue current regimen and follow up in 2-3 weeks for establish visit. I spent 30 minutes in the visit, with more than 50% of the total [id number]-[id number] time of the visit in counseling / coordination of care. Sotero Montague MD Referring Provider: SELF [[id number]] Allergies As of Date: 08/17/2017 Noted Allergy Reaction iodoform nu-gauze packing [Other] 11/09/2005 7 - Swelling 10 - Anaphylaxis Date Reviewed: 08/17/2017 Reviewed by: Jesse Winston Ma - Fully Assessed Reason for Visit: Hospital Follow Up [177] Cmt: [facility] Primary Visit Diagnosis:Fall in home, subsequent encounter [W19.XXXD, Y92.009] Other Visit Diagnoses:Closed fracture of coccyx with routine healing, subsequent encounter [S32.2XXD] Hypokalemia [E87.6] Hypocalcemia [E83.51] Dehydration [E86.0] Thrombocytosis (HCC) [D47.3] Hospital discharge follow-up [Z09] Order(s):CBC + DIFF [SQCBCDIF] Order #: [id number] FUTURE COMP METABOLIC PANEL [SQCMP] Order #: [id number] FUTURE [facility] [[id number]] Order #: [id number]: 1 URINALYSIS WITH MICROSCOPIC [SQUAWMIC] Order #: [id number] URINE CULTURE [SQURCUL] Order #: [id number] FUTURE Prescriptions as of 08/17/2017 Sig: POTASSIUM CHLORIDE ER 20 MEQ * Take 20 mEq by mouth twice da* DONEPEZIL 10 MG TABLET Take 10 mg by mouth daily at * CELECOXIB 200 MG CAPSULE Take 200 mg by mouth once jonathan* VENLAFAXINE 75 MG TABLET Take 75 mg by mouth once shelbie* FUROSEMIDE 20 MG TABLET Take 20 mg by mouth once shelbie* ESOMEPRAZOLE SODIUM 40 MG INT* Inject 40 mg intravenously DA* CARVEDILOL 3.125 MG TABLET Take 3.125 mg by mouth twice * PRAVASTATIN 40 MG TABLET Take 40 mg by mouth once shelbie* ERGOCALCIFEROL (VITAMIN D2) 5* Take 50,000 Units by mouth on* OXYCODONE 5 MG TABLET,ORAL ON* Take 5 mg by mouth every 4 ho* ROPINIROLE 0.5 MG TABLET Take 0.5 mg by mouth three ti* IBUPROFEN 200 MG CAPSULE Take by mouth. LEVOTHYROXINE 125 MCG TABLET Take 1 tablet by mouth once d* Patient taking differently: Take 75 mcg by mouth once jonathan* POLYETHYLENE GLYCOL 3350 17 G* Take 17 g by mouth once daily. * TEMAZEPAM 30 MG CAPSULE Take one(1) tablet daily. DIAZEPAM 5 MG TABLET Take 1 tablet by mouth every * Patient not taking: Reported on 08/17/2017 GABAPENTIN 100 MG CAPSULE Take 2 capsules by mouth thre* Patient not taking: Reported on 08/17/2017 METOCLOPRAMIDE 10 MG TABLET Take 0.5 tablets by mouth thr* Patient not taking: Reported on 08/17/2017 DOCUSATE SODIUM 100 MG CAPSULE Take 1 capsule by mouth twice* Patient not taking: Reported on 08/17/2017 SENNOSIDES 8.6 MG TABLET Take 2 tablets by mouth daily* * OMEPRAZOLE 20 MG CAPSULE,BOAZ* * LIPITOR 10 MG TABLET Take one(1) tablet daily. * CALCIUM CARB-ERGOCALCIFEROL (* Take one(1) tablet three time* * CENTRUM SILVER TABLET Take one(1) tablet two(2) gabriel* Problem List As Of Date 08/17/2017 Noted Resolved MORBID OBESITY [E66.01] INVALID FOR* 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] INVALID FOR* CHRONIC DEPRESSIVE PERSON [F34.1] INVALID FOR* INSOMNIA NOS [G47.00] INVALID FOR* MIXED HYPERLIPIDEMIA [E78.2] INVALID FOR* HYPOTHYROIDISM NOS [E03.9] INVALID FOR* ESOPHAGEAL REFLUX [K21.9] INVALID FOR* OSTEOPOROSIS NOS [M81.0] INVALID FOR* PARTIAL EPILEPSY NEC NOT INTRACT [G40.109] INVALID FOR* Preop Exam for Internal Medicine [Z01.818] Seizures [R56.9] Hypothyroid [E03.9] Severe protein-calorie malnutrition (HCC) [E43] Weight Loss [R63.4] Gastric Bypass Status for Obesity [Z98.84] Marginal Ulcer [K28.9] Dysphagia [R13.10] INVALID FOR* Follow-up and Disposition History Recorded Encounter Status:Closed by SOTERO MONTAGUE MD on 08/18/17 12 LEAD ELECTROCARDIOGRAM Observed: 08/16/2017 Status: F Source: [place] 2:57 PM [facility] REPOSITORY [facility] Cardiovascular Services [address] [place] [address] 12 Lead EKG 08/12/171953 MR#: [id number] Acct: [id number] Name: WINSOME MEYERS Rep #: [id number] : 1945 71 From: Arie Oneill MD Attending Dr: Vic Jha MD Status: DIS IN Ordering Dr: Sal Frederick MD Date: 08/12/17 Location: MS3 Sex: F C Admitted: 08/12/17 Test Reason : LOW POTASSIUM Blood Pressure : / mmHG Vent. Rate : 074 BPM Atrial Rate : 074 BPM P-R Int : 156 ms QRS Dur : 076 ms QT Int : 430 ms P-R-T Axes : 036 -17 187 degrees QTc Int : 477 ms Normal sinus rhythm [address] AND T wave abnormality, consider inferior ischemia ST AND T wave abnormality, consider anterolateral ischemia Prolonged QT Abnormal ECG Confirmed by MAI BELTRAN, ARIE ([id number]), assignment editor MELVA ESPINOZA ([id number]) on 08/16/2017 2:56:43 PM Referred By: SOPHIA Confirmed By:ARIE ONEILL MD 08/16/17 1456 Date Arie Oneill MD CC: Vic Jha MD; OUT OF TOWN DOCTOR; Sal Frederick MD Signed DISCHARGE SUMMARY Observed: 08/14/2017 Status: F Source: [place] 3:49 PM [facility] REPOSITORY [facility] Medical Records Department [address] [place] [address] Discharge Summary 08/14/17 1125 MR#: [id number] Acct: [id number] Name: WINSOME MEYERS Rep #: [id number] : 1945 71 From: Vic Jha MD PCP: OUT OF TOWN DOCTOR Status: DIS IN Y Location: MS3 [id number] Discharge Date and Diagnosis Date of Admission: 08/12/17 Date of Discharge: 08/14/17 - Primary Discharge Diagnosis Active and Suspected Problems Hypokalemia (Acute) Falls (Acute) Thrombocytosis (Acute) Hypocalcemia (Acute) Sacral fracture (Acute) - Secondary Discharge Diagnosis Chronic Problems Epilepsy (Chronic) Bilateral leg edema (Chronic) Hypothyroid (Chronic) Hospital Course and Treatment Summary of Care Provided: The patient is a 71 year old F with a significant history of epilepsy, right shoulder pain status post surgery about 19 years ago who presented to the ED because of pain at her coccyx- sacral area after a fall 3 weeks ago. At the ED patient was found to have severe hyperkalemia and had EKG abnormalities. Severe Hypokalemia At Presentation patient's potassium was 2.3. Her potassium was replaced by p.o. and IV and her EKG abnormalities improved. Patient was kept on telemetry monitoring. On the day of admission potassium was in the normal range. She was instructed to eat potassium containing foods examples of which were given. Sacral fracture Patient had a tenderness at the sacral area and also had Radiographic evidence of a disruption of anterior cortex of the proximal sacrum suggesting a sacral fracture. Patient was medicated with narcotics and scheduled Tylenol. We continued her home celecoxib. Weightbearing as tolerated. Falls Orthostatic blood pressure was inconsistent inconsistent.. Patient had no arrhythmias on telemetry . Physical therapy and occupational therapy work with patient. PT/OT recommended group home for rehabilitation. However patient's preferred home with home health. Patient was subsequently discharged to home with home care. Dehydration The patient appeared dehydrated and was hydrated with IV normal saline infusion. Hypotension She was hypotensive initially at the ED and she required IV normal saline to boost her blood pressure. Her home Coreg was subsequently held initially. But as her blood pressure improved her home Coreg was restarted. Thrombocytosis She had a thrombocytosis which trended down. Patient will have to follow up with this outpatient. Hypocalcemia Corrected with her low level of albumin. However because of her thin frame she received calcium here and she was prescribed calcium for outpatient use. Epilepsy The patient reported that her last seizure was about a year ago. There was no epileptic medication on a profile Patient was close monitored because of previous seizures. She was placed on seizure precautions. Patient to follow up with her primary care physician or neurologist. Hypothyroidism Was Continued on home Synthroid. History of bilateral leg edema Patient denied any history of heart failure. She reported that she takes Lasix for bilateral leg edema suggesting a possible history of venous stasis. Her home lasix was held while in patient. On the day of admission patient was seen a brief physical is as follows. General: Alert, Oriented x3, Cooperative HEENT: Atraumatic, PERRLA, EOMI, Normocephalic Neck: Supple, No JVD, Negative Carotid Bruits Lungs: Clear to auscultation, Normal air movement Cardiovascular: Regular rate, No murmurs Abdomen: Bowel Sounds Present, Soft, Non Tender Extremities: Mild Tenderness - Sacral area Skin: - - Bruise at lower left ponce Neurological: - - Hard of hearing Psych/Mental Status: Normal Affect Patient was instructed to follow up with a primary care physician and home care for physical therapy needs. [] Discharge Activity: - Weight Bearing Status: Weight bearing as tolerated Call your doctor if you observe: Uncontrolled pain Home Medications: Medications to take at Discharge Acetaminophen/Codeine #3 [Tylenol #3 Tablet] 1 tablet PO Q4H PRN PRN 08/12/17 Carvedilol [Coreg (Beta Michelle)] 3.125 mg PO BID 08/12/17 Celecoxib [Celebrex] 200 mg PO DAILY 08/12/17 Donepezil HCl [Aricept] 10 mg PO QHS 08/12/17 Ergocalciferol [Vitamin D] 50,000 unit PO Q7D 08/12/17 Esomeprazole Magnesium [Nexium] 40 mg PO DAILY 08/12/17 Furosemide [Lasix] 20 mg PO DAILY 08/12/17 Levothyroxine [Synthroid] 75 mcg PO DAILY 08/12/17 Potassium Chloride [Klor-Con M20] 20 meq PO BID 08/12/17 Ropinirole HCl [Requip] 0.5 mg PO TID 08/12/17 Venlafaxine HCl [Venlafaxine HCl ER] 75 mg PO DAILY 08/12/17 Calcium (Elemental) [Os-Og 500] 500 mg PO DAILY@0800 tablet 08/14/17 Ensure Enlive 120 ml PO 4X/DAY liquid 08/14/17 Oxycodone [Oxyir] 5 mg PO Q4H PRN PRN #20 tab 08/14/17 Following Prescrptions Were Given to Patient: Oxycodone [Oxyir] 5 mg PO Q4H PRN PRN #20 tab PRN Reason: Severe Pain (6-10) Primary Care Physician: [facility] Doctor,Out of [Primary Care Provider] - Please follow up with your Primary Care Physician in: 3-7 days Disposition: Home with Home Health Minutes spent on discharge:: 25 Patient Condition:: Good Medical Necessity - Tobacco Use Smoking Status: Never smoker Tobacco Use: Non-smoker Meaningful Use Info Meaningful Use Diagnoses (Choose all that apply): None applicable 08/14/17 1549 <Electronically signed by Vic Jha MD> Date Vic Jha MD Cosigner Signature (if applicable): Date CC: Vic Jha MD; OUT OF TOWN DOCTOR Signed DISCHARGE INSTRUCTION Observed: 08/14/2017 Status: F Source: [place] 11:25 AM [facility] REPOSITORY [facility] Medical Records Department [address] [place] [address] Instructions for Home/Discharge Instructions 08/14/17 1121 MR#: [id number] Acct: [id number] Name: WINSOME MEYERS Rep #: [id number] : 1945 71 From: Vic Jha MD PCP: OUT OF TOWN DOCTOR Status: ADM IN - Discharge Diagnoses Current Active Problems: Current Active and Chronic Problems Hypokalemia (Acute) Falls (Acute) Epilepsy (Chronic) Bilateral leg edema (Chronic) Thrombocytosis (Acute) Hypocalcemia (Acute) Sacral fracture (Acute) Hypothyroid (Chronic) Reason(s) for Visit for Discharge Instructions: Hypokalemia You will use the following diet at home:: Regular Discharge Activity: - Weight Bearing Status: Weight bearing as tolerated Call your doctor if you observe: Uncontrolled pain Additional Instructions: Follow up with Home Care Allergies/Adverse Reactions: Allergies No Known Allergies Allergy (Verified 08/12/17 14:15) Medications to take at Discharge Acetaminophen/Codeine #3 [Tylenol #3 Tablet] 1 tablet PO Q4H PRN PRN 08/12/17 Carvedilol [Coreg (Beta Michelle)] 3.125 mg PO BID 08/12/17 Celecoxib [Celebrex] 200 mg PO DAILY 08/12/17 Donepezil HCl [Aricept] 10 mg PO QHS 08/12/17 Ergocalciferol [Vitamin D] 50,000 unit PO Q7D 08/12/17 Esomeprazole Magnesium [Nexium] 40 mg PO DAILY 08/12/17 Furosemide [Lasix] 20 mg PO DAILY 08/12/17 Levothyroxine [Synthroid] 75 mcg PO DAILY 08/12/17 Potassium Chloride [Klor-Con M20] 20 meq PO BID 08/12/17 Ropinirole HCl [Requip] 0.5 mg PO TID 08/12/17 Venlafaxine HCl [Venlafaxine HCl ER] 75 mg PO DAILY 08/12/17 Calcium (Elemental) [Os-Og 500] 500 mg PO DAILY@0800 tablet 08/14/17 Ensure Enlive 120 ml PO 4X/DAY liquid 08/14/17 Oxycodone [Oxyir] 5 mg PO Q4H PRN PRN #20 tab 08/14/17 The following prescriptions were given: Oxycodone [Oxyir] 5 mg PO Q4H PRN PRN #20 tab PRN Reason: Severe Pain (6-11/17) Primary Care Physician: [facility],Out of [Primary Care Provider] - Please follow up with your Primary Care Physician in: 3-7 days Test Results: Test results from this visit will be discussed in further detail at your follow-up appointment, if applicable. Proposed Discharge Date: 08/14/17 08/14/17 1125 <Electronically signed by Vic Jha MD> Date Vic Jha MD CC: OUT OF [facility] DOCTOR BASIC METABOLIC Collected: 08/14/2017 Status: F Source: [place] PROFILE (BMP) 8:00 AM [facility] REPOSITORY TYPE CODE TESTS RESULT OUT OF RANGE REFERENCE UNITS LAB L501.0100 74-106 mg/dL Normal GLU 77 Result Comment: Please note revised GLUCOSE reference range effective 2017. LAB L501.1000 7-18 mg/dL Normal BUN 15 LAB L501.1100 0.55-1.02 mg/dL Low CREAT,SERUM 0.34 Result Comment: The validity of the calculated GFR AND GFRAA in patients over 70 years has not been determined. Clinical correlation is essential. LAB L501.1110 >60 mL/min Normal EST GFR 197 Result Comment: Non- GFR Calc LAB L501.1115 >60 mL/min Normal EST GFR - AA 238 Result Comment: GFR Calc LAB L501.1255 ml/min Normal Estimated CRCL 39.63 LAB L501.1300 10-20 RATIO High BUN/CRE 43.5 LAB L501.2200 8.5-10 mg/dL Low .1 CA 7.6 LAB L501.5300 136-14 mmol/L High 5 NA 146 LAB L501.5600 3.5-5. mmol/L Normal 1 K 3.8 LAB L501.5900 98-107 mmol/L High CL 115 LAB L501.6100 21.0-3 mmol/L Normal 2.0 CO2 22.0 LAB L501.6200 5-15 Normal GAP 9 Performed By: #### L500.2500 #### [facility] [address] [place], [address] BASIC METABOLIC Collected: 08/13/2017 Status: F Source: [place] PROFILE (BMP) 3:55 PM [facility] REPOSITORY TYPE CODE TESTS RESULT OUT OF RANGE REFERENCE UNITS LAB L501.0100 74-106 mg/dL Normal GLU 101 Result Comment: Fasting Glucose result from 100 to 125 mg/dL suggests IMPAIRED HOMEOSTASIS per A.D.A. criteria. Please note revised GLUCOSE reference range effective 2017. LAB L501.1000 7-18 mg/dL Normal BUN 15 LAB L501.1100 0.55-1.02 mg/dL Low CREAT,SERUM 0.43 Result Comment: The validity of the calculated GFR AND GFRAA in patients over 70 years has not been determined. Clinical correlation is essential. LAB L501.1110 >60 mL/min Normal EST GFR 153 Result Comment: Non- GFR Calc LAB L501.1115 >60 mL/min Normal EST GFR - AA 185 Result Comment: GFR Calc LAB L501.1255 ml/min Normal Estimated CRCL 39.63 LAB L501.1300 10-20 RATIO High BUN/CRE 35.0 LAB L501.2200 8.5-10 mg/dL Low .1 CA 7.9 LAB L501.5300 136-14 mmol/L Normal 5 NA 143 LAB L501.5600 3.5-5. mmol/L Normal 1 K 4.5 LAB L501.5900 98-107 mmol/L High CL 115 LAB L501.6100 21.0-3 mmol/L Low 2.0 CO2 19.0 LAB L501.6200 5-15 Normal GAP 9 Performed By: #### L500.2500 #### [facility] [address] [facility] [place], [address] URINE POTASSIUM Collected: 08/13/2017 Status: F Source: [place] 6:20 AM [facility] REPOSITORY TYPE CODE TESTS RESULT OUT OF RANGE REFERENCE UNITS LAB L501.5800 Not Establ. mmol/L Normal UR K 28.0 Performed By: #### L501.5800 #### [facility] [address] [place], [address] CBC W/DIFF, AUTOMATED Collected: 08/13/2017 Status: F Source: [place] 5:33 AM [facility] REPOSITORY TYPE CODE TESTS RESULT OUT OF RANGE REFERENCE UNITS LAB L100.1000 4.4-11.0 K/mm3 Normal WBC 6.3 LAB L100.1200 4.2-5.4 M/mm3 Low RBC 3.26 LAB L100.1300 12.0-15.0 g/dl Low HGB 10.3 LAB L100.1400 37-47 % Low HCT 30.5 LAB L100.1500 81-99 fL Normal MCV 93.6 LAB L100.1600 27.0-32.0 pg Normal MCH 31.6 LAB L100.1700 32-36 g/gl Normal MCHC 33.8 LAB L100.1810 11.6-14.6 % High RDW CV 17.4 LAB L100.1820 35.1-43.9 fl High RDW SD 54.2 LAB L100.1900 150-450 K/mm3 High PLT 638 LAB L100.2000 6.2-12.0 fl Normal MPV 10.3 LAB L100.2100 47-70 % Normal NEUT% 67.3 LAB L100.2200 19-41 % Normal LY% 23.4 LAB L100.2300 0-10 % Normal MONO% 8.4 LAB L100.2400 0-5 % Normal EO% 0.0 LAB L100.2500 0-1 % Normal BASO% 0.3 LAB L100.2550 0.0-0.9 % Normal IM GRAN % 0.600 Result Comment: IG% - Immature Granulocytes (promyelocytes, myelocytes and metamyelocytes) > 1% indicates that a LEFT SHIFT is Present. LAB L100.2620 2.0-7.7 X10 3/uL Normal Absolute Neut 4.2 LAB L100.2720 0.83-4.51 X10 3/ul Normal Absolute Lymph 1.47 Performed By: #### L100.0100 #### [facility] [address] [place], [place], [address] COMPREHENSIVE METABOLIC Collected: 08/13/2017 Status: F [facility] REPOSITORY TYPE CODE TESTS RESULT OUT OF RANGE REFERENCE UNITS LAB L501.0100 74-106 mg/dL Normal GLU 80 Result Comment: Please note revised GLUCOSE reference range effective 2017. LAB L501.1000 7-18 mg/dL Normal BUN 14 LAB L501.1100 0.55-1.02 mg/dL Low CREAT,SERUM 0.38 Result Comment: The validity of the calculated GFR AND GFRAA in patients over 70 years has not been determined. Clinical correlation is essential. LAB L501.1110 >60 mL/min Normal EST GFR 174 Result Comment: Non- GFR Calc LAB L501.1115 >60 mL/min Normal EST GFR - AA 210 Result Comment: GFR Calc LAB L501.1255 ml/min Normal Estimated CRCL 39.63 LAB L501.1300 10-20 RATIO High BUN/CRE 36.4 LAB L501.1500 6.4-8. g/dL Low 2 T PROT 4.8 LAB L501.1800 3.2-5. g/dL Low 0 ALB 2.1 LAB L501.1950 2.2-4. g/dL Normal 2 GLOB 2.7 LAB L501.2000 0.9-2. RATIO Low 4 A/G 0.8 LAB L501.2200 8.5-10 mg/dL Low .1 CA 7.2 LAB L501.4100 15-37 U/L High AST 169 LAB L501.4305 45-117 U/L High ALK P 295 LAB L501.4405 13-56 U/L High ALT 294 LAB L501.4600 0.20-1 mg/dL Normal .00 T BILI 0.90 LAB L501.5300 136-14 mmol/L Normal 5 NA 145 LAB L501.5600 3.5-5. mmol/L Low 1 K 2.9 LAB L501.5900 98-107 mmol/L High CL 114 LAB L501.6100 21.0-3 mmol/L Normal 2.0 CO2 22.0 LAB L501.6200 5-15 Normal GAP 9 Performed By: #### L500.4050 #### [facility] [address] [place], [address] VITAMIN B12 Collected: 08/13/2017 Status: F Source: [place] 5:33 AM [facility] REPOSITORY TYPE CODE TESTS RESULT OUT OF REFERENCE UNITS RANGE LAB L503.0105 211-911 pg/mL High Vitamin B12 1073 Performed By: #### L503.0105 #### [facility] [address] [place], [address] VITAMIN D 1,25-DIHYDROXY Collected: 08/13/2017 Status: F Source: [place] 5:33 AM [facility] REPOSITORY TYPE CODE TESTS RESULT OUT OF RANGE REFERENCE UNITS LAB L3300.0960 19.9-79.3 pg/mL High VITD 1,25 125.0 [address] Result Comment: Performed at: - [facility] [id number] Superintendent Pipelines: London Bland MD, Phone: [phone] Performed By: #### L3300.0960 #### [facility] (refer to report for specific site) refer to report for address and phone number EMERGENCY DEPARTMENT Observed: 08/13/2017 Status: F Source: [place] SUMMARY 1:20 AM [facility] REPOSITORY [facility] Medical Records Department [address] [place] [address] Emergency Department Summary 08/12/17 1708 MR#: [id number] Acct: [id number] Name: WINSOME MEYERS Rep #: [id number] : 1945 71 From: Sal Frederick MD PCP: OUT OF TOWN DOCTOR Status: ADM IN - ER Visit Summary Date of Service: 08/12/17 Chief Complaint: Fall History of Present Illness: The patient is a 71 F who lives in [place] and sees Dr. Ruiz. She reports that she fell approximately July 23 when she was climbing on a couch and lost her balance. She reports that she has low back pain that is sharp and 10 out of 10 severity. She has bilateral hip pain that is 10 out of 10 severity. Left shoulder pain that is 6 out of 10 severity. All of these pains are worsened by movement or the active sitting down. They are unrelieved by Tylenol. Patient denies any blow to the head or loss of consciousness. She is not on any blood thinners. No neck or head pain. Patient reports that she has been nauseated, but has not vomited. She relates this to when the pain is severe. She reports she been having diarrhea 1-2 times a day for the past month. No blood in her stools or black tarry stools. She complains of generalized weakness. Physical Examination: Vitals: Stable. Afebrile. Neck: No vertebral tenderness. Full ROM without difficulty. Cleared by NEXUS criteria. Back: Mild tenderness palpation is diffuse over the lumbar spine. Moderate tenderness palpation over her coccyx.. General: A AND O x 3. NAD. Cardiovascular exam: Regular rate and rhythm. 2 out of 6 systolic murmur. Respiratory exam: Chest nontender. No crepitus. Clear to auscultation bilaterally. No wheezes or stridor. Abdominal exam: Soft, nontender, nondistended, normal bowel sounds. No pain in RUQ or LUQ specifically. No peritoneal signs. Extremity: Mild tenderness palpation over her greater trochanters bilaterally. She has no pain with internal/external rotation of her hips. Mild tenderness palpation over her left shoulder. Good range of motion without any difficulty. Test Results: LS spine x-ray show osteoporosis, but no acute disease. Pelvis x-ray shows no acute disease. Left shoulder x-ray shows her to be status post replacement. The hardware is intact. There is no acute disease. Coccyx x-ray raises a question of a sacral fracture that is only seen on the lateral view. CBC is marked for platelets of 747, segmented neutrophils 81, and lymphocytes 13. Chem-7 marked potassium 2.3, chloride 108, calcium 8.0. EKG is sinus at 74 with T-wave inversions in leads V2 to V6 and low T waves throughout. Her QTC is 477. There is no edema EKG for comparison. Emergency Department Course and Treatment: Patient had an IV placed. She was given morphine and Zofran IV. She is resting comfortably. Patient was given K-Dur p.o. Treatment Plan: Patient is visiting from [place] and does not have a local primary care physician. She is already on potassium at home. I do not think that she is going to be able to replete her potassium and have this checked in a safe manner at home. She will will be discussed the hospitalist and admitted for further evaluation and treatment. Disposition: Admitted in improved condition. Impression: 1. Hypokalemia. 2. Low back pain. This note was generated with ROSTR dictation software. It may contain incorrect words, spelling, and punctuation that were not noted in review of the chart prior to signing ED Disposition - Plan for ED Patient: Chief Complaint: Fall Referrals: [facility] Doctor,Out of [Primary Care Provider] - What to do if you have Problems For any increased pain, shortness of breath, bleeding, nausea or vomiting, chest pain, or any unexpected problems, contact your Primary Care Provider. Call [facility] ([phone]) or report to the closest Emergency Room. Call 911 if necessary. 08/13/17 0120 <Electronically signed by Sal Frederick MD> Date Sal Frederick MD Cosigner Signature (If Indicated): Date CC: OUT OF TOWN DOCTOR HISTORY AND PHYSICAL Observed: 08/12/2017 Status: F Source: [place] EXAM 11:25 PM [facility] REPOSITORY [facility] Medical Records Department [address] [place] [address] History and Physical 08/12/172153 MR#: [id number] Acct: [id number] Name: WINSOME MEYERS Rep #: [id number] : 1945 71 From: Vic Jha MD PCP: OUT OF TOWN DOCTOR Status: ADM IN Y Location: [place] [address] Problem List (1) Hypokalemia Status: Acute (2) Falls Status: Acute (3) Epilepsy Status: Chronic (4) Bilateral leg edema Status: Chronic (5) Hypotension Status: Resolved (6) Thrombocytosis Status: Acute (7) Hypocalcemia Status: Acute (8) Sacral fracture Status: Acute (9) Hypothyroid Status: Chronic History of Present Illness Date of Admission: 08/12/17 Chief Complaint: Pain at coccyx after fall. The patient is a 71 year old F with a significant history of epilepsy, right shoulder pain status post surgery about 19 years ago who presented to the ED because of pain at her coccyx- sacral area after a fall 3 weeks ago. The patient states that she was standing on her sofa and trying to reposition a picture on the wall and she fell. She denies any syncope, nausea and vomiting, heart racing or seizure activity associated with a fall. The patient fell in her house at [place] where she lives. After the fall, she went to a hospital in [place]. She reports that x-ray at that time showed no abnormality at that time and she was not given any medication. She reports taking Tylenol which she thinks does not help but only upset her stomach. On her medication list is Tylenol with codeine. She is currently visiting her sister at [place]. She rates the pain at the coccyx sacral area as 9 out of 10. The pain is constant and it is throbbing. This pain prevents her from sleeping. At the ED her potassium was found to be 2.3 and she had T- wave inversions in leads of V1 to V6. Because of hypokalemia with EKG changes patient was admitted. [] Past Medical History Past Medical History (Chronic Problems): Chronic Problems Epilepsy (Chronic) Bilateral leg edema (Chronic) Hypothyroid (Chronic) Allergies No Known Allergies Allergy (Verified 08/12/17 14:15) Home Medications: Ambulatory Orders Medication Instructions Recorded Acetaminophen/Codeine #3 1 tablet PO Q4H PRN PRN 08/12/17 Surgical History: - - L Shoulder surgery. Lives: With Family Smoking Status: Never smoker Tobacco Use: Non-smoker Alcohol: None Drugs: None - *Family History Maternal History Items: Heart Disease Paternal History Items: No pertinent history Sibling History Items: Cancer Review of Systems Constitutional: Denies: Chills, Fever, Weight Change HEENT: Reports: Difficulty Hearing - Uses bilateral hearing aids. At the time of assessment she had a hearing aid only in her left ears. Cardiovascular: Denies: Chest Pain, Palpitations Gastrointestinal: Denies: Abdominal Pain, Nausea, Vomiting Genitourinary: Denies: Dysuria Musculoskeletal: Reports: Shoulder Pain - Left - That she rates as 6 out of 10 and can go up to 9 out of 10 with activity. Poor gait requiring walker and assistance from family. Skin: Denies: Rash, Wounds Neurological: Reports: - Psychiatric: Denies: Anxiety, Depression, Homicidal Ideations, Suicidal Ideations Hematologic/ Lymphatic: Denies: Easy Bruising, Easy Bleeding VTE Information - Inpt Only VTE Present on Admission: No VTE Mechan Device Prophylaxis: None VTE Pharm Prophylaxis ordered?: Yes Patient Problems: Active and Suspected Problems Hypokalemia (Acute) Falls (Acute) Thrombocytosis (Acute) Hypocalcemia (Acute) Sacral fracture (Acute) - Physical Exam General: Alert, Oriented x3, Cooperative HEENT: Atraumatic, PERRLA, EOMI, Normocephalic Neck: Supple, No JVD, Negative Carotid Bruits Lungs: Diminished Cardiovascular: Regular rate, No murmurs Abdomen: Bowel Sounds Present, Soft, Non Tender Skin: No breakdown, - - A quarter size bruise on left lower ponce (reports sustained from falling.) Healed wound (report surgical) at Left shoulder. Musculoskeletal: Tenderness - Coccyx-sacral region Reduced range of motion of bilateral lower extremities. Strength of bilateral lower extremities intact. Strength of left shoulder 4/5. Strength of right shoulder 5/5. Equal handgrip bilateral, Neurological: - - Hard of hearing. Psych/Mental Status: Normal Affect, Appropriate Vital Signs Temp Pulse Resp BP Pulse Ox 98.3 F 82 14 120/76 97 08/12/17 14:13 08/12/17 20:29 08/12/17 20:29 08/12/17 20:29 08/12/17 20:29 Oxygen Delivery Method Room Air Weight: 54.431 kg Body Mass Index (BMI) 22.6 Laboratory Tests Past 24 Hrs WBC 9.0 RBC 4.22 Hgb 13.3 Hct 38.5 MCV 91.2 MCH 31.5 MCHC 34.5 RDW 17.5 H Assessment/Plan All Active Problems Hypokalemia (Acute) Falls (Acute) Hypotension (Resolved) Thrombocytosis (Acute) Hypocalcemia (Acute) Sacral fracture (Acute) This is a 71 year old lady with a significant history of epilepsy who is visiting from [place] who reported to the ED because of pain in her coccyx- sacral area after a fall and was found to have severe hypokalemia with EKG abnormalities. 1. Severe Hypokalemia At Presentation patient's potassium was 2.3. Patient with EKG abnormalities of T-wave inversions and some QT prolongation. The patient is on potassium 20meq bid at home. And she is on Lasix 20mg daily . She reports that last time that she took her medications was a day before admission. Hypokalemia could be due to use of Lasix At Emergency department patient received 40 mEq of potassium. We will replenish with a further potassium chloride 40 mEq p.o. and 40 mEq IV. Will check magnesium. We will check urine potassium Sacral fracture Patient has pain in his sacral area. Radiographic evidence of a disruption of anterior cortex of the proximal sacrum suggesting a sacral fracture Morphine as needed, oxycodone as needed and schedule Tylenol ordered. We will continue home dose of celecoxib. Falls We will check orthostatic blood pressure. The patient on on telemetry monitoring to check for arrhythmia. We will check vitamin D level and Vitamin B12 Continue on home vitamin D. Physical therapy and occupational therapy consultation. Case management to help with disposition upon discharge. Dehydration BUN/creatinine is more than 20. There is no previous records to track progression. With her severe hypotension upon admission probably patient is dehydrated. She reports chronic bilateral leg edema but at the time of admission she did not have any edema and this could be due to dehydration. Further her potassium is high normal at 144. Will continue IV hydration for additional NSS 1L. Hypotension Resolved at the Emergency after fluid boluses We will hold home Coreg We will continue on a gentle hydration 50 mL/hr for 1L Thrombocytosis No old records to track progression Differential diagnoses include dehydration. We will repeat CBC in a.m. Hypocalcemia Her calcium on admission was 8.0. Will check CMP for albumin level to check a corrected calcium. Epilepsy The patient reported that her last seizure was about a year ago. There is no epileptic medication on a profile Patient will need close monitoring because of previous seizures. Patient to follow up with her primary care physician or neurologist after discharge. Hypothyroidism Continue home Synthroid. History of bilateral leg edema Patient denies any history of heart failure. She reports that she takes Lasix for bilateral leg edema suggesting a possible history of venous stasis. Home Lasix on hold at this time since she has no bilateral leg edema at this point and she looks dehydrated. DVT prophylaxis subcutaneous heparin. Code Visit Inpatient E AND M: [id number] Init Hosp L2 08/12/172324 <Electronically signed by Vic Jha MD> Date Vic Jha MD Cosigner Signature: Date (if applicable) CC: Vic Jha MD; OUT OF TOWN DOCTOR Signed CBC W/DIFF, AUTOMATED Collected: 08/12/2017 Status: F Source: [place] 5:20 PM [facility] REPOSITORY TYPE CODE TESTS RESULT OUT OF RANGE REFERENCE UNITS LAB L100.1000 4.4-11.0 K/mm3 Normal WBC 9.0 LAB L100.1200 4.2-5.4 M/mm3 Normal RBC 4.22 LAB L100.1300 12.0-15.0 g/dl Normal HGB 13.3 LAB L100.1400 37-47 % Normal HCT 38.5 LAB L100.1500 81-99 fL Normal MCV 91.2 LAB L100.1600 27.0-32.0 pg Normal MCH 31.5 LAB L100.1700 32-36 g/gl Normal MCHC 34.5 LAB L100.1810 11.6-14.6 % High RDW CV 17.5 LAB L100.1820 35.1-43.9 fl High RDW SD 53.4 LAB L100.1900 150-450 K/mm3 High PLT 747 LAB L100.2000 6.2-12.0 fl Normal MPV 9.8 LAB L100.2100 47-70 % High NEUT% 81.4 LAB L100.2200 19-41 % Low LY% 12.5 LAB L100.2300 0-10 % Normal MONO% 5.6 LAB L100.2400 0-5 % Normal EO% 0.0 LAB L100.2500 0-1 % Normal BASO% 0.2 LAB L100.2550 0.0-0.9 % Normal IM GRAN % 0.300 Result Comment: IG% - Immature Granulocytes (promyelocytes, myelocytes and metamyelocytes) > 1% indicates that a LEFT SHIFT is Present. LAB L100.2620 2.0-7.7 X10 3/uL Normal Absolute Neut 7.3 LAB L100.2720 0.83-4.51 X10 3/ul Normal Absolute Lymph 1.12 Performed By: #### L100.0100 #### [facility] [address] [place], [address] BASIC METABOLIC Collected: 08/12/2017 Status: F Source: [place] PROFILE ([facility]) 5:20 PM [facility] REPOSITORY TYPE CODE TESTS RESULT OUT OF RANGE REFERENCE UNITS LAB L501.0100 74-106 mg/dL Normal GLU 103 Result Comment: Fasting Glucose result from 100 to 125 mg/dL suggests IMPAIRED HOMEOSTASIS per A.D.A. criteria. Please note revised GLUCOSE reference range effective 2017. LAB L501.1000 7-18 mg/dL Normal BUN 18 LAB L501.1100 0.55-1.02 mg/dL Normal CREAT,SERUM 0.62 Result Comment: The validity of the calculated GFR AND GFRAA in patients over 70 years has not been determined. Clinical correlation is essential. LAB L501.1110 >60 mL/min Normal EST GFR 100 Result Comment: Non- GFR Calc LAB L501.1115 >60 mL/min Normal EST GFR - AA 121 Result Comment: GFR Calc LAB L501.1255 ml/min Normal Estimated CRCL 37.81 LAB L501.1300 10-20 RATIO High BUN/CRE 29.0 LAB L501.2200 8.5-10 mg/dL Low .1 CA 8.0 LAB L501.5300 136-14 mmol/L Normal 5 NA 144 LAB L501.5600 3.5-5. mmol/L Low 1 K alert 2.3 Result Comment: Critical Result(s) Called at: 17:49:05 08/12/2017 by: Nohemy Wilson to [facility] LAB L501.5900 98-107 mmol/L High CL 108 LAB L501.6100 21.0-32.0 mmol/L Normal CO2 26.0 LAB L501.6200 5-15 Normal GAP 10 Performed By: #### L500.2500 #### [facility] [address] [facility] [place], [address] MAGNESIUM Collected: 08/12/2017 Status: F Source: [place] 5:20 PM [facility] REPOSITORY Order Comment: Comments: Add on lab TYPE CODE TESTS RESULT OUT OF RANGE REFERENCE UNITS LAB L501.5200 1.6-2.6 mg/dL Normal MG 2.1 Performed By: #### L501.5200 #### [facility] [address] [place], [address] SACRUM-COCCYX MIN 2 VIEWS Observed: 08/12/2017 Status: F Source: [place] 5:08 PM [facility] REPOSITORY [facility] Imaging Services [address] [place] [address] Sacrum-Coccyx min 2 Views MR#: [id number] Acct: [id number] Name: WINSOME MEYERS Rep #: [id number] : 1945 F 71 From: Jaylyn Chery MD PCP: OUT OF TOWN DOCTOR Status: REG ER Study: Sacrum-Coccyx min 2 Views Date of Exam: 08/12/17 Exam# [id number] Ordering Dr: Sal Frederick MD STUDY: X-RAY - SACRUM/COCCYX REASON FOR EXAM: Female, 71 years old. fall 3 days ago, pain in tail bone TECHNIQUE: 3 view(s) of the sacrum and coccyx were obtained. COMPARISON: None. FINDINGS: Normal bilateral sacroiliac joints. On the lateral view there appears that there is disruption of the anterior cortex of the proximal sacrum suggesting a subtle fracture in this area. I question the presence of fracture associated with the left sacrum superiorly on the other views. Normal sacrococcygeal junction with a normal angulation. Normal coccygeal segments. The presacral soft tissue structures are unremarkable. RAD/Sacrum-Coccyx min 2 Views IMPRESSION: No evidence of a coccygeal fracture. On the lateral view there appears that there is disruption of the anterior cortex of the proximal sacrum suggesting a subtle fracture in this area. I question the presence of fracture associated with the left sacrum superiorly on the other views. Electronically Signed: Jaylyn Chery MD at 18:26 EDT , Service support , CC: OUT OF TOWN DOCTOR; Sal Frederick MD Physician Locums Urgent Care: Signed SHOULDER MIN 2 VIEWS Observed: 08/12/2017 Status: F Source: [place] 3:52 PM [facility] REPOSITORY [facility] Imaging Services [address] [place] [address] Shoulder min 2 Views MR#: [id number] Acct: [id number] Name: WINSOME MEYERS Rep #: [id number] : 1945 F 71 From: Jaylyn Chery MD PCP: OUT OF TOWN DOCTOR Status: PRE ER Study: Shoulder min 2 Views Date of Exam: 08/12/17 Exam# [id number] Ordering Dr: Sal Frederick MD STUDY: X-RAY - LEFT SHOULDER REASON FOR EXAM: Female, 71 years old. fell 3 days ago, shoulder pain TECHNIQUE: 3 view(s) of the shoulder. COMPARISON: Prior comparison studies are not available for review at this time. FINDINGS: Bony demineralization is noted. There is a right shoulder arthroplasty with humeral diaphyseal component and humeral head component. There is radiolucency in the region of the glenoid as well as sclerosis. There is no sign of dislocation. There does appear heterotopic bone locally in this region. There is no evidence of scapular clavicular or subjacent rib fracture. The soft tissue structures are unremarkable. Normal visualized pulmonary apex. RAD/Shoulder min 2 Views IMPRESSION: Left shoulder arthroplasty. No acute abnormality identified. Electronically Signed: Jaylyn Chery MD at 16:47 EDT , Service support , CC: OUT OF TOWN DOCTOR; Sal Frederick MD Physician Locums Urgent Care: Signed LUMBAR SPINE 2 OR 3 Observed: 08/12/2017 Status: F Source: [place] VIEWS 3:52 PM [facility] REPOSITORY [facility] Imaging Services [address] [place] [address] Lumbar Spine 2 or 3 Views MR#: [id number] Acct: [id number] Name: WINSOME MEYERS Rep #: [id number] : 1945 F 71 From: Jaylyn Chery MD PCP: OUT OF TOWN DOCTOR Status: PRE ER Study: Lumbar Spine 2 or 3 Views Date of Exam: 08/12/17 Exam# [id number] Ordering Dr: Sal Frederick MD STUDY: X-RAY - LUMBAR SPINE REASON FOR EXAM: Female, 71 years old. fell 3 days ago, pain in lower back and hips TECHNIQUE: 3 view(s) of the lumbar spine were obtained. COMPARISON: None FINDINGS: Normal lumbar lordosis. There is no substantial scoliosis. There is a normal alignment of the vertebrae. Bone demineralization is noted. There appears concavity associated with the superior endplates of L2 and L3 likely on the basis of osteoporotic central compression. No defined acute fracture however identified. Minimal marginal osteophytes are noted. There appears lower lumbar facet arthropathy. Normal disc space heights. There is no demonstrated fracture. Surgical clips are present in the right upper quadrant presumably from prior cholecystectomy. There appear anastomotic radha in the region of the gastroesophageal junction. RAD/Lumbar Spine 2 or 3 Views IMPRESSION: Osteoporosis. Suspect osteoporotic concavities of the L2 and L3 vertebral bodies. No acute defined fracture identified. Electronically Signed: Jaylyn Chery MD at 16:50 EDT , Service support , CC: OUT OF TOWN DOCTOR; Sal Frederick MD Physician Locums Urgent Care: Signed PELVIS 1 OR 2 VIEWS Observed: 08/12/2017 Status: F Source: [place] 3:52 PM [facility] REPOSITORY [facility] Imaging Services [address] [place] [address] Pelvis 1 or 2 Views MR#: [id number] Acct: [id number] Name: WINSOME MEYERS Rep #: [id number] : 1945 F 71 From: Jaylyn Chery MD PCP: OUT OF TOWN DOCTOR Status: REG ER Study: Pelvis 1 or 2 Views Date of Exam: 08/12/17 Exam# [id number] Ordering Dr: Sal Frederick MD ADDENDUM by JAYLYN CHERY on 08/12/17 at 1827 RAD/Pelvis 1 or 2 Views 08/12/17 1834 Date cc: OUT OF TOWN DOCTOR; Sal Frederick MD * Signed ADDENDUM by JAYLYN CHERY on 08/12/17 at 1827 ADDENDUM Subsequent imaging dedicated to the sacrum and coccyx suggests potential left sacral fracture. On this view there appears subtle disruption of the superior cortical margin on the left that may associate with fracture. Bowel gas on this study overlies this area. Electronically Signed: Jaylyn Chery MD at 18:27 EDT , Service support , 08/12/171826 Date cc: OUT OF TOWN DOCTOR; Sal Frederick MD * Signed STUDY: X-RAY - PELVIS REASON FOR EXAM: Female, 71 years old. fell 3 days ago, hip pain TECHNIQUE: One view of the pelvis was obtained. COMPARISON: None. FINDINGS: There is a non-specific bowel gas pattern. Normal visualized soft tissue structures. There is diffuse demineralization of the osseous structures. Normal bilateral iliac wings, sacroiliac joints and visualized sacrum. Normal visualized bilateral superior and inferior pubic rami. Normal pubic symphysis. Normal ischial tuberosities. Normal visualized right femoral head. Normal right acetabulum. Normal right hip joint. Normal visualized left femoral head. Normal left acetabulum. Normal left hip joint. RAD/Pelvis 1 or 2 Views IMPRESSION: No acute abnormality. Bony demineralization. Electronically Signed: Jaylyn Chery MD at 16:51 EDT , Service support , CC: OUT OF TOWN DOCTOR; Sal Frederick MD Physician Locums Urgent Care: Signed ALLERGIES ALLERGIES DATE TYPE / CODE NAME / CODE REACTION SEVERITY SOURCE 11/13/2017 Drug No Known Unknown [place] Allergy/544820789(S Allergies/F Community NOMED CT) 252059369(R Hospital XNORM) Repository 11/09/2005 Miscellaneous OTHER SWELLING High [facility] Allergy/087128926(S [place] NOMED CT) Repository ENCOUNTERS ENCOUNTERS ADMIT/DISCHARGE ACCOUNT ADMITTING ENCOUNTER LOCATION SOURCE NUMBER CLASS 02/24/2018/02/24/19 [id number] Ambulatory [address] [place] Repository 02/16/2018/02/17/19 [id number] Ambulatory [address] [place] Repository 01/20/2018/01/21/20 [id number] Ambulatory [address] [place] Repository 01/20/2018/01/21/20 [id number] Ambulatory [address] Repository 01/20/2018/01/22/20 [id number] Ambulatory [address] Repository 01/18/[id number] [facility] ing:HPRAD Repository 01/18/2018/01/19/20 [id number] Ambulatory BMSBuilding:B [place] 18 [facility] Repository 01/13/2018/01/14/20 [id number] Ambulatory [address] Repository 01/07/2018/01/11/20 [id number] Ambulatory [address] Repository 12/23/2017/12/25/19 [id number] Ambulatory [address] Repository 12/10/2017/12/11/19 [id number] Ambulatory [address] Repository 12/10/2017/12/14/19 [id number] Ambulatory [address] Repository 12/06/[id number] [facility] ing:HPRAD Repository 12/06/2017/12/07/19 [id number] Ambulatory BMSBuilding:B [place] [address] [facility] Repository 11/13/2017/11/17/19 [id number] Demond Avila Inpatient [facility] 18 [facility] ing:NM7Eciw: Repository ID695Xdz: 1 11/13/2017 [id number] Demond Avila Ambulatory BMSBuilding:B [place] Repository 11/13/2017 [id number] Demond Avila Ambulatory BMSBuilding:B [place] [facility] Repository 11/13/2017 [id number] Demond Avila Ambulatory BMSBuilding:B [place] [facility] Repository 11/13/2017 [id number] Demond Avila Ambulatory BMSBuilding:B [place] [facility] Repository 11/13/2017/11/17/19 [id number] Ambulatory BMSBuilding:B [place] 18 MS.[facility] Repository 11/10/2017/11/11/19 [id number] Emergency [address] ing:ED Repository 10/19/[id number] [facility] ing:WC Repository 10/08/2017/10/09/19 [id number] Ambulatory [address] Repository 09/23/2017/10/09/19 [id number] Ambulatory [address] ing:WC Repository 09/16/2017/09/21/19 [id number] Ambulatory [address] Repository 08/27/2017/08/28/19 [id number] Ambulatory [address] Repository 08/18/2017/08/19/19 [id number] Ambulatory [address] Repository 08/17/2017/08/19/19 [id number] Ambulatory [address] Repository 08/13/2017/08/15/19 [id number] Ambulatory BMSBuilding:W [place] 18 [facility] Repository 08/12/2017/08/15/19 [id number] [place], [place] 18 [facility] ing:HV5Zbmx: Repository ED130Qss: 1 PAYERS PAYERS ENCOUNTER GUARANTOR PAYER SUBSCRIBER SOURCE 01/18/2018 WINSOME Cummings Primary WINSOME Osorio [id number] [place] Insurance:HUMANA LEIGHAANDOB[place] PPOPolicy [id number] Hospital [address]Iqr: ([phone]) Number: Repository [phone] () [id number] Date:3996-14-71WG [address] [address]BZ: 01/18/2018 Secondary NOT GIVENUNK [place] Insurance:SELF PAY [facility] Number: Effective Repository Date:2018-01-18 01/18/2018 WINSOME A Primary WINSOME A [place] [id number] [place] Insurance:HUMANA HICKMANDOB: [place] PPOPolicy [id number] Hospital [address]Wjd: ([phone]) Number: Repository [phone] () [id number] Date:3975-96-33CU [address] [address]VJ: 01/18/2018 Secondary NOT GIVENUNK [place] Insurance:SELF PAY [facility] Number: Effective Repository Date:2018-01-17 12/06/2017 WINSOME A Primary WINSOME A [place] [id number] [place] Insurance:HUMANA HICKMANDOB: [place] PPOPolicy [id number] Hospital [address]Las: ([phone]) Number: Repository [phone] () [id number] Date:3185-48-36GW [address] [address]LI: 12/06/2017 Secondary NOT GIVENUNK [place] Insurance:SELF PAY [facility] Number: Effective Repository Date:2017-12-06 12/06/2017 WINSOME A Primary WINSOME A [place] [id number] [place] Insurance:HUMANA HICKMANDOB: [place] PPOP[place]icy [id number] Hospital [address]Zit: ([phone]) Number: Repository [phone] () [id number] Date:3899-38-15YX [address] [address]YW: 12/06/2017 Secondary NOT GIVENUNK [place] Insurance:SELF PAY [facility] Number: Effective Repository Date:2017-12-06 11/13/2017 WINSOME A Primary WINSOME A [place] [id number] [place] Insurance:HUMANA HICKMANDOB: [place] PPOP[place]icy [id number] Hospital [address]Mab: ([phone]) Number: Repository [phone] () [id number] Date:3192-35-07GC [place] [address]WP: 11/13/2017 Secondary NOT GIVENUNK [place] Insurance:SELF PAY [facility] Number: Effective Repository Date:2017-11-13 11/13/2017 WINSOME A Primary WINSOME A [place] [id number] [place] Insurance:HUMANA HICKMANDOB: [place] PPOP[place]icy [id number] Hospital [address]Fsp: (330) Number: Repository [phone] () [id number] Date:1067-34-54OP [place] [address]WP: 11/13/2017 Secondary NOT GIVENUNK [place] Insurance:SELF PAY [facility] Number: Effective Repository Date:2017-11-13 11/13/2017 WINSOME A Primary WINSOME A [place] [id number] [place] Insurance:HUMANA HICKMANDOB: [place] PPOPolicy [id number] Hospital [address]Cgl: (330) Number: Repository [phone] () [id number] Date:5576-19-51ZJ [address]46[address]WP: 11/13/2017 Secondary NOT GIVENUNK [place] Insurance:SELF PAY [facility] Number: Effective Repository Date:2017-11-13 11/13/2017 WINSOME A Primary WINSOME A [place] [id number] [place] Insurance:HUMANA HICKMANDOB: [place] PPOPolicy [id number] Hospital [address]Ftn: ([phone]) Number: Repository [phone] () [id number] Date:7132-04-20FJ [address] [address]CD: 11/13/2017 Secondary NOT GIVENUNK [place] Insurance:SELF PAY [facility] Number: Effective Repository Date:2017-11-13 11/13/2017 WINSOME A Primary WINSOME A [place] [id number] [place] Insurance:HUMANA HICKMANDOB: [place] PPOP[place]icy [id number] [facility] [address]Ari: (330) Number: Repository [phone] () [id number] Date:7401-24-68IO [address] [address]NA: 11/13/2017 Secondary NOT GIVENUNK [place] Insurance:SELF PAY [facility] Number: Effective Repository Date:2017-11-13 11/13/2017 WINSOME A Primary WINSOME A [place] [id number] [place] Insurance:HUMANA HICKMANDOB: [place] PPOPolicy [id number] [facility] [address]Zqd: ([phone]) Number: Repository [phone] () [id number] Date:3500-33-19PC [address] [address]RK: 11/13/2017 Secondary NOT GIVENUNK [place] Insurance:SELF PAY [facility] Number: Effective Repository Date:2017-11-13 11/10/2017 WINSOME A Primary WINSOME A [place] [id number] [place] Insurance:HUMANA HICKMANDOB: [place] PPOPolicy [id number] Hospital [address]Sbh: (330) Number: Repository [phone] () [id number] Date:0146-22-74ZA [address] [address]OB: 11/10/2017 Secondary NOT GIVENUNK [place] Insurance:SELF PAY [facility] Number: Effective Repository Date:2017-11-10 10/19/2017 WINSOME A Primary WINSOME A [place] [id number] Insurance:HUMANA HICKMANDOB: [facility] [id number] Number: Repository [phone]: [phone] [id number] [phone] (HP) Date:9012-28-42UR[address]WP: 10/19/2017 Secondary NOT GIVENUNK [place] Insurance:SELF PAY [facility] Number: Effective Repository Date:2017-10-09 09/23/2017 WINSOME A Primary WINSOME A [place] [id number] Insurance:HUMANA HICKMANDOB: Community [place] MEDICARE PPOPolicy [id number], [place] Number: Repository [phone]: [phone] [id number] [phone] () Date:6442-63-61CE [address]46[address]WP: 09/23/2017 Secondary NOT GIVENUNK [place] Insurance:SELF PAY [facility] Number: Effective Repository Date:2017-09-16 08/13/2017 WINSOME A Primary WINSOME A [place] [id number] Insurance:HUMANA HICKMANDOB: Community [place] MEDICARE PPOPolicy [id number], [place] Number: Repository [phone]: (429) [id number] (HP) Date:6605-45-54[place] [address]WP: 08/13/2017 Secondary NOT GIVENUNK [place] Insurance:SELF PAY [facility] Number: Effective Repository Date:2017-08-13 08/12/2017 WINSOME A Primary WINSOME A [place] [id number] [place] Insurance:HUMANA HICKMANDOB: [place] PPOPolic [id number] Hospital [address]Rci: (330) Number: Repository [phone] (HP) [id number] Date:9593-49-64[address]JZUW, [place] [address]ST: 08/12/2017 Secondary NOT GIVENUNK [place] Insurance:SELF PAY [facility]: Effective Repository Date:2017-08-12
== END ==
PROVIDERS: Referring Provider Orthopaedic Surgery; Visit Provider Orthopaedic Surgery
DX: S72.002A Fracture of unspecified part of neck of left femur, initial encounter for closed fracture (principal)
CPT/HCPCS: 73502